=== PATIENT | male | born 1950 ===

== ENCOUNTER 2016-08-25 11:26 | Observation (INO) | payer SELFPAY ==
[2016-08-25 12:32] LABS: BASO % 0.6 % (0.0-2.0); EOS % 0.7 % (0.0-4.0); HEMATOCRIT 41.5 % (35.0-51.0); LYMPH # 1.2 K/uL (1.0-4.3); LYMPH % 21.5 % (20.0-40.0); MEAN CELL VOLUME 102.6 fL (80.0-94.0); MEAN CORPUSCULAR HEMOGLOBIN 34.4 pg (27.0-31.0); MEAN CORPUSCULAR HGB CONC 33.5 g/dL (33.0-37.0); MEAN PLATELET VOLUME 6.9 fL (7.2-11.7); MONO # 0.7 K/uL (0.0-0.8); MONO % 12.1 % (0.0-10.0); NRBC % 0.1 % (0.0-2.0); WHITE BLOOD COUNT 5.6 K/uL (4.8-10.8)
[2016-08-25 12:40] LABS: INR 1.2
[2016-08-25 12:44] LABS: CHLORIDE 102 mmol/L (98-107); POTASSIUM 4.3 mmol/L (3.6-5.2); SODIUM 137 mmol/L (132-148)
[2016-08-25 12:47] LABS: ALB/GLOB RATIO 0.6 (1.0-2.1); BILIRUBIN,TOTAL 1.5 mg/dL (0.2-1.3); BLOOD UREA NITROGEN 16 mg/dL (9-20); CARBON DIOXIDE 27 mmol/L (22-30); GFR AFRICAN-AMERICAN > 60; GLUCOSE,RANDOM 106 mg/dL (75-110); TOTAL PROTEIN 7.9 g/dL (6.3-8.3)
[2016-08-25 12:48] LABS: ALKALINE PHOSPHATASE 119 U/L (38-126); ALT/SGPT 66 U/L (21-72); AST/SGOT 79 U/L (17-59); CALCIUM 8.4 mg/dl (8.6-10.4)
--- NOTE | 2016-08-25 12:58 | RAD ---
PROCEDURE: CHEST RADIOGRAPH, 1 VIEW HISTORY: SOB COMPARISON: None available. FINDINGS: LUNGS: Examination limited due to low lung volumes. No pulmonary infiltrate. PLEURA: No pneumothorax or pleural fluid seen. CARDIOVASCULAR: Normal. OSSEOUS STRUCTURES: No significant abnormalities. VISUALIZED UPPER ABDOMEN: Normal. OTHER FINDINGS: None. IMPRESSION: No active disease.
--- NOTE | 2016-08-25 14:05 | C.PDOC ---
History Of Present Illness 65-year-old male, is sent to the emergency department from [facility], for evaluation of abdominal distention and shortness of breath. Patient has a Hx of liver cirrhosis, and states his ascites is painful. Patient denies fever, palpitations, chest pain, nausea/vomiting or diarrhea. No other complaints at this time. Time Seen by Provider: 08/25/16 11:58 Chief Complaint (Nursing): GI Problem History Per: Patient History/Exam Limitations: no limitations Onset/Duration Of Symptoms: Days Current Symptoms Are (Timing): Still Present Severity: Moderate Past Medical History Reviewed: Historical Data, Nursing Documentation, Vital Signs Vital Signs: Last Vital Signs Temp 98.4 F 08/25/16 15:48 Pulse 111 H 08/25/16 15:48 Resp 20 08/25/16 15:48 BP 126/91 H 08/25/16 15:48 Pulse Ox 92 L 08/25/16 16:06 - Medical History PMH: Denies: Chronic Kidney Disease - [facility] Procedures DRAINAGE OF PERITONEAL CAVITY, PERCUTANEOUS APPROACH (05/19/16) INSPECTION OF ABDOMINAL WALL, PERCUTANEOUS APPROACH (05/19/16) INTRODUCTION OF NUTRITIONAL INTO PERIPH VEIN, PERC APPROACH (05/19/16) Family History: States: No Known Family Hx - Social History Hx Alcohol Use: Yes Hx Substance Use: No - Immunization History Hx Tetanus Toxoid Vaccination: No Hx Influenza Vaccination: No Hx Pneumococcal Vaccination: No Review Of Systems Except As Marked, All Systems Reviewed And Found Negative. Constitutional: Negative for: Fever, Chills Cardiovascular: Negative for: Chest Pain, Palpitations Respiratory: Positive for: Shortness of Breath Gastrointestinal: Positive for: Abdominal Pain. Negative for: Nausea, Vomiting , Diarrhea Musculoskeletal: Negative for: Back Pain Physical Exam - Physical Exam Appears: Non-toxic, No Acute Distress, Chronically Ill Skin: Warm, Dry, No Rash Head: Atraumatic, Normacephalic Eye(s): bilateral: Normal Inspection Nose: Normal Neck: Normal ROM Cardiovascular: Rhythm Regular, No Murmur Respiratory: Normal Breath Sounds, No Accessory Muscle Use, No Rales, No Rhonchi Gastrointestinal/Abdominal: Tenderness (diffuse), Ascites Extremity: Normal ROM Neurological/Psych: Oriented x3, Normal Speech ED Course And Treatment - Laboratory Results Result Diagrams: 08/25/16 12:29 08/25/16 12:29 O2 Sat by Pulse Oximetry: 92 - Radiology CXR: Interpreted by Me, Viewed By Me CXR Interpretation: Yes: No Acute Disease Progress Note: Blood work and CXR ordered and reviewed. patient treated with IV Lasix. 2:00pm-Case discussed w/ Dr Taylor Ohara, agrees with admission under his service. Disposition - Disposition Disposition: HOSPITALIZED - Scribe Statement The provider has reviewed the documentation as recorded by the Scribe Tania Clarke All medical record entries made by the Scribe were at my direction and personally dictated by me. I have reviewed the chart and agree that the record accurately reflects my personal performance of the history, physical exam, medical decision making, and the department course for this patient. I have also personally directed, reviewed, and agree with the discharge instructions and disposition.
--- NOTE | 2016-08-25 16:34 | CP.PCM.HP ---
Past Patient History - Infectious Disease Hx of Infectious Diseases: None - Past Medical History & Family History Past Medical History?: Yes - Past Social History Smoking Status: Light Smoker < 10 Cigarettes Daily - CARDIAC Hx Cardiac Disorders: No - PULMONARY Hx Respiratory Disorders: No - NEUROLOGICAL Hx Neurological Disorder: No - HEENT Hx HEENT Problems: No - RENAL Hx Chronic Kidney Disease: No - ENDOCRINE/METABOLIC Hx Diabetes Mellitus Type 2: Yes - HEMATOLOGICAL/ONCOLOGICAL Hx Blood Disorders: Yes Hx Cirrhosis: Yes - INTEGUMENTARY Hx Dermatological Problems: No - MUSCULOSKELETAL/RHEUMATOLOGICAL Hx Falls: Yes - GASTROINTESTINAL Hx Gastrointestinal Disorders: Yes Hx Gastroesophageal Reflux: Yes Hx Liver Failure: Yes - GENITOURINARY/GYNECOLOGICAL Hx Genitourinary Disorders: No - PSYCHIATRIC Hx Substance Use: No - SURGICAL HISTORY Hx Surgeries: No - ANESTHESIA Hx Anesthesia: No Hx Anesthesia Reactions: No Meds Allergies/Adverse Reactions: Allergies Allergy/AdvReac Type Severity Reaction Status Date / Time No Known Allergies Allergy Verified 08/25/16 11:40 Physical Exam - Constitutional Appears: Well - Head Exam Head Exam: ATRAUMATIC, NORMAL INSPECTION, NORMOCEPHALIC - Eye Exam Eye Exam: EOMI, Normal appearance, PERRL Pupil Exam: NORMAL ACCOMODATION, PERRL - ENT Exam ENT Exam: Mucous Membranes Moist, Normal Exam - Neck Exam Neck exam: Positive for: Normal Inspection - Respiratory Exam Respiratory Exam: Decreased Breath Sounds - Cardiovascular Exam Cardiovascular Exam: REGULAR RHYTHM, +S1, +S2 - GI/Abdominal Exam GI & Abdominal Exam: Diminished Bowel Sounds, Soft - Rectal Exam Rectal Exam: Deferred Results - Vital Signs Recent Vital Signs: Last Vital Signs Temp 98.4 F 08/25/16 15:48 Pulse 111 H 08/25/16 15:48 Resp 20 08/25/16 15:48 BP 126/91 H 08/25/16 15:48 Pulse Ox 92 L 08/25/16 16:07 - Labs Result Diagrams: 08/25/16 12:29 08/25/16 12:29
--- NOTE | 2016-08-25 18:04 | US ---
HISTORY: ascites COMPARISON: None available. TECHNIQUE: Sonographic evaluation of the abdomen. FINDINGS: LIVER: Measures 16.2 cm in sagittal dimension. Nodular hepatic contour. Echogenic liver may be seen in setting of hepatic parenchymal disease or fatty infiltration. No focal hepatic mass identified. The main portal vein appears patent with normal directional flow. No intrahepatic bile duct dilatation. Partially imaged moderate ascites. GALLBLADDER: No gallstones. No gallbladder wall thickening. Negative sonographic Winters's sign as assessed by the commodity director. COMMON BILE DUCT: Measures 4 mm. PANCREAS: Not well visualized. RIGHT KIDNEY: Measures 13.2 x 4.5 x 4.9cm. No obstructing calculus or hydronephrosis identified. LEFT KIDNEY: Measures 10.7 x 6.5 x 5.0cm. Mild hydronephrosis. No obstructing calculus identified. SPLEEN: Measures approximately 10.7 cm. AORTA: Not well-visualized. IVC: Not well-visualized. OTHER FINDINGS: None. IMPRESSION: Echogenic liver may be seen in setting of hepatic parenchymal disease or fatty infiltration. Nodular hepatic contour may be seen in the setting of cirrhosis. Partially imaged moderate ascites. Gallbladder wall thickening. Mild left-sided hydronephrosis.
--- NOTE | 2016-08-25 18:09 | US ---
Pelvis ultrasound Indication: Ascites Comparison: None available. Findings: Limited submitted views of the pelvis demonstrates moderate ascites. Urinary bladder is decompressed and cannot be adequately assessed. Impression: Moderate ascites.
[2016-08-25] MEDS ORDERED: Albuterol-Ipratrop 3 mg / 0.5 (3 ml) UD IH PRN (21:00)
[2016-08-25] MEDS: (Novolin R) Insulin Human Regular 100 units/ml vial SC SCH (22:30)
[2016-08-25] MEDS: Bacitracin 500 Units/gm Oint Foilpak UD TOP SCH (23:04)
[2016-08-25] MEDS: Cefepime IV 1 gm in Dextrose 1 GM/50 ML BAG IVPB SCH (23:05)
[2016-08-26] MEDS: Bacitracin 500 Units/gm Oint Foilpak UD TOP SCH ×2 (05:00→13:48)
[2016-08-26] MEDS: (Novolin R) Insulin Human Regular 100 units/ml vial SC SCH ×3 (07:30→17:28)
--- NOTE | 2016-08-26 08:13 | CP.PCM.CON ---
<Jeremiah Leal - Last Filed: 08/26/16 09:18> History of Present Illness - History of Present Illness History of Present Illness: PGY4 GI Fellow Consult Note Patient is a 65yo male with PMHx significant for EtOH abuse, decompensated cirrhosis with ascites and diabetes who presented to the ED from [facility] for abdominal distention and SOB. The patient was last seen in our hospital in May/June 2016 for alcohol abuse, complications of cirrhosis with ascites and was discharged to rehab. He is a very poor historian. States that over the past month he has gradually developed worsening abdominal distention and SOB. In the past week, abdomen has become very tense, distended and diffusely painful. He has required paracentesis previously, does not have a history of SBP and was only on Lasix 40mg PO QD at [facility] per EMR. He is unsure if he has been eating a low salt diet. Separately, he admits to pruritus, intermittent melena. Having 4- 5 BM/day. Denies any nausea, vomiting, hematemesis, fever, chills. PMHx: See HPI PSHx: Denies FHx: Mother - CAD Social: Prior EtOH abuse, last drink in May 2016; denies tobacco or illicit drug use Endo: None per patient Review of Systems - Constitutional Constitutional: Weight Gain. absent: Anorexia, Chills, Fever - EENT Eyes: absent: Change in Vision Nose/Mouth/Throat: absent: Sore Throat - Cardiovascular Cardiovascular: Dyspnea. absent: Chest Pain, Edema - Respiratory Respiratory: Dyspnea, Dyspnea on Exertion. absent: Cough, Excessive Mucous Production - Gastrointestinal Gastrointestinal: Abdominal Pain, Bloating, Loose Stools, Melena. absent: Constipation, Diarrhea, Dyspepsia, Dysphagia, Heartburn, Hematemesis, Hematochezia, Nausea, Vomiting - Genitourinary Genitourinary: absent: Dysuria, Urinary Frequency, Urinary Urgency - Musculoskeletal Musculoskeletal: absent: Back Pain, Neck Pain - Integumentary Integumentary: Pruritus. absent: New Lesions, Rash - Neurological Neurological: absent: Dizziness, Numbness, Focal Weakness - Psychiatric Psychiatric: absent: Anxiety, Depression - Endocrine Endocrine: absent: Polydipsia, Polyphagia, Polyuria - Hematologic/Lymphatic Hematologic: absent: Easy Bleeding, Easy Bruising, Lymphadenopathy Past Patient History - Infectious Disease Hx of Infectious Diseases: None - Past Medical History & Family History Past Medical History?: Yes - Past Social History Smoking Status: Unknown If Ever Smoked - CARDIAC Hx Cardiac Disorders: No - PULMONARY Hx Respiratory Disorders: No - NEUROLOGICAL Hx Neurological Disorder: No - HEENT Hx HEENT Problems: No - RENAL Hx Chronic Kidney Disease: No - ENDOCRINE/METABOLIC Hx Diabetes Mellitus Type 2: Yes - HEMATOLOGICAL/ONCOLOGICAL Hx Blood Disorders: Yes Hx Cirrhosis: Yes - INTEGUMENTARY Hx Dermatological Problems: No - MUSCULOSKELETAL/RHEUMATOLOGICAL Hx Falls: Yes - GASTROINTESTINAL Hx Gastrointestinal Disorders: Yes Hx Gastroesophageal Reflux: Yes Hx Liver Failure: Yes - GENITOURINARY/GYNECOLOGICAL Hx Genitourinary Disorders: No - PSYCHIATRIC Hx Substance Use: No - SURGICAL HISTORY Hx Surgeries: No - ANESTHESIA Hx Anesthesia: No Hx Anesthesia Reactions: No Meds Allergies/Adverse Reactions: Allergies Allergy/AdvReac Type Severity Reaction Status Date / Time No Known Allergies Allergy Verified 08/25/16 11:40 - Medications Medications: Current Medications Albuterol/Ipratropium (Duoneb 3 Mg/0.5 Mg (3 Ml) Ud) 3 ml IH RQ6 PRN PRN Reason: Shortness of Breath Bacitracin (Bacitracin) 1 ea TOP Q8H [facility] Last Admin: 08/26/16 05:00 Dose: 1 ea Folic Acid (Folic Acid) 1 mg PO DAILY [facility] Furosemide (Lasix) 40 mg PO DAILY [facility] Cefepime HCl (Maxipime Iv 1 Gm Premix) 1 gm in 50 mls @ 100 mls/hr IVPB Q12H [facility] Last Admin: 08/25/16 23:05 Dose: 100 mls/hr Insulin Human Regular (Novolin R) 0 unit SC ACHS [facility] PRN Reason: Protocol Last Admin: 08/25/16 22:30 Dose: Not Given Lactulose (Enulose) 20 gm PO DAILY [facility] Levetiracetam (Keppra) 500 mg PO Q12H [facility] Last Admin: 08/25/16 23:04 Dose: 500 mg Mupirocin (Bactroban Ointment) 0 gm EXT BID [facility] Rifaximin (Xifaxan) 550 mg PO BID [facility] Last Admin: 08/25/16 23:05 Dose: 550 mg Saccharomyces Boulardii (Florastor) 250 mg PO BID [facility] Spironolactone (Aldactone) 100 mg PO DAILY [facility] Physical Exam - Constitutional Appears: Chronically Ill - Eye Exam Eye Exam: EOMI, PERRL - ENT Exam ENT Exam: Mucous Membranes Dry - Respiratory Exam Respiratory Exam: Decreased Breath Sounds, Rales. absent: Rhonchi, Wheezes - Cardiovascular Exam Cardiovascular Exam: RRR, +S1, +S2 - GI/Abdominal Exam GI & Abdominal Exam: Distended, Firm, Hernia (umbilical), Normal Bowel Sounds, Rigid, Tenderness. absent: Guarding, Organomegaly, Soft - Extremities Exam Extremities exam: Positive for: normal inspection. Negative for: pedal edema - Neurological Exam Neurological exam: Alert, Oriented x3 - Psychiatric Exam Psychiatric exam: Normal Affect, Normal Mood - Skin Skin Exam: Dry, Warm Results - Vital Signs Recent Vital Signs: Last Vital Signs Temp 98 F 08/25/16 23:58 Pulse 105 H 08/26/16 01:00 Resp 16 08/25/16 23:58 BP 122/70 08/25/16 23:58 Pulse Ox 98 08/25/16 23:58 - Labs Result Diagrams: 08/26/16 08:20 08/26/16 08:20 Labs: Laboratory Results - last 24 hr 08/25/16 08/26/16 21:12 06:49 POC Glucose (mg/dL) 151 H 96 Assessment & Plan - Assessment and Plan (Free Text) Assessment: Patient is a 65yo male with PMHx significant for EtOH abuse, decompensated cirrhosis with ascites and diabetes who presented to the ED from [facility] for abdominal distention and SOB. -Decompensated EtOH cirrhosis -Abdominal ascites -DM Plan: -Abdominal U/S reviewed, moderate ascites -Recommend paracentesis - please send ascitic fluid for cell count, C&S, albumin -Continue Lasix 40mg PO QD -Add Spironolactone 100mg PO QD -Continue lactulose as ordered; titrate to 2-3 BM/day -2g Na diet -D/C PPI/H2 arlette as this increases risk of SBP in patients with ascites -D/C any sedating agents; Benadryl discontinued -Hepatitis serologies negative in 04/2016 -Check autoimmune work up: NIK, AMA, SMA, LKM-Ab, IgG level -Patient needs variceal screening with EGD and screening colonoscopy -Patient would benefit from dedicated liver imaging -Patient will require close outpatient follow up -MELD-Na: 12 - Date & Time Date: 08/26/16 Time: 07:30 <Gamaliel Frankel Y - Last Filed: 08/26/16 09:50> Meds - Medications Medications: Current Medications Albuterol/Ipratropium (Duoneb 3 Mg/0.5 Mg (3 Ml) Ud) 3 ml IH RQ6 PRN PRN Reason: Shortness of Breath Bacitracin (Bacitracin) 1 ea TOP Q8H [facility] Last Admin: 08/26/16 05:00 Dose: 1 ea Folic Acid (Folic Acid) 1 mg PO DAILY [facility] Furosemide (Lasix) 40 mg PO DAILY [facility] Cefepime HCl (Maxipime Iv 1 Gm Premix) 1 gm in 50 mls @ 100 mls/hr IVPB Q12H [facility] Last Admin: 08/25/16 23:05 Dose: 100 mls/hr Insulin Human Regular (Novolin R) 0 unit SC ACHS [facility] PRN Reason: Protocol Last Admin: 08/26/16 07:30 Dose: Not Given Lactulose (Enulose) 20 gm PO DAILY [facility] Levetiracetam (Keppra) 500 mg PO Q12H [facility] Last Admin: 08/25/16 23:04 Dose: 500 mg Mupirocin (Bactroban Ointment) 0 gm EXT BID [facility] Rifaximin (Xifaxan) 550 mg PO BID [facility] Last Admin: 08/25/16 23:05 Dose: 550 mg Saccharomyces Boulardii (Florastor) 250 mg PO BID [facility] Spironolactone (Aldactone) 100 mg PO DAILY [facility] Results - Vital Signs Recent Vital Signs: Last Vital Signs Temp 97.4 F L 08/26/16 08:17 Pulse 98 H 08/26/16 08:17 Resp 20 08/26/16 08:17 BP 121/87 08/26/16 08:17 Pulse Ox 96 08/26/16 08:17 - Labs Result Diagrams: 08/26/16 08:20 08/26/16 08:20 Labs: Laboratory Results - last 24 hr 08/25/16 08/26/16 08/26/16 21:12 06:49 08:20 WBC 7.0 RBC 3.89 L Hgb 13.6 Hct 39.6 MCV 102.1 H MCH 35.0 H MCHC 34.3 RDW 16.0 H Plt Count 171 MPV 6.9 L Sodium Potassium Chloride Carbon Dioxide Anion Gap BUN Creatinine Est GFR ( Amer) Est GFR (Non-Af Amer) POC Glucose (mg/dL) 151 H 96 Random Glucose Calcium Total Bilirubin AST ALT Alkaline Phosphatase Ammonia Total Protein Albumin Globulin Albumin/Globulin Ratio 08/26/16 08/26/16 08:20 08:20 WBC RBC Hgb Hct MCV MCH MCHC RDW Plt Count MPV Sodium 136 Potassium 3.9 Chloride 100 Carbon Dioxide 27 Anion Gap 13 BUN 17 Creatinine 0.9 Est GFR ( Amer) > 60 Est GFR (Non-Af Amer) > 60 POC Glucose (mg/dL) Random Glucose 87 Calcium 8.4 L Total Bilirubin 1.4 H AST 66 H ALT 62 Alkaline Phosphatase 122 Ammonia 20 D Total Protein 7.7 Albumin 2.8 L Globulin 5.0 H Albumin/Globulin Ratio 0.6 L Attending/Attestation - Attestation I have personally seen and examined this patient.: Yes I have fully participated in the care of the patient.: Yes I have reviewed all pertinent clinical information: Yes Notes (Text): 08/26/16 09:43 I have seen and examined patient with GI fellow. Agree with above documentation with the following additions. In brief, this is a 65 year old male with history of decompensated ETOH cirrhosis, DM who presents to hospital with complaint of progressive dyspnea and abdominal distention. He claims that over the past one month his abdomen has become increasingly distended and painful, particularly on movement. This is accompanied with extreme dyspnea with even minimal exertion. He denies nausea, vomiting, fever/chills, weight loss, or rectal bleeding. He does endorse intermittent melena over the past few weeks, typically has up to 4 bowel movements daily. His last ETOH drink was in May 2016, no prior endoscopic evaluation. ETOH decompensated cirrhosis, admission MELD 12 DM Abdominal pain - US reviewed by me showing moderate ascites, no visible liver lesion - Suggest diagnostic and therapeutic paracentesis, patient will likely require subsequent albumin replacement therapy - Continue with diuretic regimen, monitor electrolytes - Low sodium diet as tolerated - Continue to monitor LFTs, awaiting autoimmune panel - Continue with lactulose and xifaxan regimen for prevention of HE - Patient will benefit from dedicated triple phase liver imaging after ensuring creatinine stable post paracentesis - Patient would also benefit from EGD for variceal screening and colonoscopy for colon cancer screening, timing to be determined following patient clinical course
[2016-08-26 08:26] LABS: HEMATOCRIT 39.6 % (35.0-51.0); MEAN CELL VOLUME 102.1 fL (80.0-94.0); MEAN CORPUSCULAR HGB CONC 34.3 g/dL (33.0-37.0); MEAN PLATELET VOLUME 6.9 fL (7.2-11.7)
[2016-08-26 09:10] LABS: CHLORIDE 100 mmol/L (98-107); SODIUM 136 mmol/L (132-148)
[2016-08-26 09:11] LABS: POTASSIUM 3.9 mmol/L (3.6-5.2)
[2016-08-26 09:13] LABS: ALB/GLOB RATIO 0.6 (1.0-2.1); ALKALINE PHOSPHATASE 122 U/L (38-126); ALT/SGPT 62 U/L (21-72); AST/SGOT 66 U/L (17-59); BILIRUBIN,TOTAL 1.4 mg/dL (0.2-1.3); BLOOD UREA NITROGEN 17 mg/dL (9-20); CALCIUM 8.4 mg/dl (8.6-10.4); CARBON DIOXIDE 27 mmol/L (22-30); GFR AFRICAN-AMERICAN > 60; GLUCOSE,RANDOM 87 mg/dL (75-110); TOTAL PROTEIN 7.7 g/dL (6.3-8.3)
[2016-08-26] MEDS ORDERED: Pantoprazole 40 mg EC Tab PO SCH (10:00)
[2016-08-26 10:11] LABS: BODY FLUID TYPE PERITONEAL/ASCITES
[2016-08-26] MEDS: Saccharomyces Boulardi 250 mg Cap PO SCH ×2 (10:33→17:15)
[2016-08-26] MEDS: Cefepime IV 1 gm in Dextrose 1 GM/50 ML BAG IVPB SCH (10:37)
[2016-08-26 11:14] LABS: BF GROSS APPEARANCE CLEAR (CLEAR)
[2016-08-26 11:16] LABS: BODY FLUID TOTAL COUNT 100 (0-0)
--- NOTE | 2016-08-26 13:46 | US ---
Date of Procedure: 08/26/2016 PROCEDURE: Ultrasound-guided paracentesis, CPT 28288 Medications: 8cc 1% Lidocaine HISTORY: Ascites, abdominal pain, cirrhosis TECHNIQUE: Following informed consent , the patient was placed supine on the stretcher and the site was marked. A limited abdominal ultrasound was performed that showed a large amount of intra-abdominal fluid. Procedural time out was called and the Pt's abdomen was marked and prepped and draped in the usual sterile fashion. Ultrasound-guided large volume paracentesis performed. A total of 10 liters of straw colored fluid was removed without complication. Fluid specimen was sent for culture, sensitivity, cytology and chemistries. IMPRESSION: Ultrasound-guided large volume paracentesis.
[2016-08-26] MEDS: Albumin Human 25% (12.5 gm/50 ml) IV SCH ×2 (15:16→17:15)
[2016-08-26 15:36] VITALS: O2SAT 97
--- NOTE | 2016-08-26 16:14 | CP.PCM.PN ---
Subjective - Date & Time of Evaluation Date of Evaluation: 08/26/16 Time of Evaluation: 10:20 - Subjective Subjective: clinically same Objective - Vital Signs/Intake and Output Vital Signs (last 24 hours): Temp Pulse Resp BP Pulse Ox 98.0 F 60 20 162/71 H 97 08/26/16 15:10 08/26/16 15:10 08/26/16 15:10 08/26/16 15:10 08/26/16 15:10 Intake and Output: 08/26/16 08/26/16 06:59 18:59 Intake Total 200 Balance 200 - Medications Medications: Current Medications Albumin Human (Albumin Human 25% (12.5 Gm/50 Ml)) 12.5 gm IV Q2H [facility] Stop: 08/26/16 22:31 Last Admin: 08/26/16 15:16 Dose: 12.5 gm Albuterol/Ipratropium (Duoneb 3 Mg/0.5 Mg (3 Ml) Ud) 3 ml IH RQ6 PRN PRN Reason: Shortness of Breath Bacitracin (Bacitracin) 1 ea TOP Q8H [facility] Last Admin: 08/26/16 13:48 Dose: 1 ea Folic Acid (Folic Acid) 1 mg PO DAILY [facility] Last Admin: 08/26/16 10:34 Dose: 1 mg Furosemide (Lasix) 40 mg PO DAILY [facility] Last Admin: 08/26/16 10:40 Dose: 40 mg Cefepime HCl (Maxipime Iv 1 Gm Premix) 1 gm in 50 mls @ 100 mls/hr IVPB Q12H [facility] Last Admin: 08/26/16 10:37 Dose: 100 mls/hr Insulin Human Regular (Novolin R) 0 unit SC ACHS [facility] PRN Reason: Protocol Last Admin: 08/26/16 11:24 Dose: Not Given Lactulose (Enulose) 20 gm PO DAILY [facility] Last Admin: 08/26/16 10:34 Dose: 20 gm Levetiracetam (Keppra) 500 mg PO Q12H [facility] Last Admin: 08/26/16 10:32 Dose: 500 mg Mupirocin (Bactroban Ointment) 0 gm EXT BID [facility] Last Admin: 08/26/16 10:33 Dose: 1 appl Rifaximin (Xifaxan) 550 mg PO BID [facility] Last Admin: 08/26/16 10:34 Dose: 550 mg Saccharomyces Boulardii (Florastor) 250 mg PO BID [facility] Last Admin: 08/26/16 10:33 Dose: 250 mg Spironolactone (Aldactone) 100 mg PO DAILY [facility] Last Admin: 08/26/16 10:33 Dose: 100 mg - Labs Labs: 08/26/16 08:20 08/26/16 08:20 PT 13.2 SECONDS (9.7-12.2) H 08/25/16 12:29 INR 1.2 08/25/16 12:29 APTT 38 SECONDS (21-34) H 08/25/16 12:29 - Constitutional Appears: Well - Head Exam Head Exam: ATRAUMATIC, NORMAL INSPECTION, NORMOCEPHALIC - Eye Exam Eye Exam: EOMI, Normal appearance, PERRL Pupil Exam: NORMAL ACCOMODATION, PERRL - ENT Exam ENT Exam: Mucous Membranes Moist, Normal Exam - Neck Exam Neck Exam: Full ROM, Normal Inspection. absent: Lymphadenopathy - Respiratory Exam Respiratory Exam: Decreased Breath Sounds - Cardiovascular Exam Cardiovascular Exam: REGULAR RHYTHM, +S1, +S2 - GI/Abdominal Exam GI & Abdominal Exam: Soft, Diminished Bowel Sounds - Rectal Exam Rectal Exam: Deferred
[2016-08-26 16:35] VITALS: BP 106/70; PULSE 95; RESP 18; TEMP 98.1
[2016-08-27 15:49] LABS: SMOOTH MUSCLE AB TITER 1:20 Titer (< 1:20)
[2016-08-28 23:18] LABS: LKM-1 Ab (IgG) <=20.0 U (<=20.0)
== END 2016-08-26 19:31 ==
LOC: C.ER 11:26 → INTOOBSV 13:25 → C.9E 13:25 → C.6T 13:54 → C.9E 14:06 → C.5T 14:14
PROVIDERS: ADMIT Internal Medicine Nephrology; ATTEND Internal Medicine Nephrology
DX: K70.31 Alcoholic cirrhosis of liver with ascites (principal); E11.9 Type 2 diabetes mellitus without complications; L29.9 Pruritus, unspecified; Z82.49 Family history of ischemic heart disease and other diseases of the circulatory system; Z79.4 Long term (current) use of insulin
CPT/HCPCS: 36415; 49083; 71010; 76700; 76856; 80053; 82042; 82140; 82550; 82553; 82784; 82948; 83880; 84484; 85025; 85027; 85610; 85730; 86038; 86255; 86376; 87070; 89051; 96374; 99285; G0378; J0692; J1940; P9047

== ENCOUNTER 2016-09-09 12:24 | Inpatient (IN) | payer MEDICARE, OTHER ==
[2016-09-09] MEDS ORDERED: Sodium Chloride 0.9% 1,000 ML ONE (13:45)
--- NOTE | 2016-09-09 13:58 | C.PDOC ---
History Of Present Illness 66 year old male presents to the ED with complaints of abdominal distention and fever. Patient notes a history of alcohol abuse, cirrhosis of the liver, diabetes and was brought from [facility]. He was admitted to Dr. Joe Ohara on August 25, 2016 with similar complaints and TAP performed by IR. Patient denies having a PMD, vomiting, or diarrhea. Time Seen by Provider: 09/09/16 13:06 Chief Complaint (Nursing): GI Problem History Per: Patient History/Exam Limitations: no limitations Onset/Duration Of Symptoms: Persistent Current Symptoms Are (Timing): Still Present Severity: Moderate Pain Scale Rating Of: 6 Location Of Pain/Discomfort: Diffuse Associated Symptoms: Fever. denies: Vomiting, Diarrhea Recent travel outside of the [place]: No Additional History Per: Assisted ([place] ) Past Medical History Reviewed: Historical Data, Nursing Documentation, Vital Signs Vital Signs: Last Vital Signs Temp 100.2 F H 09/09/16 15:06 Pulse 110 H 09/09/16 15:06 Resp 20 09/09/16 15:06 BP 123/81 09/09/16 15:06 Pulse Ox 91 L 09/09/16 15:23 - [facility] Procedures DRAINAGE OF PERITONEAL CAVITY, PERCUTANEOUS APPROACH (05/19/16) INSPECTION OF ABDOMINAL WALL, PERCUTANEOUS APPROACH (05/19/16) INTRODUCTION OF NUTRITIONAL INTO PERIPH VEIN, PERC APPROACH (05/19/16) Family History: States: Unknown Family Hx - Social History Hx Alcohol Use: Yes Hx Substance Use: No - Immunization History Hx Tetanus Toxoid Vaccination: No Hx Influenza Vaccination: No Hx Pneumococcal Vaccination: No Review Of Systems Constitutional: Positive for: Fever. Negative for: Chills, Sweats Cardiovascular: Negative for: Chest Pain, Palpitations Respiratory: Negative for: Cough, Shortness of Breath Gastrointestinal: Positive for: Abdominal Pain. Negative for: Nausea, Vomiting , Diarrhea Physical Exam - Physical Exam Appears: Chronically Ill Skin: Warm, Dry, No Pale, No Ecchymosis Head: Atraumatic Oral Mucosa: Dry Neck: No Midline Cervical Tenderness, No Paracervical Tenderness, Supple Chest: Symmetrical, No Deformity Cardiovascular: Rhythm Regular Respiratory: No Rales, No Rhonchi, No Stridor, No Wheezing, Other (bilateral crackles ) Gastrointestinal/Abdominal: Soft, Tenderness (diffuse tenderness), Distention ( very distended ), No Guarding, No Rebound Extremity: Normal ROM, No Tenderness, No Pedal Edema, No Swelling Neurological/Psych: Oriented x3 Additional Physical Exam Comments: Muscular: Muscle wasting ED Course And Treatment - Laboratory Results Result Diagrams: 09/09/16 14:06 09/09/16 14:06 ECG Rhythm: L BBB Interpretation Of EC bpm and left axis deviation O2 Sat by Pulse Oximetry: 91 (room air ) Disposition Discussed With : Zoë Ohara Counseled Patient/Family Regarding: Studies Performed, Diagnosis - Disposition Disposition: HOSPITALIZED Disposition Time: 14:18 Condition: CRITICAL - Clinical Impression Clinical Impression: Ascites, Sepsis - Scribe Statement The provider has reviewed the documentation as recorded by the Scribe Aylin Ledesma All medical record entries made by the Scribe were at my direction and personally dictated by me. I have reviewed the chart and agree that the record accurately reflects my personal performance of the history, physical exam, medical decision making, and the department course for this patient. I have also personally directed, reviewed, and agree with the discharge instructions and disposition. Decision To Admit - Pt Status Changed To: Hospital Disposition Of: Inpatient - Admit Certification Admit to Inpatient:: After my assessment, the patient will require hospitalization for at least two midnights. This is because of the severity of symptoms shown, intensity of services needed, and/or the medical risk in this patient being treated as an outpatient. - InPatient: Physician Admission Certification:: sepsis, unstable patient, complication with liver faillure - . Bed Request Type: Telemetry Patient Diagnosis: Ascites, Sepsis
[2016-09-09] MEDS ORDERED: Sodium Chloride 0.9% 1,000 ML IV ONE (14:06)
--- NOTE | 2016-09-09 14:08 | RAD ---
HISTORY: Sepsis Patient COMPARISON: 08/25/2016 FINDINGS: LUNGS: Elevated right hemidiaphragm. Mild venous congestion. PLEURA: No significant pleural effusion identified, no pneumothorax apparent. CARDIOVASCULAR: Cardiomegaly. OSSEOUS STRUCTURES: No significant abnormalities. VISUALIZED UPPER ABDOMEN: Normal. OTHER FINDINGS: None. IMPRESSION: Elevated right hemidiaphragm. Mild venous congestion. Cardiomegaly.
[2016-09-09 14:12] LABS: VENOUS BLOOD GAS BASE EXCESS 0.3 mmol/L (0.0-2.0); VENOUS BLOOD GAS PCO2 53 mmHg (40-60); VENOUS BLOOD PH 7.32 (7.32-7.43)
[2016-09-09 14:14] LABS: BASO # 0.1 K/uL (0.0-0.2); BASO % 0.8 % (0.0-2.0); HEMATOCRIT 42.6 % (35.0-51.0); LYMPH # 0.8 K/uL (1.0-4.3); LYMPH % 11.2 % (20.0-40.0); MEAN CORPUSCULAR HEMOGLOBIN 35.7 pg (27.0-31.0); MEAN CORPUSCULAR HGB CONC 34.1 g/dL (33.0-37.0); MEAN PLATELET VOLUME 6.9 fL (7.2-11.7); MONO # 0.7 K/uL (0.0-0.8); NRBC % 0.1 % (0.0-2.0); RED CELL DISTRIBUTION WIDTH 15.2 % (11.5-14.5); WHITE BLOOD COUNT 7.4 K/uL (4.8-10.8)
[2016-09-09 14:16] LABS: MEAN CELL VOLUME 104.7 fL (80.0-94.0)
[2016-09-09] MEDS ORDERED: Piperacillin/Tazobact 3.375 gm 100 ML IV STA (14:17)
[2016-09-09 14:21] LABS: CHLORIDE 98 mmol/L (98-107); POTASSIUM 4.5 mmol/L (3.6-5.2); SODIUM 131 mmol/L (132-148)
[2016-09-09 14:23] LABS: ALB/GLOB RATIO 0.6 (1.0-2.1); ALKALINE PHOSPHATASE 138 U/L (38-126); AST/SGOT 94 U/L (17-59); BILIRUBIN,TOTAL 1.6 mg/dL (0.2-1.3); CARBON DIOXIDE 24 mmol/L (22-30); GFR AFRICAN-AMERICAN > 60; TOTAL PROTEIN 7.7 g/dL (6.3-8.3)
[2016-09-09 14:24] LABS: ALT/SGPT 68 U/L (21-72); BLOOD UREA NITROGEN 17 mg/dL (9-20); CALCIUM 8.6 mg/dl (8.6-10.4); GLUCOSE,RANDOM 130 mg/dL (75-110); PHOSPHOROUS 5.1 mg/dL (2.5-4.5)
[2016-09-09] MEDS ORDERED: Piperacillin/Tazobact 3.375 gm 100 ML IVPB ONE (14:32)
[2016-09-09] MEDS ORDERED: Sodium Chloride 0.9% 500 ML IV ONE (14:38)
[2016-09-09 14:56] LABS: RBC URINE 29 /hpf (0-3); URINE BACTERIA MANY (<OCC); URINE BILIRUBIN NEGATIVE (NEGATIVE); URINE BLOOD 1+ (NEGATIVE); URINE GLUCOSE (UA) NORMAL (Normal); URINE KETONE NEGATIVE (NEGATIVE); URINE LEUKOCYTE ESTERASE 3+ Leu/uL (Negative); URINE PROTEIN 2+ mg/dL (NEGATIVE); WBC CLUMPS MANY /hpf; WBC URINE 2819 /hpf (0-5)
[2016-09-09] MEDS ORDERED: Vancomycin 1 GM 1 GM/250 ML BAG IVPB ONE (15:00)
[2016-09-09] MEDS ORDERED: Vancomycin 1 gm/NS 200 ml 1 GM/200 ML BAG IVPB ONE (15:00)
[2016-09-09 15:16] LABS: URINE COLOR YELLOW (YELLOW)
--- NOTE | 2016-09-09 16:28 | CP.PCM.HP ---
Past Patient History - Infectious Disease Hx of Infectious Diseases: None - Past Medical History & Family History Past Medical History?: Yes - Past Social History Smoking Status: Unknown If Ever Smoked - CARDIAC Hx Cardiac Disorders: No - PULMONARY Hx Respiratory Disorders: No - NEUROLOGICAL Hx Neurological Disorder: No - HEENT Hx HEENT Problems: No - RENAL Hx Chronic Kidney Disease: No - ENDOCRINE/METABOLIC Hx Diabetes Mellitus Type 2: Yes - HEMATOLOGICAL/ONCOLOGICAL Hx Blood Disorders: Yes Hx Cirrhosis: Yes - INTEGUMENTARY Hx Dermatological Problems: No - MUSCULOSKELETAL/RHEUMATOLOGICAL Hx Falls: Yes - GASTROINTESTINAL Hx Gastrointestinal Disorders: Yes Hx Gastroesophageal Reflux: Yes Hx Liver Failure: Yes - GENITOURINARY/GYNECOLOGICAL Hx Genitourinary Disorders: No - PSYCHIATRIC Hx Substance Use: No - SURGICAL HISTORY Hx Surgeries: No - ANESTHESIA Hx Anesthesia: No Hx Anesthesia Reactions: No Meds Allergies/Adverse Reactions: Allergies Allergy/AdvReac Type Severity Reaction Status Date / Time No Known Allergies Allergy Verified 09/09/16 12:58 Physical Exam - Constitutional Appears: Well - Head Exam Head Exam: ATRAUMATIC, NORMAL INSPECTION, NORMOCEPHALIC - Eye Exam Eye Exam: EOMI, Normal appearance, PERRL Pupil Exam: NORMAL ACCOMODATION, PERRL - ENT Exam ENT Exam: Mucous Membranes Moist, Normal Exam - Neck Exam Neck exam: Positive for: Normal Inspection - Respiratory Exam Respiratory Exam: Decreased Breath Sounds - Cardiovascular Exam Cardiovascular Exam: REGULAR RHYTHM, +S1, +S2 - GI/Abdominal Exam GI & Abdominal Exam: Diminished Bowel Sounds, Soft - Rectal Exam Rectal Exam: Deferred Results - Vital Signs Recent Vital Signs: Last Vital Signs Temp 101.7 F H 09/09/16 16:06 Pulse 120 H 09/09/16 15:49 Resp 20 09/09/16 15:49 BP 145/93 H 09/09/16 15:49 Pulse Ox 92 L 09/09/16 15:49 - Labs Result Diagrams: 09/09/16 14:06 09/09/16 14:06 Labs: Laboratory Results - last 24 hr 09/09/16 14:31 Urine Color Yellow Urine Clarity Turbid Urine pH 5.0 Ur Specific [place] 1.013 Urine Protein 2+ H Urine Glucose (UA) Normal Urine Ketones Negative Urine Blood 1+ H Urine Nitrate Negative Urine Bilirubin Negative Urine Urobilinogen 2.0 Ur Leukocyte Esterase 3+ H Urine WBC (Auto) 2819 H Urine RBC (Auto) 29 H Urine WBC Clumps (Auto) Many H Amorphous Sediment Occ H Urine Bacteria Many H
[2016-09-09 18:04] LABS: DRAW SITE VENOUS; VENOUS BLOOD GAS BASE EXCESS -3.1 mmol/L (0.0-2.0); VENOUS BLOOD GAS PCO2 50 mmHg (40-60); VENOUS BLOOD PH 7.29 (7.32-7.43)
[2016-09-09 18:22] LABS: VENOUS BLOOD GAS BASE EXCESS -3.4 mmol/L (0.0-2.0); VENOUS BLOOD GAS PCO2 49 mmHg (40-60); VENOUS BLOOD PH 7.29 (7.32-7.43)
[2016-09-09] MEDS ORDERED: Sodium Chloride 0.9% 1,000 ML IV SCH (21:00)
[2016-09-09] MEDS: (Novolog) Insulin Aspart, Recombinant 100 u/ml 10 ml vial SC SCH (22:26)
[2016-09-10] MEDS ORDERED: (Novolog) Insulin Aspart, Recombinant 100 u/ml 10 ml vial SC SCH
[2016-09-10] MEDS: Albuterol-Ipratrop 3 mg / 0.5 (3 ml) UD INH SCH ×4 (02:31→20:01)
[2016-09-10] MEDS: (Novolog) Insulin Aspart, Recombinant 100 u/ml 10 ml vial SC SCH ×4 (08:18→21:45)
--- NOTE | 2016-09-10 09:35 | CP.PCM.CON ---
<Jeremiah Leal - Last Filed: 09/10/16 12:49> History of Present Illness - History of Present Illness History of Present Illness: PGY4 GI Fellow Consult Note Patient is a 65yo male with PMHx significant for EtOH abuse, decompensated cirrhosis with ascites and diabetes who presented to the ED from [facility] for abdominal distention and SOB. Patient is a very poor historian and unable to provide a detailed HPI. He was recently admitted for identical complaints on August 26 and underwent paracentesis with 10L removed, no sign of SBP on cell count /culture. He returns with progressive distention of the abdomen over the span of a few weeks. He remains on low dose diuresis with Lasix 20mg PO QD and Spironolactone 25mg PO BID. Denies any nausea, vomiting, melena, hematochezia, hematemesis, fever, chills. PMHx: See HPI PSHx: Denies FHx: Mother - CAD Social: Prior EtOH abuse, last drink in May 2016; denies tobacco or illicit drug use Endo: None per patient Review of Systems - Constitutional Constitutional: absent: Anorexia, Chills, Fever - EENT Eyes: absent: Change in Vision Nose/Mouth/Throat: absent: Sore Throat - Cardiovascular Cardiovascular: Dyspnea. absent: Chest Pain, Edema - Respiratory Respiratory: Dyspnea. absent: Cough, Excessive Mucous Production - Gastrointestinal Gastrointestinal: Abdominal Pain, Bloating. absent: Cramping, Diarrhea, Dysphagia, Heartburn, Hematemesis, Hematochezia, Loose Stools, Melena, Nausea, Vomiting - Genitourinary Genitourinary: absent: Dysuria, Urinary Frequency, Urinary Urgency - Musculoskeletal Musculoskeletal: absent: Back Pain, Neck Pain - Integumentary Integumentary: absent: New Lesions, Rash - Neurological Neurological: absent: Dizziness, Numbness, Focal Weakness - Psychiatric Psychiatric: absent: Anxiety, Depression - Endocrine Endocrine: absent: Polydipsia, Polyphagia, Polyuria - Hematologic/Lymphatic Hematologic: absent: Easy Bleeding, Easy Bruising, Lymphadenopathy Past Patient History - Infectious Disease Hx of Infectious Diseases: None - Past Medical History & Family History Past Medical History?: Yes - Past Social History Smoking Status: Current Some Days Smoker - CARDIAC Hx Cardiac Disorders: No - PULMONARY Hx Respiratory Disorders: No - NEUROLOGICAL Hx Neurological Disorder: No - HEENT Hx HEENT Problems: No - RENAL Hx Chronic Kidney Disease: No - ENDOCRINE/METABOLIC Hx Diabetes Mellitus Type 2: Yes - HEMATOLOGICAL/ONCOLOGICAL Hx Blood Disorders: Yes Hx Cirrhosis: Yes - INTEGUMENTARY Hx Dermatological Problems: No - MUSCULOSKELETAL/RHEUMATOLOGICAL Hx Falls: Yes - GASTROINTESTINAL Hx Gastrointestinal Disorders: Yes Hx Gastroesophageal Reflux: Yes Hx Liver Failure: Yes - GENITOURINARY/GYNECOLOGICAL Hx Genitourinary Disorders: No - PSYCHIATRIC Hx Substance Use: No - SURGICAL HISTORY Hx Surgeries: No - ANESTHESIA Hx Anesthesia: No Hx Anesthesia Reactions: No Meds Allergies/Adverse Reactions: Allergies Allergy/AdvReac Type Severity Reaction Status Date / Time No Known Allergies Allergy Verified 09/09/16 12:58 - Medications Medications: Current Medications Acetaminophen (Tylenol 325mg Tab) 650 mg PO Q4 [facility] Last Admin: 09/10/16 04:36 Dose: Not Given Albuterol/Ipratropium (Duoneb 3 Mg/0.5 Mg (3 Ml) Ud) 3 ml INH RQ6 [facility] Last Admin: 09/10/16 07:34 Dose: 3 ml Sodium Chloride (Sodium Chloride 0.9%) 1,000 mls @ 75 mls/hr IV .[id number] [facility] Last Admin: 09/09/16 21:14 Dose: 75 mls/hr Insulin Aspart (Novolog) 0 unit SC ACHS [facility] PRN Reason: Protocol Last Admin: 09/10/16 08:18 Dose: Not Given Physical Exam - Constitutional Appears: No Acute Distress, Chronically Ill - Eye Exam Eye Exam: EOMI, PERRL - ENT Exam ENT Exam: Mucous Membranes Moist - Respiratory Exam Respiratory Exam: Decreased Breath Sounds. absent: Rales, Rhonchi, Wheezes - Cardiovascular Exam Cardiovascular Exam: RRR, +S1, +S2 - GI/Abdominal Exam GI & Abdominal Exam: Distended, Firm, Normal Bowel Sounds. absent: Guarding, Rigid, Soft, Tenderness - Extremities Exam Extremities exam: Negative for: pedal edema Additional comments: multiple ecchymoses notes on UE - Neurological Exam Neurological exam: Alert, Oriented x3 - Psychiatric Exam Psychiatric exam: Normal Affect, Normal Mood - Skin Skin Exam: Dry, Warm Additional comments: ecchymosis on upper extremities Results - Vital Signs Recent Vital Signs: Last Vital Signs Temp 97.4 F L 09/10/16 07:07 Pulse 89 09/10/16 07:34 Resp 18 09/10/16 07:07 BP 93/63 L 09/10/16 07:07 Pulse Ox 97 09/10/16 07:07 - Labs Result Diagrams: 09/09/16 14:06 09/09/16 14:06 Labs: Laboratory Results - last 24 hr 09/09/16 09/09/16 09/09/16 14:31 18:00 18:15 Puncture Site Venous pO2 25 L 26 L Ricky Test N/a VBG pH 7.29 L 7.29 L VBG pCO2 50 49 VBG HCO3 20.9 20.7 VBG Total CO2 25.1 VBG O2 Sat (Calc) 38.0 L 41.8 VBG Base Excess -3.1 L -3.4 L VBG Potassium 4.1 Sodium 134.0 Chloride 101.0 Glucose 98 Lactate 4.4 H* Crit Value Called To Dr carrera Crit Value Called By Tyree gamino label operator Crit Value Read Back Y Blood Gas Notified Time 1821 POC Glucose (mg/dL) Venous Blood Potassium 4.1 Urine Color Yellow Urine Clarity Turbid Urine pH 5.0 Ur Specific [place] 1.013 Urine Protein 2+ H Urine Glucose (UA) Normal Urine Ketones Negative Urine Blood 1+ H Urine Nitrate Negative Urine Bilirubin Negative Urine Urobilinogen 2.0 Ur Leukocyte Esterase 3+ H Urine WBC (Auto) 2819 H Urine RBC (Auto) 29 H Urine WBC Clumps (Auto) Many H Amorphous Sediment Occ H Urine Bacteria Many H 09/09/16 09/10/16 21:36 06:26 Puncture Site pO2 Ricky Test VBG pH VBG pCO2 VBG HCO3 VBG Total CO2 VBG O2 Sat (Calc) VBG Base Excess VBG Potassium Sodium Chloride Glucose Lactate Crit Value Called To Crit Value Called By Crit Value Read Back Blood Gas Notified Time POC Glucose (mg/dL) 140 H 109 Venous Blood Potassium Urine Color Urine Clarity Urine pH Ur Specific [place] Urine Protein Urine Glucose (UA) Urine Ketones Urine Blood Urine Nitrate Urine Bilirubin Urine Urobilinogen Ur Leukocyte Esterase Urine WBC (Auto) Urine RBC (Auto) Urine WBC Clumps (Auto) Amorphous Sediment Urine Bacteria Assessment & Plan - Assessment and Plan (Free Text) Assessment: Patient is a 65yo male with PMHx significant for EtOH abuse, decompensated cirrhosis with ascites and diabetes who presented to the ED from [facility] for abdominal distention and SOB. -Decompensated EtOH cirrhosis -Abdominal ascites -GNR UTI, bacteremia -DM Plan: -Recommend diagnostic/therapeutic paracentesis -Check cell count, culture, albumin from ascitic fluid if present -If more than 5L removed; replace albumin at 6-8g/L removed -Patient would benefit from increasing diuretic therapy to at least Lasix 40mg PO QD and Aldactone 100mg PO QD -He would benefit from dedicated Triple phase liver CT -Patient should get antibiotic therapy given UTI/bacteremia, start Ceftriaxone 1g IV QD -Lactulose 20g PO QD, titrate to 2-3 BM per day -2g Na diet -SMA+ and IgG level elevation noted previously; will need LFT monitoring periodically -Outpatient EGD/Colonoscopy *MELD-Na: Pending INR - will be higher than prior admission (12) - Date & Time Date: 09/10/16 Time: 07:20 <Sonu Ruelas - Last Filed: 09/10/16 14:54> Meds - Medications Medications: Current Medications Acetaminophen (Tylenol 325mg Tab) 650 mg PO Q4 [facility] Last Admin: 09/10/16 04:36 Dose: Not Given Albumin Human (Albumin Human 25% (12.5 Gm/50 Ml)) 12.5 gm IV Q6 [facility] Stop: 09/11/16 00:01 Albuterol/Ipratropium (Duoneb 3 Mg/0.5 Mg (3 Ml) Ud) 3 ml INH RQ6 [facility] Last Admin: 09/10/16 13:31 Dose: 3 ml Furosemide (Lasix) 40 mg PO DAILY [facility] Ceftriaxone Sodium (Rocephin Iv 1 Gm Duplex) 50 mls @ 100 mls/hr IVPB Q24H [facility] Insulin Aspart (Novolog) 0 unit SC ACHS [facility] PRN Reason: Protocol Last Admin: 09/10/16 08:18 Dose: Not Given Lactulose (Enulose) 20 gm PO DAILY [facility] Pneumococcal Polyvalent Vaccine (Pneumovax 23 Vaccine) 0.5 ml IM .ONCE ONE Stop: 09/12/16 12:01 Spironolactone (Aldactone) 100 mg PO DAILY [facility] Results - Vital Signs Recent Vital Signs: Last Vital Signs Temp 97.4 F L 09/10/16 07:07 Pulse 89 09/10/16 07:34 Resp 18 09/10/16 07:07 BP 93/63 L 09/10/16 07:07 Pulse Ox 97 09/10/16 07:07 - Labs Result Diagrams: 09/09/16 14:06 09/09/16 14:06 Labs: Laboratory Results - last 24 hr 09/09/16 09/09/16 09/09/16 14:31 18:00 18:15 Puncture Site Venous pO2 25 L 26 L Ricky Test N/a VBG pH 7.29 L 7.29 L VBG pCO2 50 49 VBG HCO3 20.9 20.7 VBG Total CO2 25.1 VBG O2 Sat (Calc) 38.0 L 41.8 VBG Base Excess -3.1 L -3.4 L VBG Potassium 4.1 Sodium 134.0 Chloride 101.0 Glucose 98 Lactate 4.4 H* Crit Value Called To Dr carrera Crit Value Called By Tyree gamino label operator Crit Value Read Back Y Blood Gas Notified Time 1821 POC Glucose (mg/dL) Venous Blood Potassium 4.1 Urine Color Yellow Urine Clarity Turbid Urine pH 5.0 Ur Specific [place] 1.013 Urine Protein 2+ H Urine Glucose (UA) Normal Urine Ketones Negative Urine Blood 1+ H Urine Nitrate Negative Urine Bilirubin Negative Urine Urobilinogen 2.0 Ur Leukocyte Esterase 3+ H Urine WBC (Auto) 2819 H Urine RBC (Auto) 29 H Urine WBC Clumps (Auto) Many H Amorphous Sediment Occ H Urine Bacteria Many H 09/09/16 09/10/16 09/10/16 21:36 06:26 11:33 Puncture Site pO2 Ricky Test VBG pH VBG pCO2 VBG HCO3 VBG Total CO2 VBG O2 Sat (Calc) VBG Base Excess VBG Potassium Sodium Chloride Glucose Lactate Crit Value Called To Crit Value Called By Crit Value Read Back Blood Gas Notified Time POC Glucose (mg/dL) 140 H 109 153 H Venous Blood Potassium Urine Color Urine Clarity Urine pH Ur Specific [place] Urine Protein Urine Glucose (UA) Urine Ketones Urine Blood Urine Nitrate Urine Bilirubin Urine Urobilinogen Ur Leukocyte Esterase Urine WBC (Auto) Urine RBC (Auto) Urine WBC Clumps (Auto) Amorphous Sediment Urine Bacteria Attending/Attestation - Attestation I have personally seen and examined this patient.: Yes I have fully participated in the care of the patient.: Yes I have reviewed all pertinent clinical information: Yes Notes (Text): 09/10/16 14:50 65 year old male with alcoholic cirrhosis c/b ascites, DM admitted with abdominal distention. 1. Alcoholic cirrhosis 2. Ascites 3. Gram negative bacteremia Plan: -now s/p US paracentesis, 9 liters removed -await fluid analysis, need to r/o sbp -recommend empiric therapy with ceftriaxone considering positive urine and blood cultures -albumin ordered 12.5 g/50 ml (25%) q6 x 3 doses considering amount of ascitic fluid removed -discontinue IV saline as this exacerbates ascites -diet as tolerated -increase diuretics to lasix 40 mg qd and aldactone 100 qd beginning tomorrow if no signs of renal insufficiency -sodium restricted diet -elective egd/colon recommended, but not acutely now -will follow
[2016-09-10] MEDS ORDERED: Pantoprazole 40 mg EC Tab PO SCH (10:00)
[2016-09-10] MEDS ORDERED: cefTRIAXone IV 1 gm in Dextros 50 ML IVPB SCH (13:00)
--- NOTE | 2016-09-10 13:51 | PCM.SURG1 ---
Surgeon's Initial Post Op Note - Surgeon's Notes Surgeon: Naman Oconnor MD Program Associate: None Type of Anesthesia: Local Pre-Operative Diagnosis: Ascites Operative Findings: US showed a large amount of ascites Post-Operative Diagnosis: Ascites Operation Performed: US guided paracentesis. Specimen/Specimens Removed: 9300 cc of straw colored fluid Estimated Blood Loss: EBL {In ML}: 0 Blood Products Given: N/A Drains Used: No Drains Post-Op Condition: Fair Date of Surgery/Procedure: 09/10/16 Time of Surgery/Procedure: 13:00
[2016-09-10] MEDS ORDERED: Albumin Human 25% (12.5 gm/50 ml) IV SCH (15:00)
--- NOTE | 2016-09-10 15:22 | CP.PCM.CON ---
History of Present Illness - History of Present Illness History of Present Illness: 65yo male with PMHx significant for EtOH abuse, decompensated cirrhosis with ascites and diabetes who presented to the ED from [facility] for abdominal distention and SOB. He c/o progressive distention of the abdomen over the span of a few weeks. He remains on low dose diuresis with Lasix 20mg PO QD and Spironolactone 25mg PO BID. Blood cultures + for gram neg rods ID requested for this PMHx: See HPI PSHx: Denies FHx: Mother - CAD Social: Prior EtOH abuse, last drink in May 2016; denies tobacco or illicit drug use Endo: None per patient Review of Systems - Review of Systems All systems: reviewed and no additional remarkable complaints except - Constitutional Constitutional: As Per HPI, Anorexia, Malaise, Weight Gain - EENT Eyes: absent: As Per HPI, Blind Spots, Blurred Vision, Change in Vision, Decreased Night Vision, Diplopia, Discharge, Dry Eye, Exophthalmos, Floaters, Irritation, Itchy Eyes, Loss of Peripheral Vision, Pain, Photophobia, Requires Corrective Lenses, Sees Flashes, Spots in Vision, Tunnel Vision, Other Visual Disturbances, Loss of Vision, Other Ears: absent: As Per HPI, Decreased Hearing, Ear Discharge, Ear Pain, Tinnitus, Abnormal Hearing, Disequilibrium, Dizziness, Other Nose/Mouth/Throat: absent: As Per HPI, Epistaxis, Nasal Congestion, Nasal Discharge, Nasal Obstruction, Nasal Trauma, Nose Pain, Post Nasal Drip, Sinus Pain, Sinus Pressure, Bleeding Gums, Change in Voice, Dental Pain, Dry Mouth, Dysphagia, Halitosis, Hoarsness, Lip Swelling, Mouth Lesions, Mouth Pain, Odynophagia, Sore Throat, Throat Swelling, Tongue Swelling, Facial Pain, Neck Pain, Neck Mass, Other - Cardiovascular Cardiovascular: absent: As Per HPI, Acrocyanosis, Chest Pain, Chest Pain at Rest , Chest Pain with Activity, Claudication, Diaphoresis, Dyspnea, Dyspnea on Exertion, Edema, Irregular Heart Rhythm, Pain Radiating to Arm/Neck/Jaw, Leg Edema, Leg Ulcers, Lightheadedness, Orthopnea, Palpitations, Paroxysmal Nocturnal Dyspnea, Pedal Edema, Radiating Pain, Rapid Heart Rate, Slow Heart Rate, Syncope, Other - Respiratory Respiratory: absent: As Per HPI, Cough, Dyspnea, Hemoptysis, Dyspnea on Exertion , Wheezing, Snoring, Stridor, Pain on Inspiration, Chest Congestion, Excessive Mucous Production, Change in Mucous Color, Pain with Coughing, Other - Gastrointestinal Gastrointestinal: As Per HPI - Genitourinary Genitourinary: absent: As Per HPI, Change in Urinary Stream, Difficulty Urinating, Dysuria, Flank Pain, Hematuria, Pyuria, Nocturia, Urinary Incontinence, Urinary Frequency, Urinary Hesitance, Urinary Urgency, Voiding Freq/Small Amts, Freq UTI, Hx Renal/Bladder Calculi, Hx /Renal Surgery, Bladder Distension, Other - Musculoskeletal Musculoskeletal: absent: As Per HPI, Abnormal Gait, Arthralgias, Atrophy, Back Pain, Deformity, Joint Swelling, Limited Range of Motion, Loss of Height, Muscle Cramps, Muscle Weakness, Myalgias, Neck Pain, Numbness, Radiating Pain into Limb, Stiffness, Tingling, Other - Integumentary Integumentary: absent: As Per HPI, Acne, Alopecia, Bleeding Lesions, Change in Hair, Change in Nails, Change in Pigmentation, Changing Lesions, Dry Skin, Erythema, Furuncle, Hirsutism, Lesions, New Lesions, Non-Healing Lesions, Photosensitivity, Pruritus, Rash, Skin Pain, Skin Ulcer, Sores, Striae, Swelling , Unusual Bruising, Wounds, Jaundice, Other - Neurological Neurological: absent: As Per HPI, Abnormal Gait, Abnormal Hearing, Abnormal Movements, Abnormal Speech, Behavioral Changes, Burning Sensations, Confusion, Convulsions, Disequilibrium, Dizziness, Numbness, Focal Weakness, Frequent Falls , Headaches, Lack of Coordination, Loss of Vision, Memory Loss, Paresthesias, Radicular Pain, Restless Legs, Sensory Deficit, Syncope, Tingling, Tremor, Vertigo, Weakness, Other Visual Disturbances, Other - Psychiatric Psychiatric: absent: As Per HPI, Abnormal Sleep Pattern, Anhedonia, Anxiety, Auditory Hallucinations, Behavioral Changes, Change in Appetite, Change in Libido, Confusion, Depression, Difficulty Concentrating, Hallucinations, Homicidal Ideation, Hopelessness, Irritability, Memory Loss, Mood Swings, Panic Attacks, Paranoia, Suicidal Ideation, Visual Hallucinations, Tactile Hallucinations, Other - Endocrine Endocrine: absent: As Per HPI, Change in Body Appearance, Change in Libido, Cold Intolorance, Deepening of Voice, Excessive Sweating, Fatigue, Flushing, Heat Intolorance, Increase in Ring/Shoe/Hat Size, Palpitations, Polydipsia, Polyphagia, Polyuria, Other - Hematologic/Lymphatic Hematologic: absent: As Per HPI, Easy Bleeding, Easy Bruising, Lymphadenopathy, Other Past Patient History - Infectious Disease Hx of Infectious Diseases: None - Past Medical History & Family History Past Medical History?: Yes - Past Social History Smoking Status: Current Some Days Smoker - CARDIAC Hx Cardiac Disorders: No - PULMONARY Hx Respiratory Disorders: No - NEUROLOGICAL Hx Neurological Disorder: No - HEENT Hx HEENT Problems: No - RENAL Hx Chronic Kidney Disease: No - ENDOCRINE/METABOLIC Hx Diabetes Mellitus Type 2: Yes - HEMATOLOGICAL/ONCOLOGICAL Hx Blood Disorders: Yes Hx Cirrhosis: Yes - INTEGUMENTARY Hx Dermatological Problems: No - MUSCULOSKELETAL/RHEUMATOLOGICAL Hx Falls: Yes - GASTROINTESTINAL Hx Gastrointestinal Disorders: Yes Hx Gastroesophageal Reflux: Yes Hx Liver Failure: Yes - GENITOURINARY/GYNECOLOGICAL Hx Genitourinary Disorders: No - PSYCHIATRIC Hx Substance Use: No - SURGICAL HISTORY Hx Surgeries: No - ANESTHESIA Hx Anesthesia: No Hx Anesthesia Reactions: No Meds Allergies/Adverse Reactions: Allergies Allergy/AdvReac Type Severity Reaction Status Date / Time No Known Allergies Allergy Verified 09/09/16 12:58 - Medications Medications: Current Medications Acetaminophen (Tylenol 325mg Tab) 650 mg PO Q4 [facility] Last Admin: 09/10/16 14:51 Dose: Not Given Albumin Human (Albumin Human 25% (12.5 Gm/50 Ml)) 12.5 gm IV Q6 [facility] Stop: 09/11/16 00:01 Albuterol/Ipratropium (Duoneb 3 Mg/0.5 Mg (3 Ml) Ud) 3 ml INH RQ6 [facility] Last Admin: 09/10/16 13:31 Dose: 3 ml Furosemide (Lasix) 40 mg PO DAILY [facility] Ceftriaxone Sodium (Rocephin Iv 1 Gm Duplex) 50 mls @ 100 mls/hr IVPB Q24H [facility] Last Admin: 09/10/16 14:50 Dose: 100 mls/hr Insulin Aspart (Novolog) 0 unit SC ACHS [facility] PRN Reason: Protocol Last Admin: 09/10/16 14:51 Dose: Not Given Lactulose (Enulose) 20 gm PO DAILY [facility] Pneumococcal Polyvalent Vaccine (Pneumovax 23 Vaccine) 0.5 ml IM .ONCE ONE Stop: 09/12/16 12:01 Spironolactone (Aldactone) 100 mg PO DAILY [facility] Physical Exam - Constitutional Appears: Non-toxic, Cachectic, Chronically Ill - Head Exam Head Exam: NORMOCEPHALIC - Eye Exam Eye Exam: PERRL. absent: Scleral icterus - ENT Exam ENT Exam: Mucous Membranes Dry, Normal External Ear Exam, Normal Oropharynx - Neck Exam Neck exam: Negative for: Lymphadenopathy - Respiratory Exam Respiratory Exam: Decreased Breath Sounds, Rhonchi - Cardiovascular Exam Cardiovascular Exam: REGULAR RHYTHM, +S1, +S2 - GI/Abdominal Exam GI & Abdominal Exam: Diminished Bowel Sounds, Distended, Guarding, Soft. absent : Pulsatile Mass, Rebound, Rigid, Tenderness - Rectal Exam Rectal Exam: Deferred - Exam Exam: NORMAL INSPECTION - Extremities Exam Extremities exam: Positive for: pedal pulses present. Negative for: calf tenderness, pedal edema, tenderness - Back Exam Back exam: absent: CVA tenderness (L), CVA tenderness (R), paraspinal tenderness - Neurological Exam Neurological exam: Alert, CN II-XII Intact, Oriented x3, Reflexes Normal - Psychiatric Exam Psychiatric exam: Normal Mood - Skin Skin Exam: Dry, Intact Results - Vital Signs Recent Vital Signs: Last Vital Signs Temp 97.4 F L 09/10/16 07:07 Pulse 89 09/10/16 07:34 Resp 18 09/10/16 07:07 BP 93/63 L 09/10/16 07:07 Pulse Ox 97 09/10/16 07:07 - Labs Result Diagrams: 09/09/16 14:06 09/09/16 14:06 Labs: Laboratory Results - last 24 hr 09/09/16 09/09/16 09/09/16 18:00 18:15 21:36 Puncture Site Venous pO2 25 L 26 L Ricky Test N/a VBG pH 7.29 L 7.29 L VBG pCO2 50 49 VBG HCO3 20.9 20.7 VBG Total CO2 25.1 VBG O2 Sat (Calc) 38.0 L 41.8 VBG Base Excess -3.1 L -3.4 L VBG Potassium 4.1 Sodium 134.0 Chloride 101.0 Glucose 98 Lactate 4.4 H* Crit Value Called To Dr carrera Crit Value Called By Tyree gamino technology education instructor Crit Value Read Back Y Blood Gas Notified Time 182 POC Glucose (mg/dL) 140 H Venous Blood Potassium 4.1 09/10/16 09/10/16 06:26 11:33 Puncture Site pO2 Ricky Test VBG pH VBG pCO2 VBG HCO3 VBG Total CO2 VBG O2 Sat (Calc) VBG Base Excess VBG Potassium Sodium Chloride Glucose Lactate Crit Value Called To Crit Value Called By Crit Value Read Back Blood Gas Notified Time POC Glucose (mg/dL) 109 153 H Venous Blood Potassium Assessment & Plan (1) Sepsis Status: Acute (2) Sepsis Status: Acute (3) Ascites Status: Chronic (4) Anemia Status: Acute (5) Ascites due to chronic alcoholic hepatitis Status: Acute (6) Dyspnea Status: Acute - Assessment and Plan (Free Text) Assessment: cont iv cefepime pending cultures for gram neg sepsis - likely GI source await c/s of blood / ascites
--- NOTE | 2016-09-10 15:57 | US ---
Date of Procedure: 09/10/2016 PROCEDURE: Ultrasound-guided paracentesis, CPT 28613 Medications: 8cc 1% Lidocaine HISTORY: Ascites, abdominal pain, cirrhosis TECHNIQUE: Following informed consent , the patient was placed supine on the stretcher and the site was marked. A limited abdominal ultrasound was performed that showed a large amount of intra-abdominal fluid. Procedural time out was called and the Pt's abdomen was marked and prepped and draped in the usual sterile fashion. Ultrasound-guided large volume paracentesis performed. A total of 9.3 liters of straw colored fluid was removed without complication. IMPRESSION: Ultrasound-guided large volume paracentesis.
[2016-09-10] MEDS: Cefepime IV 1 gm in Dextrose 1 GM/50 ML BAG IVPB SCH (17:56)
--- NOTE | 2016-09-10 18:27 | CP.PCM.PN ---
Subjective - Date & Time of Evaluation Date of Evaluation: 09/10/16 Time of Evaluation: 12:00 - Subjective Subjective: clinically same Objective - Vital Signs/Intake and Output Vital Signs (last 24 hours): Temp Pulse Resp BP Pulse Ox 97.5 F L 79 20 89/59 L 100 09/10/16 16:28 09/10/16 16:28 09/10/16 16:28 09/10/16 16:28 09/10/16 16:28 Intake and Output: 09/10/16 09/10/16 06:59 18:59 Intake Total 720 Output Total 50 Balance 670 - Medications Medications: Current Medications Acetaminophen (Tylenol 325mg Tab) 650 mg PO Q4 [facility] Last Admin: 09/10/16 14:51 Dose: Not Given Albuterol/Ipratropium (Duoneb 3 Mg/0.5 Mg (3 Ml) Ud) 3 ml INH RQ6 [facility] Last Admin: 09/10/16 13:31 Dose: 3 ml Furosemide (Lasix) 40 mg PO DAILY [facility] Cefepime HCl (Maxipime Iv 1 Gm Premix) 1 gm in 50 mls @ 100 mls/hr IVPB Q12H [facility] Last Admin: 09/10/16 17:56 Dose: 100 mls/hr Albumin Human (Albumin Human 25% (12.5 Gm/50 Ml)) 50 mls @ 50 mls/hr IV Q6H [facility] Stop: 09/11/16 05:29 Last Admin: 09/10/16 16:57 Dose: 50 mls/hr Insulin Aspart (Novolog) 0 unit SC ACHS [facility] PRN Reason: Protocol Last Admin: 09/10/16 14:51 Dose: Not Given Lactulose (Enulose) 20 gm PO DAILY [facility] Pneumococcal Polyvalent Vaccine (Pneumovax 23 Vaccine) 0.5 ml IM .ONCE ONE Stop: 09/12/16 12:01 Spironolactone (Aldactone) 100 mg PO DAILY [facility]
[2016-09-11] MEDS: Albuterol-Ipratrop 3 mg / 0.5 (3 ml) UD INH SCH ×4 (01:16→19:50)
[2016-09-11] MEDS: Cefepime IV 1 gm in Dextrose 1 GM/50 ML BAG IVPB SCH (04:36)
--- NOTE | 2016-09-11 08:54 | CP.PCM.PN ---
<NandiniwenjoséJeremiah - Last Filed: 09/11/16 08:51> Subjective - Date & Time of Evaluation Date of Evaluation: 09/11/16 Time of Evaluation: 07:10 - Subjective Subjective: PGY4 GI Fellow Progress Note Patient seen and examined bedside this morning. The patient denies any new complaints today. He admits to improvement in breathing and abdominal distention following large volume paracentesis. No events overnight. 12 system ROS performed and negative except where stated. Objective - Vital Signs/Intake and Output Vital Signs (last 24 hours): Temp Pulse Resp BP Pulse Ox 98.4 F 78 20 98/63 L 96 09/11/16 08:47 09/11/16 08:47 09/11/16 08:47 09/11/16 08:47 09/11/16 08:47 Intake and Output: 09/11/16 09/11/16 06:59 18:59 Intake Total 300 Output Total 350 Balance -50 - Medications Medications: Current Medications Acetaminophen (Tylenol 325mg Tab) 650 mg PO Q4 [facility] Last Admin: 09/11/16 07:44 Dose: Not Given Albuterol/Ipratropium (Duoneb 3 Mg/0.5 Mg (3 Ml) Ud) 3 ml INH RQ6 [facility] Last Admin: 09/11/16 07:23 Dose: 3 ml Furosemide (Lasix) 40 mg PO DAILY [facility] Cefepime HCl (Maxipime Iv 1 Gm Premix) 1 gm in 50 mls @ 100 mls/hr IVPB Q12H [facility] Last Admin: 09/11/16 04:36 Dose: 100 mls/hr Albumin Human (Albumin Human 25% (12.5 Gm/50 Ml)) 50 mls @ 50 mls/hr IV Q6H [facility] Stop: 09/11/16 17:29 Last Admin: 09/11/16 03:34 Dose: 50 mls/hr Insulin Aspart (Novolog) 0 unit SC ACHS [facility] PRN Reason: Protocol Last Admin: 09/10/16 21:45 Dose: Not Given Lactulose (Enulose) 20 gm PO DAILY [facility] Pneumococcal Polyvalent Vaccine (Pneumovax 23 Vaccine) 0.5 ml IM .ONCE ONE Stop: 09/12/16 12:01 Spironolactone (Aldactone) 100 mg PO DAILY [facility] - Constitutional Appears: No Acute Distress, Older Than Stated Age, Cachectic - Eye Exam Eye Exam: EOMI, PERRL - ENT Exam ENT Exam: Mucous Membranes Moist - Respiratory Exam Respiratory Exam: Clear to Ausculation Bilateral. absent: Rales, Rhonchi, Wheezes - Cardiovascular Exam Cardiovascular Exam: RRR, +S1, +S2 - GI/Abdominal Exam GI & Abdominal Exam: Distended, Firm, Hernia (umbilical), Normal Bowel Sounds. absent: Rigid, Soft, Tenderness, Organomegaly - Extremities Exam Extremities Exam: Normal Inspection. absent: Pedal Edema - Neurological Exam Neurological Exam: Alert, Awake, Oriented x3 - Psychiatric Exam Psychiatric exam: Normal Affect, Normal Mood - Skin Skin Exam: Dry, Warm - Additional Findings Additional findings: poor dentition Assessment and Plan - Assessment and Plan (Free Text) Assessment: Patient is a 65yo male with PMHx significant for EtOH abuse, decompensated cirrhosis with ascites and diabetes who presented to the ED from [facility] for abdominal distention and SOB. -Decompensated EtOH cirrhosis -Abdominal ascites s/p large volume paracentesis -GNR UTI, bacteremia -DM Plan: -S/P 9L paracentesis - fluid not sent ot lab for analysis despite orders; discussed with laboratory -Receiving albumin replacement therapy -To receive Lasix 40mg PO QD and Aldactone 100mg PO QD today; should be continued on this dose -Pt would benefit from Triple phase liver CT -ID following - on cefepime for GNR bacteremia/UTI -Lactulose 20g PO QD, titrate to 2-3 BM per day -2g Na diet, soft diet -SMA+ and IgG level elevation noted previously; will need LFT monitoring periodically -Outpatient EGD/Colonoscopy *MELD-Na: Pending AM labs which have not been obtained <Sonu Ruelas - Last Filed: 09/11/16 19:18> Objective - Vital Signs/Intake and Output Vital Signs (last 24 hours): Temp Pulse Resp BP Pulse Ox 98.1 F 93 H 20 103/67 100 09/11/16 15:45 09/11/16 15:45 09/11/16 15:45 09/11/16 15:45 09/11/16 15:45 - Medications Medications: Current Medications Acetaminophen (Tylenol 325mg Tab) 650 mg PO Q4 [facility] Last Admin: 09/11/16 17:00 Dose: Not Given Albuterol/Ipratropium (Duoneb 3 Mg/0.5 Mg (3 Ml) Ud) 3 ml INH RQ6 [facility] Last Admin: 09/11/16 14:01 Dose: 3 ml Furosemide (Lasix) 40 mg PO DAILY [facility] Last Admin: 09/11/16 10:36 Dose: 40 mg Meropenem 500 mg/ Sodium (Chloride) 100 mls @ 100 mls/hr IVPB Q6 [facility] Last Admin: 09/11/16 18:04 Dose: 100 mls/hr Insulin Aspart (Novolog) 0 unit SC ACHS [facility] PRN Reason: Protocol Last Admin: 09/11/16 17:00 Dose: Not Given Lactulose (Enulose) 20 gm PO DAILY [facility] Last Admin: 09/11/16 10:34 Dose: 20 gm Pneumococcal Polyvalent Vaccine (Pneumovax 23 Vaccine) 0.5 ml IM .ONCE ONE Stop: 09/12/16 12:01 Spironolactone (Aldactone) 100 mg PO DAILY [facility] Last Admin: 09/11/16 10:34 Dose: 100 mg - Labs Labs: 09/11/16 11:32 09/11/16 11:32 PT 14.5 SECONDS (9.7-12.2) H 09/11/16 11:32 INR 1.3 09/11/16 11:32 Attending/Attestation - Attestation I have personally seen and examined this patient.: Yes I have fully participated in the care of the patient.: Yes I have reviewed all pertinent clinical information, including history, physical exam and plan: Yes Notes (Text): 09/11/16 19:16 65 year old male with alcoholic cirrhosis c/b ascites, DM admitted with abdominal distention. 1. Alcoholic cirrhosis 2. Ascites 3. Gram negative bacteremia Plan: -now s/p US paracentesis, 9 liters removed -ascitic fluid does not appear to have been sent to the lab -recommend ID evaluation for recommendations on antibiotic therapy and duration for GNR bacteremia, possibly urinary source vs SBP -recommend empiric therapy with ceftriaxone considering positive urine and blood cultures -s/p albumin infusion -diet as tolerated - lasix 40 mg qd and aldactone 100 qd -sodium restricted diet -elective egd/colon recommended, but not acutely now -will follow
[2016-09-11 11:41] LABS: BASO % 0.2 % (0.0-2.0); EOS % 0.3 % (0.0-4.0); LYMPH # 0.6 K/uL (1.0-4.3); MONO # 0.6 K/uL (0.0-0.8); NRBC % 0.1 % (0.0-2.0); WHITE BLOOD COUNT 5.3 K/uL (4.8-10.8)
[2016-09-11 11:44] LABS: INR 1.3
[2016-09-11 11:48] LABS: LYMPH % 11.5 % (20.0-40.0); MEAN CELL VOLUME 103.3 fL (80.0-94.0); MEAN CORPUSCULAR HEMOGLOBIN 34.6 pg (27.0-31.0); MEAN CORPUSCULAR HGB CONC 33.5 g/dL (33.0-37.0); MEAN PLATELET VOLUME 7.7 fL (7.2-11.7); MONO % 11.3 % (0.0-10.0)
[2016-09-11 11:52] LABS: CHLORIDE 102 mmol/L (98-107)
[2016-09-11 11:53] LABS: POTASSIUM 3.7 mmol/L (3.6-5.2); SODIUM 133 mmol/L (132-148)
[2016-09-11 11:55] LABS: CARBON DIOXIDE 24 mmol/L (22-30); GFR AFRICAN-AMERICAN > 60
[2016-09-11 11:56] LABS: BLOOD UREA NITROGEN 20 mg/dL (9-20); CALCIUM 8.1 mg/dl (8.6-10.4); GLUCOSE,RANDOM 124 mg/dL (75-110)
[2016-09-11] MEDS: Meropenem 500 MG in Sodium Chloride 0.9% 100 ML IVPB SCH ×2 (13:19→18:04)
--- NOTE | 2016-09-11 16:15 | CP.PCM.PN ---
Subjective - Date & Time of Evaluation Date of Evaluation: 09/11/16 Time of Evaluation: 11:00 - Subjective Subjective: clinically same Objective - Vital Signs/Intake and Output Vital Signs (last 24 hours): Temp Pulse Resp BP Pulse Ox 98.1 F 93 H 20 103/67 100 09/11/16 15:45 09/11/16 15:45 09/11/16 15:45 09/11/16 15:45 09/11/16 15:45 Intake and Output: 09/11/16 09/11/16 06:59 18:59 Intake Total 300 Output Total 350 Balance -50 - Medications Medications: Current Medications Acetaminophen (Tylenol 325mg Tab) 650 mg PO Q4 [facility] Last Admin: 09/11/16 07:44 Dose: Not Given Albuterol/Ipratropium (Duoneb 3 Mg/0.5 Mg (3 Ml) Ud) 3 ml INH RQ6 [facility] Last Admin: 09/11/16 14:01 Dose: 3 ml Furosemide (Lasix) 40 mg PO DAILY [facility] Last Admin: 09/11/16 10:36 Dose: 40 mg Albumin Human (Albumin Human 25% (12.5 Gm/50 Ml)) 50 mls @ 50 mls/hr IV Q6H [facility] Stop: 09/11/16 17:29 Last Admin: 09/11/16 10:23 Dose: 50 mls/hr Meropenem 500 mg/ Sodium (Chloride) 100 mls @ 100 mls/hr IVPB Q6 [facility] Last Admin: 09/11/16 13:19 Dose: 100 mls/hr Insulin Aspart (Novolog) 0 unit SC ACHS [facility] PRN Reason: Protocol Last Admin: 09/10/16 21:45 Dose: Not Given Lactulose (Enulose) 20 gm PO DAILY [facility] Last Admin: 09/11/16 10:34 Dose: 20 gm Pneumococcal Polyvalent Vaccine (Pneumovax 23 Vaccine) 0.5 ml IM .ONCE ONE Stop: 09/12/16 12:01 Spironolactone (Aldactone) 100 mg PO DAILY [facility] Last Admin: 09/11/16 10:34 Dose: 100 mg - Labs Labs: 09/11/16 11:32 09/11/16 11:32 PT 14.5 SECONDS (9.7-12.2) H 09/11/16 11:32 INR 1.3 09/11/16 11:32 - Constitutional Appears: Well - Head Exam Head Exam: ATRAUMATIC, NORMAL INSPECTION, NORMOCEPHALIC - Eye Exam Eye Exam: EOMI, Normal appearance, PERRL Pupil Exam: NORMAL ACCOMODATION, PERRL - ENT Exam ENT Exam: Mucous Membranes Moist, Normal Exam - Neck Exam Neck Exam: Full ROM, Normal Inspection. absent: Lymphadenopathy - Respiratory Exam Respiratory Exam: Decreased Breath Sounds - Cardiovascular Exam Cardiovascular Exam: REGULAR RHYTHM, +S1, +S2 - GI/Abdominal Exam GI & Abdominal Exam: Soft, Diminished Bowel Sounds - Rectal Exam Rectal Exam: Deferred
--- NOTE | 2016-09-11 16:51 | CP.PCM.PN ---
Subjective - Date & Time of Evaluation Date of Evaluation: 09/11/16 Time of Evaluation: 09:00 - Subjective Subjective: discussed with Dr Taylor Ohara grew ESBL E Coli in the urine Blood c/s also positive ascitic fluid cultures pending started Merrem prognosis remains poor Objective - Vital Signs/Intake and Output Vital Signs (last 24 hours): Temp Pulse Resp BP Pulse Ox 98.1 F 93 H 20 103/67 100 09/11/16 15:45 09/11/16 15:45 09/11/16 15:45 09/11/16 15:45 09/11/16 15:45 Intake and Output: 09/11/16 09/11/16 06:59 18:59 Intake Total 300 Output Total 350 Balance -50 - Medications Medications: Current Medications Acetaminophen (Tylenol 325mg Tab) 650 mg PO Q4 [facility] Last Admin: 09/11/16 07:44 Dose: Not Given Albuterol/Ipratropium (Duoneb 3 Mg/0.5 Mg (3 Ml) Ud) 3 ml INH RQ6 [facility] Last Admin: 09/11/16 14:01 Dose: 3 ml Furosemide (Lasix) 40 mg PO DAILY [facility] Last Admin: 09/11/16 10:36 Dose: 40 mg Albumin Human (Albumin Human 25% (12.5 Gm/50 Ml)) 50 mls @ 50 mls/hr IV Q6H [facility] Stop: 09/11/16 17:29 Last Admin: 09/11/16 10:23 Dose: 50 mls/hr Meropenem 500 mg/ Sodium (Chloride) 100 mls @ 100 mls/hr IVPB Q6 [facility] Last Admin: 09/11/16 13:19 Dose: 100 mls/hr Insulin Aspart (Novolog) 0 unit SC ACHS [facility] PRN Reason: Protocol Last Admin: 09/10/16 21:45 Dose: Not Given Lactulose (Enulose) 20 gm PO DAILY [facility] Last Admin: 09/11/16 10:34 Dose: 20 gm Pneumococcal Polyvalent Vaccine (Pneumovax 23 Vaccine) 0.5 ml IM .ONCE ONE Stop: 09/12/16 12:01 Spironolactone (Aldactone) 100 mg PO DAILY [facility] Last Admin: 09/11/16 10:34 Dose: 100 mg - Labs Labs: 09/11/16 11:32 09/11/16 11:32 PT 14.5 SECONDS (9.7-12.2) H 09/11/16 11:32 INR 1.3 09/11/16 11:32 - Constitutional Appears: Non-toxic, Cachectic, Chronically Ill - Head Exam Head Exam: NORMOCEPHALIC - Eye Exam Eye Exam: PERRL. absent: Scleral icterus - ENT Exam ENT Exam: Mucous Membranes Dry - Neck Exam Neck Exam: absent: Lymphadenopathy - Respiratory Exam Respiratory Exam: Decreased Breath Sounds, Rhonchi - Cardiovascular Exam Cardiovascular Exam: REGULAR RHYTHM, +S1, +S2 - GI/Abdominal Exam GI & Abdominal Exam: Distended, Soft. absent: Tenderness - Rectal Exam Rectal Exam: Deferred - Exam Exam: NORMAL INSPECTION - Extremities Exam Extremities Exam: absent: Calf Tenderness, Pedal Edema - Back Exam Back Exam: absent: CVA tenderness (L), CVA tenderness (R) - Neurological Exam Neurological Exam: Alert, Awake, Oriented x3 - Psychiatric Exam Psychiatric exam: Depressed - Skin Skin Exam: Dry, Intact Assessment and Plan (1) Sepsis Status: Acute (2) Sepsis Status: Acute (3) Ascites Status: Chronic (4) Anemia Status: Acute (5) Ascites due to chronic alcoholic hepatitis Status: Acute (6) Dyspnea Status: Acute
[2016-09-11] MEDS: (Novolog) Insulin Aspart, Recombinant 100 u/ml 10 ml vial SC SCH ×2 (17:00→22:41)
[2016-09-11] MEDS ORDERED: Albuterol-Ipratrop 3 mg / 0.5 (3 ml) UD IH PRN ×2 (20:15→20:30)
[2016-09-12] MEDS: Meropenem 500 MG in Sodium Chloride 0.9% 100 ML IVPB SCH ×4 (00:20→17:40)
[2016-09-12] MEDS: Albuterol-Ipratrop 3 mg / 0.5 (3 ml) UD INH SCH ×4 (01:24→19:25)
[2016-09-12 07:33] LABS: BASO % 0.4 % (0.0-2.0); EOS % 0.3 % (0.0-4.0); HEMATOCRIT 38.5 % (35.0-51.0); LYMPH # 0.8 K/uL (1.0-4.3); LYMPH % 18.4 % (20.0-40.0); MEAN CELL VOLUME 103.2 fL (80.0-94.0); MEAN CORPUSCULAR HEMOGLOBIN 34.2 pg (27.0-31.0); MEAN CORPUSCULAR HGB CONC 33.1 g/dL (33.0-37.0); MEAN PLATELET VOLUME 7.6 fL (7.2-11.7); MONO # 0.5 K/uL (0.0-0.8); MONO % 11.3 % (0.0-10.0); NRBC % 0.3 % (0.0-2.0); RED CELL DISTRIBUTION WIDTH 14.9 % (11.5-14.5); WHITE BLOOD COUNT 4.5 K/uL (4.8-10.8)
[2016-09-12 07:55] LABS: CHLORIDE 102 mmol/L (98-107); POTASSIUM 3.6 mmol/L (3.6-5.2); SODIUM 135 mmol/L (132-148)
[2016-09-12 07:57] LABS: BILIRUBIN,TOTAL 0.8 mg/dL (0.2-1.3); CARBON DIOXIDE 25 mmol/L (22-30); GFR AFRICAN-AMERICAN > 60
[2016-09-12 07:58] LABS: ALB/GLOB RATIO 0.7 (1.0-2.1); ALKALINE PHOSPHATASE 85 U/L (38-126); ALT/SGPT 71 U/L (21-72); AST/SGOT 78 U/L (17-59); BLOOD UREA NITROGEN 18 mg/dL (9-20); CALCIUM 8.3 mg/dl (8.6-10.4); GLUCOSE,RANDOM 96 mg/dL (75-110); TOTAL PROTEIN 5.8 g/dL (6.3-8.3)
[2016-09-12] MEDS: (Novolog) Insulin Aspart, Recombinant 100 u/ml 10 ml vial SC SCH ×4 (08:24→22:55)
--- NOTE | 2016-09-12 09:03 | CP.PCM.PN ---
<Jeremiah Leal - Last Filed: 09/12/16 09:01> Subjective - Date & Time of Evaluation Date of Evaluation: 09/12/16 Time of Evaluation: 08:30 - Subjective Subjective: PGY4 GI Fellow Progress Note Patient seen and examined bedside this morning. He has no new complaints today. Does admit to constipation without BM for 2-3 days. Denies any abdominal pain, nausea, vomiting. Tolerating diet without issue. 12 system ROS performed and negative except where stated. Objective - Vital Signs/Intake and Output Vital Signs (last 24 hours): Temp Pulse Resp BP Pulse Ox 97.6 F 86 20 90/60 L 96 09/12/16 04:00 09/12/16 04:05 09/12/16 04:00 09/11/16 23:20 09/12/16 04:00 Intake and Output: 09/12/16 09/12/16 06:59 18:59 Intake Total 250 Output Total 600 Balance -350 - Medications Medications: Current Medications Acetaminophen (Tylenol 325mg Tab) 650 mg PO Q4 [facility] Last Admin: 09/12/16 08:28 Dose: Not Given Albuterol/Ipratropium (Duoneb 3 Mg/0.5 Mg (3 Ml) Ud) 3 ml INH RQ6 [facility] Last Admin: 09/12/16 07:49 Dose: 3 ml Albuterol/Ipratropium (Duoneb 3 Mg/0.5 Mg (3 Ml) Ud) 3 ml IH RQ6 PRN PRN Reason: Shortness of Breath Diphenhydramine HCl (Benadryl) 25 mg PO Q12H [facility] Last Admin: 09/12/16 08:40 Dose: 25 mg Folic Acid (Folic Acid) 1 mg PO DAILY [facility] Furosemide (Lasix) 40 mg PO DAILY [facility] Last Admin: 09/11/16 10:36 Dose: 40 mg Furosemide (Lasix) 20 mg PO DAILY [facility] Meropenem 500 mg/ Sodium (Chloride) 100 mls @ 100 mls/hr IVPB Q6 [facility] Last Admin: 09/12/16 05:22 Dose: 100 mls/hr Insulin Aspart (Novolog) 0 unit SC ACHS [facility] PRN Reason: Protocol Last Admin: 09/12/16 08:24 Dose: Not Given Lactulose (Enulose) 20 gm PO DAILY [facility] Last Admin: 09/11/16 10:34 Dose: 20 gm Lactulose (Enulose) 20 gm PO DAILY [facility] Levetiracetam (Keppra) 500 mg PO Q12H [facility] Last Admin: 09/12/16 08:40 Dose: 500 mg Pneumococcal Polyvalent Vaccine (Pneumovax 23 Vaccine) 0.5 ml IM .ONCE ONE Stop: 09/12/16 12:01 Rifaximin (Xifaxan) 550 mg PO BID [facility] Last Admin: 09/11/16 22:40 Dose: 550 mg Saccharomyces Boulardii (Florastor) 250 mg PO BID [facility] Spironolactone (Aldactone) 100 mg PO DAILY [facility] Last Admin: 09/11/16 10:34 Dose: 100 mg Spironolactone (Aldactone) 25 mg PO BID [facility] Thiamine HCl (Vitamin B1 Tab) 100 mg PO DAILY [facility] - Labs Labs: 09/12/16 07:07 09/12/16 07:07 PT 14.5 SECONDS (9.7-12.2) H 09/11/16 11:32 INR 1.3 09/11/16 11:32 - Constitutional Appears: No Acute Distress, Chronically Ill - Eye Exam Eye Exam: EOMI, PERRL - ENT Exam ENT Exam: Mucous Membranes Dry - Respiratory Exam Respiratory Exam: Clear to Ausculation Bilateral. absent: Rales, Rhonchi, Wheezes - Cardiovascular Exam Cardiovascular Exam: RRR, +S1, +S2 - GI/Abdominal Exam GI & Abdominal Exam: Soft, Hernia (umbilical, reducible), Normal Bowel Sounds. absent: Distended, Firm, Guarding, Rigid, Tenderness, Organomegaly - Extremities Exam Extremities Exam: Normal Inspection. absent: Pedal Edema - Neurological Exam Neurological Exam: Alert, Awake, Oriented x3 - Psychiatric Exam Psychiatric exam: Normal Affect, Normal Mood - Skin Skin Exam: Dry, Warm Additional comments: ecchymosis on B/L UE Assessment and Plan - Assessment and Plan (Free Text) Assessment: Patient is a 65yo male with PMHx significant for EtOH abuse, decompensated cirrhosis with ascites and diabetes who presented to the ED from [facility] for abdominal distention and SOB. -Decompensated EtOH cirrhosis -Abdominal ascites s/p large volume paracentesis -E coli ESBL UTI -GNR bacteremia -DM Plan: -As we have not obtained ascites fluid analysis, we cannot with certainty whether or not patient has SBP; he current therapy does provide coverage for this -Will give albumin at 1g/kg today for SBP protocol -Continue antibiotics as ordered per ID for ongoing E coli UTI and GNR bacteremia -Diet as tolerated; 2g Na -Lasix 40mg PO QD, Aldactone 100mg PO QD -Increase Lactulose to 30g PO BID, titrate to 2-3 BM per day -Pt would benefit from Triple phase liver CT -SMA+ and IgG level elevation noted previously; will need LFT monitoring periodically -Outpatient EGD/Colonoscopy *MELD-Na: 13 *Gulshan-Reagan: C <Sonu Ruelas - Last Filed: 09/12/16 12:44> Objective - Vital Signs/Intake and Output Vital Signs (last 24 hours): Temp Pulse Resp BP Pulse Ox 97.6 F 86 20 97/65 L 96 09/12/16 04:00 09/12/16 04:05 09/12/16 04:00 09/12/16 10:54 09/12/16 04:00 Intake and Output: 09/12/16 09/12/16 06:59 18:59 Intake Total 250 Output Total 600 Balance -350 - Medications Medications: Current Medications Acetaminophen (Tylenol 325mg Tab) 650 mg PO Q4 [facility] Last Admin: 09/12/16 12:14 Dose: Not Given Albumin Human (Albumin Human 25% (12.5 Gm/50 Ml)) 12.5 gm IV Q2 [facility] Stop: 09/12/16 22:01 Albuterol/Ipratropium (Duoneb 3 Mg/0.5 Mg (3 Ml) Ud) 3 ml INH RQ6 [facility] Last Admin: 09/12/16 07:49 Dose: 3 ml Albuterol/Ipratropium (Duoneb 3 Mg/0.5 Mg (3 Ml) Ud) 3 ml IH RQ6 PRN PRN Reason: Shortness of Breath Folic Acid (Folic Acid) 1 mg PO DAILY [facility] Last Admin: 09/12/16 10:14 Dose: 1 mg Furosemide (Lasix) 40 mg PO DAILY [facility] Last Admin: 09/12/16 10:54 Dose: Not Given Meropenem 500 mg/ Sodium (Chloride) 100 mls @ 100 mls/hr IVPB Q6 [facility] Last Admin: 09/12/16 11:18 Dose: 100 mls/hr Insulin Aspart (Novolog) 0 unit SC ACHS [facility] PRN Reason: Protocol Last Admin: 09/12/16 12:43 Dose: 1 unit Lactulose (Enulose) 30 gm PO BID [facility] Last Admin: 09/12/16 10:13 Dose: 30 gm Levetiracetam (Keppra) 500 mg PO Q12H [facility] Last Admin: 09/12/16 08:40 Dose: 500 mg Rifaximin (Xifaxan) 550 mg PO BID [facility] Last Admin: 09/12/16 10:14 Dose: 550 mg Saccharomyces Boulardii (Florastor) 250 mg PO BID [facility] Last Admin: 09/12/16 10:14 Dose: 250 mg Spironolactone (Aldactone) 100 mg PO DAILY [facility] Last Admin: 09/12/16 11:00 Dose: Not Given Thiamine HCl (Vitamin B1 Tab) 100 mg PO DAILY [facility] Last Admin: 09/12/16 10:14 Dose: 100 mg - Labs Labs: 09/12/16 07:07 09/12/16 07:07 PT 14.5 SECONDS (9.7-12.2) H 09/11/16 11:32 INR 1.3 09/11/16 11:32 Attending/Attestation - Attestation I have personally seen and examined this patient.: Yes I have fully participated in the care of the patient.: Yes I have reviewed all pertinent clinical information, including history, physical exam and plan: Yes Notes (Text): 09/12/16 12:43 65 year old male with alcoholic cirrhosis c/b ascites, DM admitted with abdominal distention. 1. Alcoholic cirrhosis 2. Ascites 3. Gram negative bacteremia Plan: -now s/p US paracentesis, 9 liters removed -ascitic fluid does not appear to have been sent to the lab -appreciate ID evaluation for recommendations on antibiotic therapy and duration for GNR bacteremia, possibly urinary source vs SBP -s/p albumin infusion, repeat dose 1 mg/kg today -diet as tolerated - lasix 40 mg qd and aldactone 100 qd -sodium restricted diet -elective egd/colon recommended, but not acutely now -will sign off at this time, please call with questions
[2016-09-12] MEDS: Saccharomyces Boulardi 250 mg Cap PO SCH ×2 (10:14→17:39)
[2016-09-12] MEDS ORDERED: Pneumococcal 23-Valent Vaccine IM ONE (12:00)
[2016-09-12] MEDS: Albumin Human 25% (12.5 gm/50 ml) IV SCH ×5 (13:29→23:30)
--- NOTE | 2016-09-12 14:50 | CP.PCM.PN ---
Subjective - Date & Time of Evaluation Date of Evaluation: 09/12/16 Time of Evaluation: 08:00 - Subjective Subjective: esbl urine and blood consider gu eval cont ivr rx Objective - Vital Signs/Intake and Output Vital Signs (last 24 hours): Temp Pulse Resp BP Pulse Ox 97.6 F 86 20 97/65 L 96 09/12/16 04:00 09/12/16 04:05 09/12/16 04:00 09/12/16 10:54 09/12/16 04:00 Intake and Output: 09/12/16 09/12/16 06:59 18:59 Intake Total 250 Output Total 600 Balance -350 - Medications Medications: Current Medications Acetaminophen (Tylenol 325mg Tab) 650 mg PO Q4 [facility] Last Admin: 09/12/16 12:14 Dose: Not Given Albumin Human (Albumin Human 25% (12.5 Gm/50 Ml)) 12.5 gm IV Q2 [facility] Stop: 09/12/16 22:01 Last Admin: 09/12/16 13:29 Dose: 12.5 gm Albuterol/Ipratropium (Duoneb 3 Mg/0.5 Mg (3 Ml) Ud) 3 ml INH RQ6 [facility] Last Admin: 09/12/16 13:18 Dose: 3 ml Albuterol/Ipratropium (Duoneb 3 Mg/0.5 Mg (3 Ml) Ud) 3 ml IH RQ6 PRN PRN Reason: Shortness of Breath Folic Acid (Folic Acid) 1 mg PO DAILY [facility] Last Admin: 09/12/16 10:14 Dose: 1 mg Furosemide (Lasix) 40 mg PO DAILY [facility] Last Admin: 09/12/16 10:54 Dose: Not Given Meropenem 500 mg/ Sodium (Chloride) 100 mls @ 100 mls/hr IVPB Q6 [facility] Last Admin: 09/12/16 11:18 Dose: 100 mls/hr Insulin Aspart (Novolog) 0 unit SC ACHS [facility] PRN Reason: Protocol Last Admin: 09/12/16 12:43 Dose: 1 unit Lactulose (Enulose) 30 gm PO BID [facility] Last Admin: 09/12/16 10:13 Dose: 30 gm Levetiracetam (Keppra) 500 mg PO Q12H [facility] Last Admin: 09/12/16 08:40 Dose: 500 mg Rifaximin (Xifaxan) 550 mg PO BID [facility] Last Admin: 09/12/16 10:14 Dose: 550 mg Saccharomyces Boulardii (Florastor) 250 mg PO BID [facility] Last Admin: 09/12/16 10:14 Dose: 250 mg Spironolactone (Aldactone) 100 mg PO DAILY [facility] Last Admin: 09/12/16 11:00 Dose: Not Given Thiamine HCl (Vitamin B1 Tab) 100 mg PO DAILY [facility] Last Admin: 09/12/16 10:14 Dose: 100 mg - Labs Labs: 09/12/16 07:07 09/12/16 07:07 PT 14.5 SECONDS (9.7-12.2) H 09/11/16 11:32 INR 1.3 09/11/16 11:32 Assessment and Plan (1) Sepsis Status: Acute (2) Sepsis Status: Acute (3) Ascites Status: Chronic (4) Anemia Status: Acute (5) Ascites due to chronic alcoholic hepatitis Status: Acute (6) Dyspnea Status: Acute
[2016-09-12] MEDS ORDERED: Lidocaine 2% Inj (20ml) ONE (15:48)
--- NOTE | 2016-09-12 16:14 | PCM.SURG1 ---
Surgeon's Initial Post Op Note - Surgeon's Notes Surgeon: Steve Support Services Tech: Jerad Type of Anesthesia: Local Pre-Operative Diagnosis: IV access Operative Findings: Patent right basilic vein Post-Operative Diagnosis: IV access Operation Performed: Right upper arm basilic vein 4F SL 29cm PICC with catheter tip in the RA/SVC junction. Specimen/Specimens Removed: None Estimated Blood Loss: EBL {In ML}: 1 Date of Surgery/Procedure: 09/12/16 Time of Surgery/Procedure: 16:00
--- NOTE | 2016-09-12 16:15 | CP.PCM.PN ---
Subjective - Date & Time of Evaluation Date of Evaluation: 09/12/16 Time of Evaluation: 09:20 - Subjective Subjective: PGY2 Medicine Note- Dr. Ohara's service Patient seen and examined. Patient states he feels the same and denies difficulty breathing. Patient with better appetite today compared to yesterday. Patient's BP low today, aldactone held. Objective - Vital Signs/Intake and Output Vital Signs (last 24 hours): Temp Pulse Resp BP Pulse Ox 97.6 F 86 20 97/65 L 96 09/12/16 04:00 09/12/16 04:05 09/12/16 04:00 09/12/16 10:54 09/12/16 04:00 Intake and Output: 09/12/16 09/12/16 06:59 18:59 Intake Total 250 Output Total 600 Balance -350 - Medications Medications: Current Medications Acetaminophen (Tylenol 325mg Tab) 650 mg PO Q4 [facility] Last Admin: 09/12/16 12:14 Dose: Not Given Albumin Human (Albumin Human 25% (12.5 Gm/50 Ml)) 12.5 gm IV Q2 [facility] Stop: 09/12/16 22:01 Last Admin: 09/12/16 13:29 Dose: 12.5 gm Albuterol/Ipratropium (Duoneb 3 Mg/0.5 Mg (3 Ml) Ud) 3 ml INH RQ6 [facility] Last Admin: 09/12/16 13:18 Dose: 3 ml Albuterol/Ipratropium (Duoneb 3 Mg/0.5 Mg (3 Ml) Ud) 3 ml IH RQ6 PRN PRN Reason: Shortness of Breath Folic Acid (Folic Acid) 1 mg PO DAILY [facility] Last Admin: 09/12/16 10:14 Dose: 1 mg Furosemide (Lasix) 40 mg PO DAILY [facility] Last Admin: 09/12/16 10:54 Dose: Not Given Meropenem 500 mg/ Sodium (Chloride) 100 mls @ 100 mls/hr IVPB Q6 [facility] Last Admin: 09/12/16 11:18 Dose: 100 mls/hr Insulin Aspart (Novolog) 0 unit SC ACHS [facility] PRN Reason: Protocol Last Admin: 09/12/16 12:43 Dose: 1 unit Lactulose (Enulose) 30 gm PO BID [facility] Last Admin: 09/12/16 10:13 Dose: 30 gm Levetiracetam (Keppra) 500 mg PO Q12H [facility] Last Admin: 09/12/16 08:40 Dose: 500 mg Rifaximin (Xifaxan) 550 mg PO BID [facility] Last Admin: 09/12/16 10:14 Dose: 550 mg Saccharomyces Boulardii (Florastor) 250 mg PO BID [facility] Last Admin: 09/12/16 10:14 Dose: 250 mg Spironolactone (Aldactone) 100 mg PO DAILY [facility] Last Admin: 09/12/16 11:00 Dose: Not Given Thiamine HCl (Vitamin B1 Tab) 100 mg PO DAILY [facility] Last Admin: 09/12/16 10:14 Dose: 100 mg - Labs Labs: 09/12/16 07:07 09/12/16 07:07 PT 14.5 SECONDS (9.7-12.2) H 09/11/16 11:32 INR 1.3 09/11/16 11:32 - Constitutional Appears: No Acute Distress, Chronically Ill - Head Exam Head Exam: ATRAUMATIC, NORMOCEPHALIC - Eye Exam Eye Exam: EOMI - ENT Exam ENT Exam: Mucous Membranes Moist - Respiratory Exam Respiratory Exam: Clear to Ausculation Bilateral, NORMAL BREATHING PATTERN - Cardiovascular Exam Cardiovascular Exam: +S1, +S2 - GI/Abdominal Exam GI & Abdominal Exam: Distended, Soft, Normal Bowel Sounds. absent: Firm, Guarding, Rigid Additional comments: reducible umbilical hernia - Extremities Exam Extremities Exam: absent: Pedal Edema Additional comments: small muscle mass right lower extremity as compared to left - Neurological Exam Neurological Exam: Alert, Awake - Psychiatric Exam Psychiatric exam: Normal Affect - Skin Skin Exam: Warm Assessment and Plan - Assessment and Plan (Free Text) Assessment: Alcoholic Cirrhosis continue lasix 40mg po daily, lactulose 30gm PO BID, xifaxan 550mg PO BID, aldactone 100mg PO daily, thaimine 100mg PO daily s/p paracentesis 9L removed, received albumin today pt will need elective EGD/ colonoscopy but not acutely appreciate GI input, Dr. Ruelas Hx Seizure continue keppra 500mg PO q12h UTI Urine culture positive for ESBL E. coli- on meropenem since 09/11 Dr. Herrera, ID, on the case- help appreciated Bacteremia will repeat blood culture GNR in one bottle Prophylactic measure pt will need PICC line All medical management as per Dr. Ohara
--- NOTE | 2016-09-12 17:37 | SPECPROC ---
Procedure: Ultrasound and fluoroscopically placed Right upper extremity PICC. Clinical indication: Long-term IV antibiotics. Technique: The relative risks and indications of the procedure were explained to the patient and written informed consent obtained. The patient was placed supine on the angiographic table and the right arm prepped and draped in the usual sterile fashion. A tourniquet was applied to the right axilla. 1% lidocaine was used to anesthetize the skin and soft tissues at the puncture site above the elbow. The right basilic vein was punctured under direct ultrasound guidance with a micropuncture set. A 0.018 guidewire was advanced centrally and used to measure the length to the SVC/RA junction. A 4 Sinhala single -lumen PICC size 29 cm long was advanced to the SVC/RA junction. The catheter was flushed and secured. The patient tolerated the procedure well. Impression: Ultrasound and fluoroscopically placed right upper extremity PICC. A 4 Sinhala single -lumen PICC line size 29 cm long was advanced to the SVC/RA junction
--- NOTE | 2016-09-12 17:54 | CP.PCM.PN ---
Subjective - Date & Time of Evaluation Date of Evaluation: 09/12/16 Time of Evaluation: 10:00 - Subjective Subjective: clinically same Objective - Vital Signs/Intake and Output Vital Signs (last 24 hours): Temp Pulse Resp BP Pulse Ox 98.3 F 102 H 20 100/67 100 09/12/16 17:05 09/12/16 17:05 09/12/16 17:05 09/12/16 17:05 09/12/16 17:05 Intake and Output: 09/12/16 09/12/16 06:59 18:59 Intake Total 250 300 Output Total 600 400 Balance -350 -100 - Medications Medications: Current Medications Acetaminophen (Tylenol 325mg Tab) 650 mg PO Q4 [facility] Last Admin: 09/12/16 17:19 Dose: Not Given Albumin Human (Albumin Human 25% (12.5 Gm/50 Ml)) 12.5 gm IV Q2 [facility] Stop: 09/12/16 22:01 Last Admin: 09/12/16 17:08 Dose: 12.5 gm Albuterol/Ipratropium (Duoneb 3 Mg/0.5 Mg (3 Ml) Ud) 3 ml INH RQ6 [facility] Last Admin: 09/12/16 13:18 Dose: 3 ml Albuterol/Ipratropium (Duoneb 3 Mg/0.5 Mg (3 Ml) Ud) 3 ml IH RQ6 PRN PRN Reason: Shortness of Breath Folic Acid (Folic Acid) 1 mg PO DAILY [facility] Last Admin: 09/12/16 10:14 Dose: 1 mg Furosemide (Lasix) 40 mg PO DAILY [facility] Last Admin: 09/12/16 10:54 Dose: Not Given Meropenem 500 mg/ Sodium (Chloride) 100 mls @ 100 mls/hr IVPB Q6 [facility] Last Admin: 09/12/16 17:40 Dose: 100 mls/hr Insulin Aspart (Novolog) 0 unit SC ACHS [facility] PRN Reason: Protocol Last Admin: 09/12/16 17:19 Dose: Not Given Lactulose (Enulose) 30 gm PO BID [facility] Last Admin: 09/12/16 17:40 Dose: 30 gm Levetiracetam (Keppra) 500 mg PO Q12H [facility] Last Admin: 09/12/16 08:40 Dose: 500 mg Rifaximin (Xifaxan) 550 mg PO BID [facility] Last Admin: 09/12/16 17:41 Dose: 550 mg Saccharomyces Boulardii (Florastor) 250 mg PO BID [facility] Last Admin: 09/12/16 17:39 Dose: 250 mg Spironolactone (Aldactone) 100 mg PO DAILY [facility] Last Admin: 09/12/16 11:00 Dose: Not Given Thiamine HCl (Vitamin B1 Tab) 100 mg PO DAILY [facility] Last Admin: 09/12/16 10:14 Dose: 100 mg - Labs Labs: 09/12/16 07:07 09/12/16 07:07 PT 14.5 SECONDS (9.7-12.2) H 09/11/16 11:32 INR 1.3 09/11/16 11:32 - Constitutional Appears: Well - Head Exam Head Exam: ATRAUMATIC, NORMAL INSPECTION, NORMOCEPHALIC - Eye Exam Eye Exam: EOMI, Normal appearance, PERRL Pupil Exam: NORMAL ACCOMODATION, PERRL - ENT Exam ENT Exam: Mucous Membranes Moist, Normal Exam - Neck Exam Neck Exam: Full ROM, Normal Inspection. absent: Lymphadenopathy - Respiratory Exam Respiratory Exam: Decreased Breath Sounds - Cardiovascular Exam Cardiovascular Exam: REGULAR RHYTHM, +S1, +S2 - GI/Abdominal Exam GI & Abdominal Exam: Soft, Diminished Bowel Sounds - Rectal Exam Rectal Exam: Deferred
[2016-09-13] MEDS: Meropenem 500 MG in Sodium Chloride 0.9% 100 ML IVPB SCH ×4 (00:55→18:12)
[2016-09-13] MEDS: Albuterol-Ipratrop 3 mg / 0.5 (3 ml) UD INH SCH ×4 (01:07→19:55)
[2016-09-13] MEDS: (Novolog) Insulin Aspart, Recombinant 100 u/ml 10 ml vial SC SCH ×4 (08:20→22:29)
--- NOTE | 2016-09-13 10:18 | CP.PCM.PN ---
Subjective - Date & Time of Evaluation Date of Evaluation: 09/13/16 Time of Evaluation: 10:00 - Subjective Subjective: clinically same Objective - Vital Signs/Intake and Output Vital Signs (last 24 hours): Temp Pulse Resp BP Pulse Ox 98.2 F 94 H 20 95/70 L 99 09/12/16 23:25 09/12/16 23:25 09/12/16 23:25 09/13/16 09:02 09/12/16 23:25 Intake and Output: 09/13/16 09/13/16 06:59 18:59 Output Total 650 Balance -650 - Medications Medications: Current Medications Acetaminophen (Tylenol 325mg Tab) 650 mg PO Q4 [facility] Last Admin: 09/13/16 08:20 Dose: Not Given Albuterol/Ipratropium (Duoneb 3 Mg/0.5 Mg (3 Ml) Ud) 3 ml INH RQ6 [facility] Last Admin: 09/13/16 07:11 Dose: 3 ml Albuterol/Ipratropium (Duoneb 3 Mg/0.5 Mg (3 Ml) Ud) 3 ml IH RQ6 PRN PRN Reason: Shortness of Breath Folic Acid (Folic Acid) 1 mg PO DAILY [facility] Last Admin: 09/12/16 10:14 Dose: 1 mg Furosemide (Lasix) 40 mg PO DAILY [facility] Last Admin: 09/13/16 09:02 Dose: Not Given Meropenem 500 mg/ Sodium (Chloride) 100 mls @ 100 mls/hr IVPB Q6 [facility] Last Admin: 09/13/16 06:20 Dose: 100 mls/hr Insulin Aspart (Novolog) 0 unit SC ACHS [facility] PRN Reason: Protocol Last Admin: 09/13/16 08:20 Dose: Not Given Lactulose (Enulose) 30 gm PO BID [facility] Last Admin: 09/12/16 17:40 Dose: 30 gm Levetiracetam (Keppra) 500 mg PO Q12H [facility] Last Admin: 09/13/16 08:22 Dose: 500 mg Rifaximin (Xifaxan) 550 mg PO BID [facility] Last Admin: 09/12/16 17:41 Dose: 550 mg Saccharomyces Boulardii (Florastor) 250 mg PO BID [facility] Last Admin: 09/12/16 17:39 Dose: 250 mg Spironolactone (Aldactone) 100 mg PO DAILY [facility] Last Admin: 09/13/16 09:02 Dose: Not Given Thiamine HCl (Vitamin B1 Tab) 100 mg PO DAILY [facility] Last Admin: 09/12/16 10:14 Dose: 100 mg - Labs Labs: 09/12/16 07:07 09/12/16 07:07 PT 14.5 SECONDS (9.7-12.2) H 09/11/16 11:32 INR 1.3 09/11/16 11:32 - Constitutional Appears: Well - Head Exam Head Exam: ATRAUMATIC, NORMAL INSPECTION, NORMOCEPHALIC - Eye Exam Eye Exam: EOMI, Normal appearance, PERRL Pupil Exam: NORMAL ACCOMODATION, PERRL - ENT Exam ENT Exam: Mucous Membranes Moist, Normal Exam - Neck Exam Neck Exam: Full ROM, Normal Inspection. absent: Lymphadenopathy - Respiratory Exam Respiratory Exam: Decreased Breath Sounds - Cardiovascular Exam Cardiovascular Exam: REGULAR RHYTHM, +S1, +S2 - GI/Abdominal Exam GI & Abdominal Exam: Soft, Diminished Bowel Sounds - Rectal Exam Rectal Exam: Deferred
[2016-09-13] MEDS: Saccharomyces Boulardi 250 mg Cap PO SCH ×2 (10:51→18:12)
--- NOTE | 2016-09-13 15:21 | CARD ---
APPROVED REPORT EKG Measurement Heart [id number] [place] [id number] <Conclusion> Sinus tachycardia Left axis deviation Left bundle branch block Abnormal ECG
[2016-09-14] MEDS: Meropenem 500 MG in Sodium Chloride 0.9% 100 ML IVPB SCH ×4 (00:25→18:14)
[2016-09-14] MEDS: Albuterol-Ipratrop 3 mg / 0.5 (3 ml) UD INH SCH ×4 (01:07→19:21)
[2016-09-14] MEDS: (Novolog) Insulin Aspart, Recombinant 100 u/ml 10 ml vial SC SCH ×4 (08:30→21:42)
[2016-09-14] MEDS: Saccharomyces Boulardi 250 mg Cap PO SCH ×2 (09:57→18:16)
--- NOTE | 2016-09-14 14:43 | CP.PCM.PN ---
Subjective - Date & Time of Evaluation Date of Evaluation: 09/14/16 Time of Evaluation: 08:00 - Subjective Subjective: GREW + COCCI 1/2 SETS MAY BE CONTAM CONT RX FOR ESB ECOLI BLOOD/ URINE ON ADMISSION Objective - Vital Signs/Intake and Output Vital Signs (last 24 hours): Temp Pulse Resp BP Pulse Ox 97.6 F 96 H 18 89/52 L 96 09/14/16 09:41 09/14/16 09:41 09/14/16 09:41 09/14/16 09:41 09/14/16 09:41 Intake and Output: 09/14/16 09/14/16 06:59 18:59 Intake Total 450 Output Total 600 Balance -150 - Medications Medications: Current Medications Albuterol/Ipratropium (Duoneb 3 Mg/0.5 Mg (3 Ml) Ud) 3 ml INH RQ6 [facility] Last Admin: 09/14/16 13:38 Dose: 3 ml Albuterol/Ipratropium (Duoneb 3 Mg/0.5 Mg (3 Ml) Ud) 3 ml IH RQ6 PRN PRN Reason: Shortness of Breath Folic Acid (Folic Acid) 1 mg PO DAILY [facility] Last Admin: 09/14/16 09:57 Dose: 1 mg Furosemide (Lasix) 40 mg PO DAILY [facility] Last Admin: 09/14/16 09:58 Dose: Not Given Meropenem 500 mg/ Sodium (Chloride) 100 mls @ 100 mls/hr IVPB Q6 [facility] Last Admin: 09/14/16 12:00 Dose: 100 mls/hr Insulin Aspart (Novolog) 0 unit SC ACHS [facility] PRN Reason: Protocol Last Admin: 09/14/16 12:30 Dose: Not Given Lactulose (Enulose) 30 gm PO BID [facility] Last Admin: 09/14/16 09:57 Dose: 30 gm Levetiracetam (Keppra) 500 mg PO Q12H [facility] Last Admin: 09/14/16 09:05 Dose: 500 mg Rifaximin (Xifaxan) 550 mg PO BID [facility] Last Admin: 09/14/16 09:57 Dose: 550 mg Saccharomyces Boulardii (Florastor) 250 mg PO BID [facility] Last Admin: 09/14/16 09:57 Dose: 250 mg Spironolactone (Aldactone) 100 mg PO DAILY [facility] Last Admin: 09/14/16 09:58 Dose: Not Given Thiamine HCl (Vitamin B1 Tab) 100 mg PO DAILY [facility] Last Admin: 09/14/16 09:56 Dose: 100 mg - Labs Labs: 09/12/16 07:07 09/12/16 07:07 PT 14.5 SECONDS (9.7-12.2) H 09/11/16 11:32 INR 1.3 09/11/16 11:32 - Constitutional Appears: Cachectic, Chronically Ill - Head Exam Head Exam: NORMOCEPHALIC - Eye Exam Eye Exam: PERRL. absent: Scleral icterus - ENT Exam ENT Exam: Mucous Membranes Dry, Normal External Ear Exam - Neck Exam Neck Exam: absent: Lymphadenopathy - Respiratory Exam Respiratory Exam: Decreased Breath Sounds, Rhonchi - Cardiovascular Exam Cardiovascular Exam: REGULAR RHYTHM, +S1, +S2 - GI/Abdominal Exam GI & Abdominal Exam: Distended, Soft Assessment and Plan (1) Sepsis Status: Acute (2) Sepsis Status: Acute (3) Ascites Status: Chronic (4) Anemia Status: Acute (5) Ascites due to chronic alcoholic hepatitis Status: Acute (6) Dyspnea Status: Acute
--- NOTE | 2016-09-14 15:32 | CP.PCM.PN ---
Subjective - Date & Time of Evaluation Date of Evaluation: 09/14/16 Objective - Vital Signs/Intake and Output Vital Signs (last 24 hours): Temp Pulse Resp BP Pulse Ox 97.6 F 98 H 18 89/52 L 96 09/14/16 09:41 09/14/16 12:31 09/14/16 09:41 09/14/16 09:41 09/14/16 09:41 Intake and Output: 09/14/16 09/14/16 06:59 18:59 Intake Total 450 500 Output Total 600 500 Balance -150 0 - Medications Medications: Current Medications Albuterol/Ipratropium (Duoneb 3 Mg/0.5 Mg (3 Ml) Ud) 3 ml INH RQ6 [facility] Last Admin: 09/14/16 13:38 Dose: 3 ml Albuterol/Ipratropium (Duoneb 3 Mg/0.5 Mg (3 Ml) Ud) 3 ml IH RQ6 PRN PRN Reason: Shortness of Breath Folic Acid (Folic Acid) 1 mg PO DAILY [facility] Last Admin: 09/14/16 09:57 Dose: 1 mg Furosemide (Lasix) 40 mg PO DAILY [facility] Last Admin: 09/14/16 09:58 Dose: Not Given Meropenem 500 mg/ Sodium (Chloride) 100 mls @ 100 mls/hr IVPB Q6 [facility] Last Admin: 09/14/16 12:00 Dose: 100 mls/hr Insulin Aspart (Novolog) 0 unit SC ACHS [facility] PRN Reason: Protocol Last Admin: 09/14/16 12:30 Dose: Not Given Lactulose (Enulose) 30 gm PO BID [facility] Last Admin: 09/14/16 09:57 Dose: 30 gm Levetiracetam (Keppra) 500 mg PO Q12H [facility] Last Admin: 09/14/16 09:05 Dose: 500 mg Rifaximin (Xifaxan) 550 mg PO BID [facility] Last Admin: 09/14/16 09:57 Dose: 550 mg Saccharomyces Boulardii (Florastor) 250 mg PO BID [facility] Last Admin: 09/14/16 09:57 Dose: 250 mg Spironolactone (Aldactone) 100 mg PO DAILY [facility] Last Admin: 09/14/16 09:58 Dose: Not Given Thiamine HCl (Vitamin B1 Tab) 100 mg PO DAILY [facility] Last Admin: 09/14/16 09:56 Dose: 100 mg - Labs Labs: 09/12/16 07:07 09/12/16 07:07 PT 14.5 SECONDS (9.7-12.2) H 09/11/16 11:32 INR 1.3 09/11/16 11:32
[2016-09-15] MEDS: Meropenem 500 MG in Sodium Chloride 0.9% 100 ML IVPB SCH ×5 (00:20→18:14)
[2016-09-15] MEDS: Albuterol-Ipratrop 3 mg / 0.5 (3 ml) UD INH SCH (01:34)
[2016-09-15 01:39] LABS: RBC URINE 11 /hpf (0-3); URINE BILIRUBIN NEGATIVE (NEGATIVE); URINE BLOOD NEGATIVE (NEGATIVE); URINE COLOR Yellow (YELLOW); URINE GLUCOSE (UA) NORMAL (Normal); URINE KETONE TRACE mg/dL (NEGATIVE); URINE LEUKOCYTE ESTERASE TRACE Leu/uL (Negative); URINE PROTEIN NEGATIVE (NEGATIVE); URINE UROBILINOGEN NORMAL mg/dL (0.2-1.0); WBC URINE 73 /hpf (0-5)
[2016-09-15] MEDS: (Novolog) Insulin Aspart, Recombinant 100 u/ml 10 ml vial SC SCH ×3 (07:53→17:06)
[2016-09-15 08:20] VITALS: TEMP 98
[2016-09-15] MEDS: Saccharomyces Boulardi 250 mg Cap PO SCH ×2 (09:38→18:11)
--- NOTE | 2016-09-15 09:47 | CP.PCM.PN ---
Subjective - Date & Time of Evaluation Date of Evaluation: 09/15/16 Time of Evaluation: 11:00 - Subjective Subjective: clinically same Objective - Vital Signs/Intake and Output Vital Signs (last 24 hours): Temp Pulse Resp BP Pulse Ox 98.0 F 92 H 18 100/70 100 09/15/16 07:50 09/15/16 07:50 09/15/16 07:50 09/15/16 09:38 09/15/16 07:50 Intake and Output: 09/15/16 09/15/16 06:59 18:59 Intake Total 420 Output Total 530 Balance -110 - Medications Medications: Current Medications Albuterol/Ipratropium (Duoneb 3 Mg/0.5 Mg (3 Ml) Ud) 3 ml IH RQ6 PRN PRN Reason: Shortness of Breath Folic Acid (Folic Acid) 1 mg PO DAILY [facility] Last Admin: 09/15/16 09:38 Dose: 1 mg Furosemide (Lasix) 40 mg PO DAILY [facility] Last Admin: 09/15/16 09:38 Dose: Not Given Meropenem 500 mg/ Sodium (Chloride) 100 mls @ 100 mls/hr IVPB Q6 [facility] Last Admin: 09/15/16 06:05 Dose: 100 mls/hr Insulin Aspart (Novolog) 0 unit SC ACHS [facility] PRN Reason: Protocol Last Admin: 09/15/16 07:53 Dose: Not Given Lactulose (Enulose) 30 gm PO BID [facility] Last Admin: 09/15/16 09:39 Dose: Not Given Levetiracetam (Keppra) 500 mg PO Q12H [facility] Last Admin: 09/15/16 08:11 Dose: 500 mg Rifaximin (Xifaxan) 550 mg PO BID [facility] Last Admin: 09/15/16 09:38 Dose: 550 mg Saccharomyces Boulardii (Florastor) 250 mg PO BID [facility] Last Admin: 09/15/16 09:38 Dose: 250 mg Spironolactone (Aldactone) 100 mg PO DAILY [facility] Last Admin: 09/15/16 09:39 Dose: Not Given Thiamine HCl (Vitamin B1 Tab) 100 mg PO DAILY [facility] Last Admin: 09/15/16 09:38 Dose: 100 mg - Labs Labs: 09/12/16 07:07 09/12/16 07:07 PT 14.5 SECONDS (9.7-12.2) H 09/11/16 11:32 INR 1.3 09/11/16 11:32 - Constitutional Appears: Well - Head Exam Head Exam: ATRAUMATIC, NORMAL INSPECTION, NORMOCEPHALIC - Eye Exam Eye Exam: EOMI, Normal appearance, PERRL Pupil Exam: NORMAL ACCOMODATION, PERRL - ENT Exam ENT Exam: Mucous Membranes Moist, Normal Exam - Neck Exam Neck Exam: Full ROM, Normal Inspection. absent: Lymphadenopathy - Respiratory Exam Respiratory Exam: Decreased Breath Sounds - Cardiovascular Exam Cardiovascular Exam: REGULAR RHYTHM, +S1, +S2 - GI/Abdominal Exam GI & Abdominal Exam: Soft, Diminished Bowel Sounds - Rectal Exam Rectal Exam: Deferred
--- NOTE | 2016-09-15 10:03 | CP.PCM.PN ---
Subjective - Date & Time of Evaluation Date of Evaluation: 09/15/16 Time of Evaluation: 07:35 - Subjective Subjective: PGY2 Medicine Note- Dr. Ohara's service Patient seen and examined. No overnight events per nursing. Patient reports feeling well and denies SOB. Patient is tolerating diet well and is pending placement to rehab. PICC line obtained. Patient is stable for discharge to rehab, per Dr. Taylor Ohara. Patient should resume all medications as outlined in this document. Patient should continue IV Abx for the next 12 days (Meropenem 500mg IVPB Q6H [facility]) due to positive cultures. Also, Please make an appointment and follow up with your Primary Doctor within one week of discharge. Patient will need elective EGD/ colonoscopy but not acutely (please establish care with a Gastroenterologsit). Patient should return to ED immediately if symptoms return or worsen. Instructions discussed with patient who understood and agreed. Objective - Vital Signs/Intake and Output Vital Signs (last 24 hours): Temp Pulse Resp BP Pulse Ox 98.0 F 92 H 18 100/70 100 09/15/16 07:50 09/15/16 07:50 09/15/16 07:50 09/15/16 09:38 09/15/16 07:50 Intake and Output: 09/15/16 09/15/16 06:59 18:59 Intake Total 420 Output Total 530 Balance -110 - Medications Medications: Current Medications Albuterol/Ipratropium (Duoneb 3 Mg/0.5 Mg (3 Ml) Ud) 3 ml IH RQ6 PRN PRN Reason: Shortness of Breath Folic Acid (Folic Acid) 1 mg PO DAILY [facility] Last Admin: 09/15/16 09:38 Dose: 1 mg Furosemide (Lasix) 40 mg PO DAILY [facility] Last Admin: 09/15/16 09:38 Dose: Not Given Meropenem 500 mg/ Sodium (Chloride) 100 mls @ 100 mls/hr IVPB Q6 [facility] Last Admin: 09/15/16 06:05 Dose: 100 mls/hr Insulin Aspart (Novolog) 0 unit SC ACHS [facility] PRN Reason: Protocol Last Admin: 09/15/16 07:53 Dose: Not Given Lactulose (Enulose) 30 gm PO BID [facility] Last Admin: 09/15/16 09:39 Dose: Not Given Levetiracetam (Keppra) 500 mg PO Q12H [facility] Last Admin: 09/15/16 08:11 Dose: 500 mg Rifaximin (Xifaxan) 550 mg PO BID [facility] Last Admin: 09/15/16 09:38 Dose: 550 mg Saccharomyces Boulardii (Florastor) 250 mg PO BID [facility] Last Admin: 09/15/16 09:38 Dose: 250 mg Spironolactone (Aldactone) 100 mg PO DAILY [facility] Last Admin: 09/15/16 09:39 Dose: Not Given Thiamine HCl (Vitamin B1 Tab) 100 mg PO DAILY [facility] Last Admin: 09/15/16 09:38 Dose: 100 mg - Labs Labs: 09/12/16 07:07 09/12/16 07:07 PT 14.5 SECONDS (9.7-12.2) H 09/11/16 11:32 INR 1.3 09/11/16 11:32 - Additional Findings Additional findings: - Constitutional Appears: No Acute Distress, Chronically Ill - Head Exam Head Exam: ATRAUMATIC, NORMOCEPHALIC - Eye Exam Eye Exam: EOMI - ENT Exam ENT Exam: Mucous Membranes Moist - Respiratory Exam Respiratory Exam: Clear to Ausculation Bilateral, NORMAL BREATHING PATTERN - Cardiovascular Exam Cardiovascular Exam: +S1, +S2 - GI/Abdominal Exam GI & Abdominal Exam: Distended, Soft, Normal Bowel Sounds. 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 pt will need elective EGD/ colonoscopy but not acutely appreciate GI input, Dr. Ruelas Hx Seizure continue keppra 500mg PO q12h UTI Urine culture positive for ESBL E. coli- on meropenem since 09/11 Dr. Herrera, ID, on the case- help appreciated Bacteremia Blood culture positive for ESBL E. coli- on meropenem since 09/11 will repeat blood culture GNR in one bottle Prophylactic measure PICC line obtained. All medical management as per Dr. Ohara Disposition: Patient stable for discharge to Rehab to continue Meropenem 500mg IVPB Q6H [facility] x 12 days.
[2016-09-15 11:49] LABS: BASO % 0.6 % (0.0-2.0); EOS # 0.1 K/uL (0.0-0.7); EOS % 1.2 % (0.0-4.0); HEMATOCRIT 36.5 % (35.0-51.0); LYMPH # 1.6 K/uL (1.0-4.3); LYMPH % 24.7 % (20.0-40.0); MEAN CELL VOLUME 103.3 fL (80.0-94.0); MEAN CORPUSCULAR HEMOGLOBIN 35.1 pg (27.0-31.0); MEAN PLATELET VOLUME 7.7 fL (7.2-11.7); MONO # 0.7 K/uL (0.0-0.8); MONO % 10.4 % (0.0-10.0); NRBC % 0.1 % (0.0-2.0); RED CELL DISTRIBUTION WIDTH 15.1 % (11.5-14.5); WHITE BLOOD COUNT 6.5 K/uL (4.8-10.8)
[2016-09-15 12:07] LABS: CHLORIDE 102 mmol/L (98-107); SODIUM 135 mmol/L (132-148)
[2016-09-15 12:08] LABS: POTASSIUM 4.1 mmol/L (3.6-5.2)
[2016-09-15 12:10] LABS: ALB/GLOB RATIO 0.7 (1.0-2.1); ALKALINE PHOSPHATASE 95 U/L (38-126); ALT/SGPT 73 U/L (21-72); AST/SGOT 81 U/L (17-59); BILIRUBIN,TOTAL 0.8 mg/dL (0.2-1.3); BLOOD UREA NITROGEN 15 mg/dL (9-20); CALCIUM 8.2 mg/dl (8.6-10.4); CARBON DIOXIDE 27 mmol/L (22-30); GFR AFRICAN-AMERICAN > 60; GLUCOSE,RANDOM 81 mg/dL (75-110)
[2016-09-15 18:57] VITALS: BP 106/57; PULSE 99; RESP 20; O2SAT 95
== END 2016-09-15 20:40 | DRG 871 ==
LOC: C.ER 12:24 → C.9E 14:20 → C.6T 18:46
PROVIDERS: ADMIT Internal Medicine Nephrology; ATTEND Internal Medicine Nephrology
PROC: 0W9G3ZZ Drainage of Peritoneal Cavity, Percutaneous Approach (ICD-10-PCS; principal; 2016-09-10)
PROC: BW40ZZZ Ultrasonography of Abdomen (ICD-10-PCS; 2016-09-10)
PROC: 02HV33Z Insertion of Infusion Device into Superior Vena Cava, Percutaneous Approach (ICD-10-PCS; 2016-09-12)
PROC: B548ZZA Ultrasonography of Superior Vena Cava, Guidance (ICD-10-PCS; 2016-09-12)
DX: A41.51 Sepsis due to Escherichia coli [E. coli] (principal); K70.31 Alcoholic cirrhosis of liver with ascites; E43 Unspecified severe protein-calorie malnutrition; K70.11 Alcoholic hepatitis with ascites; N39.0 Urinary tract infection, site not specified; Z16.12 Extended spectrum beta lactamase (ESBL) resistance; E11.9 Type 2 diabetes mellitus without complications; K21.9 Gastro-esophageal reflux disease without esophagitis; R06.00 Dyspnea, unspecified; D64.9 Anemia, unspecified; G40.909 Epilepsy, unspecified, not intractable, without status epilepticus; F10.21 Alcohol dependence, in remission; K59.00 Constipation, unspecified; Z72.0 Tobacco use; Z91.81 History of falling; Z79.4 Long term (current) use of insulin

== ENCOUNTER 2016-09-22 12:29 | Inpatient (IN) | payer MEDICAID, MEDICARE, OTHER ==
[2016-09-22 14:24] LABS: BASO # 0.1 K/uL (0.0-0.2); BASO % 0.9 % (0.0-2.0); EOS # 0.1 K/uL (0.0-0.7); HEMOGLOBIN 12.9 g/dL (12.0-18.0); LYMPH # 1.5 K/uL (1.0-4.3); LYMPH % 23.3 % (20.0-40.0); MEAN CELL VOLUME 103.5 fL (80.0-94.0); MEAN CORPUSCULAR HEMOGLOBIN 34.1 pg (27.0-31.0); MEAN CORPUSCULAR HGB CONC 32.9 g/dL (33.0-37.0); MEAN PLATELET VOLUME 6.8 fL (7.2-11.7); MONO # 0.8 K/uL (0.0-0.8); MONO % 12.2 % (0.0-10.0); NEUT # 4.1 K/uL (1.8-7.0); NEUT % 62.6 % (50.0-75.0); NRBC % 0.1 % (0.0-2.0); RBC 3.78 Mil/uL (4.40-5.90); RED CELL DISTRIBUTION WIDTH 15.2 % (11.5-14.5); WHITE BLOOD COUNT 6.6 K/uL (4.8-10.8)
[2016-09-22 14:31] LABS: INR 1.3; PROTHROMBIN TIME 14.1 SECONDS (9.7-12.2)
[2016-09-22 14:36] LABS: ALBUMIN 2.8 g/dL (3.5-5.0)
[2016-09-22 14:38] LABS: GFR AFRICAN-AMERICAN > 60; GFR NON-AFRICAN AMERICAN > 60
[2016-09-22 14:39] LABS: ALB/GLOB RATIO 0.6 (1.0-2.1); ALT/SGPT 79 U/L (21-72); AST/SGOT 81 U/L (17-59); BLOOD UREA NITROGEN 13 mg/dL (9-20)
[2016-09-22 14:40] LABS: CALCIUM 8.4 mg/dl (8.6-10.4)
--- NOTE | 2016-09-22 16:03 | C.PDOC ---
History Of Present Illness 66-year-old male presents to the emergency department from [facility] for evaluation of abdominal distention. Patient denies chest pain, SOB, nausea/ vomiting/diarrhea, dysuria/hematuria. Time Seen by Provider: 09/22/16 13:03 Chief Complaint (Nursing): GI Problem History Per: Patient History/Exam Limitations: no limitations Onset/Duration Of Symptoms: Days Current Symptoms Are (Timing): Still Present Severity: Moderate Past Medical History Reviewed: Historical Data, Nursing Documentation, Vital Signs Vital Signs: Last Vital Signs Temp 97.3 F L 09/26/16 15:00 Pulse 100 H 09/26/16 15:00 Resp 20 09/26/16 15:00 BP 104/73 09/26/16 15:00 Pulse Ox 95 09/26/16 15:00 - Medical History PMH: Seizures - [facility] Procedures DRAINAGE OF PERITONEAL CAVITY, PERCUTANEOUS APPROACH (09/09/16) INSERTION OF INFUSION DEV INTO SUP VENA CAVA, PERC APPROACH (09/09/16) INSPECTION OF ABDOMINAL WALL, PERCUTANEOUS APPROACH (05/19/16) INTRODUCTION OF NUTRITIONAL INTO PERIPH VEIN, PERC APPROACH (05/19/16) ULTRASONOGRAPHY OF ABDOMEN (09/09/16) ULTRASONOGRAPHY OF SUPERIOR VENA CAVA, GUIDANCE (09/09/16) Family History: States: No Known Family Hx - Social History Hx Alcohol Use: Yes Hx Substance Use: No - Immunization History Hx Tetanus Toxoid Vaccination: No Hx Influenza Vaccination: No Hx Pneumococcal Vaccination: No Review Of Systems Except As Marked, All Systems Reviewed And Found Negative. Constitutional: Negative for: Fever, Chills Cardiovascular: Negative for: Chest Pain, Palpitations Respiratory: Negative for: Cough, Shortness of Breath Gastrointestinal: Negative for: Nausea, Vomiting, Abdominal Pain, Diarrhea Genitourinary: Negative for: Dysuria, Hematuria Neurological: Negative for: Headache, Dizziness Physical Exam - Physical Exam Appears: Non-toxic, No Acute Distress, Chronically Ill Skin: Warm, Dry, No Rash, Jaundice Eye(s): bilateral: Normal Inspection, Scleral Icterus Oral Mucosa: Moist Neck: Normal Cardiovascular: Rhythm Regular Respiratory: Normal Breath Sounds, No Rales, No Rhonchi Gastrointestinal/Abdominal: Tenderness (diffuse mild TTP), Ascites (moderate) Extremity: Normal ROM Neurological/Psych: Oriented x3 ED Course And Treatment - Laboratory Results Result Diagrams: 09/26/16 06:49 09/26/16 06:49 ECG: Interpreted By Me, Viewed By Me (sinus tachycardia 101 bpm, left axis deviation, IV block (nonspecific), T wave inversions III, aVF, V4-V6) ECG Interpretation: Abnormal O2 Sat by Pulse Oximetry: 98 (RA) Pulse Ox Interpretation: Normal Progress Note: Blood work, EKG ordered and reviewed. - Physician Consult Information Physician Contacted: Zoë Ohara Outcome Of Conversation: Discussed patient with PMD, he agrees with admission for ascites, liver cirrhosis, need for paracentesis. IR consult entered. Disposition - Disposition Disposition: HOSPITALIZED Disposition Time: 14:46 Condition: STABLE - Clinical Impression Clinical Impression: Liver cirrhosis, Ascites - Scribe Statement The provider has reviewed the documentation as recorded by the Scribe (Tania Cevallos) All medical record entries made by the Scribe were at my direction and personally dictated by me. I have reviewed the chart and agree that the record accurately reflects my personal performance of the history, physical exam, medical decision making, and the department course for this patient. I have also personally directed, reviewed, and agree with the discharge instructions and disposition. Decision To Admit - Pt Status Changed To: Hospital Disposition Of: Observation - . Bed Request Type: Regular Admitting Physician: Zoë Ohara Patient Diagnosis: Ascites, Liver cirrhosis
[2016-09-22] MEDS ORDERED: Magnesium Hydroxide Susp 30 ml UD PO PRN (19:33)
[2016-09-22] MEDS ORDERED: Albuterol-Ipratrop 3 mg / 0.5 (3 ml) UD IH PRN (19:33)
[2016-09-22] MEDS ORDERED: Aluminum Hydroxide/Magnesium Hydroxide Susp (30 mL) PO PRN (19:33)
--- NOTE | 2016-09-22 20:07 | CP.PCM.HP ---
Past Patient History - Infectious Disease Hx of Infectious Diseases: None - Past Medical History & Family History Past Medical History?: Yes - Past Social History Smoking Status: Former Smoker - CARDIAC Hx Cardiac Disorders: No Other/Comment: Pulmonary Hypertension - PULMONARY Hx Respiratory Disorders: No - NEUROLOGICAL Hx Seizures: Yes - HEENT Hx HEENT Problems: No - RENAL Hx Chronic Kidney Disease: No - ENDOCRINE/METABOLIC Hx Diabetes Mellitus Type 2: Yes - HEMATOLOGICAL/ONCOLOGICAL Hx Blood Disorders: Yes Hx Cirrhosis: Yes - INTEGUMENTARY Hx Dermatological Problems: No - MUSCULOSKELETAL/RHEUMATOLOGICAL Hx Falls: Yes - GASTROINTESTINAL Hx Gastrointestinal Disorders: Yes Hx Gastroesophageal Reflux: Yes Hx Liver Failure: Yes - GENITOURINARY/GYNECOLOGICAL Hx Genitourinary Disorders: No - PSYCHIATRIC Hx Substance Use: No - SURGICAL HISTORY Hx Surgeries: No - ANESTHESIA Hx Anesthesia: No Hx Anesthesia Reactions: No Meds Allergies/Adverse Reactions: Allergies Allergy/AdvReac Type Severity Reaction Status Date / Time No Known Allergies Allergy Verified 09/22/16 12:55 Results - Vital Signs Recent Vital Signs: Last Vital Signs Temp 97.8 F 09/22/16 19:00 Pulse 99 H 09/22/16 19:00 Resp 20 09/22/16 19:00 BP 129/79 09/22/16 19:00 Pulse Ox 98 09/22/16 19:00 - Labs Result Diagrams: 09/22/16 14:14 09/22/16 14:14
[2016-09-22] MEDS: (Novolog) Insulin Aspart, Recombinant 100 u/ml 10 ml vial SC SCH (22:19)
[2016-09-22] MEDS: Zinc Oxide Topical 30 gm Tube TOP SCH (22:19)
[2016-09-23] MEDS: Meropenem 500 MG in Sodium Chloride 0.9% 100 ML IVPB SCH ×4 (00:05→17:45)
[2016-09-23] MEDS: Zinc Oxide Topical 30 gm Tube TOP SCH ×3 (05:00→22:15)
[2016-09-23] MEDS: (Novolog) Insulin Aspart, Recombinant 100 u/ml 10 ml vial SC SCH ×4 (07:47→22:15)
[2016-09-23] MEDS: Saccharomyces Boulardi 250 mg Cap PO SCH ×2 (09:55→17:45)
[2016-09-23] MEDS: Enoxaparin 40 mg Syringe SC SCH (09:56)
--- NOTE | 2016-09-23 13:21 | CP.PCM.PN ---
Subjective - Date & Time of Evaluation Date of Evaluation: 09/23/16 Time of Evaluation: 13:21 Objective - Vital Signs/Intake and Output Vital Signs (last 24 hours): Temp Pulse Resp BP Pulse Ox 98.2 F 91 H 20 146/84 98 09/23/16 07:58 09/23/16 12:52 09/23/16 07:58 09/23/16 09:55 09/23/16 07:58 Intake and Output: 09/23/16 09/23/16 06:59 18:59 Intake Total 610 Balance 610 - Medications Medications: Current Medications Acetaminophen (Tylenol 325mg Tab) 650 mg PO Q4 PRN PRN Reason: mild pain OR temp > 100.4 Al Hydrox/Mg Hydrox/Simethicone (Maalox 30 Ml) 30 ml PO Q4 PRN PRN Reason: heartburn and indigestion Albuterol/Ipratropium (Duoneb 3 Mg/0.5 Mg (3 Ml) Ud) 3 ml IH Q6H PRN PRN Reason: Shortness of Breath Last Admin: 09/23/16 12:49 Dose: 3 ml Diphenhydramine HCl (Benadryl) 25 mg PO Q12 [facility] Last Admin: 09/23/16 10:09 Dose: 25 mg Enoxaparin Sodium (Lovenox) 40 mg SC DAILY [facility] Last Admin: 09/23/16 09:56 Dose: 40 mg Famotidine (Pepcid) 20 mg PO HS [facility] Last Admin: 09/22/16 22:20 Dose: 20 mg Folic Acid (Folic Acid) 1 mg PO DAILY [facility] Last Admin: 09/23/16 09:56 Dose: 1 mg Furosemide (Lasix) 40 mg IVP Q12 [facility] Last Admin: 09/23/16 09:55 Dose: 40 mg Meropenem 500 mg/ Sodium (Chloride) 100 mls @ 100 mls/hr IVPB Q6 [facility] Last Admin: 09/23/16 11:19 Dose: 100 mls/hr Insulin Aspart (Novolog) 0 unit SC ACHS [facility] PRN Reason: Protocol Last Admin: 09/23/16 12:42 Dose: Not Given Lactulose (Enulose) 20 gm PO BID [facility] Last Admin: 09/23/16 09:55 Dose: 20 gm Levetiracetam (Keppra) 500 mg PO Q12 [facility] Last Admin: 09/23/16 09:55 Dose: 500 mg Magnesium Hydroxide (Milk Of Magnesia) 30 ml PO DAILY PRN PRN Reason: no BM after 3 days Petrolatum (Desitin Original) 1 gm TOP Q8 [facility] Last Admin: 09/23/16 05:00 Dose: 1 applic Rifaximin (Xifaxan) 550 mg PO BID [facility] Last Admin: 09/23/16 09:56 Dose: 550 mg Saccharomyces Boulardii (Florastor) 250 mg PO BID [facility] Last Admin: 09/23/16 09:55 Dose: 250 mg Spironolactone (Aldactone) 100 mg PO DAILY [facility] Last Admin: 09/23/16 09:57 Dose: 100 mg Thiamine HCl (Vitamin B1 Tab) 100 mg PO DAILY [facility] Last Admin: 09/23/16 09:55 Dose: 100 mg - Labs Labs: PT 14.1 SECONDS (9.7-12.2) H 09/22/16 14:14 INR 1.3 09/22/16 14:14 APTT 39 SECONDS (21-34) H 09/22/16 14:14
[2016-09-24] MEDS: Meropenem 500 MG in Sodium Chloride 0.9% 100 ML IVPB SCH ×5 (00:15→23:45)
[2016-09-24] MEDS: Zinc Oxide Topical 30 gm Tube TOP SCH ×3 (06:00→21:31)
[2016-09-24] MEDS: (Novolog) Insulin Aspart, Recombinant 100 u/ml 10 ml vial SC SCH ×4 (08:23→21:33)
--- NOTE | 2016-09-24 12:24 | US ---
Date of Procedure: 09/24/2016 PROCEDURE: Ultrasound-guided paracentesis, CPT 08219 Medications: 7cc 1% Lidocaine HISTORY: Ascites, abdominal pain, cirrhosis TECHNIQUE: Following informed consent , the patient was placed supine on the stretcher and the site was marked. A limited abdominal ultrasound was performed that showed a large amount of intra-abdominal fluid. Procedural time out was called and the Pt's abdomen was marked and prepped and draped in the usual sterile fashion. Ultrasound-guided large volume paracentesis performed. A total of 9.5 liters of straw colored fluid was removed without complication. IMPRESSION: Ultrasound-guided large volume paracentesis.
[2016-09-24] MEDS: Saccharomyces Boulardi 250 mg Cap PO SCH ×2 (12:49→17:49)
[2016-09-24] MEDS: Enoxaparin 40 mg Syringe SC SCH (12:54)
--- NOTE | 2016-09-24 16:32 | CP.PCM.CON ---
History of Present Illness - History of Present Illness History of Present Illness: 66-year-old male, presents to the emergency department from [facility], with complaints of abdominal distention. Patient denies any pain, shortness of breath , nausea/vomiting, chest pain, or any other associated symptoms. No other complaints at this time hx of cirrhosis/ esld with recurrent ascites recently treated for ESBL e Coli urosepsis . - Medical History PMH: Seizures Denies: Chronic Kidney Disease - [facility] Procedures DRAINAGE OF PERITONEAL CAVITY, PERCUTANEOUS APPROACH (09/09/16) INSERTION OF INFUSION DEV INTO SUP VENA CAVA, PERC APPROACH (09/09/16) INSPECTION OF ABDOMINAL WALL, PERCUTANEOUS APPROACH (05/19/16) INTRODUCTION OF NUTRITIONAL INTO PERIPH VEIN, PERC APPROACH (05/19/16) ULTRASONOGRAPHY OF ABDOMEN (09/09/16) ULTRASONOGRAPHY OF SUPERIOR VENA CAVA, GUIDANCE (09/09/16) Review of Systems - Constitutional Constitutional: As Per HPI, Fatigue, Fever - EENT Eyes: absent: As Per HPI, Blind Spots, Blurred Vision, Change in Vision, Decreased Night Vision, Diplopia, Discharge, Dry Eye, Exophthalmos, Floaters, Irritation, Itchy Eyes, Loss of Peripheral Vision, Pain, Photophobia, Requires Corrective Lenses, Sees Flashes, Spots in Vision, Tunnel Vision, Other Visual Disturbances, Loss of Vision, Other Ears: absent: As Per HPI, Decreased Hearing, Ear Discharge, Ear Pain, Tinnitus, Abnormal Hearing, Disequilibrium, Dizziness, Other Nose/Mouth/Throat: absent: As Per HPI, Epistaxis, Nasal Congestion, Nasal Discharge, Nasal Obstruction, Nasal Trauma, Nose Pain, Post Nasal Drip, Sinus Pain, Sinus Pressure, Bleeding Gums, Change in Voice, Dental Pain, Dry Mouth, Dysphagia, Halitosis, Hoarsness, Lip Swelling, Mouth Lesions, Mouth Pain, Odynophagia, Sore Throat, Throat Swelling, Tongue Swelling, Facial Pain, Neck Pain, Neck Mass, Other - Cardiovascular Cardiovascular: absent: As Per HPI, Acrocyanosis, Chest Pain, Chest Pain at Rest , Chest Pain with Activity, Claudication, Diaphoresis, Dyspnea, Dyspnea on Exertion, Edema, Irregular Heart Rhythm, Pain Radiating to Arm/Neck/Jaw, Leg Edema, Leg Ulcers, Lightheadedness, Orthopnea, Palpitations, Paroxysmal Nocturnal Dyspnea, Pedal Edema, Radiating Pain, Rapid Heart Rate, Slow Heart Rate, Syncope, Other - Respiratory Respiratory: absent: As Per HPI, Cough, Dyspnea, Hemoptysis, Dyspnea on Exertion , Wheezing, Snoring, Stridor, Pain on Inspiration, Chest Congestion, Excessive Mucous Production, Change in Mucous Color, Pain with Coughing, Other - Gastrointestinal Gastrointestinal: As Per HPI, Abdominal Pain, Change in Bowel Habits - Genitourinary Genitourinary: As Per HPI - Musculoskeletal Musculoskeletal: absent: As Per HPI, Abnormal Gait, Arthralgias, Atrophy, Back Pain, Deformity, Joint Swelling, Limited Range of Motion, Loss of Height, Muscle Cramps, Muscle Weakness, Myalgias, Neck Pain, Numbness, Radiating Pain into Limb, Stiffness, Tingling, Other - Integumentary Integumentary: absent: As Per HPI, Acne, Alopecia, Bleeding Lesions, Change in Hair, Change in Nails, Change in Pigmentation, Changing Lesions, Dry Skin, Erythema, Furuncle, Hirsutism, Lesions, New Lesions, Non-Healing Lesions, Photosensitivity, Pruritus, Rash, Skin Pain, Skin Ulcer, Sores, Striae, Swelling , Unusual Bruising, Wounds, Jaundice, Other - Neurological Neurological: absent: As Per HPI, Abnormal Gait, Abnormal Hearing, Abnormal Movements, Abnormal Speech, Behavioral Changes, Burning Sensations, Confusion, Convulsions, Disequilibrium, Dizziness, Numbness, Focal Weakness, Frequent Falls , Headaches, Lack of Coordination, Loss of Vision, Memory Loss, Paresthesias, Radicular Pain, Restless Legs, Sensory Deficit, Syncope, Tingling, Tremor, Vertigo, Weakness, Other Visual Disturbances, Other - Psychiatric Psychiatric: absent: As Per HPI, Abnormal Sleep Pattern, Anhedonia, Anxiety, Auditory Hallucinations, Behavioral Changes, Change in Appetite, Change in Libido, Confusion, Depression, Difficulty Concentrating, Hallucinations, Homicidal Ideation, Hopelessness, Irritability, Memory Loss, Mood Swings, Panic Attacks, Paranoia, Suicidal Ideation, Visual Hallucinations, Tactile Hallucinations, Other - Endocrine Endocrine: absent: As Per HPI, Change in Body Appearance, Change in Libido, Cold Intolorance, Deepening of Voice, Excessive Sweating, Fatigue, Flushing, Heat Intolorance, Increase in Ring/Shoe/Hat Size, Palpitations, Polydipsia, Polyphagia, Polyuria, Other - Hematologic/Lymphatic Hematologic: absent: As Per HPI, Easy Bleeding, Easy Bruising, Lymphadenopathy, Other Past Patient History - Infectious Disease Hx of Infectious Diseases: None - Past Medical History & Family History Past Medical History?: Yes - Past Social History Smoking Status: Former Smoker - CARDIAC Hx Cardiac Disorders: No Other/Comment: Pulmonary Hypertension - PULMONARY Hx Respiratory Disorders: No - NEUROLOGICAL Hx Seizures: Yes - HEENT Hx HEENT Problems: No - RENAL Hx Chronic Kidney Disease: No - ENDOCRINE/METABOLIC Hx Diabetes Mellitus Type 2: Yes - HEMATOLOGICAL/ONCOLOGICAL Hx Blood Disorders: Yes Hx Cirrhosis: Yes - INTEGUMENTARY Hx Dermatological Problems: No - MUSCULOSKELETAL/RHEUMATOLOGICAL Hx Falls: Yes - GASTROINTESTINAL Hx Gastrointestinal Disorders: Yes Hx Gastroesophageal Reflux: Yes Hx Liver Failure: Yes - GENITOURINARY/GYNECOLOGICAL Hx Genitourinary Disorders: No - PSYCHIATRIC Hx Substance Use: No - SURGICAL HISTORY Hx Surgeries: No - ANESTHESIA Hx Anesthesia: No Hx Anesthesia Reactions: No Meds Allergies/Adverse Reactions: Allergies Allergy/AdvReac Type Severity Reaction Status Date / Time No Known Allergies Allergy Verified 09/22/16 12:55 - Medications Medications: Current Medications Acetaminophen (Tylenol 325mg Tab) 650 mg PO Q4 PRN PRN Reason: mild pain OR temp > 100.4 Al Hydrox/Mg Hydrox/Simethicone (Maalox 30 Ml) 30 ml PO Q4 PRN PRN Reason: heartburn and indigestion Albuterol/Ipratropium (Duoneb 3 Mg/0.5 Mg (3 Ml) Ud) 3 ml IH Q6H PRN PRN Reason: Shortness of Breath Last Admin: 09/23/16 12:49 Dose: 3 ml Diphenhydramine HCl (Benadryl) 25 mg PO Q12 [facility] Last Admin: 09/24/16 12:55 Dose: 25 mg Enoxaparin Sodium (Lovenox) 40 mg SC DAILY [facility] Last Admin: 09/24/16 12:54 Dose: Not Given Famotidine (Pepcid) 20 mg PO HS [facility] Last Admin: 09/23/16 22:14 Dose: 20 mg Folic Acid (Folic Acid) 1 mg PO DAILY [facility] Last Admin: 09/24/16 12:50 Dose: 1 mg Furosemide (Lasix) 40 mg IVP Q12 [facility] Last Admin: 09/24/16 12:50 Dose: 40 mg Meropenem 500 mg/ Sodium (Chloride) 100 mls @ 100 mls/hr IVPB Q6 [facility] Last Admin: 09/24/16 12:48 Dose: 100 mls/hr Insulin Aspart (Novolog) 0 unit SC ACHS [facility] PRN Reason: Protocol Last Admin: 09/24/16 12:35 Dose: Not Given Lactulose (Enulose) 20 gm PO BID [facility] Last Admin: 09/24/16 12:50 Dose: 20 gm Levetiracetam (Keppra) 500 mg PO Q12 [facility] Last Admin: 09/24/16 12:49 Dose: 500 mg Magnesium Hydroxide (Milk Of Magnesia) 30 ml PO DAILY PRN PRN Reason: no BM after 3 days Petrolatum (Desitin Original) 1 gm TOP Q8 [facility] Last Admin: 09/24/16 13:03 Dose: 1 applic Rifaximin (Xifaxan) 550 mg PO BID [facility] Last Admin: 09/24/16 12:50 Dose: 550 mg Saccharomyces Boulardii (Florastor) 250 mg PO BID [facility] Last Admin: 09/24/16 12:49 Dose: 250 mg Spironolactone (Aldactone) 100 mg PO DAILY [facility] Last Admin: 09/24/16 12:50 Dose: 100 mg Thiamine HCl (Vitamin B1 Tab) 100 mg PO DAILY [facility] Last Admin: 09/24/16 12:50 Dose: 100 mg Physical Exam - Constitutional Appears: Non-toxic, Cachectic, Chronically Ill - Head Exam Head Exam: ATRAUMATIC, NORMAL INSPECTION, NORMOCEPHALIC - Eye Exam Eye Exam: PERRL. absent: Scleral icterus - ENT Exam ENT Exam: Mucous Membranes Dry, Normal External Ear Exam - Neck Exam Neck exam: Negative for: Lymphadenopathy, Thyromegaly - Respiratory Exam Respiratory Exam: Decreased Breath Sounds, Rhonchi - Cardiovascular Exam Cardiovascular Exam: REGULAR RHYTHM, +S1, +S2 - GI/Abdominal Exam GI & Abdominal Exam: Diminished Bowel Sounds, Distended, Firm, Soft, Tenderness. absent: Guarding, Rebound, Rigid Additional comments: + ascites - Rectal Exam Rectal Exam: Deferred - Exam Exam: NORMAL INSPECTION - Extremities Exam Extremities exam: Negative for: pedal edema - Back Exam Back exam: absent: CVA tenderness (L), CVA tenderness (R) - Neurological Exam Neurological exam: Alert, CN II-XII Intact, Oriented x3, Reflexes Normal - Psychiatric Exam Psychiatric exam: Normal Mood - Skin Skin Exam: Dry, Intact Results - Vital Signs Recent Vital Signs: Last Vital Signs Temp 97.5 F L 09/24/16 08:00 Pulse 95 H 09/24/16 08:00 Resp 20 09/24/16 08:00 BP 116/75 09/24/16 12:50 Pulse Ox 99 09/24/16 08:00 - Labs Result Diagrams: 09/22/16 14:14 09/22/16 14:14 Labs: Laboratory Results - last 24 hr 09/23/16 09/23/16 09/24/16 17:37 21:38 07:06 POC Glucose (mg/dL) 166 H 124 H 121 H 09/24/16 12:00 POC Glucose (mg/dL) 109 Assessment & Plan (1) Ascites due to chronic alcoholic hepatitis Status: Acute (2) Liver cirrhosis Status: Acute (3) Portal hypertension Status: Acute (4) Sepsis Status: Acute - Assessment and Plan (Free Text) Assessment: cont iv antibiotics await ciultures
--- NOTE | 2016-09-24 19:42 | CP.PCM.PN ---
Subjective - Date & Time of Evaluation Date of Evaluation: 09/24/16 Objective - Vital Signs/Intake and Output Vital Signs (last 24 hours): Temp Pulse Resp BP Pulse Ox 98.2 F 97 H 20 102/63 93 L 09/24/16 16:00 09/24/16 16:00 09/24/16 16:00 09/24/16 16:00 09/24/16 16:00 Intake and Output: 09/24/16 09/25/16 18:59 06:59 Intake Total 400 Balance 400 - Medications Medications: Current Medications Acetaminophen (Tylenol 325mg Tab) 650 mg PO Q4 PRN PRN Reason: mild pain OR temp > 100.4 Al Hydrox/Mg Hydrox/Simethicone (Maalox 30 Ml) 30 ml PO Q4 PRN PRN Reason: heartburn and indigestion Albuterol/Ipratropium (Duoneb 3 Mg/0.5 Mg (3 Ml) Ud) 3 ml IH Q6H PRN PRN Reason: Shortness of Breath Last Admin: 09/23/16 12:49 Dose: 3 ml Diphenhydramine HCl (Benadryl) 25 mg PO Q12 [facility] Last Admin: 09/24/16 12:55 Dose: 25 mg Enoxaparin Sodium (Lovenox) 40 mg SC DAILY [facility] Last Admin: 09/24/16 12:54 Dose: Not Given Famotidine (Pepcid) 20 mg PO HS [facility] Last Admin: 09/23/16 22:14 Dose: 20 mg Folic Acid (Folic Acid) 1 mg PO DAILY [facility] Last Admin: 09/24/16 12:50 Dose: 1 mg Furosemide (Lasix) 40 mg IVP Q12 [facility] Last Admin: 09/24/16 12:50 Dose: 40 mg Meropenem 500 mg/ Sodium (Chloride) 100 mls @ 100 mls/hr IVPB Q6 [facility] Last Admin: 09/24/16 17:50 Dose: 100 mls/hr Insulin Aspart (Novolog) 0 unit SC ACHS [facility] PRN Reason: Protocol Last Admin: 09/24/16 17:51 Dose: Not Given Lactulose (Enulose) 20 gm PO BID [facility] Last Admin: 09/24/16 17:56 Dose: 20 gm Levetiracetam (Keppra) 500 mg PO Q12 [facility] Last Admin: 09/24/16 12:49 Dose: 500 mg Magnesium Hydroxide (Milk Of Magnesia) 30 ml PO DAILY PRN PRN Reason: no BM after 3 days Petrolatum (Desitin Original) 1 gm TOP Q8 [facility] Last Admin: 09/24/16 13:03 Dose: 1 applic Rifaximin (Xifaxan) 550 mg PO BID [facility] Last Admin: 09/24/16 17:49 Dose: 550 mg Saccharomyces Boulardii (Florastor) 250 mg PO BID [facility] Last Admin: 09/24/16 17:49 Dose: 250 mg Spironolactone (Aldactone) 100 mg PO DAILY [facility] Last Admin: 09/24/16 12:50 Dose: 100 mg Thiamine HCl (Vitamin B1 Tab) 100 mg PO DAILY [facility] Last Admin: 09/24/16 12:50 Dose: 100 mg - Labs Labs: PT 14.1 SECONDS (9.7-12.2) H 09/22/16 14:14 INR 1.3 09/22/16 14:14 APTT 39 SECONDS (21-34) H 09/22/16 14:14
[2016-09-25] MEDS: Meropenem 500 MG in Sodium Chloride 0.9% 100 ML IVPB SCH ×3 (05:08→18:19)
[2016-09-25] MEDS: Zinc Oxide Topical 30 gm Tube TOP SCH ×3 (05:37→21:29)
[2016-09-25] MEDS: Saccharomyces Boulardi 250 mg Cap PO SCH ×2 (09:07→18:17)
[2016-09-25] MEDS: Enoxaparin 40 mg Syringe SC SCH (09:08)
[2016-09-25] MEDS: (Novolog) Insulin Aspart, Recombinant 100 u/ml 10 ml vial SC SCH ×4 (09:09→21:32)
--- NOTE | 2016-09-25 10:53 | CP.PCM.PN ---
Subjective - Date & Time of Evaluation Date of Evaluation: 09/25/16 Time of Evaluation: 08:55 - Subjective Subjective: PGY3 Medicine Note - Dr. Calderon Ohara's service: Patient seen and examined at bedside. Patient sleeping comfortably. Patient denies abdominal pain, nausea, vomiting, chest pain, SOB. Per nursing, abdomen was still distended s/p paracentesis yesterday. Patient says abdomen looks and feels better. Objective - Vital Signs/Intake and Output Vital Signs (last 24 hours): Temp Pulse Resp BP Pulse Ox 98.8 F 89 18 125/65 99 09/25/16 00:22 09/25/16 00:22 09/25/16 00:22 09/25/16 09:08 09/25/16 00:22 Intake and Output: 09/25/16 09/25/16 06:59 18:59 Intake Total 440 Output Total 400 Balance 40 - Medications Medications: Current Medications Acetaminophen (Tylenol 325mg Tab) 650 mg PO Q4 PRN PRN Reason: mild pain OR temp > 100.4 Al Hydrox/Mg Hydrox/Simethicone (Maalox 30 Ml) 30 ml PO Q4 PRN PRN Reason: heartburn and indigestion Albuterol/Ipratropium (Duoneb 3 Mg/0.5 Mg (3 Ml) Ud) 3 ml IH Q6H PRN PRN Reason: Shortness of Breath Last Admin: 09/23/16 12:49 Dose: 3 ml Diphenhydramine HCl (Benadryl) 25 mg PO Q12 [facility] Last Admin: 09/24/16 21:32 Dose: 25 mg Enoxaparin Sodium (Lovenox) 40 mg SC DAILY [facility] Last Admin: 09/25/16 09:08 Dose: 40 mg Famotidine (Pepcid) 20 mg PO HS [facility] Last Admin: 09/24/16 21:32 Dose: 20 mg Folic Acid (Folic Acid) 1 mg PO DAILY [facility] Last Admin: 09/25/16 09:07 Dose: 1 mg Furosemide (Lasix) 40 mg IVP Q12 [facility] Last Admin: 09/25/16 09:08 Dose: 40 mg Meropenem 500 mg/ Sodium (Chloride) 100 mls @ 100 mls/hr IVPB Q6 [facility] Last Admin: 09/25/16 05:08 Dose: 100 mls/hr Insulin Aspart (Novolog) 0 unit SC ACHS [facility] PRN Reason: Protocol Last Admin: 09/25/16 09:09 Dose: Not Given Lactulose (Enulose) 20 gm PO BID [facility] Last Admin: 09/25/16 09:07 Dose: 20 gm Levetiracetam (Keppra) 500 mg PO Q12 [facility] Last Admin: 09/25/16 09:07 Dose: 500 mg Magnesium Hydroxide (Milk Of Magnesia) 30 ml PO DAILY PRN PRN Reason: no BM after 3 days Petrolatum (Desitin Original) 1 gm TOP Q8 [facility] Last Admin: 09/25/16 05:37 Dose: 1 applic Rifaximin (Xifaxan) 550 mg PO BID [facility] Last Admin: 09/25/16 09:08 Dose: 550 mg Saccharomyces Boulardii (Florastor) 250 mg PO BID [facility] Last Admin: 09/25/16 09:07 Dose: 250 mg Spironolactone (Aldactone) 100 mg PO DAILY [facility] Last Admin: 09/25/16 09:07 Dose: 100 mg Thiamine HCl (Vitamin B1 Tab) 100 mg PO DAILY [facility] Last Admin: 09/25/16 09:07 Dose: 100 mg - Labs Labs: PT 14.1 SECONDS (9.7-12.2) H 09/22/16 14:14 INR 1.3 09/22/16 14:14 APTT 39 SECONDS (21-34) H 09/22/16 14:14 - Constitutional Appears: Non-toxic, No Acute Distress - Head Exam Head Exam: NORMAL INSPECTION - Eye Exam Eye Exam: EOMI - ENT Exam ENT Exam: Mucous Membranes Moist - Respiratory Exam Respiratory Exam: Clear to Ausculation Bilateral, NORMAL BREATHING PATTERN. absent: Rales, Rhonchi, Wheezes - Cardiovascular Exam Cardiovascular Exam: REGULAR RHYTHM, +S1, +S2. absent: Gallop, Rubs, Murmur - GI/Abdominal Exam GI & Abdominal Exam: Distended, Normal Bowel Sounds. absent: Firm, Guarding, Tenderness - Extremities Exam Extremities Exam: absent: Pedal Edema - Neurological Exam Neurological Exam: Alert, Awake - Psychiatric Exam Psychiatric exam: Normal Affect, Normal Mood - Skin Skin Exam: Normal Color, Warm Assessment and Plan - Assessment and Plan (Free Text) Assessment: Ascites Paracentsis 09/24/16 - 9.5L straw colored fluid Cirrhosis Spironolactone 100mg PO daily Lasix 40mg IVP Q12H Alcohol Abuse Thiamine 100mg PO daily History of ESBL urosepsis Afebrile, no leukocytosis Meropenem 500mg IVPB Q6 Riaximin 550mg PO BID Florastor 250mg PO BID Blood culture negative x 48 hours ID consult - Dr. Herrera - help appreciated COPD History of Seizures Keppra 500mg PO Q12 History of DM Novolog ISS Accuchecks Prophylaxis Pepcid 20mg PO HS Lovenox 40mg SC daily
[2016-09-25 11:03] LABS: BASO % 0.7 % (0.0-2.0); EOS # 0.1 K/uL (0.0-0.7); EOS % 1.4 % (0.0-4.0); HEMOGLOBIN 13.4 g/dL (12.0-18.0); LYMPH # 1.8 K/uL (1.0-4.3); LYMPH % 33.9 % (20.0-40.0); MEAN CELL VOLUME 102.9 fL (80.0-94.0); MEAN CORPUSCULAR HEMOGLOBIN 34.3 pg (27.0-31.0); MEAN CORPUSCULAR HGB CONC 33.4 g/dL (33.0-37.0); MEAN PLATELET VOLUME 6.8 fL (7.2-11.7); MONO # 0.4 K/uL (0.0-0.8); MONO % 7.1 % (0.0-10.0); NEUT % 56.9 % (50.0-75.0); NRBC % 0.1 % (0.0-2.0); RBC 3.89 Mil/uL (4.40-5.90); RED CELL DISTRIBUTION WIDTH 14.9 % (11.5-14.5); WHITE BLOOD COUNT 5.2 K/uL (4.8-10.8)
[2016-09-25 11:28] LABS: ALBUMIN 2.6 g/dL (3.5-5.0)
[2016-09-25 11:31] LABS: ALB/GLOB RATIO 0.6 (1.0-2.1); ALT/SGPT 50 U/L (21-72); AST/SGOT 60 U/L (17-59); BLOOD UREA NITROGEN 16 mg/dL (9-20); GFR AFRICAN-AMERICAN > 60; GFR NON-AFRICAN AMERICAN > 60
[2016-09-25 11:32] LABS: CALCIUM 8.1 mg/dl (8.6-10.4)
--- NOTE | 2016-09-25 15:33 | CP.PCM.PN ---
Subjective - Date & Time of Evaluation Date of Evaluation: 09/25/16 Time of Evaluation: 08:20 - Subjective Subjective: Clinically same Objective - Vital Signs/Intake and Output Vital Signs (last 24 hours): Temp Pulse Resp BP Pulse Ox 98.8 F 89 18 125/65 99 09/25/16 00:22 09/25/16 00:22 09/25/16 00:22 09/25/16 09:08 09/25/16 00:22 Intake and Output: 09/25/16 09/25/16 06:59 18:59 Intake Total 880 Output Total 750 Balance 130 - Medications Medications: Current Medications Acetaminophen (Tylenol 325mg Tab) 650 mg PO Q4 PRN PRN Reason: mild pain OR temp > 100.4 Al Hydrox/Mg Hydrox/Simethicone (Maalox 30 Ml) 30 ml PO Q4 PRN PRN Reason: heartburn and indigestion Albuterol/Ipratropium (Duoneb 3 Mg/0.5 Mg (3 Ml) Ud) 3 ml IH Q6H PRN PRN Reason: Shortness of Breath Last Admin: 09/23/16 12:49 Dose: 3 ml Diphenhydramine HCl (Benadryl) 25 mg PO Q12 [facility] Last Admin: 09/25/16 12:59 Dose: 25 mg Enoxaparin Sodium (Lovenox) 40 mg SC DAILY [facility] Last Admin: 09/25/16 09:08 Dose: 40 mg Famotidine (Pepcid) 20 mg PO HS [facility] Last Admin: 09/24/16 21:32 Dose: 20 mg Folic Acid (Folic Acid) 1 mg PO DAILY [facility] Last Admin: 09/25/16 09:07 Dose: 1 mg Furosemide (Lasix) 40 mg IVP Q12 [facility] Last Admin: 09/25/16 09:08 Dose: 40 mg Meropenem 500 mg/ Sodium (Chloride) 100 mls @ 100 mls/hr IVPB Q6 [facility] Last Admin: 09/25/16 12:59 Dose: 100 mls/hr Insulin Aspart (Novolog) 0 unit SC ACHS [facility] PRN Reason: Protocol Last Admin: 09/25/16 12:27 Dose: Not Given Lactulose (Enulose) 20 gm PO BID [facility] Last Admin: 09/25/16 09:07 Dose: 20 gm Levetiracetam (Keppra) 500 mg PO Q12 [facility] Last Admin: 09/25/16 09:07 Dose: 500 mg Magnesium Hydroxide (Milk Of Magnesia) 30 ml PO DAILY [facility] PRN Reason: no BM after 3 days Petrolatum (Desitin Original) 1 gm TOP Q8 [facility] Last Admin: 09/25/16 13:00 Dose: 1 applic Rifaximin (Xifaxan) 550 mg PO BID [facility] Last Admin: 09/25/16 09:08 Dose: 550 mg Saccharomyces Boulardii (Florastor) 250 mg PO BID [facility] Last Admin: 09/25/16 09:07 Dose: 250 mg Spironolactone (Aldactone) 100 mg PO DAILY [facility] Last Admin: 09/25/16 09:07 Dose: 100 mg Thiamine HCl (Vitamin B1 Tab) 100 mg PO DAILY [facility] Last Admin: 09/25/16 09:07 Dose: 100 mg - Labs Labs: 09/25/16 10:53 09/25/16 10:53 PT 14.1 SECONDS (9.7-12.2) H 09/22/16 14:14 INR 1.3 09/22/16 14:14 APTT 39 SECONDS (21-34) H 09/22/16 14:14 - Constitutional Appears: Well - Head Exam Head Exam: ATRAUMATIC, NORMAL INSPECTION, NORMOCEPHALIC - Eye Exam Eye Exam: EOMI, Normal appearance, PERRL Pupil Exam: NORMAL ACCOMODATION, PERRL - ENT Exam ENT Exam: Mucous Membranes Moist, Normal Exam - Neck Exam Neck Exam: Full ROM, Normal Inspection. absent: Lymphadenopathy - Respiratory Exam Respiratory Exam: Clear to Ausculation Bilateral - Cardiovascular Exam Cardiovascular Exam: REGULAR RHYTHM - GI/Abdominal Exam GI & Abdominal Exam: Distended, Soft, Diminished Bowel Sounds - Rectal Exam Rectal Exam: Deferred - Neurological Exam Neurological Exam: Oriented x3 Assessment and Plan (1) Anemia Status: Acute (2) Ascites due to chronic alcoholic hepatitis Status: Acute (3) Dehydration with hypernatremia Status: Acute (4) Dyspnea Status: Acute (5) Exophthalmos Status: Acute (6) Fluid overload Status: Acute (7) Hepatic encephalopathy Status: Acute (8) Left bundle branch block (LBBB) Status: Acute (9) Leg edema, left Status: Acute (10) Liver cirrhosis Status: Acute (11) Metabolic encephalopathy Status: Acute (12) Muscle atrophy Status: Acute (13) Portal hypertension Status: Acute (14) Prophylactic measure Status: Acute (15) Pulmonary artery hypertension Status: Acute (16) Sepsis Status: Acute (17) Sepsis Status: Acute (18) Thrombocytopenia Status: Acute (19) Alcohol abuse Status: Chronic (20) Ascites Status: Chronic (21) Decompensated hepatic cirrhosis Status: Chronic - Assessment and Plan (Free Text) Plan: Protonix Lovenox Status post paracentesis KCl supplementation Continue spironolactone I reapproximate continue same GI consultation
[2016-09-25 15:55] VITALS: RESP 20
--- NOTE | 2016-09-25 17:55 | CP.PCM.PN ---
Subjective - Date & Time of Evaluation Date of Evaluation: 09/25/16 Time of Evaluation: 09:00 - Subjective Subjective: cultures pending iv rx in progress Objective - Vital Signs/Intake and Output Vital Signs (last 24 hours): Temp Pulse Resp BP Pulse Ox 98.2 F 104 H 20 98/65 L 96 09/25/16 15:00 09/25/16 16:46 09/25/16 15:00 09/25/16 16:46 09/25/16 16:46 Intake and Output: 09/25/16 09/25/16 06:59 18:59 Intake Total 880 Output Total 750 Balance 130 - Medications Medications: Current Medications Acetaminophen (Tylenol 325mg Tab) 650 mg PO Q4 PRN PRN Reason: mild pain OR temp > 100.4 Al Hydrox/Mg Hydrox/Simethicone (Maalox 30 Ml) 30 ml PO Q4 PRN PRN Reason: heartburn and indigestion Albuterol/Ipratropium (Duoneb 3 Mg/0.5 Mg (3 Ml) Ud) 3 ml IH Q6H PRN PRN Reason: Shortness of Breath Last Admin: 09/23/16 12:49 Dose: 3 ml Diphenhydramine HCl (Benadryl) 25 mg PO Q12 [facility] Last Admin: 09/25/16 12:59 Dose: 25 mg Enoxaparin Sodium (Lovenox) 40 mg SC DAILY [facility] Last Admin: 09/25/16 09:08 Dose: 40 mg Famotidine (Pepcid) 20 mg PO HS [facility] Last Admin: 09/24/16 21:32 Dose: 20 mg Folic Acid (Folic Acid) 1 mg PO DAILY [facility] Last Admin: 09/25/16 09:07 Dose: 1 mg Furosemide (Lasix) 40 mg IVP Q12 [facility] Last Admin: 09/25/16 09:08 Dose: 40 mg Meropenem 500 mg/ Sodium (Chloride) 100 mls @ 100 mls/hr IVPB Q6 [facility] Last Admin: 09/25/16 12:59 Dose: 100 mls/hr Insulin Aspart (Novolog) 0 unit SC ACHS [facility] PRN Reason: Protocol Last Admin: 09/25/16 12:27 Dose: Not Given Lactulose (Enulose) 20 gm PO BID [facility] Last Admin: 09/25/16 09:07 Dose: 20 gm Levetiracetam (Keppra) 500 mg PO Q12 [facility] Last Admin: 09/25/16 09:07 Dose: 500 mg Magnesium Hydroxide (Milk Of Magnesia) 30 ml PO DAILY PRN PRN Reason: no BM after 3 days Petrolatum (Desitin Original) 1 gm TOP Q8 [facility] Last Admin: 09/25/16 13:00 Dose: 1 applic Rifaximin (Xifaxan) 550 mg PO BID [facility] Last Admin: 09/25/16 09:08 Dose: 550 mg Saccharomyces Boulardii (Florastor) 250 mg PO BID [facility] Last Admin: 09/25/16 09:07 Dose: 250 mg Spironolactone (Aldactone) 100 mg PO DAILY [facility] Last Admin: 09/25/16 09:07 Dose: 100 mg Thiamine HCl (Vitamin B1 Tab) 100 mg PO DAILY [facility] Last Admin: 09/25/16 09:07 Dose: 100 mg - Labs Labs: 09/25/16 10:53 09/25/16 10:53 PT 14.1 SECONDS (9.7-12.2) H 09/22/16 14:14 INR 1.3 09/22/16 14:14 APTT 39 SECONDS (21-34) H 09/22/16 14:14 - Constitutional Appears: Non-toxic, Cachectic, Chronically Ill - Head Exam Head Exam: NORMOCEPHALIC - Eye Exam Eye Exam: PERRL. absent: Scleral icterus - ENT Exam ENT Exam: Mucous Membranes Dry, Normal External Ear Exam - Neck Exam Neck Exam: absent: Lymphadenopathy - Respiratory Exam Respiratory Exam: Decreased Breath Sounds, Rhonchi - Cardiovascular Exam Cardiovascular Exam: REGULAR RHYTHM, +S1, +S2 - GI/Abdominal Exam GI & Abdominal Exam: Distended, Soft. absent: Tenderness - Rectal Exam Rectal Exam: Deferred - Exam Exam: NORMAL INSPECTION - Extremities Exam Extremities Exam: absent: Pedal Edema - Back Exam Back Exam: absent: CVA tenderness (L), CVA tenderness (R) - Neurological Exam Neurological Exam: Alert, Awake, Oriented x3 Assessment and Plan (1) Ascites due to chronic alcoholic hepatitis Status: Acute (2) Liver cirrhosis Status: Acute (3) Portal hypertension Status: Acute (4) Sepsis Status: Acute
[2016-09-26] MEDS: Meropenem 500 MG in Sodium Chloride 0.9% 100 ML IVPB SCH ×4 (00:01→18:10)
[2016-09-26] MEDS: Potassium Chloride 20 mEq ER Tab PO SCH ×2 (05:00)
[2016-09-26] MEDS: Zinc Oxide Topical 30 gm Tube TOP SCH ×2 (06:11→15:07)
[2016-09-26 07:09] LABS: BASO % 0.6 % (0.0-2.0); EOS # 0.1 K/uL (0.0-0.7); EOS % 1.3 % (0.0-4.0); LYMPH # 2.3 K/uL (1.0-4.3); MEAN CELL VOLUME 101.6 fL (80.0-94.0); MEAN CORPUSCULAR HEMOGLOBIN 34.1 pg (27.0-31.0); MEAN CORPUSCULAR HGB CONC 33.6 g/dL (33.0-37.0); MEAN PLATELET VOLUME 6.8 fL (7.2-11.7); MONO # 0.7 K/uL (0.0-0.8); NEUT # 3.4 K/uL (1.8-7.0); NEUT % 52.1 % (50.0-75.0); NRBC % 0.1 % (0.0-2.0); RBC 3.51 Mil/uL (4.40-5.90); RED CELL DISTRIBUTION WIDTH 14.3 % (11.5-14.5); WHITE BLOOD COUNT 6.6 K/uL (4.8-10.8)
[2016-09-26 07:38] LABS: ALBUMIN 2.3 g/dL (3.5-5.0)
[2016-09-26 07:41] LABS: ALB/GLOB RATIO 0.6 (1.0-2.1); ALT/SGPT 41 U/L (21-72); AST/SGOT 48 U/L (17-59); BLOOD UREA NITROGEN 19 mg/dL (9-20); GFR AFRICAN-AMERICAN > 60; GFR NON-AFRICAN AMERICAN > 60
[2016-09-26 07:42] LABS: CALCIUM 8.2 mg/dl (8.6-10.4)
[2016-09-26] MEDS: (Novolog) Insulin Aspart, Recombinant 100 u/ml 10 ml vial SC SCH ×3 (08:45→18:11)
--- NOTE | 2016-09-26 09:38 | CP.PCM.PN ---
Subjective - Date & Time of Evaluation Date of Evaluation: 09/26/16 Time of Evaluation: 09:36 - Subjective Subjective: PGY3 Medicine Note - Dr. Calderon Ohara's service: Patient seen and examined at bedside this AM. Patient is lying comfortably in bed. Patient reports he still feels distended despite paracentesis 2 days ago where they removed 9 L. Denies SOB, chest pain, fevers, chills. He has been tolerating his diet and has no other complaints. Discharge planning as per Dr. Ohara back to rehab. Objective - Vital Signs/Intake and Output Vital Signs (last 24 hours): Temp Pulse Resp BP Pulse Ox 98.3 F 96 H 20 108/72 97 09/26/16 09:09 09/26/16 09:09 09/26/16 09:09 09/26/16 09:09 09/26/16 09:09 Intake and Output: 09/26/16 09/26/16 06:59 18:59 Intake Total 900 Output Total 1250 Balance -350 - Medications Medications: Current Medications Acetaminophen (Tylenol 325mg Tab) 650 mg PO Q4 PRN PRN Reason: mild pain OR temp > 100.4 Al Hydrox/Mg Hydrox/Simethicone (Maalox 30 Ml) 30 ml PO Q4 PRN PRN Reason: heartburn and indigestion Albuterol/Ipratropium (Duoneb 3 Mg/0.5 Mg (3 Ml) Ud) 3 ml IH Q6H PRN PRN Reason: Shortness of Breath Last Admin: 09/23/16 12:49 Dose: 3 ml Diphenhydramine HCl (Benadryl) 25 mg PO Q12 [facility] Last Admin: 09/25/16 21:18 Dose: 25 mg Enoxaparin Sodium (Lovenox) 40 mg SC DAILY [facility] Last Admin: 09/25/16 09:08 Dose: 40 mg Famotidine (Pepcid) 20 mg PO HS [facility] Last Admin: 09/25/16 21:18 Dose: 20 mg Folic Acid (Folic Acid) 1 mg PO DAILY [facility] Last Admin: 09/25/16 09:07 Dose: 1 mg Furosemide (Lasix) 40 mg IVP Q12 [facility] Last Admin: 09/25/16 21:19 Dose: 40 mg Meropenem 500 mg/ Sodium (Chloride) 100 mls @ 100 mls/hr IVPB Q6 [facility] Last Admin: 09/26/16 06:00 Dose: 100 mls/hr Insulin Aspart (Novolog) 0 unit SC ACHS [facility] PRN Reason: Protocol Last Admin: 09/26/16 08:45 Dose: Not Given Lactulose (Enulose) 20 gm PO BID [facility] Last Admin: 09/25/16 18:16 Dose: 20 gm Levetiracetam (Keppra) 500 mg PO Q12 [facility] Last Admin: 09/25/16 21:19 Dose: 500 mg Magnesium Hydroxide (Milk Of Magnesia) 30 ml PO DAILY PRN PRN Reason: no BM after 3 days Petrolatum (Desitin Original) 1 gm TOP Q8 [facility] Last Admin: 09/26/16 06:11 Dose: 1 applic Rifaximin (Xifaxan) 550 mg PO BID [facility] Last Admin: 09/25/16 18:17 Dose: 550 mg Saccharomyces Boulardii (Florastor) 250 mg PO BID [facility] Last Admin: 09/25/16 18:17 Dose: 250 mg Spironolactone (Aldactone) 100 mg PO DAILY [facility] Last Admin: 09/25/16 09:07 Dose: 100 mg Thiamine HCl (Vitamin B1 Tab) 100 mg PO DAILY [facility] Last Admin: 09/25/16 09:07 Dose: 100 mg - Labs Labs: 09/26/16 06:49 09/26/16 06:49 PT 14.1 SECONDS (9.7-12.2) H 09/22/16 14:14 INR 1.3 09/22/16 14:14 APTT 39 SECONDS (21-34) H 09/22/16 14:14 - Constitutional Appears: No Acute Distress, Chronically Ill - Head Exam Head Exam: NORMAL INSPECTION, NORMOCEPHALIC - Eye Exam Eye Exam: EOMI, Normal appearance - ENT Exam ENT Exam: Mucous Membranes Dry - Respiratory Exam Respiratory Exam: Clear to Ausculation Bilateral, NORMAL BREATHING PATTERN - Cardiovascular Exam Cardiovascular Exam: REGULAR RHYTHM, +S1, +S2 - GI/Abdominal Exam GI & Abdominal Exam: Distended, Soft, Organomegaly. absent: Tenderness - Extremities Exam Extremities Exam: Normal Inspection. absent: Tenderness - Neurological Exam Neurological Exam: Alert, Awake, Oriented x3 - Psychiatric Exam Psychiatric exam: Normal Affect, Normal Mood - Skin Skin Exam: Normal Color Assessment and Plan - Assessment and Plan (Free Text) Assessment: Assessment and Plan (1) Ascites due to chronic alcoholic hepatitis Paracentsis 09/24/16 - 9.5L straw colored fluid f/u fluid studies Status: Acute (2) Liver cirrhosis Secondary to ETOH abuse Thiamine 100mg PO daily Folic Acid 1 gm PO daily Spironolactone 100mg PO daily Lasix 40mg IVP Q12H Status: Acute (3) Portal hypertension Spironolactone 100mg PO daily Lasix 40mg IVP Q12H Status: Acute (4) Sepsis History of ESBL urosepsis. Afebrile and WBC WNL. ID consult - Dr. Herrera - help appreciated D/C Meropenem 500mg IVPB Q6 as per Dr. Herrera Patient completed course of antibiotics for possitive cultures on past admissions Status: Acute (5)Hx of seizures Keppra 500mg PO Q12 seizure precautions Status: Chronic (6)Diabetes Novolog ISS Accuchecks Status: Chronic (7) COPD Duonebs Q6H PRN (8) Prophylactic Measure Pepcid 20mg PO HS Lovenox 40mg SC daily Discharge planning back to rehab. All management as per Dr. Taylor Ohara.
[2016-09-26] MEDS ORDERED: Multiple Vitamins Tab PO SCH (10:00)
[2016-09-26] MEDS ORDERED: Multiple Vitamins Tab PO ONE (10:00)
[2016-09-26] MEDS: Enoxaparin 40 mg Syringe SC SCH (10:39)
[2016-09-26] MEDS: Saccharomyces Boulardi 250 mg Cap PO SCH ×2 (10:41→18:10)
--- NOTE | 2016-09-26 12:57 | CP.PCM.PN ---
Subjective - Date & Time of Evaluation Date of Evaluation: 09/26/16 Time of Evaluation: 07:40 - Subjective Subjective: clinically same Objective - Vital Signs/Intake and Output Vital Signs (last 24 hours): Temp Pulse Resp BP Pulse Ox 98.3 F 96 H 20 108/72 97 09/26/16 09:09 09/26/16 09:09 09/26/16 09:09 09/26/16 10:41 09/26/16 09:09 Intake and Output: 09/26/16 09/26/16 06:59 18:59 Intake Total 900 Output Total 1250 Balance -350 - Medications Medications: Current Medications Acetaminophen (Tylenol 325mg Tab) 650 mg PO Q4 PRN PRN Reason: mild pain OR temp > 100.4 Al Hydrox/Mg Hydrox/Simethicone (Maalox 30 Ml) 30 ml PO Q4 PRN PRN Reason: heartburn and indigestion Albuterol/Ipratropium (Duoneb 3 Mg/0.5 Mg (3 Ml) Ud) 3 ml IH Q6H PRN PRN Reason: Shortness of Breath Last Admin: 09/23/16 12:49 Dose: 3 ml Diphenhydramine HCl (Benadryl) 25 mg PO Q12 [facility] Last Admin: 09/26/16 10:47 Dose: 25 mg Enoxaparin Sodium (Lovenox) 40 mg SC DAILY [facility] Last Admin: 09/26/16 10:39 Dose: 40 mg Famotidine (Pepcid) 20 mg PO HS [facility] Last Admin: 09/25/16 21:18 Dose: 20 mg Folic Acid (Folic Acid) 1 mg PO DAILY [facility] Last Admin: 09/26/16 10:41 Dose: 1 mg Furosemide (Lasix) 40 mg IVP Q12 [facility] Last Admin: 09/26/16 10:41 Dose: 40 mg Meropenem 500 mg/ Sodium (Chloride) 100 mls @ 100 mls/hr IVPB Q6 [facility] Last Admin: 09/26/16 11:07 Dose: 100 mls/hr Insulin Aspart (Novolog) 0 unit SC ACHS [facility] PRN Reason: Protocol Last Admin: 09/26/16 12:43 Dose: Not Given Lactulose (Enulose) 20 gm PO BID [facility] Last Admin: 09/26/16 10:47 Dose: 20 gm Levetiracetam (Keppra) 500 mg PO Q12 [facility] Last Admin: 09/26/16 10:41 Dose: 500 mg Magnesium Hydroxide (Milk Of Magnesia) 30 ml PO DAILY PRN PRN Reason: no BM after 3 days Multivitamins (Hexavitamin) 1 tab PO DAILY [facility] Last Admin: 09/26/16 10:40 Dose: 1 tab Petrolatum (Desitin Original) 1 gm TOP Q8 [facility] Last Admin: 09/26/16 06:11 Dose: 1 applic Rifaximin (Xifaxan) 550 mg PO BID [facility] Last Admin: 09/26/16 10:42 Dose: 550 mg Saccharomyces Boulardii (Florastor) 250 mg PO BID [facility] Last Admin: 09/26/16 10:41 Dose: 250 mg Spironolactone (Aldactone) 100 mg PO DAILY [facility] Last Admin: 09/26/16 10:43 Dose: 100 mg Thiamine HCl (Vitamin B1 Tab) 100 mg PO DAILY [facility] Last Admin: 09/26/16 10:41 Dose: 100 mg - Labs Labs: 09/26/16 06:49 09/26/16 06:49 PT 14.1 SECONDS (9.7-12.2) H 09/22/16 14:14 INR 1.3 09/22/16 14:14 APTT 39 SECONDS (21-34) H 09/22/16 14:14 - Constitutional Appears: Well - Head Exam Head Exam: ATRAUMATIC, NORMAL INSPECTION, NORMOCEPHALIC - Eye Exam Eye Exam: EOMI, Normal appearance, PERRL Pupil Exam: NORMAL ACCOMODATION, PERRL - ENT Exam ENT Exam: Mucous Membranes Moist, Normal Exam - Neck Exam Neck Exam: Full ROM, Normal Inspection. absent: Lymphadenopathy - Respiratory Exam Respiratory Exam: Decreased Breath Sounds - Cardiovascular Exam Cardiovascular Exam: REGULAR RHYTHM, +S1, +S2 - GI/Abdominal Exam GI & Abdominal Exam: Soft, Diminished Bowel Sounds - Rectal Exam Rectal Exam: Deferred Assessment and Plan (1) Anemia Status: Acute (2) Ascites due to chronic alcoholic hepatitis Status: Acute (3) Dehydration with hypernatremia Status: Acute (4) Dyspnea Status: Acute (5) Exophthalmos Status: Acute (6) Fluid overload Status: Acute (7) Hepatic encephalopathy Status: Acute (8) Left bundle branch block (LBBB) Status: Acute (9) Leg edema, left Status: Acute (10) Liver cirrhosis Status: Acute (11) Metabolic encephalopathy Status: Acute (12) Muscle atrophy Status: Acute (13) Portal hypertension Status: Acute (14) Prophylactic measure Status: Acute (15) Pulmonary artery hypertension Status: Acute (16) Sepsis Status: Acute (17) Sepsis Status: Acute (18) Thrombocytopenia Status: Acute (19) Alcohol abuse Status: Chronic (20) Ascites Status: Chronic (21) Decompensated hepatic cirrhosis Status: Chronic
--- NOTE | 2016-09-26 15:48 | CP.PCM.PN ---
Subjective - Date & Time of Evaluation Date of Evaluation: 09/26/16 Time of Evaluation: 08:00 - Subjective Subjective: EVENTS NOTED CULTURES NEG THUS FAR Objective - Vital Signs/Intake and Output Vital Signs (last 24 hours): Temp Pulse Resp BP Pulse Ox 98.3 F 96 H 20 108/72 97 09/26/16 09:09 09/26/16 09:09 09/26/16 09:09 09/26/16 10:41 09/26/16 09:09 Intake and Output: 09/26/16 09/26/16 06:59 18:59 Intake Total 900 Output Total 1250 Balance -350 - Medications Medications: Current Medications Acetaminophen (Tylenol 325mg Tab) 650 mg PO Q4 PRN PRN Reason: mild pain OR temp > 100.4 Al Hydrox/Mg Hydrox/Simethicone (Maalox 30 Ml) 30 ml PO Q4 PRN PRN Reason: heartburn and indigestion Albuterol/Ipratropium (Duoneb 3 Mg/0.5 Mg (3 Ml) Ud) 3 ml IH Q6H PRN PRN Reason: Shortness of Breath Last Admin: 09/23/16 12:49 Dose: 3 ml Diphenhydramine HCl (Benadryl) 25 mg PO Q12 [facility] Last Admin: 09/26/16 10:47 Dose: 25 mg Enoxaparin Sodium (Lovenox) 40 mg SC DAILY [facility] Last Admin: 09/26/16 10:39 Dose: 40 mg Famotidine (Pepcid) 20 mg PO HS [facility] Last Admin: 09/25/16 21:18 Dose: 20 mg Folic Acid (Folic Acid) 1 mg PO DAILY [facility] Last Admin: 09/26/16 10:41 Dose: 1 mg Furosemide (Lasix) 40 mg IVP Q12 [facility] Last Admin: 09/26/16 10:41 Dose: 40 mg Meropenem 500 mg/ Sodium (Chloride) 100 mls @ 100 mls/hr IVPB Q6 [facility] Last Admin: 09/26/16 11:07 Dose: 100 mls/hr Insulin Aspart (Novolog) 0 unit SC ACHS [facility] PRN Reason: Protocol Last Admin: 09/26/16 12:43 Dose: Not Given Lactulose (Enulose) 20 gm PO BID [facility] Last Admin: 09/26/16 10:47 Dose: 20 gm Levetiracetam (Keppra) 500 mg PO Q12 [facility] Last Admin: 09/26/16 10:41 Dose: 500 mg Magnesium Hydroxide (Milk Of Magnesia) 30 ml PO DAILY PRN PRN Reason: no BM after 3 days Multivitamins (Hexavitamin) 1 tab PO DAILY [facility] Last Admin: 09/26/16 10:40 Dose: 1 tab Petrolatum (Desitin Original) 1 gm TOP Q8 [facility] Last Admin: 09/26/16 15:07 Dose: 1 applic Rifaximin (Xifaxan) 550 mg PO BID [facility] Last Admin: 09/26/16 10:42 Dose: 550 mg Saccharomyces Boulardii (Florastor) 250 mg PO BID [facility] Last Admin: 09/26/16 10:41 Dose: 250 mg Spironolactone (Aldactone) 100 mg PO DAILY [facility] Last Admin: 09/26/16 10:43 Dose: 100 mg Thiamine HCl (Vitamin B1 Tab) 100 mg PO DAILY [facility] Last Admin: 09/26/16 10:41 Dose: 100 mg - Labs Labs: 09/26/16 06:49 09/26/16 06:49 PT 14.1 SECONDS (9.7-12.2) H 09/22/16 14:14 INR 1.3 09/22/16 14:14 APTT 39 SECONDS (21-34) H 09/22/16 14:14 - Constitutional Appears: Non-toxic, Chronically Ill - Head Exam Head Exam: NORMOCEPHALIC - Eye Exam Eye Exam: PERRL - ENT Exam ENT Exam: Mucous Membranes Dry, Normal External Ear Exam - Neck Exam Neck Exam: absent: Lymphadenopathy - Respiratory Exam Respiratory Exam: Decreased Breath Sounds, Clear to Ausculation Bilateral - Cardiovascular Exam Cardiovascular Exam: REGULAR RHYTHM, +S1, +S2 - GI/Abdominal Exam GI & Abdominal Exam: Distended, Soft - Rectal Exam Rectal Exam: Deferred - Exam Exam: NORMAL INSPECTION - Extremities Exam Extremities Exam: absent: Pedal Edema - Back Exam Back Exam: absent: CVA tenderness (L), CVA tenderness (R) - Neurological Exam Neurological Exam: Alert, Awake Assessment and Plan (1) Ascites due to chronic alcoholic hepatitis Status: Acute (2) Liver cirrhosis Status: Acute (3) Portal hypertension Status: Acute (4) Sepsis Status: Acute
[2016-09-26 19:02] VITALS: BP 104/73; PULSE 100; TEMP 97.3
--- NOTE | 2016-09-27 19:22 | CARD ---
APPROVED REPORT EKG Measurement Heart [id number] <Conclusion> Sinus tachycardia with occasional premature ventricular complexes Left axis deviation Nonspecific intraventricular block Lateral infarct, age undetermined Abnormal ECG
[2016-09-28 08:34] VITALS: O2SAT 98
== END 2016-09-26 19:10 | DRG 202 ==
LOC: C.ER 12:29 → C.9E 14:46 → C.3T 16:46
PROVIDERS: ADMIT Internal Medicine Nephrology; ATTEND Internal Medicine Nephrology
PROC: 0W9G3ZZ Drainage of Peritoneal Cavity, Percutaneous Approach (ICD-10-PCS; principal; 2016-09-24)
DX: K70.11 Alcoholic hepatitis with ascites (principal); G93.41 Metabolic encephalopathy; E87.0 Hyperosmolality and hypernatremia; K74.60 Unspecified cirrhosis of liver; D64.9 Anemia, unspecified; H05.20 Unspecified exophthalmos; E11.9 Type 2 diabetes mellitus without complications; E86.0 Dehydration; F10.10 Alcohol abuse, uncomplicated

== ENCOUNTER 2016-10-08 10:16 | Inpatient (IN) | payer MEDICARE, MEDICAID ==
--- NOTE | 2016-10-08 12:01 | C.PDOC ---
History Of Present Illness Patient is a 66 y/o male that is sent to the emergency department from [facility] for paracentesis. Patient has history of cirrhosis Otherwise, denies any n/v/d, urinary symptoms, fever, chills, or any other associated symptoms at this time. Time Seen by Provider: 10/08/16 10:37 Chief Complaint (Nursing): Abdominal Pain History Per: Patient History/Exam Limitations: no limitations Onset/Duration Of Symptoms: Days Current Symptoms Are (Timing): Still Present Severity: None Pain Scale Rating Of: 0 Radiation Of Pain To:: None Associated Symptoms: denies: Fever, Chills, Nausea, Vomiting, Diarrhea, Loss Of Appetite, Back Pain, Chest Pain, Constipation, Urinary Symptoms Exacerbating Factors: None Alleviating Factors: None Recent travel outside of the [place]: No Additional History Per: Patient Past Medical History Reviewed: Historical Data, Nursing Documentation, Vital Signs Vital Signs: Last Vital Signs Temp 97.4 F L 10/08/16 13:16 Pulse 109 H 10/08/16 13:16 Resp 19 10/08/16 13:16 BP 122/84 10/08/16 13:16 Pulse Ox 100 10/08/16 13:29 - Medical History PMH: HTN, Seizures Denies: Chronic Kidney Disease Other PMH: cirrhosis of liver, Ascites - [facility] Procedures DRAINAGE OF PERITONEAL CAVITY, PERCUTANEOUS APPROACH (09/22/16) INSERTION OF INFUSION DEV INTO SUP VENA CAVA, PERC APPROACH (09/09/16) INSPECTION OF ABDOMINAL WALL, PERCUTANEOUS APPROACH (05/19/16) INTRODUCTION OF NUTRITIONAL INTO PERIPH VEIN, PERC APPROACH (05/19/16) ULTRASONOGRAPHY OF ABDOMEN (09/09/16) ULTRASONOGRAPHY OF SUPERIOR VENA CAVA, GUIDANCE (09/09/16) Family History: States: Unknown Family Hx - Social History Hx Alcohol Use: Yes Hx Substance Use: No - Immunization History Hx Tetanus Toxoid Vaccination: No Hx Influenza Vaccination: No Hx Pneumococcal Vaccination: No Review Of Systems Except As Marked, All Systems Reviewed And Found Negative. Constitutional: Negative for: Fever, Chills Cardiovascular: Negative for: Chest Pain, Palpitations Respiratory: Negative for: Cough, Shortness of Breath Gastrointestinal: Negative for: Nausea, Vomiting, Abdominal Pain, Diarrhea, Constipation Genitourinary: Negative for: Dysuria, Frequency, Incontinence, Hematuria Musculoskeletal: Negative for: Back Pain Skin: Negative for: Rash Physical Exam - Physical Exam Appears: Non-toxic, No Acute Distress Skin: Normal Color, Warm, Dry Head: Atraumatic, Normacephalic Eye(s): bilateral: Normal Inspection Oral Mucosa: Moist Neck: Normal ROM, Supple Chest: Symmetrical Cardiovascular: Rhythm Regular, No Murmur Respiratory: Normal Breath Sounds, No Rales, No Rhonchi, No Wheezing Gastrointestinal/Abdominal: Soft, No Tenderness, Distention, No Guarding, No Rebound Extremity: Bilateral: Atraumatic, Normal ROM Neurological/Psych: Oriented x3, Normal Speech, Normal Cognition ED Course And Treatment - Laboratory Results Result Diagrams: 10/08/16 11:50 10/08/16 11:50 Lab Interpretation: No Acute Changes O2 Sat by Pulse Oximetry: 100 (on RA) Pulse Ox Interpretation: Normal Progress Note: Blood work, urinalysis, IR drain and paracentesis routine ordered. Case discussed with Dr. Taylor Ohara who accepts patient under his service. Reassessment Condition: Unchanged - Physician Consult Information Physician Contacted: Zoë Ohara Outcome Of Conversation: admit Medical Decision Making Medical Decision Making: Patient transferred from [facility] for ascites Disposition Discussed With Dr.: Zoë Ohara Doctor Will See Patient In The: Hospital - Disposition Disposition: HOSPITALIZED Disposition Time: 12:30 Condition: STABLE - POA Present On Arrival: None - Clinical Impression Clinical Impression: Abdominal pain, Ascites - PA / [employer] / Resident Statement MD/DO has reviewed & agrees with the documentation as recorded. - Scribe Statement The provider has reviewed the documentation as recorded by the Scribgladys Ohara All medical record entries made by the Scribgladys were at my direction and personally dictated by me. I have reviewed the chart and agree that the record accurately reflects my personal performance of the history, physical exam, medical decision making, and the department course for this patient. I have also personally directed, reviewed, and agree with the discharge instructions and disposition. Decision To Admit - Pt Status Changed To: Hospital Disposition Of: Inpatient - Admit Certification Admit to Inpatient:: After my assessment, the patient will require hospitalization for at least two midnights. This is because of the severity of symptoms shown, intensity of services needed, and/or the medical risk in this patient being treated as an outpatient. - InPatient: Physician Admission Certification:: Ascites - . Bed Request Type: Regular Admitting Physician: Zoë Ohara Patient Diagnosis: Abdominal pain, Ascites
[2016-10-08 12:02] LABS: BASO % 0.7 % (0.0-2.0); EOS # 0.2 K/uL (0.0-0.7); EOS % 2.7 % (0.0-4.0); LYMPH # 1.8 K/uL (1.0-4.3); LYMPH % 26.7 % (20.0-40.0); MEAN CELL VOLUME 101.7 fL (80.0-94.0); MEAN CORPUSCULAR HEMOGLOBIN 34.1 pg (27.0-31.0); MEAN CORPUSCULAR HGB CONC 33.5 g/dL (33.0-37.0); MEAN PLATELET VOLUME 6.7 fL (7.2-11.7); MONO # 0.9 K/uL (0.0-0.8); MONO % 13.3 % (0.0-10.0); NEUT # 3.8 K/uL (1.8-7.0); NEUT % 56.6 % (50.0-75.0); NRBC % 0.1 % (0.0-2.0); RBC 3.8 Mil/uL (4.40-5.90); RED CELL DISTRIBUTION WIDTH 14.6 % (11.5-14.5); WHITE BLOOD COUNT 6.7 K/uL (4.8-10.8)
[2016-10-08 12:08] LABS: ALBUMIN 2.8 g/dL (3.5-5.0)
[2016-10-08 12:11] LABS: ALB/GLOB RATIO 0.6 (1.0-2.1); AST/SGOT 62 U/L (17-59); GFR AFRICAN-AMERICAN > 60; GFR NON-AFRICAN AMERICAN > 60
[2016-10-08 12:12] LABS: ALT/SGPT 55 U/L (21-72); BLOOD UREA NITROGEN 15 mg/dL (9-20); CALCIUM 8.4 mg/dl (8.6-10.4)
[2016-10-08 12:20] LABS: INR 1.2; PROTHROMBIN TIME 13.5 SECONDS (9.7-12.2)
--- NOTE | 2016-10-08 14:42 | PCM.SURG1 ---
Surgeon's Initial Post Op Note - Surgeon's Notes Surgeon: Naman Oconnor MD Email Engineer: NONE Type of Anesthesia: Local Pre-Operative Diagnosis: Ascites, cirrhosis Operative Findings: US showed a large amount of ascites Post-Operative Diagnosis: Cirrhosis Operation Performed: US guided paracentesis. Specimen/Specimens Removed: 8900 cc of clear fluid Estimated Blood Loss: EBL {In ML}: 0 Blood Products Given: N/A Drains Used: No Drains Post-Op Condition: Fair Date of Surgery/Procedure: 10/08/16 Time of Surgery/Procedure: 14:30
[2016-10-08 15:05] VITALS: RESP 20
--- NOTE | 2016-10-08 15:06 | US ---
Date of Procedure: 10/08/2016 PROCEDURE: Ultrasound-guided paracentesis, CPT 31028 Medications: 7 cc 1% Lidocaine HISTORY: Ascites, abdominal pain, cirrhosis TECHNIQUE: Following informed consent , the patient was placed supine on the stretcher and the site was marked. A limited abdominal ultrasound was performed that showed a large amount of intra-abdominal fluid. Procedural time out was called and the Pt's abdomen was marked and prepped and draped in the usual sterile fashion. Ultrasound-guided large volume paracentesis performed. A total of 8.9 liters of straw colored fluid was removed without complication. IMPRESSION: Ultrasound-guided large volume paracentesis.
[2016-10-08] MEDS ORDERED: Aluminum Hydroxide/Magnesium Hydroxide Susp (30 mL) PO PRN (15:49)
[2016-10-08] MEDS ORDERED: Albuterol-Ipratrop 3 mg / 0.5 (3 ml) UD IH PRN (15:49)
[2016-10-08] MEDS: (Novolog) Insulin Aspart, Recombinant 100 u/ml 10 ml vial SC SCH ×2 (17:21→21:30)
[2016-10-08] MEDS: Saccharomyces Boulardi 250 mg Cap PO SCH (17:21)
--- NOTE | 2016-10-08 17:42 | CP.PCM.PN ---
Subjective - Date & Time of Evaluation Date of Evaluation: 10/08/16 Time of Evaluation: 11:20 - Subjective Subjective: clinically same Objective - Vital Signs/Intake and Output Vital Signs (last 24 hours): Temp Pulse Resp BP Pulse Ox 98.0 F 97 H 20 94/63 L 100 10/08/16 14:32 10/08/16 14:32 10/08/16 14:32 10/08/16 14:32 10/08/16 14:32 - Medications Medications: Current Medications Acetaminophen (Tylenol 325mg Tab) 650 mg PO Q4 PRN PRN Reason: mild pain / temp Al Hydrox/Mg Hydrox/Simethicone (Maalox 30 Ml) 30 ml PO Q4 PRN PRN Reason: heartburn and indigestion Albuterol/Ipratropium (Duoneb 3 Mg/0.5 Mg (3 Ml) Ud) 3 ml IH RQ6 PRN PRN Reason: Shortness of Breath Diphenhydramine HCl (Benadryl) 25 mg PO Q12H [facility] Famotidine (Pepcid) 20 mg PO HS [facility] Folic Acid (Folic Acid) 1 mg PO DAILY [facility] Furosemide (Lasix) 40 mg PO DAILY [facility] Heparin Sodium (Porcine) (Heparin) 5,000 units SC Q12 [facility] Insulin Aspart (Novolog) 0 unit SC ACHS [facility] PRN Reason: Protocol Last Admin: 10/08/16 17:21 Dose: Not Given Lactulose (Enulose) 20 gm PO BID [facility] Last Admin: 10/08/16 17:21 Dose: 20 gm Levetiracetam (Keppra) 500 mg PO Q12H [facility] Last Admin: 10/08/16 17:21 Dose: 500 mg Multivitamins (Hexavitamin) 1 tab PO DAILY [facility] Saccharomyces Boulardii (Florastor) 250 mg PO BID [facility] Last Admin: 10/08/16 17:21 Dose: 250 mg Spironolactone (Aldactone) 100 mg PO DAILY [facility] Thiamine HCl (Vitamin B1 Tab) 100 mg PO DAILY [facility] - Labs Labs: PT 13.5 SECONDS (9.7-12.2) H 10/08/16 11:50 INR 1.2 10/08/16 11:50 APTT 40 SECONDS (21-34) H 10/08/16 11:50 - Constitutional Appears: Well - Head Exam Head Exam: ATRAUMATIC, NORMAL INSPECTION, NORMOCEPHALIC - Eye Exam Eye Exam: EOMI, Normal appearance, PERRL Pupil Exam: NORMAL ACCOMODATION, PERRL - ENT Exam ENT Exam: Mucous Membranes Moist, Normal Exam - Neck Exam Neck Exam: Full ROM, Normal Inspection. absent: Lymphadenopathy - Respiratory Exam Respiratory Exam: Decreased Breath Sounds - Cardiovascular Exam Cardiovascular Exam: REGULAR RHYTHM, +S1, +S2 - GI/Abdominal Exam GI & Abdominal Exam: Soft, Diminished Bowel Sounds - Rectal Exam Rectal Exam: Deferred
--- NOTE | 2016-10-08 17:43 | CP.PCM.HP ---
Past Patient History - Infectious Disease Hx of Infectious Diseases: None - Past Medical History & Family History Past Medical History?: Yes - Past Social History Smoking Status: Former Smoker - CARDIAC Hx Hypertension: Yes - PULMONARY Hx Respiratory Disorders: No - NEUROLOGICAL Hx Seizures: Yes - HEENT Hx HEENT Problems: No - RENAL Hx Chronic Kidney Disease: No - ENDOCRINE/METABOLIC Hx Diabetes Mellitus Type 2: Yes - HEMATOLOGICAL/ONCOLOGICAL Hx Blood Disorders: Yes Hx Cirrhosis: Yes - INTEGUMENTARY Hx Dermatological Problems: No - MUSCULOSKELETAL/RHEUMATOLOGICAL Hx Falls: Yes - GASTROINTESTINAL Hx Gastrointestinal Disorders: Yes Hx Gastroesophageal Reflux: Yes Hx Liver Failure: Yes - GENITOURINARY/GYNECOLOGICAL Hx Genitourinary Disorders: No - PSYCHIATRIC Hx Substance Use: No - SURGICAL HISTORY Hx Surgeries: No - ANESTHESIA Hx Anesthesia: No Hx Anesthesia Reactions: No Meds Allergies/Adverse Reactions: Allergies Allergy/AdvReac Type Severity Reaction Status Date / Time No Known Allergies Allergy Verified 10/08/16 10:24 Physical Exam - Constitutional Appears: Well - Head Exam Head Exam: ATRAUMATIC, NORMAL INSPECTION, NORMOCEPHALIC - Eye Exam Eye Exam: EOMI, Normal appearance, PERRL Pupil Exam: NORMAL ACCOMODATION, PERRL - ENT Exam ENT Exam: Mucous Membranes Moist, Normal Exam - Neck Exam Neck exam: Positive for: Normal Inspection - Respiratory Exam Respiratory Exam: Decreased Breath Sounds - Cardiovascular Exam Cardiovascular Exam: REGULAR RHYTHM, +S1, +S2 - GI/Abdominal Exam GI & Abdominal Exam: Diminished Bowel Sounds, Soft - Rectal Exam Rectal Exam: Deferred Results - Vital Signs Recent Vital Signs: Last Vital Signs Temp 98.0 F 10/08/16 14:32 Pulse 97 H 10/08/16 14:32 Resp 20 10/08/16 14:32 BP 94/63 L 10/08/16 14:32 Pulse Ox 100 10/08/16 14:32 - Labs Result Diagrams: 10/08/16 11:50 10/08/16 11:50 Labs: Laboratory Results - last 24 hr 10/08/16 16:17 POC Glucose (mg/dL) 93
[2016-10-08 22:42] LABS: SQUAMOUS EPITHIAL < 1 /hpf (0-5); URINE BACTERIA RARE (<OCC); URINE BILIRUBIN NEGATIVE (NEGATIVE); URINE BLOOD NEGATIVE (NEGATIVE); URINE CLARITY Clear (Clear); URINE COLOR Yellow (YELLOW); URINE GLUCOSE (UA) NORMAL (Normal); URINE LEUKOCYTE ESTERASE NEG Leu/uL (Negative); URINE NITRATE NEGATIVE (NEGATIVE); URINE PROTEIN NEGATIVE (NEGATIVE); URINE UROBILINOGEN NORMAL mg/dL (0.2-1.0)
[2016-10-09 06:41] LABS: BASO % 0.4 % (0.0-2.0); EOS # 0.2 K/uL (0.0-0.7); HEMOGLOBIN 12.8 g/dL (12.0-18.0); LYMPH # 2.1 K/uL (1.0-4.3); LYMPH % 31.7 % (20.0-40.0); MEAN CORPUSCULAR HEMOGLOBIN 34.6 pg (27.0-31.0); MEAN CORPUSCULAR HGB CONC 34.2 g/dL (33.0-37.0); MEAN PLATELET VOLUME 6.8 fL (7.2-11.7); MONO # 0.9 K/uL (0.0-0.8); MONO % 13.6 % (0.0-10.0); NEUT # 3.4 K/uL (1.8-7.0); NEUT % 51.3 % (50.0-75.0); NRBC % 0.2 % (0.0-2.0); RBC 3.69 Mil/uL (4.40-5.90); RED CELL DISTRIBUTION WIDTH 14.2 % (11.5-14.5); WHITE BLOOD COUNT 6.7 K/uL (4.8-10.8)
[2016-10-09 07:27] LABS: ALBUMIN 2.4 g/dL (3.5-5.0)
[2016-10-09 07:30] LABS: ALB/GLOB RATIO 0.6 (1.0-2.1); ALT/SGPT 51 U/L (21-72); AST/SGOT 51 U/L (17-59); BLOOD UREA NITROGEN 16 mg/dL (9-20); GFR AFRICAN-AMERICAN > 60; GFR NON-AFRICAN AMERICAN > 60
[2016-10-09 07:31] LABS: CALCIUM 8.2 mg/dl (8.6-10.4)
[2016-10-09] MEDS: (Novolog) Insulin Aspart, Recombinant 100 u/ml 10 ml vial SC SCH ×3 (08:21→18:34)
[2016-10-09] MEDS ORDERED: Multiple Vitamins Tab PO SCH (10:00)
[2016-10-09] MEDS: Saccharomyces Boulardi 250 mg Cap PO SCH ×2 (10:00→18:22)
[2016-10-09 10:01] VITALS: BP 105/62
[2016-10-09] MEDS ORDERED: Potassium Chloride 20 mEq ER Tab PO ONE (12:00)
--- NOTE | 2016-10-09 15:31 | CP.PCM.PN ---
Subjective - Date & Time of Evaluation Date of Evaluation: 10/09/16 Time of Evaluation: 15:30 - Subjective Subjective: 66 Y/O MALE SEEN AND EXAMINED TODAY BY DR Calderon CARTER, DENIES ANY CP, SOB, RESP EASY AND UNLABROED, NAD Objective - Vital Signs/Intake and Output Vital Signs (last 24 hours): Temp Pulse Resp BP Pulse Ox 98.7 F 102 H 20 105/62 97 10/09/16 07:42 10/09/16 10:01 10/09/16 07:42 10/09/16 10:31 10/09/16 07:42 Intake and Output: 10/09/16 10/09/16 06:59 18:59 Intake Total 480 Output Total 352 Balance 128 - Medications Medications: Current Medications Acetaminophen (Tylenol 325mg Tab) 650 mg PO Q4 PRN PRN Reason: mild pain / temp Al Hydrox/Mg Hydrox/Simethicone (Maalox 30 Ml) 30 ml PO Q4 PRN PRN Reason: heartburn and indigestion Albuterol/Ipratropium (Duoneb 3 Mg/0.5 Mg (3 Ml) Ud) 3 ml IH RQ6 PRN PRN Reason: Shortness of Breath Diphenhydramine HCl (Benadryl) 25 mg PO Q12H [facility] Last Admin: 10/09/16 10:04 Dose: 25 mg Famotidine (Pepcid) 20 mg PO HS [facility] Last Admin: 10/08/16 21:30 Dose: 20 mg Folic Acid (Folic Acid) 1 mg PO DAILY [facility] Last Admin: 10/09/16 10:00 Dose: 1 mg Furosemide (Lasix) 40 mg PO DAILY [facility] Last Admin: 10/09/16 10:31 Dose: 40 mg Heparin Sodium (Porcine) (Heparin) 5,000 units SC Q12 [facility] Last Admin: 10/09/16 10:00 Dose: 5,000 units Insulin Aspart (Novolog) 0 unit SC ACHS JO[facility] PRN Reason: Protocol Last Admin: 10/09/16 11:50 Dose: Not Given Lactulose (Enulose) 20 gm PO BID [facility] Last Admin: 10/09/16 09:59 Dose: 20 gm Levetiracetam (Keppra) 500 mg PO Q12H [facility] Last Admin: 10/09/16 05:59 Dose: 500 mg Multivitamins (Hexavitamin) 1 tab PO DAILY [facility] Last Admin: 10/09/16 09:59 Dose: 1 tab Saccharomyces Boulardii (Florastor) 250 mg PO BID [facility] Last Admin: 10/09/16 10:00 Dose: 250 mg Spironolactone (Aldactone) 100 mg PO DAILY [facility] Last Admin: 10/09/16 10:29 Dose: 100 mg Thiamine HCl (Vitamin B1 Tab) 100 mg PO DAILY [facility] Last Admin: 10/09/16 09:59 Dose: 100 mg - Labs Labs: 10/09/16 06:25 10/09/16 06:25 PT 13.5 SECONDS (9.7-12.2) H 10/08/16 11:50 INR 1.2 10/08/16 11:50 APTT 40 SECONDS (21-34) H 10/08/16 11:50 Assessment and Plan - Assessment and Plan (Free Text) Plan: 66 y/o male with PMHX: Seizures, cirrhosis of liver, Ascites Paracentesis done by Dr Oconnor, 8900 cc removed, tolerated well Resp easy and unlabored. VSS cleared for discharge as per Dr. Calderon Carter
[2016-10-09 16:30] VITALS: PULSE 89; TEMP 97.2; O2SAT 96
[2016-10-10] MEDS ORDERED: Potassium Chloride 20 mEq ER Tab PO ONE (12:00)
== END 2016-10-09 19:40 | DRG 434 ==
LOC: C.ER 10:16 → C.9E 12:00 → C.3T 12:31
PROVIDERS: ADMIT Internal Medicine Nephrology; ATTEND Internal Medicine Nephrology
PROC: 0W9G3ZZ Drainage of Peritoneal Cavity, Percutaneous Approach (ICD-10-PCS; principal; 2016-10-08)
DX: K70.31 Alcoholic cirrhosis of liver with ascites (principal); R56.9 Unspecified convulsions; I10 Essential (primary) hypertension; E11.9 Type 2 diabetes mellitus without complications; Z79.4 Long term (current) use of insulin; K21.9 Gastro-esophageal reflux disease without esophagitis

== ENCOUNTER 2016-10-23 17:24 | Observation (INO) | payer MEDICARE, OTHER ==
--- NOTE | 2016-10-23 19:11 | C.PDOC ---
History Of Present Illness 66 y/o male with Hx of Cirrhosis presents to ED sent from intermediate for evaluation of distended abdomen. Patient states last episode of Paracentesis was September 22 and denies fever, chills, nausea, vomiting, diarrhea or any other complaints at this time. Time Seen by Provider: 10/23/16 19:11 Chief Complaint (Nursing): Abdominal Pain History Per: Patient History/Exam Limitations: no limitations Onset/Duration Of Symptoms: Days Current Symptoms Are (Timing): Still Present Location Of Pain/Discomfort: Diffuse Radiation Of Pain To:: None Quality Of Discomfort: Dull, Pressure Associated Symptoms: denies: Nausea, Vomiting, Diarrhea Exacerbating Factors: Movement Alleviating Factors: None Last Bowel Movement: Today Recent travel outside of the [place]: No Additional History Per: Patient Past Medical History Reviewed: Historical Data, Nursing Documentation, Vital Signs Vital Signs: Last Vital Signs Temp 98.1 F 10/23/16 19:58 Pulse 112 H 10/23/16 19:58 Resp 18 10/23/16 19:58 BP 100/70 10/23/16 19:58 Pulse Ox 98 10/23/16 19:58 - Medical History PMH: Arthritis (r sh; b/l knees), HTN, Seizures Denies: Chronic Kidney Disease - [facility] Procedures DRAINAGE OF PERITONEAL CAVITY, PERCUTANEOUS APPROACH (10/08/16) INSERTION OF INFUSION DEV INTO SUP VENA CAVA, PERC APPROACH (09/09/16) INSPECTION OF ABDOMINAL WALL, PERCUTANEOUS APPROACH (05/19/16) INTRODUCTION OF NUTRITIONAL INTO PERIPH VEIN, PERC APPROACH (05/19/16) ULTRASONOGRAPHY OF ABDOMEN (09/09/16) ULTRASONOGRAPHY OF SUPERIOR VENA CAVA, GUIDANCE (09/09/16) Family History: States: Unknown Family Hx - Social History Hx Alcohol Use: No (Sober 1 year) Hx Substance Use: No - Immunization History Hx Tetanus Toxoid Vaccination: No Hx Influenza Vaccination: No Hx Pneumococcal Vaccination: No Review Of Systems Constitutional: Negative for: Fever, Chills Eyes: Negative for: Redness ENT: Negative for: Throat Pain Cardiovascular: Negative for: Chest Pain Respiratory: Positive for: Shortness of Breath Gastrointestinal: Negative for: Nausea, Vomiting, Diarrhea Genitourinary: Negative for: Hematuria Musculoskeletal: Negative for: Back Pain Skin: Negative for: Rash, Lesions Neurological: Negative for: Weakness Psych: Negative for: Anxiety Physical Exam - Physical Exam Appears: Non-toxic, No Acute Distress Skin: Warm, Dry, No Rash Head: Normacephalic Eye(s): bilateral: Normal Inspection Oral Mucosa: Moist Neck: Supple Chest: Symmetrical Cardiovascular: Rhythm Regular Respiratory: Rales (few at bases), No Rhonchi, No Wheezing Gastrointestinal/Abdominal: Soft, Distention, No Guarding, No Rebound, Hernia ( Umbilical), Ascites Back: No CVA Tenderness Extremity: No Tenderness Extremity: Bilateral: Atraumatic Pulses: Left Dorsalis Pedis: Normal, Right Dorsalis Pedis: Normal Neurological/Psych: Oriented x3, Normal Speech, Normal Cognition Gait: Unable To Assess ED Course And Treatment - Laboratory Results Result Diagrams: 10/23/16 19:20 10/23/16 19:20 O2 Sat by Pulse Oximetry: 96 (RA) Pulse Ox Interpretation: Normal - Radiology CXR: Interpreted by Me, Viewed By Me CXR Interpretation: Yes: Cardiomegaly, Other (unchanged from 09/09/16). No: Infiltrates, Fracture Disposition Discussed With DrElida: Zoë Ohaar Comment: accepted the pt on his service and took over the care at 7:40PM Doctor Will See Patient In The: Hospital Counseled Patient/Family Regarding: Studies Performed, Diagnosis - Disposition Disposition: HOSPITALIZED Disposition Time: 19:11 Condition: FAIR - Clinical Impression Clinical Impression: Ascites due to chronic alcoholic hepatitis, Abdominal pain - Scribe Statement The provider has reviewed the documentation as recorded by the Lashell Plunkett All medical record entries made by the Shereeibgladys were at my direction and personally dictated by me. I have reviewed the chart and agree that the record accurately reflects my personal performance of the history, physical exam, medical decision making, and the department course for this patient. I have also personally directed, reviewed, and agree with the discharge instructions and disposition.
[2016-10-23 19:24] LABS: BASO % 0.7 % (0.0-2.0); EOS # 0.1 K/uL (0.0-0.7); EOS % 1.3 % (0.0-4.0); HEMOGLOBIN 14.1 g/dL (12.0-18.0); LYMPH # 1.7 K/uL (1.0-4.3); MEAN CELL VOLUME 100.7 fL (80.0-94.0); MEAN CORPUSCULAR HEMOGLOBIN 34.1 pg (27.0-31.0); MEAN CORPUSCULAR HGB CONC 33.9 g/dL (33.0-37.0); MEAN PLATELET VOLUME 6.8 fL (7.2-11.7); MONO # 0.6 K/uL (0.0-0.8); MONO % 10.2 % (0.0-10.0); NEUT # 3.2 K/uL (1.8-7.0); NEUT % 56.8 % (50.0-75.0); NRBC % 0.1 % (0.0-2.0); RBC 4.13 Mil/uL (4.40-5.90); RED CELL DISTRIBUTION WIDTH 14.5 % (11.5-14.5); WHITE BLOOD COUNT 5.6 K/uL (4.8-10.8)
[2016-10-23 19:32] LABS: INR 1.2; PROTHROMBIN TIME 13.3 SECONDS (9.7-12.2)
[2016-10-23 19:34] LABS: ALB/GLOB RATIO 0.7 (1.0-2.1); GFR AFRICAN-AMERICAN > 60; GFR NON-AFRICAN AMERICAN > 60
[2016-10-23 19:35] LABS: ALT/SGPT 42 U/L (21-72); AST/SGOT 42 U/L (17-59); BLOOD UREA NITROGEN 14 mg/dL (9-20); CALCIUM 8.6 mg/dl (8.6-10.4); LIPASE 45 U/L (23-300)
[2016-10-23 20:23] LABS: URINE BACTERIA RARE (<OCC); URINE BILIRUBIN NEGATIVE (NEGATIVE); URINE BLOOD NEGATIVE (NEGATIVE); URINE CLARITY Clear (Clear); URINE COLOR Yellow (YELLOW); URINE GLUCOSE (UA) NORMAL (Normal); URINE LEUKOCYTE ESTERASE NEG Leu/uL (Negative); URINE NITRATE NEGATIVE (NEGATIVE); URINE PROTEIN NEGATIVE (NEGATIVE); URINE UROBILINOGEN NORMAL mg/dL (0.2-1.0)
[2016-10-23] MEDS ORDERED: Aluminum Hydroxide/Magnesium Hydroxide Susp (30 mL) PO PRN (22:42)
[2016-10-23] MEDS ORDERED: Magnesium Hydroxide Susp 30 ml UD PO PRN (22:42)
[2016-10-23] MEDS ORDERED: Albuterol-Ipratrop 3 mg / 0.5 (3 ml) UD IH PRN (22:42)
--- NOTE | 2016-10-23 22:42 | CP.PCM.HP ---
Past Patient History - Infectious Disease Hx of Infectious Diseases: None - Past Medical History & Family History Past Medical History?: Yes - Past Social History Smoking Status: Former Smoker - CARDIAC Hx Hypertension: Yes - PULMONARY Hx Respiratory Disorders: No - NEUROLOGICAL Hx Seizures: Yes - HEENT Hx HEENT Problems: No - RENAL Hx Chronic Kidney Disease: No - ENDOCRINE/METABOLIC Hx Diabetes Mellitus Type 2: Yes - HEMATOLOGICAL/ONCOLOGICAL Hx Blood Disorders: Yes Hx Cirrhosis: Yes - INTEGUMENTARY Hx Dermatological Problems: No - MUSCULOSKELETAL/RHEUMATOLOGICAL Hx Arthritis: Yes (r sh; b/l knees) - GASTROINTESTINAL Hx Gastrointestinal Disorders: Yes Hx Gastroesophageal Reflux: Yes Hx Liver Failure: Yes - GENITOURINARY/GYNECOLOGICAL Hx Genitourinary Disorders: No - PSYCHIATRIC Hx Substance Use: No - SURGICAL HISTORY Hx Surgeries: No - ANESTHESIA Hx Anesthesia: No Hx Anesthesia Reactions: No Meds Allergies/Adverse Reactions: Allergies Allergy/AdvReac Type Severity Reaction Status Date / Time No Known Allergies Allergy Verified 10/23/16 17:32 Results - Vital Signs Recent Vital Signs: Last Vital Signs Temp 98.1 F 10/23/16 19:58 Pulse 112 H 10/23/16 19:58 Resp 18 10/23/16 19:58 BP 100/70 10/23/16 19:58 Pulse Ox 96 10/23/16 21:20 - Labs Result Diagrams: 10/23/16 19:20 10/23/16 19:20 Labs: Laboratory Results - last 24 hr 10/23/16 20:06 Urine Color Yellow Urine Clarity Clear Urine pH 6.0 Ur Specific [place] 1.012 Urine Protein Negative Urine Glucose (UA) Normal Urine Ketones Negative Urine Blood Negative Urine Nitrate Negative Urine Bilirubin Negative Urine Urobilinogen Normal Ur Leukocyte Esterase Neg Urine WBC (Auto) < 1 Urine Bacteria Rare
--- NOTE | 2016-10-24 08:19 | RAD ---
HISTORY: abd pain COMPARISON: Chest x-ray performed 09/09/16 TECHNIQUE: Chest, one view. FINDINGS: Examination limited by hypoinflation and patient obliquity. LUNGS: Linear atelectasis, left lung base. No focal consolidation. Please note that chest x-ray has limited sensitivity for the detection of pulmonary masses. PLEURA: No significant pleural effusion identified. No definite pneumothorax . CARDIOVASCULAR: Heart size appears within normal limits. Atherosclerotic calcification of the aortic knob. OSSEOUS STRUCTURES: Degenerative changes. VISUALIZED UPPER ABDOMEN: Elevation of the right hemidiaphragm. OTHER FINDINGS: None. IMPRESSION: Hypoinflation. Linear atelectasis, left lung base.
[2016-10-24] MEDS ORDERED: Pantoprazole 40 mg EC Tab PO SCH (10:00)
[2016-10-24] MEDS: Saccharomyces Boulardi 250 mg Cap PO SCH ×2 (10:43→17:20)
[2016-10-24 10:48] VITALS: RESP 20
[2016-10-24] MEDS: (Novolog) Insulin Aspart, Recombinant 100 u/ml 10 ml vial SC SCH ×2 (12:27→17:20)
--- NOTE | 2016-10-24 12:56 | CARD ---
APPROVED REPORT EKG Measurement Heart [id number] <Conclusion> Normal sinus rhythm Left axis deviation Left bundle branch block Abnormal ECG
[2016-10-24] MEDS ORDERED: Albumin Human 25% (12.5 gm/50 ml) IV ONE (14:37)
--- NOTE | 2016-10-24 14:39 | PCM.SURG1 ---
Surgeon's Initial Post Op Note - Surgeon's Notes Surgeon: Steve Powerhouse Electrician Apprentice: None Type of Anesthesia: Local Pre-Operative Diagnosis: Ascites. Operative Findings: Ascites. Post-Operative Diagnosis: Ascites. Operation Performed: Paracentesis Specimen/Specimens Removed: Approx 5000cc of clear pale yellow fluid aspirated. Estimated Blood Loss: EBL {In ML}: 1 Date of Surgery/Procedure: 10/24/16 Time of Surgery/Procedure: 14:30
--- NOTE | 2016-10-24 16:33 | CP.PCM.PN ---
Subjective - Date & Time of Evaluation Date of Evaluation: 10/24/16 Time of Evaluation: 10:00 - Subjective Subjective: Clinical same Objective - Vital Signs/Intake and Output Vital Signs (last 24 hours): Temp Pulse Resp BP Pulse Ox 97.7 F 99 H 20 96/68 L 94 L 10/24/16 00:00 10/24/16 00:00 10/24/16 10:47 10/24/16 10:47 10/24/16 00:00 Intake and Output: 10/24/16 10/24/16 06:59 18:59 Intake Total 360 Output Total 1 Balance 359 - Medications Medications: Current Medications Acetaminophen (Tylenol 325mg Tab) 650 mg PO Q4 PRN PRN Reason: mild pain / temp Al Hydrox/Mg Hydrox/Simethicone (Maalox 30 Ml) 30 ml PO Q4 PRN PRN Reason: heartburn and indigestion Albuterol/Ipratropium (Duoneb 3 Mg/0.5 Mg (3 Ml) Ud) 3 ml IH RQ6 PRN PRN Reason: Shortness of Breath Diphenhydramine HCl (Benadryl) 25 mg PO Q12H [facility] Last Admin: 10/24/16 10:59 Dose: 25 mg Famotidine (Pepcid) 20 mg PO [facility] Folic Acid (Folic Acid) 1 mg PO DAILY [facility] Last Admin: 10/24/16 10:48 Dose: 1 mg Furosemide (Lasix) 40 mg PO DAILY [facility] Last Admin: 10/24/16 10:46 Dose: Not Given Insulin Aspart (Novolog) 0 unit SC ACHS [facility] PRN Reason: Protocol Last Admin: 10/24/16 12:27 Dose: Not Given Lactulose (Enulose) 20 gm PO BID [facility] Last Admin: 10/24/16 10:48 Dose: 20 gm Levetiracetam (Keppra) 500 mg PO Q12H [facility] Last Admin: 10/24/16 11:00 Dose: 500 mg Magnesium Hydroxide (Milk Of Magnesia) 30 ml PO DAILY PRN PRN Reason: no BM after 3 days Pantoprazole Sodium (Protonix Ec Tab) 40 mg PO DAILY [facility] Last Admin: 10/24/16 10:48 Dose: 40 mg Pneumococcal Polyvalent Vaccine (Pneumovax 23 Vaccine) 0.5 ml IM .ONCE ONE Stop: 10/25/16 10:01 Saccharomyces Boulardii (Florastor) 250 mg PO BID [facility] Last Admin: 10/24/16 10:43 Dose: 250 mg Spironolactone (Aldactone) 100 mg PO DAILY [facility] Last Admin: 10/24/16 10:47 Dose: Not Given Thiamine HCl (Vitamin B1 Tab) 100 mg PO DAILY [facility] Last Admin: 10/24/16 10:43 Dose: 100 mg - Labs Labs: PT 13.3 SECONDS (9.7-12.2) H 10/23/16 19:20 INR 1.2 10/23/16 19:20 APTT 35 SECONDS (21-34) H 10/23/16 19:20 - Constitutional Appears: Well - Head Exam Head Exam: ATRAUMATIC, NORMAL INSPECTION, NORMOCEPHALIC - Eye Exam Eye Exam: EOMI, Normal appearance, PERRL Pupil Exam: NORMAL ACCOMODATION, PERRL - ENT Exam ENT Exam: Mucous Membranes Moist, Normal Exam - Neck Exam Neck Exam: Full ROM, Normal Inspection. absent: Lymphadenopathy - Respiratory Exam Respiratory Exam: Decreased Breath Sounds - Cardiovascular Exam Cardiovascular Exam: REGULAR RHYTHM, +S1, +S2 - GI/Abdominal Exam GI & Abdominal Exam: Soft, Diminished Bowel Sounds - Rectal Exam Rectal Exam: Deferred
--- NOTE | 2016-10-24 16:51 | CP.PCM.PN ---
Subjective - Date & Time of Evaluation Date of Evaluation: 10/24/16 Time of Evaluation: 16:35 - Subjective Subjective: PT SEEN TODAY BY DR. Taylor CARTER AND CLEARED FOR D/C BACK TO [facility] AFTER PARACENTESIS. PT SEEN AFTER PARCENTESIS AND TOLERATED IT. STABLE. NO ACUTE COMPLAINTS OR DISTRESS. OK TO D/C BACK TO FACILITY. SW TO ARRANGE TRANSPORTATION. NO FURTHER ORDERS. Objective - Vital Signs/Intake and Output Vital Signs (last 24 hours): Temp Pulse Resp BP Pulse Ox 97.7 F 99 H 20 96/68 L 94 L 10/24/16 00:00 10/24/16 00:00 10/24/16 10:47 10/24/16 10:47 10/24/16 00:00 Intake and Output: 10/24/16 10/24/16 06:59 18:59 Intake Total 360 Output Total 1 Balance 359 - Medications Medications: Current Medications Acetaminophen (Tylenol 325mg Tab) 650 mg PO Q4 PRN PRN Reason: mild pain / temp Al Hydrox/Mg Hydrox/Simethicone (Maalox 30 Ml) 30 ml PO Q4 PRN PRN Reason: heartburn and indigestion Albuterol/Ipratropium (Duoneb 3 Mg/0.5 Mg (3 Ml) Ud) 3 ml IH RQ6 PRN PRN Reason: Shortness of Breath Diphenhydramine HCl (Benadryl) 25 mg PO Q12H [facility] Last Admin: 10/24/16 10:59 Dose: 25 mg Famotidine (Pepcid) 20 mg PO HS [facility] Folic Acid (Folic Acid) 1 mg PO DAILY [facility] Last Admin: 10/24/16 10:48 Dose: 1 mg Furosemide (Lasix) 40 mg PO DAILY [facility] Last Admin: 10/24/16 10:46 Dose: Not Given Insulin Aspart (Novolog) 0 unit SC ACHS [facility] PRN Reason: Protocol Last Admin: 10/24/16 12:27 Dose: Not Given Lactulose (Enulose) 20 gm PO BID [facility] Last Admin: 10/24/16 10:48 Dose: 20 gm Levetiracetam (Keppra) 500 mg PO Q12H [facility] Last Admin: 10/24/16 11:00 Dose: 500 mg Magnesium Hydroxide (Milk Of Magnesia) 30 ml PO DAILY PRN PRN Reason: no BM after 3 days Pantoprazole Sodium (Protonix Ec Tab) 40 mg PO DAILY [facility] Last Admin: 10/24/16 10:48 Dose: 40 mg Pneumococcal Polyvalent Vaccine (Pneumovax 23 Vaccine) 0.5 ml IM .ONCE ONE Stop: 10/25/16 10:01 Saccharomyces Boulardii (Florastor) 250 mg PO BID [facility] Last Admin: 10/24/16 10:43 Dose: 250 mg Spironolactone (Aldactone) 100 mg PO DAILY [facility] Last Admin: 10/24/16 10:47 Dose: Not Given Thiamine HCl (Vitamin B1 Tab) 100 mg PO DAILY [facility] Last Admin: 10/24/16 10:43 Dose: 100 mg - Labs Labs: PT 13.3 SECONDS (9.7-12.2) H 10/23/16 19:20 INR 1.2 10/23/16 19:20 APTT 35 SECONDS (21-34) H 10/23/16 19:20
[2016-10-24 17:11] VITALS: BP 97/62; PULSE 95; TEMP 97.5; O2SAT 95
[2016-10-24] MEDS ORDERED: Pneumococcal 23-Valent Vaccine IM ONE (17:30)
== END 2016-10-24 21:20 ==
LOC: C.ER 17:24 → C.9E 19:38 → C.3T 21:07
PROVIDERS: ADMIT Internal Medicine Nephrology; ATTEND Internal Medicine Nephrology
DX: K74.60 Unspecified cirrhosis of liver (principal); Z87.891 Personal history of nicotine dependence; I10 Essential (primary) hypertension; K70.11 Alcoholic hepatitis with ascites; K21.9 Gastro-esophageal reflux disease without esophagitis; E11.9 Type 2 diabetes mellitus without complications
CPT/HCPCS: 49083; 71010; 80053; 81001; 82140; 82948; 83690; 85025; 85610; 85730; 93005; 99285; G0378; P9047

== ENCOUNTER 2016-11-10 12:17 | Inpatient (IN) | payer OTHER ==
--- NOTE | 2016-11-10 13:33 | C.PDOC ---
History Of Present Illness A 66 year old male c PMHx arthritis, HTN, and Seizures, sent from [facility] for evaluation of increased abdominal girth. Patient denies any current abdominal pain, vomiting, nausea, fever, shortness of breath, or any other complaints at this time. The patient admits to regularly getting his fluid drained roughly every 2-4 weeks, last drainage was on 09/26/16, and he denies any treatment this month. Time Seen by Provider: 11/10/16 13:09 Chief Complaint (Nursing): Abdominal Pain History Per: Patient History/Exam Limitations: language barrier Onset/Duration Of Symptoms: Days (x 30 days ) Current Symptoms Are (Timing): Better Severity: Mild Radiation Of Pain To:: None Quality Of Discomfort: Unable To Describe Associated Symptoms: denies: Nausea, Vomiting Past Medical History Vital Signs: Last Vital Signs Temp 97.7 F 11/10/16 14:51 Pulse 107 H 11/10/16 14:51 Resp 14 11/10/16 14:51 BP 102/71 11/10/16 14:51 Pulse Ox 96 11/10/16 14:51 - Medical History PMH: Arthritis (r sh; b/l knees), HTN, Seizures Denies: Chronic Kidney Disease - [facility] Procedures DRAINAGE OF PERITONEAL CAVITY, PERCUTANEOUS APPROACH (10/08/16) INSERTION OF INFUSION DEV INTO SUP VENA CAVA, PERC APPROACH (09/09/16) INSPECTION OF ABDOMINAL WALL, PERCUTANEOUS APPROACH (05/19/16) INTRODUCTION OF NUTRITIONAL INTO PERIPH VEIN, PERC APPROACH (05/19/16) ULTRASONOGRAPHY OF ABDOMEN (09/09/16) ULTRASONOGRAPHY OF SUPERIOR VENA CAVA, GUIDANCE (09/09/16) Family History: States: Unknown Family Hx - Social History Hx Alcohol Use: Yes Hx Substance Use: No - Immunization History Hx Tetanus Toxoid Vaccination: No Hx Influenza Vaccination: No Hx Pneumococcal Vaccination: No Review Of Systems Except As Marked, All Systems Reviewed And Found Negative. Constitutional: Negative for: Fever Gastrointestinal: Negative for: Nausea, Vomiting Physical Exam - Physical Exam Additional Physical Exam Comments: Constitutional: No acute distress. Head: Normocephalic. Atraumatic. Eyes: PERRL. EOMI. ENT: Moist mucous membranes. Neck: Supple. Cardiovascular: Regular rate. Radial pulses 2+ bilaterally. Chest: No tenderness. Respiratory: Clear to auscultation bilaterally. GI: Soft. Nontender. Distended. Back: No CVA tenderness. Musculoskeletal: No tenderness of extremities. Skin: No rash. Neurologic: Alert, no focal deficit. ED Course And Treatment - Laboratory Results Result Diagrams: 11/10/16 14:04 11/10/16 14:04 O2 Sat by Pulse Oximetry: 96 Medical Decision Making Medical Decision Making: Patient with significant abdominal ascites, not complaining of pain or fever but will require paracentesis. Dr. Forbes covering for Taylor Ohara accepts patient to his service on observation. Disposition Discussed With : Immanuel Forbes Doctor Will See Patient In The: Hospital - Disposition Disposition: HOSPITALIZED Disposition Time: 14:26 Condition: FAIR - Clinical Impression Clinical Impression: Ascites - Scribe Statement The provider has reviewed the documentation as recorded by the Scribe Kelly Mcnair All medical record entries made by the Shereeibgladys were at my direction and personally dictated by me. I have reviewed the chart and agree that the record accurately reflects my personal performance of the history, physical exam, medical decision making, and the department course for this patient. I have also personally directed, reviewed, and agree with the discharge instructions and disposition.
[2016-11-10 14:12] LABS: BASO % 0.6 % (0.0-2.0); EOS # 0.2 K/uL (0.0-0.7); EOS % 2.5 % (0.0-4.0); LYMPH # 1.5 K/uL (1.0-4.3); LYMPH % 24.4 % (20.0-40.0); MEAN CELL VOLUME 99.4 fL (80.0-94.0); MEAN CORPUSCULAR HEMOGLOBIN 33.2 pg (27.0-31.0); MEAN CORPUSCULAR HGB CONC 33.4 g/dL (33.0-37.0); MEAN PLATELET VOLUME 6.8 fL (7.2-11.7); MONO # 0.9 K/uL (0.0-0.8); MONO % 13.8 % (0.0-10.0); NRBC % 0.1 % (0.0-2.0); RED CELL DISTRIBUTION WIDTH 14.2 % (11.5-14.5); WHITE BLOOD COUNT 6.3 K/uL (4.8-10.8)
[2016-11-10 14:22] LABS: CHLORIDE 102 mmol/L (98-107); INR 1.2; POTASSIUM 3.8 mmol/L (3.6-5.2); SODIUM 139 mmol/L (132-148)
[2016-11-10 14:24] LABS: GFR AFRICAN-AMERICAN > 60
[2016-11-10 14:25] LABS: ALB/GLOB RATIO 0.6 (1.0-2.1); ALKALINE PHOSPHATASE 101 U/L (38-126); ALT/SGPT 33 U/L (21-72); AST/SGOT 38 U/L (17-59); BILIRUBIN,TOTAL 0.8 mg/dL (0.2-1.3); BLOOD UREA NITROGEN 12 mg/dL (9-20); CALCIUM 8.9 mg/dl (8.6-10.4); CARBON DIOXIDE 26 mmol/L (22-30); GLUCOSE,RANDOM 82 mg/dL (75-110)
[2016-11-10 16:59] VITALS: RESP 20
[2016-11-10] MEDS ORDERED: Magnesium Hydroxide Susp 30 ml UD PO PRN (17:00)
--- NOTE | 2016-11-10 17:54 | CP.PCM.HP ---
History of Present Illness - History of Present Illness History of Present Illness: A 66 year old male c PMHx arthritis, HTN, and Seizures, sent from [facility] for evaluation of increased abdominal girth. Patient denies any current abdominal pain, vomiting, nausea, fever, shortness of breath, or any other complaints at this time. The patient admits to regularly getting his fluid drained roughly every 2-4 weeks, last drainage was on 09/26/16, and he denies any treatment this month. Present on Admission - Present on Admission Any Indicators Present on Admission: No History of DVT/PE: No History of Uncontrolled Diabetes: No Urinary Catheter: No Decubitus Ulcer Present: No Review of Systems - Review of Systems All systems: reviewed and no additional remarkable complaints except (As mentioned in HPI) Past Patient History - Infectious Disease Hx of Infectious Diseases: None - Past Medical History & Family History Past Medical History?: Yes - Past Social History Smoking Status: Never Smoked - CARDIAC Hx Hypertension: Yes - PULMONARY Hx Respiratory Disorders: No - NEUROLOGICAL Hx Seizures: Yes - HEENT Hx HEENT Problems: No - RENAL Hx Chronic Kidney Disease: No - ENDOCRINE/METABOLIC Hx Diabetes Mellitus Type 2: Yes - HEMATOLOGICAL/ONCOLOGICAL Hx Blood Disorders: Yes Hx Cirrhosis: Yes - INTEGUMENTARY Hx Dermatological Problems: No - MUSCULOSKELETAL/RHEUMATOLOGICAL Hx Arthritis: Yes (r sh; b/l knees) - GASTROINTESTINAL Hx Gastrointestinal Disorders: Yes Hx Gastroesophageal Reflux: Yes Hx Liver Failure: Yes - GENITOURINARY/GYNECOLOGICAL Hx Genitourinary Disorders: No - PSYCHIATRIC Hx Substance Use: No - SURGICAL HISTORY Hx Surgeries: No - ANESTHESIA Hx Anesthesia: Yes Meds Allergies/Adverse Reactions: Allergies Allergy/AdvReac Type Severity Reaction Status Date / Time No Known Allergies Allergy Verified 11/10/16 12:29 Physical Exam - Constitutional Appears: Well, Non-toxic - Head Exam Head Exam: NORMAL INSPECTION - Eye Exam Eye Exam: Normal appearance - ENT Exam ENT Exam: Mucous Membranes Moist - Respiratory Exam Respiratory Exam: Clear to Auscultation Bilateral, NORMAL BREATHING PATTERN - Cardiovascular Exam Cardiovascular Exam: REGULAR RHYTHM, +S1, +S2 - GI/Abdominal Exam GI & Abdominal Exam: Distended, Firm - Extremities Exam Extremities exam: Positive for: normal inspection - Neurological Exam Neurological exam: Alert, Oriented x3 Results - Vital Signs Recent Vital Signs: Last Vital Signs Temp 97.9 F 11/10/16 16:40 Pulse 110 H 11/10/16 16:40 Resp 20 11/10/16 16:40 BP 100/66 11/10/16 16:40 Pulse Ox 95 11/10/16 16:40 - Labs Result Diagrams: 11/10/16 14:04 11/10/16 14:04 Labs: Laboratory Results - last 24 hr 11/10/16 17:09 POC Glucose (mg/dL) 99 Assessment & Plan (1) Abdominal pain Status: Acute (2) Anemia Status: Acute (3) Ascites due to chronic alcoholic hepatitis Status: Acute (4) Dyspnea Status: Acute (5) Liver cirrhosis Status: Acute - Assessment and Plan (Free Text) Plan: Patient will need paracentesis by IR Continue spironolactone Supportive care DVT/GI prophylaxis
[2016-11-10] MEDS ORDERED: Saccharomyces Boulardi 250 mg Cap PO SCH (18:00)
[2016-11-10] MEDS ORDERED: ZINC OXIDE TP SCH (22:00)
[2016-11-10] MEDS ORDERED: MENTHOL TP SCH (22:00)
[2016-11-11] MEDS: Multiple Vitamins Tab PO SCH (09:36)
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
--- NOTE | 2016-11-11 11:48 | CT ---
PROCEDURE: CT HEAD WITHOUT CONTRAST. HISTORY: code star COMPARISON: None available. TECHNIQUE: Axial computed tomography images were obtained through the head/brain without intravenous contrast. Radiation dose: Total exam DLP = 973.57 mGy-cm. This CT exam was performed using one or more of the following dose reduction techniques: Automated exposure control, adjustment of the mA and/or kV according to patient size, and/or use of iterative reconstruction technique. FINDINGS: HEMORRHAGE: No intracranial hemorrhage. BRAIN: Diffuse atrophy with prominence of the ventricles and sulci noted. No mass effect or edema. Dense intracranial calcifications. Calcification noted along the tentorium. Scattered white matter hypodensities, which are nonspecific, but often seen with chronic microvascular ischemic disease. Probable encephalomalacia within the lateral parietal temporal lobes however epidermoid lesion cannot be entirely excluded as vessels are noted traversing through the hypodense region. Please note that MRI with diffusion imaging is more sensitive in the detection of acute ischemic event. VENTRICLES: No hydrocephalus. CALVARIUM: Unremarkable. PARANASAL SINUSES: Mucosal polyp/retention cyst within the left maxillary sinus. Remainder the visualized paranasal sinuses appear clear. MASTOID AIR CELLS: Unremarkable as visualized. No inflammatory changes. OTHER FINDINGS: None. IMPRESSION: Probable encephalomalacia involving the lateral parietal temporal lobes, however epidermoid lesion cannot be entirely excluded. Recommend MRI without and with IV contrast for further evaluation if indicated. Additional scattered nonspecific white matter changes. Generalized atrophy.
--- NOTE | 2016-11-11 12:49 | RAD ---
HISTORY: code star COMPARISON: No prior. FINDINGS: BONES: Alignment maintained. No fracture. No suspicious focal lytic or blastic change. DISC SPACES: Advance multilevel thoracic spondylosis appreciated. No spondylolisthesis. SOFT TISSUES: Unremarkable appearing. OTHER FINDINGS: None. IMPRESSION: Advanced multilevel thoracic spondylosis identified without fracture or spondylolisthesis.
--- NOTE | 2016-11-11 16:22 | CP.PCM.PN ---
Subjective - Date & Time of Evaluation Date of Evaluation: 11/11/16 Time of Evaluation: 16:21 - Subjective Subjective: Patient seen and examined No events overnight Awaiting paracentesis Objective - Vital Signs/Intake and Output Vital Signs (last 24 hours): Temp Pulse Resp BP Pulse Ox 97.9 F 101 H 20 99/60 L 100 11/11/16 16:00 11/11/16 16:00 11/11/16 16:00 11/11/16 16:00 11/11/16 16:00 Intake and Output: 11/11/16 11/11/16 06:59 18:59 Intake Total 450 Output Total 50 Balance 400 - Medications Medications: Current Medications Albuterol/Ipratropium (Duoneb 3 Mg/0.5 Mg (3 Ml) Ud) 3 ml IH RQ6 PRN PRN Reason: Shortness of Breath Famotidine (Pepcid) 20 mg PO HS [facility] Last Admin: 11/10/16 22:07 Dose: 20 mg Folic Acid (Folic Acid) 1 mg PO DAILY [facility] Last Admin: 11/11/16 09:37 Dose: 1 mg Furosemide (Lasix) 40 mg PO DAILY [facility] Last Admin: 11/11/16 09:36 Dose: 40 mg Levetiracetam (Keppra) 500 mg PO Q12H [facility] Last Admin: 11/11/16 09:36 Dose: 500 mg Magnesium Hydroxide (Milk Of Magnesia) 30 ml PO DAILY PRN PRN Reason: no BM after 3 days Multivitamins (Hexavitamin) 1 tab PO DAILY [facility] Last Admin: 11/11/16 09:36 Dose: 1 tab Pneumococcal Polyvalent Vaccine (Pneumovax 23 Vaccine) 0.5 ml IM .ONCE ONE Stop: 11/12/16 10:01 Spironolactone (Aldactone) 100 mg PO DAILY [facility] Last Admin: 11/11/16 09:40 Dose: 100 mg Thiamine HCl (Vitamin B1 Tab) 100 mg PO DAILY [facility] Last Admin: 11/11/16 09:37 Dose: 100 mg - Labs Labs: PT 13.8 SECONDS (9.7-12.2) H 11/10/16 14:04 INR 1.2 11/10/16 14:04 APTT 35 SECONDS (21-34) H 11/10/16 14:04 - Head Exam Head Exam: NORMAL INSPECTION - Eye Exam Eye Exam: Normal appearance - ENT Exam ENT Exam: Mucous Membranes Moist - Respiratory Exam Respiratory Exam: Clear to Ausculation Bilateral, NORMAL BREATHING PATTERN - Cardiovascular Exam Cardiovascular Exam: REGULAR RHYTHM, +S1, +S2 - GI/Abdominal Exam GI & Abdominal Exam: Distended, Diminished Bowel Sounds - Extremities Exam Extremities Exam: Pedal Edema Assessment and Plan (1) Abdominal pain Status: Acute (2) Ascites due to chronic alcoholic hepatitis Status: Acute (3) Dyspnea Status: Acute (4) Liver cirrhosis Status: Acute (5) Portal hypertension Status: Acute - Assessment and Plan (Free Text) Plan: Patient to go for paracentesis tomorrow Continue spironolactone Bronchodilators Supportive care Very poor prognosis DVT GI prophylaxis
[2016-11-11] MEDS: Albuterol-Ipratrop 3 mg / 0.5 (3 ml) UD IH PRN (20:35)
--- NOTE | 2016-11-12 08:24 | PCM.SURG1 ---
Surgeon's Initial Post Op Note - Surgeon's Notes Surgeon: Steve Fish Drier: None Type of Anesthesia: Local Pre-Operative Diagnosis: Ascites Operative Findings: Ascites Post-Operative Diagnosis: Ascites Operation Performed: Paracentesis Specimen/Specimens Removed: Approx 4L of clear pale yellow fluid aspirated. Estimated Blood Loss: EBL {In ML}: 1 Date of Surgery/Procedure: 11/12/16 Time of Surgery/Procedure: 08:00
[2016-11-12] MEDS: Albuterol-Ipratrop 3 mg / 0.5 (3 ml) UD IH PRN ×2 (08:35→20:00)
[2016-11-12] MEDS ORDERED: Pneumococcal 23-Valent Vaccine IM ONE (10:00)
--- NOTE | 2016-11-12 10:37 | US ---
Ultrasound guided paracentesis. Clinical History: Ascites with abdominal pain and distension. Technique: The relative risks and indications for the procedure were explained to the patient and informed written consent obtained. Sonography of the abdomen was performed in a supine position. This revealed a moderate amount of non-loculated ascites, greatest in the right lower quadrant. A puncture site was selected and the area was prepped and draped in the usual sterile fashion. 1% lidocaine was used to anesthetize the skin and soft tissues. A 5 Moldovan paracentesis catheter was trocared into the right lower quadrant under real time ultrasound guidance. A permanent image was stored. Approximately 4000 cc of babs fluid aspirated. Impression: Ultrasound-guided paracentesis in the right lower quadrant. Approximately 4000 cc of babs colored fluid was aspirated.
[2016-11-12] MEDS: Multiple Vitamins Tab PO SCH (10:45)
--- NOTE | 2016-11-12 14:41 | CP.PCM.PN ---
Subjective - Date & Time of Evaluation Date of Evaluation: 11/12/16 Time of Evaluation: 14:40 - Subjective Subjective: Pt seen and examined S/P Paracentesis Objective - Vital Signs/Intake and Output Vital Signs (last 24 hours): Temp Pulse Resp BP Pulse Ox 98.5 F 80 20 104/70 96 11/12/16 08:23 11/12/16 08:23 11/12/16 08:23 11/12/16 10:44 11/12/16 08:23 Intake and Output: 11/12/16 11/12/16 06:59 18:59 Intake Total 50 Balance 50 - Medications Medications: Current Medications Albuterol/Ipratropium (Duoneb 3 Mg/0.5 Mg (3 Ml) Ud) 3 ml IH RQ6 PRN PRN Reason: Shortness of Breath Last Admin: 11/12/16 08:35 Dose: 3 ml Famotidine (Pepcid) 20 mg PO HS [facility] Last Admin: 11/11/16 21:31 Dose: 20 mg Folic Acid (Folic Acid) 1 mg PO DAILY [facility] Last Admin: 11/12/16 10:45 Dose: 1 mg Furosemide (Lasix) 40 mg PO DAILY [facility] Last Admin: 11/12/16 10:44 Dose: 40 mg Levetiracetam (Keppra) 500 mg PO Q12H [facility] Last Admin: 11/12/16 04:59 Dose: 500 mg Magnesium Hydroxide (Milk Of Magnesia) 30 ml PO DAILY PRN PRN Reason: no BM after 3 days Last Admin: 11/12/16 10:45 Dose: 30 ml Multivitamins (Hexavitamin) 1 tab PO DAILY [facility] Last Admin: 11/12/16 10:45 Dose: 1 tab Spironolactone (Aldactone) 100 mg PO DAILY [facility] Last Admin: 11/12/16 10:45 Dose: Not Given Thiamine HCl (Vitamin B1 Tab) 100 mg PO DAILY [facility] Last Admin: 11/12/16 10:44 Dose: 100 mg - Labs Labs: PT 13.8 SECONDS (9.7-12.2) H 11/10/16 14:04 INR 1.2 11/10/16 14:04 APTT 35 SECONDS (21-34) H 11/10/16 14:04 - Head Exam Head Exam: NORMAL INSPECTION - Eye Exam Eye Exam: Normal appearance - ENT Exam ENT Exam: Mucous Membranes Moist - Respiratory Exam Respiratory Exam: Decreased Breath Sounds, Clear to Ausculation Bilateral - Cardiovascular Exam Cardiovascular Exam: REGULAR RHYTHM, +S1, +S2 - GI/Abdominal Exam GI & Abdominal Exam: Soft, Normal Bowel Sounds - Extremities Exam Extremities Exam: Pedal Edema Assessment and Plan (1) Abdominal pain Status: Acute (2) Ascites due to chronic alcoholic hepatitis Status: Acute (3) Dyspnea Status: Acute (4) Liver cirrhosis Status: Acute (5) Portal hypertension Status: Acute - Assessment and Plan (Free Text) Plan: S/P Paracentesis Continue spironolactone Bronchodilators Supportive care Very poor prognosis Possible D/C home in [place] DVT GI prophylaxis
[2016-11-13 01:30] VITALS: O2SAT 97
[2016-11-13 08:57] VITALS: BP 105/68; PULSE 71; TEMP 97.7
[2016-11-13] MEDS: Multiple Vitamins Tab PO SCH (09:02)
--- NOTE | 2016-11-13 10:00 | CP.PCM.PN ---
Subjective - Date & Time of Evaluation Date of Evaluation: 11/13/16 Time of Evaluation: 10:00 - Subjective Subjective: awake, alert, no c/o pain, NAD. Objective - Vital Signs/Intake and Output Vital Signs (last 24 hours): Temp Pulse Resp BP Pulse Ox 97.7 F 71 20 105/68 97 11/13/16 08:56 11/13/16 08:56 11/13/16 08:56 11/13/16 09:02 11/13/16 08:56 Intake and Output: 11/13/16 11/13/16 06:59 18:59 Intake Total 350 Output Total 600 Balance -250 - Medications Medications: Current Medications Albuterol/Ipratropium (Duoneb 3 Mg/0.5 Mg (3 Ml) Ud) 3 ml IH RQ6 PRN PRN Reason: Shortness of Breath Last Admin: 11/12/16 20:00 Dose: 3 ml Famotidine (Pepcid) 20 mg PO HS [facility] Last Admin: 11/12/16 21:36 Dose: 20 mg Folic Acid (Folic Acid) 1 mg PO DAILY [facility] Last Admin: 11/13/16 09:02 Dose: 1 mg Furosemide (Lasix) 40 mg PO DAILY [facility] Last Admin: 11/13/16 09:02 Dose: 40 mg Levetiracetam (Keppra) 500 mg PO Q12H [facility] Last Admin: 11/13/16 05:41 Dose: 500 mg Magnesium Hydroxide (Milk Of Magnesia) 30 ml PO DAILY PRN PRN Reason: no BM after 3 days Last Admin: 11/12/16 10:45 Dose: 30 ml Multivitamins (Hexavitamin) 1 tab PO DAILY [facility] Last Admin: 11/13/16 09:02 Dose: 1 tab Spironolactone (Aldactone) 100 mg PO DAILY [facility] Last Admin: 11/13/16 09:02 Dose: 100 mg Thiamine HCl (Vitamin B1 Tab) 100 mg PO DAILY [facility] Last Admin: 11/13/16 09:02 Dose: 100 mg - Labs Labs: PT 13.8 SECONDS (9.7-12.2) H 11/10/16 14:04 INR 1.2 11/10/16 14:04 APTT 35 SECONDS (21-34) H 11/10/16 14:04 Assessment and Plan - Assessment and Plan (Free Text) Assessment: Patient is alert and orientedx3, NAD. Had abdominal paracentesis done yesterday , abdomen soft, non tender, no bleeding no distress. D/W DR Forbes, discharge plan back to [facility] today.
--- NOTE | 2016-11-13 19:29 | CP.PCM.PN ---
Subjective - Date & Time of Evaluation Date of Evaluation: 11/13/16 Time of Evaluation: 19:29 Objective - Vital Signs/Intake and Output Vital Signs (last 24 hours): Temp Pulse Resp BP Pulse Ox 97.7 F 71 20 105/68 97 11/13/16 08:56 11/13/16 08:56 11/13/16 08:56 11/13/16 09:02 11/13/16 08:56 Intake and Output: 11/13/16 11/14/16 18:59 06:59 Intake Total 250 Output Total 500 Balance -250 - Medications Medications: Current Medications Albuterol/Ipratropium (Duoneb 3 Mg/0.5 Mg (3 Ml) Ud) 3 ml IH RQ6 PRN PRN Reason: Shortness of Breath Last Admin: 11/12/16 20:00 Dose: 3 ml Famotidine (Pepcid) 20 mg PO HS [facility] Last Admin: 11/12/16 21:36 Dose: 20 mg Folic Acid (Folic Acid) 1 mg PO DAILY [facility] Last Admin: 11/13/16 09:02 Dose: 1 mg Furosemide (Lasix) 40 mg PO DAILY [facility] Last Admin: 11/13/16 09:02 Dose: 40 mg Levetiracetam (Keppra) 500 mg PO Q12H [facility] Last Admin: 11/13/16 17:38 Dose: 500 mg Magnesium Hydroxide (Milk Of Magnesia) 30 ml PO DAILY PRN PRN Reason: no BM after 3 days Last Admin: 11/12/16 10:45 Dose: 30 ml Multivitamins (Hexavitamin) 1 tab PO DAILY [facility] Last Admin: 11/13/16 09:02 Dose: 1 tab Spironolactone (Aldactone) 100 mg PO DAILY [facility] Last Admin: 11/13/16 09:02 Dose: 100 mg Thiamine HCl (Vitamin B1 Tab) 100 mg PO DAILY [facility] Last Admin: 11/13/16 09:02 Dose: 100 mg - Labs Labs: PT 13.8 SECONDS (9.7-12.2) H 11/10/16 14:04 INR 1.2 11/10/16 14:04 APTT 35 SECONDS (21-34) H 11/10/16 14:04 Assessment and Plan (1) Abdominal pain Status: Acute (2) Ascites due to chronic alcoholic hepatitis Status: Acute (3) Dyspnea Status: Acute (4) Liver cirrhosis Status: Acute (5) Portal hypertension Status: Acute
--- NOTE | 2016-11-18 02:39 | CP.PCM.DIS ---
Provider - Provider Date of Admission: 11/12/16 17:14 Attending physician: Immanuel Forbes MD Time Spent in preparation of Discharge (in minutes): 25 Diagnosis - Discharge Diagnosis (1) Abdominal pain Status: Acute (2) Ascites due to chronic alcoholic hepatitis Status: Acute (3) Dyspnea Status: Acute (4) Liver cirrhosis Status: Acute (5) Portal hypertension Status: Acute Hospital Course - Lab Results Lab Results: Most Recent Lab Values WBC 6.3 K/uL (4.8-10.8) 11/10/16 14:04 RBC 3.82 Mil/uL (4.40-5.90) L 11/10/16 14:04 Hgb 12.7 g/dL (12.0-18.0) 11/10/16 14:04 Hct 38.0 % (35.0-51.0) 11/10/16 14:04 MCV 99.4 fL (80.0-94.0) H 11/10/16 14:04 MCH 33.2 pg (27.0-31.0) H 11/10/16 14:04 MCHC 33.4 g/dL (33.0-37.0) 11/10/16 14:04 RDW 14.2 % (11.5-14.5) 11/10/16 14:04 Plt Count 197 K/uL (130-400) 11/10/16 14:04 MPV 6.8 fL (7.2-11.7) L 11/10/16 14:04 Neut % (Auto) 58.7 % (50.0-75.0) 11/10/16 14:04 Lymph % (Auto) 24.4 % (20.0-40.0) 11/10/16 14:04 Woodson % (Auto) 13.8 % (0.0-10.0) H 11/10/16 14:04 Eos % (Auto) 2.5 % (0.0-4.0) 11/10/16 14:04 Baso % (Auto) 0.6 % (0.0-2.0) 11/10/16 14:04 Neut # 3.7 K/uL (1.8-7.0) 11/10/16 14:04 Lymph # 1.5 K/uL (1.0-4.3) 11/10/16 14:04 Woodson # 0.9 K/uL (0.0-0.8) H 11/10/16 14:04 Eos # 0.2 K/uL (0.0-0.7) 11/10/16 14:04 Baso # 0.0 K/uL (0.0-0.2) 11/10/16 14:04 PT 13.8 SECONDS (9.7-12.2) H 11/10/16 14:04 INR 1.2 11/10/16 14:04 APTT 35 SECONDS (21-34) H 11/10/16 14:04 Sodium 139 mmol/L (132-148) 11/10/16 14:04 Potassium 3.8 mmol/L (3.6-5.2) 11/10/16 14:04 Chloride 102 mmol/L (98-107) 11/10/16 14:04 Carbon Dioxide 26 mmol/L (22-30) 11/10/16 14:04 Anion Gap 14 (10-20) 11/10/16 14:04 BUN 12 mg/dL (9-20) 11/10/16 14:04 Creatinine 0.9 MG/DL (0.8-1.5) 11/10/16 14:04 Est GFR ( Amer) > 60 11/10/16 14:04 Est GFR (Non-Af Amer) > 60 11/10/16 14:04 POC Glucose (mg/dL) 124 mg/dL (65-110) H 11/13/16 16:31 Random Glucose 82 mg/dL (75-110) 11/10/16 14:04 Calcium 8.9 mg/dl (8.6-10.4) 11/10/16 14:04 Total Bilirubin 0.8 mg/dL (0.2-1.3) 11/10/16 14:04 AST 38 U/L (17-59) 11/10/16 14:04 ALT 33 U/L (21-72) 11/10/16 14:04 Alkaline Phosphatase 101 U/L (38-126) 11/10/16 14:04 Total Protein 7.0 g/dL (6.3-8.3) 11/10/16 14:04 Albumin 2.7 g/dL (3.5-5.0) L 11/10/16 14:04 Globulin 4.3 gm/dL (2.2-3.9) H 11/10/16 14:04 Albumin/Globulin Ratio 0.6 (1.0-2.1) L 11/10/16 14:04 Blood Type A POSITIVE 11/10/16 14:04 Antibody Screen Negative 11/10/16 14:04 - Hospital Course Hospital Course: Patient presented with abnormal distention and large ascites. Patient was treated with diuretics and blood pressure medication and underwent paracentesis by IR. 4 L of clear fluid was removed and patient was able to tolerated paracentesis. Discharge Exam - Head Exam Head Exam: NORMAL INSPECTION - Eye Exam Eye Exam: Normal appearance - ENT Exam ENT Exam: Mucous Membranes Moist - Respiratory Exam Respiratory Exam: Clear to PA & Lateral, NORMAL BREATHING PATTERN - Cardiovascular Exam Cardiovascular Exam: REGULAR RHYTHM, +S1, +S2 - GI/Abdominal Exam GI & Abdominal Exam: Hypoactive Bowel Sounds - Extremities Exam Extremities exam: pedal edema Discharge Plan - Follow Up Plan Condition: FAIR Disposition: TRANSF TO SNF Instructions: Cirrhosis (DC), Abdominal Paracentesis (DC), Ascites (DC), Portal Hypertension (DC)
== END 2016-11-13 20:00 | DRG 202 ==
LOC: C.ER 12:17 → C.9E 14:26 → C.3T 15:23 → OBSVTOIN 11-12 17:14
PROVIDERS: ADMIT Internal Medicine Critical Care Medicine; ATTEND Internal Medicine Critical Care Medicine
PROC: 0W9G3ZZ Drainage of Peritoneal Cavity, Percutaneous Approach (ICD-10-PCS; principal; 2016-11-12)
PROC: BW40ZZZ Ultrasonography of Abdomen (ICD-10-PCS; 2016-11-12)
DX: K70.11 Alcoholic hepatitis with ascites (principal); K70.31 Alcoholic cirrhosis of liver with ascites; K76.6 Portal hypertension; D64.9 Anemia, unspecified; F10.20 Alcohol dependence, uncomplicated; K21.9 Gastro-esophageal reflux disease without esophagitis; I10 Essential (primary) hypertension; E11.9 Type 2 diabetes mellitus without complications; W18.30XA Fall on same level, unspecified, initial encounter; R06.00 Dyspnea, unspecified; R26.9 Unspecified abnormalities of gait and mobility

== ENCOUNTER 2016-11-23 13:43 | Inpatient (IN) | payer MEDICARE, OTHER ==
--- NOTE | 2016-11-23 14:12 | C.PDOC ---
History Of Present Illness 66 year old male presents to the ED with complaints of recurrent abdominal distension for three days with associated pain. Patient is status post peritoneal tap x2 in October 2016. He denies fever, nausea, vomiting, or associated symptoms. CO RECUR ABD DISTENTION X 3 DAYS. GEN PAIN FROM DISTENTION. NO FEVER NV. S/P PERITONEAL TAP X 2 IN 10/2016. DENIES OTHER ASSOC SX EXAM NAD NONTOXIC ANICTERIC ABD +TENSE ASCITES NO FOCAL TEND. SOFT NO EDEMA Chief Complaint (Nursing): Abdominal Pain History Per: Patient History/Exam Limitations: no limitations Onset/Duration Of Symptoms: Days (3 days ) Current Symptoms Are (Timing): Still Present Recent travel outside of the [place]: No Past Medical History Reviewed: Historical Data, Nursing Documentation, Vital Signs Vital Signs: Last Vital Signs Temp 99 F 11/23/16 15:19 Pulse 110 H 11/23/16 15:19 Resp 20 11/23/16 15:19 BP 102/71 11/23/16 15:19 Pulse Ox 95 11/23/16 15:19 - Medical History PMH: Arthritis (r sh; b/l knees), HTN, Seizures - [facility] Procedures DRAINAGE OF PERITONEAL CAVITY, PERCUTANEOUS APPROACH (11/12/16) INSERTION OF INFUSION DEV INTO SUP VENA CAVA, PERC APPROACH (09/09/16) INSPECTION OF ABDOMINAL WALL, PERCUTANEOUS APPROACH (05/19/16) INTRODUCTION OF NUTRITIONAL INTO PERIPH VEIN, PERC APPROACH (05/19/16) ULTRASONOGRAPHY OF ABDOMEN (11/12/16) ULTRASONOGRAPHY OF SUPERIOR VENA CAVA, GUIDANCE (09/09/16) Family History: States: Unknown Family Hx - Social History Hx Alcohol Use: Yes (1 year ago previous to being in intermediate patient report drinking a 12) Hx Substance Use: No - Immunization History Hx Tetanus Toxoid Vaccination: No Hx Influenza Vaccination: No Hx Pneumococcal Vaccination: No Review Of Systems Constitutional: Negative for: Fever, Chills Cardiovascular: Negative for: Chest Pain, Palpitations Gastrointestinal: Positive for: Abdominal Pain. Negative for: Nausea, Vomiting , Diarrhea Genitourinary: Negative for: Dysuria Physical Exam - Physical Exam Appears: Non-toxic, No Acute Distress Skin: Warm, Dry, Other (Anicteric ) Head: Atraumatic Eye(s): bilateral: Normal Inspection, PERRL, EOMI Oral Mucosa: Moist Neck: Supple Chest: Symmetrical, No Deformity Cardiovascular: Other (Patient is tachycardic ) Respiratory: No Rales, No Rhonchi, No Wheezing Gastrointestinal/Abdominal: Soft, Distention (+tense ascites. ), Other (No focal tenderness ) Extremity: Normal ROM, No Tenderness, No Pedal Edema, No Swelling Neurological/Psych: Oriented x3, Normal Speech, Normal Cognition, Normal Motor, Normal Sensation ED Course And Treatment - Laboratory Results Result Diagrams: 11/23/16 14:22 11/23/16 14:22 ECG: Interpreted By Me, Viewed By Me ECG Rhythm: Sinus Tachycardia Rate From EC O2 Sat by Pulse Oximetry: 95 (room air ) - Physician Consult Information Time Consulting Physician Contacted: 14:00 Physician Contacted: Zoë Carter Outcome Of Conversation: Case discussed with Dr. Carter and agrees to admit patient to his services. Progress - Re-Evaluation Re-evaluation Note: 11/23/16 14:12 D/W DR Taylor CARTER WILL ADMIT - Data Reviewed Data Reviewed: Lab, Diagnostic imaging, EKG, Old records Disposition Counseled Patient/Family Regarding: Studies Performed, Diagnosis - Disposition Disposition: HOSPITALIZED Disposition Time: 14:12 Condition: STABLE - Clinical Impression Clinical Impression: Abdominal discomfort, Abdominal distension, Ascites - Scribe Statement The provider has reviewed the documentation as recorded by the Scribe Aylin Ledesma All medical record entries made by the Scribe were at my direction and personally dictated by me. I have reviewed the chart and agree that the record accurately reflects my personal performance of the history, physical exam, medical decision making, and the department course for this patient. I have also personally directed, reviewed, and agree with the discharge instructions and disposition. Decision To Admit - Pt Status Changed To: Hospital Disposition Of: Observation - . Bed Request Type: Regular Admitting Physician: Zoë Carter Patient Diagnosis: Abdominal discomfort, Abdominal distension, Ascites
[2016-11-23 14:26] LABS: BASO % 0.6 % (0.0-2.0); EOS # 0.2 K/uL (0.0-0.7); EOS % 2.8 % (0.0-4.0); HEMATOCRIT 34.2 % (35.0-51.0); LYMPH # 1.5 K/uL (1.0-4.3); LYMPH % 23.2 % (20.0-40.0); MEAN CELL VOLUME 98.6 fL (80.0-94.0); MEAN CORPUSCULAR HEMOGLOBIN 33.7 pg (27.0-31.0); MEAN CORPUSCULAR HGB CONC 34.2 g/dL (33.0-37.0); MEAN PLATELET VOLUME 6.4 fL (7.2-11.7); MONO # 1.1 K/uL (0.0-0.8); MONO % 16.2 % (0.0-10.0); NRBC % 0.1 % (0.0-2.0); RED CELL DISTRIBUTION WIDTH 14.7 % (11.5-14.5); WHITE BLOOD COUNT 6.5 K/uL (4.8-10.8)
[2016-11-23 14:37] LABS: ALB/GLOB RATIO 0.7 (1.0-2.1); ALKALINE PHOSPHATASE 86 U/L (38-126); ALT/SGPT 33 U/L (21-72); AST/SGOT 33 U/L (17-59); BILIRUBIN,TOTAL 0.7 mg/dL (0.2-1.3); BLOOD UREA NITROGEN 8 mg/dL (9-20); CALCIUM 8.2 mg/dl (8.6-10.4); CARBON DIOXIDE 23 mmol/L (22-30); CHLORIDE 102 mmol/L (98-107); GFR AFRICAN-AMERICAN > 60; GLUCOSE,RANDOM 83 mg/dL (75-110); POTASSIUM 3.6 mmol/L (3.6-5.2); SODIUM 136 mmol/L (132-148); TOTAL PROTEIN 6.6 g/dL (6.3-8.3)
[2016-11-23 15:08] LABS: INR 1.3
[2016-11-23] MEDS ORDERED: Magnesium Hydroxide Susp 30 ml UD PO PRN (15:13)
[2016-11-23] MEDS ORDERED: Aluminum Hydroxide/Magnesium Hydroxide Susp (30 mL) PO PRN (15:13)
--- NOTE | 2016-11-23 15:16 | CP.PCM.HP ---
Past Patient History - Infectious Disease Hx of Infectious Diseases: None - Past Medical History & Family History Past Medical History?: Yes - Past Social History Smoking Status: Never Smoked - CARDIAC Hx Hypertension: Yes - PULMONARY Hx Respiratory Disorders: No - NEUROLOGICAL Hx Seizures: Yes - HEENT Hx HEENT Problems: No - RENAL Hx Chronic Kidney Disease: No - ENDOCRINE/METABOLIC Hx Diabetes Mellitus Type 2: Yes - HEMATOLOGICAL/ONCOLOGICAL Hx Blood Disorders: Yes Hx Cirrhosis: Yes - INTEGUMENTARY Hx Dermatological Problems: No - MUSCULOSKELETAL/RHEUMATOLOGICAL Hx Arthritis: Yes (r sh; b/l knees) - GASTROINTESTINAL Hx Gastrointestinal Disorders: Yes Hx Gastroesophageal Reflux: Yes Hx Liver Failure: Yes - GENITOURINARY/GYNECOLOGICAL Hx Genitourinary Disorders: No - PSYCHIATRIC Hx Substance Use: No - SURGICAL HISTORY Hx Surgeries: No - ANESTHESIA Hx Anesthesia: Yes Meds Allergies/Adverse Reactions: Allergies Allergy/AdvReac Type Severity Reaction Status Date / Time No Known Allergies Allergy Verified 11/23/16 13:52 Results - Vital Signs Recent Vital Signs: Last Vital Signs Temp 97.8 F 11/23/16 13:59 Pulse 111 H 11/23/16 13:59 Resp 28 H 11/23/16 13:59 BP 113/74 11/23/16 13:59 Pulse Ox 95 11/23/16 14:40 - Labs Result Diagrams: 11/23/16 14:22 11/23/16 14:22 Labs: Laboratory Results - last 24 hr 11/23/16 11/23/16 11/23/16 14:22 14:22 14:22 WBC 6.5 RBC 3.47 L Hgb 11.7 L Hct 34.2 L MCV 98.6 H MCH 33.7 H MCHC 34.2 RDW 14.7 H Plt Count 205 MPV 6.4 L Neut % (Auto) 57.2 Lymph % (Auto) 23.2 [place] % (Auto) 16.2 H Eos % (Auto) 2.8 Baso % (Auto) 0.6 Neut # 3.7 Lymph # 1.5 [place] # 1.1 H Eos # 0.2 Baso # 0.0 PT 14.5 H INR 1.3 APTT 35 H Sodium 136 Potassium 3.6 Chloride 102 Carbon Dioxide 23 Anion Gap 15 BUN 8 L Creatinine 0.7 L Est GFR ( Amer) > 60 Est GFR (Non-Af Amer) > 60 Random Glucose 83 Calcium 8.2 L Total Bilirubin 0.7 AST 33 ALT 33 Alkaline Phosphatase 86 Total Protein 6.6 Albumin 2.6 L Globulin 4.0 H Albumin/Globulin Ratio 0.7 L
[2016-11-23] MEDS: (Novolog) Insulin Aspart, Recombinant 100 u/ml 10 ml vial SC SCH ×2 (17:46→21:16)
[2016-11-23] MEDS: Saccharomyces Boulardi 250 mg Cap PO SCH (17:46)
--- NOTE | 2016-11-23 17:48 | RAD ---
PROCEDURE: CHEST RADIOGRAPH, 1 VIEW HISTORY: MED CLEAR COMPARISON: Portable chest 10/23/2016. FINDINGS: LUNGS: Small density is seen at the right retrocardiac region potentially reflecting early infiltrate or atelectasis. No left-sided infiltrate. . PLEURA: No pneumothorax or pleural fluid seen. CARDIOVASCULAR: Normal. OSSEOUS STRUCTURES: No significant abnormalities. VISUALIZED UPPER ABDOMEN: Normal. OTHER FINDINGS: None. IMPRESSION: Proximal medial right basilar infiltrate posterior to the right heart. Clinical follow-up is advised.
[2016-11-23] MEDS: Zinc Oxide Topical 30 gm Tube TOP SCH (21:09)
[2016-11-24] MEDS: Albuterol-Ipratrop 3 mg / 0.5 (3 ml) UD IH PRN ×2 (07:36→13:03)
[2016-11-24] MEDS: (Novolog) Insulin Aspart, Recombinant 100 u/ml 10 ml vial SC SCH ×4 (08:18→21:16)
[2016-11-24] MEDS: Saccharomyces Boulardi 250 mg Cap PO SCH ×2 (09:58→17:23)
[2016-11-24] MEDS: Multiple Vitamins Tab PO SCH (09:58)
[2016-11-24] MEDS: Zinc Oxide Topical 30 gm Tube TOP SCH ×2 (14:17→22:02)
--- NOTE | 2016-11-24 15:47 | CP.PCM.CON ---
<Dalia Finney - Last Filed: 11/24/16 15:51> History of Present Illness - History of Present Illness History of Present Illness: GI Fellow PGY4 Consult Note This is a 66yM with a PMHx significant for EtOH abuse, decompensated cirrhosis with ascites and diabetes who presented to the ED from [facility] for abdominal distention and SOB. Patient is a poor historian and unable to provide a detailed HPI. He was admitted in August for this and underwent paracentesis with 8.9L removed, no sign of SBP on cell count/culture. He returns with progressive distention of the abdomen over the span of a few weeks. He remains on diuretics furosemide and spironolactone. Denies any nausea, vomiting, melena , hematochezia, hematemesis, fever, chills. ROS: A 12pt ROS was obtained and was negative except as above PMHx: See HPI PSHx: Denies FHx: Mother - CAD SHx: Prior EtOH abuse, last drink in May 2016; denies tobacco or illicit drug use Past Patient History - Infectious Disease Hx of Infectious Diseases: None - Past Medical History & Family History Past Medical History?: Yes - Past Social History Smoking Status: Never Smoked - CARDIAC Hx Hypertension: Yes - PULMONARY Hx Respiratory Disorders: No - NEUROLOGICAL Hx Seizures: Yes - HEENT Hx HEENT Problems: No - RENAL Hx Chronic Kidney Disease: No - ENDOCRINE/METABOLIC Hx Diabetes Mellitus Type 2: Yes - HEMATOLOGICAL/ONCOLOGICAL Hx Blood Disorders: Yes Hx Cirrhosis: Yes - INTEGUMENTARY Hx Dermatological Problems: No - MUSCULOSKELETAL/RHEUMATOLOGICAL Hx Arthritis: Yes (r sh; b/l knees) - GASTROINTESTINAL Hx Gastrointestinal Disorders: Yes Hx Gastroesophageal Reflux: Yes Hx Liver Failure: Yes - GENITOURINARY/GYNECOLOGICAL Hx Genitourinary Disorders: No - PSYCHIATRIC Hx Substance Use: No - SURGICAL HISTORY Hx Surgeries: No - ANESTHESIA Hx Anesthesia: Yes Meds Allergies/Adverse Reactions: Allergies Allergy/AdvReac Type Severity Reaction Status Date / Time No Known Allergies Allergy Verified 11/23/16 13:52 - Medications Medications: Current Medications Al Hydrox/Mg Hydrox/Simethicone (Maalox 30 Ml) 30 ml PO Q4 PRN PRN Reason: heartburn and indigestion Albuterol/Ipratropium (Duoneb 3 Mg/0.5 Mg (3 Ml) Ud) 3 ml IH Q6H PRN PRN Reason: Shortness of Breath Last Admin: 11/24/16 13:03 Dose: 3 ml Diphenhydramine HCl (Benadryl) 25 mg PO Q12 [facility] Last Admin: 11/24/16 09:58 Dose: 25 mg Famotidine (Pepcid) 20 mg PO HS [facility] Last Admin: 11/23/16 21:09 Dose: 20 mg Folic Acid (Folic Acid) 1 mg PO DAILY [facility] Last Admin: 11/24/16 10:00 Dose: 1 mg Furosemide (Lasix) 40 mg PO DAILY [facility] Last Admin: 11/24/16 09:58 Dose: 40 mg Insulin Aspart (Novolog) 0 unit SC ACHS [facility] PRN Reason: Protocol Last Admin: 11/24/16 11:37 Dose: Not Given Lactulose (Enulose) 20 gm PO BID [facility] Last Admin: 11/24/16 10:00 Dose: 20 gm Levetiracetam (Keppra) 500 mg PO Q12 [facility] Last Admin: 11/24/16 09:58 Dose: 500 mg Magnesium Hydroxide (Milk Of Magnesia) 30 ml PO DAILY PRN PRN Reason: no BM after 3 days Multivitamins (Hexavitamin) 1 tab PO DAILY [facility] Last Admin: 11/24/16 09:58 Dose: 1 tab Petrolatum (Desitin Original) 1 gm TOP Q8 [facility] Last Admin: 11/24/16 14:17 Dose: 1 appl Saccharomyces Boulardii (Florastor) 250 mg PO BID [facility] Last Admin: 11/24/16 09:58 Dose: 250 mg Spironolactone (Aldactone) 100 mg PO DAILY [facility] Last Admin: 11/24/16 09:58 Dose: 100 mg Thiamine HCl (Vitamin B1 Tab) 100 mg PO DAILY [facility] Last Admin: 11/24/16 09:58 Dose: 100 mg Physical Exam - Constitutional Appears: Non-toxic, No Acute Distress, Cachectic, Chronically Ill - Head Exam Head Exam: ATRAUMATIC, NORMAL INSPECTION, NORMOCEPHALIC - Eye Exam Eye Exam: EOMI, Normal appearance - ENT Exam ENT Exam: Mucous Membranes Moist - Neck Exam Neck exam: Positive for: Normal Inspection - Respiratory Exam Respiratory Exam: Decreased Breath Sounds - Cardiovascular Exam Cardiovascular Exam: RRR, +S1, +S2 - GI/Abdominal Exam GI & Abdominal Exam: Distended, Firm, Normal Bowel Sounds. absent: Tenderness Additional comments: Ascites - Extremities Exam Extremities exam: Positive for: normal inspection. Negative for: pedal edema - Back Exam Back exam: NORMAL INSPECTION - Neurological Exam Neurological exam: Alert, Oriented x3 - Psychiatric Exam Psychiatric exam: Normal Affect, Normal Mood - Skin Skin Exam: Dry, Intact, Normal Color, Warm Results - Vital Signs Recent Vital Signs: Last Vital Signs Temp 98.6 F 11/24/16 07:53 Pulse 101 H 11/24/16 07:53 Resp 20 11/24/16 07:53 BP 108/73 11/24/16 09:58 Pulse Ox 97 11/24/16 07:53 - Labs Result Diagrams: 11/23/16 14:22 11/23/16 14:22 Labs: Laboratory Results - last 24 hr 11/23/16 11/23/16 11/24/16 16:52 21:11 08:11 POC Glucose (mg/dL) 107 156 H 137 H 11/24/16 11:29 POC Glucose (mg/dL) 97 Assessment & Plan - Assessment and Plan (Free Text) Assessment: This is a 66yo male with PMHx significant for EtOH abuse, decompensated cirrhosis with ascites and diabetes who presented to the ED from [facility] for abdominal distention. 1. Decompensated Alcolholic cirrhosis 2. Abdominal ascites Plan: -Recommend paracentesis, c/s to IR placed for procedure tomorrow -Check cell count, culture, albumin, total protein from ascitic fluid -If more than 5L removed; replace albumin at 6-8g/L removed -Continue Lasix 40mg PO QD and Aldactone 100mg PO QD and monitor renal function and electrolytes -Lactulose 20g PO QD, titrate to 2-3 BM per day -2g Na diet -Recommend outpatient EGD/Colonoscopy -MELD 9 on admission -Will follow pt closely <Amaya Estrada MD - Last Filed: 11/24/16 20:43> Meds - Medications Medications: Current Medications Al Hydrox/Mg Hydrox/Simethicone (Maalox 30 Ml) 30 ml PO Q4 PRN PRN Reason: heartburn and indigestion Albuterol/Ipratropium (Duoneb 3 Mg/0.5 Mg (3 Ml) Ud) 3 ml IH Q6H PRN PRN Reason: Shortness of Breath Last Admin: 11/24/16 13:03 Dose: 3 ml Diphenhydramine HCl (Benadryl) 25 mg PO Q12 [facility] Last Admin: 11/24/16 09:58 Dose: 25 mg Famotidine (Pepcid) 20 mg PO HS [facility] Last Admin: 11/23/16 21:09 Dose: 20 mg Folic Acid (Folic Acid) 1 mg PO DAILY [facility] Last Admin: 11/24/16 10:00 Dose: 1 mg Furosemide (Lasix) 40 mg PO DAILY [facility] Last Admin: 11/24/16 09:58 Dose: 40 mg Insulin Aspart (Novolog) 0 unit SC ACHS [facility] PRN Reason: Protocol Last Admin: 11/24/16 17:23 Dose: 1 unit Lactulose (Enulose) 20 gm PO BID [facility] Last Admin: 11/24/16 17:23 Dose: 20 gm Levetiracetam (Keppra) 500 mg PO Q12 [facility] Last Admin: 11/24/16 09:58 Dose: 500 mg Magnesium Hydroxide (Milk Of Magnesia) 30 ml PO DAILY PRN PRN Reason: no BM after 3 days Multivitamins (Hexavitamin) 1 tab PO DAILY [facility] Last Admin: 11/24/16 09:58 Dose: 1 tab Petrolatum (Desitin Original) 1 gm TOP Q8 [facility] Last Admin: 11/24/16 14:17 Dose: 1 appl Saccharomyces Boulardii (Florastor) 250 mg PO BID [facility] Last Admin: 11/24/16 17:23 Dose: 250 mg Spironolactone (Aldactone) 100 mg PO DAILY [facility] Last Admin: 11/24/16 09:58 Dose: 100 mg Thiamine HCl (Vitamin B1 Tab) 100 mg PO DAILY [facility] Last Admin: 11/24/16 09:58 Dose: 100 mg Results - Vital Signs Recent Vital Signs: Last Vital Signs Temp 98.1 F 11/24/16 15:00 Pulse 99 H 11/24/16 15:00 Resp 20 11/24/16 15:00 BP 105/72 11/24/16 15:00 Pulse Ox 96 11/24/16 15:00 - Labs Result Diagrams: 11/23/16 14:22 11/23/16 14:22 Labs: Laboratory Results - last 24 hr 11/23/16 11/24/16 11/24/16 21:11 08:11 11:29 POC Glucose (mg/dL) 156 H 137 H 97 11/24/16 16:34 POC Glucose (mg/dL) 159 H Attending/Attestation - Attestation I have personally seen and examined this patient.: Yes I have fully participated in the care of the patient.: Yes I have reviewed all pertinent clinical information: Yes Notes (Text): 11/24/16 20:28 This is a 65 year old male with DM and alcoholic cirrhosis complicated by ascites, admitted with abdominal distension and worsening ascites. MELD 9. Needs diagnostic and therapeutic paracentesis. Needs cytology and cultures of ascitic fluid. Discontinue IV saline as this exacerbates ascites. Low salt diet as tolerated. Lasix 40 mg qd and aldactone 100 qd Elective egd/colon will be benficial. Can be done as outpatient.
--- NOTE | 2016-11-24 18:23 | CP.PCM.PN ---
Subjective - Date & Time of Evaluation Date of Evaluation: 11/24/16 Time of Evaluation: 09:00 - Subjective Subjective: clinically same Objective - Vital Signs/Intake and Output Vital Signs (last 24 hours): Temp Pulse Resp BP Pulse Ox 98.1 F 99 H 20 105/72 96 11/24/16 15:00 11/24/16 15:00 11/24/16 15:00 11/24/16 15:00 11/24/16 15:00 Intake and Output: 11/24/16 11/24/16 06:59 18:59 Intake Total 360 Output Total 0 Balance 360 - Medications Medications: Current Medications Al Hydrox/Mg Hydrox/Simethicone (Maalox 30 Ml) 30 ml PO Q4 PRN PRN Reason: heartburn and indigestion Albuterol/Ipratropium (Duoneb 3 Mg/0.5 Mg (3 Ml) Ud) 3 ml IH Q6H PRN PRN Reason: Shortness of Breath Last Admin: 11/24/16 13:03 Dose: 3 ml Diphenhydramine HCl (Benadryl) 25 mg PO Q12 [facility] Last Admin: 11/24/16 09:58 Dose: 25 mg Famotidine (Pepcid) 20 mg PO HS [facility] Last Admin: 11/23/16 21:09 Dose: 20 mg Folic Acid (Folic Acid) 1 mg PO DAILY [facility] Last Admin: 11/24/16 10:00 Dose: 1 mg Furosemide (Lasix) 40 mg PO DAILY [facility] Last Admin: 11/24/16 09:58 Dose: 40 mg Insulin Aspart (Novolog) 0 unit SC ACHS [facility] PRN Reason: Protocol Last Admin: 11/24/16 17:23 Dose: 1 unit Lactulose (Enulose) 20 gm PO BID [facility] Last Admin: 11/24/16 17:23 Dose: 20 gm Levetiracetam (Keppra) 500 mg PO Q12 [facility] Last Admin: 11/24/16 09:58 Dose: 500 mg Magnesium Hydroxide (Milk Of Magnesia) 30 ml PO DAILY PRN PRN Reason: no BM after 3 days Multivitamins (Hexavitamin) 1 tab PO DAILY [facility] Last Admin: 11/24/16 09:58 Dose: 1 tab Petrolatum (Desitin Original) 1 gm TOP Q8 [facility] Last Admin: 11/24/16 14:17 Dose: 1 appl Saccharomyces Boulardii (Florastor) 250 mg PO BID [facility] Last Admin: 11/24/16 17:23 Dose: 250 mg Spironolactone (Aldactone) 100 mg PO DAILY [facility] Last Admin: 11/24/16 09:58 Dose: 100 mg Thiamine HCl (Vitamin B1 Tab) 100 mg PO DAILY [facility] Last Admin: 11/24/16 09:58 Dose: 100 mg - Labs Labs: 11/23/16 14:22 11/23/16 14:22 PT 14.5 SECONDS (9.7-12.2) H 11/23/16 14:22 INR 1.3 11/23/16 14:22 APTT 35 SECONDS (21-34) H 11/23/16 14:22 - Constitutional Appears: Well - Head Exam Head Exam: ATRAUMATIC, NORMAL INSPECTION, NORMOCEPHALIC - Eye Exam Eye Exam: EOMI, Normal appearance, PERRL Pupil Exam: NORMAL ACCOMODATION, PERRL - ENT Exam ENT Exam: Mucous Membranes Moist, Normal Exam - Neck Exam Neck Exam: Full ROM, Normal Inspection. absent: Lymphadenopathy - Respiratory Exam Respiratory Exam: Decreased Breath Sounds - Cardiovascular Exam Cardiovascular Exam: REGULAR RHYTHM, +S1, +S2 - GI/Abdominal Exam GI & Abdominal Exam: Soft, Diminished Bowel Sounds - Rectal Exam Rectal Exam: Deferred
[2016-11-25] MEDS: Zinc Oxide Topical 30 gm Tube TOP SCH ×3 (06:22→21:09)
[2016-11-25 06:48] LABS: HEMATOCRIT 34.7 % (35.0-51.0); MEAN CORPUSCULAR HEMOGLOBIN 33.2 pg (27.0-31.0); MEAN CORPUSCULAR HGB CONC 33.8 g/dL (33.0-37.0); MEAN PLATELET VOLUME 6.4 fL (7.2-11.7); RED CELL DISTRIBUTION WIDTH 14.6 % (11.5-14.5); WHITE BLOOD COUNT 6.6 K/uL (4.8-10.8)
[2016-11-25 06:55] LABS: INR 1.3
--- NOTE | 2016-11-25 07:41 | CP.PCM.PN ---
<Dalia Finney - Last Filed: 11/25/16 09:08> Subjective - Date & Time of Evaluation Date of Evaluation: 11/25/16 Time of Evaluation: 07:00 - Subjective Subjective: GI Fellow PGY4 Progress Note Pt seen and evaluated at bedside, pt says having abdominal discomfort with abdominal distended. Pt tolerating diet last night with no issues of nausea or vomiting. Pt denies any fevers or chills. Pt reports 4 bowel movements yesterday. ROS: A 12pt ROS was obtained and was negative except as above. Objective - Vital Signs/Intake and Output Vital Signs (last 24 hours): Temp Pulse Resp BP Pulse Ox 98 F 105 H 20 100/65 94 L 11/24/16 23:51 11/24/16 23:51 11/24/16 23:51 11/24/16 23:51 11/24/16 23:51 Intake and Output: 11/25/16 11/25/16 06:59 18:59 Intake Total 120 Balance 120 - Medications Medications: Current Medications Al Hydrox/Mg Hydrox/Simethicone (Maalox 30 Ml) 30 ml PO Q4 PRN PRN Reason: heartburn and indigestion Albuterol/Ipratropium (Duoneb 3 Mg/0.5 Mg (3 Ml) Ud) 3 ml IH Q6H PRN PRN Reason: Shortness of Breath Last Admin: 11/24/16 13:03 Dose: 3 ml Diphenhydramine HCl (Benadryl) 25 mg PO Q12 [facility] Last Admin: 11/24/16 21:15 Dose: 25 mg Famotidine (Pepcid) 20 mg PO HS [facility] Last Admin: 11/24/16 21:15 Dose: 20 mg Folic Acid (Folic Acid) 1 mg PO DAILY [facility] Last Admin: 11/24/16 10:00 Dose: 1 mg Furosemide (Lasix) 40 mg PO DAILY [facility] Last Admin: 11/24/16 09:58 Dose: 40 mg Insulin Aspart (Novolog) 0 unit SC ACHS [facility] PRN Reason: Protocol Last Admin: 11/24/16 21:16 Dose: Not Given Lactulose (Enulose) 20 gm PO BID [facility] Last Admin: 11/24/16 17:23 Dose: 20 gm Levetiracetam (Keppra) 500 mg PO Q12 [facility] Last Admin: 11/24/16 21:15 Dose: 500 mg Magnesium Hydroxide (Milk Of Magnesia) 30 ml PO DAILY PRN PRN Reason: no BM after 3 days Multivitamins (Hexavitamin) 1 tab PO DAILY [facility] Last Admin: 11/24/16 09:58 Dose: 1 tab Petrolatum (Desitin Original) 1 gm TOP Q8 [facility] Last Admin: 11/25/16 06:22 Dose: 1 appl Saccharomyces Boulardii (Florastor) 250 mg PO BID [facility] Last Admin: 11/24/16 17:23 Dose: 250 mg Spironolactone (Aldactone) 100 mg PO DAILY [facility] Last Admin: 11/24/16 09:58 Dose: 100 mg Thiamine HCl (Vitamin B1 Tab) 100 mg PO DAILY [facility] Last Admin: 11/24/16 09:58 Dose: 100 mg - Labs Labs: 11/25/16 06:37 11/23/16 14:22 PT 14.9 SECONDS (9.7-12.2) H 11/25/16 06:37 INR 1.3 11/25/16 06:37 APTT 35 SECONDS (21-34) H 11/23/16 14:22 - Constitutional Appears: No Acute Distress, Cachectic - Head Exam Head Exam: ATRAUMATIC, NORMAL INSPECTION, NORMOCEPHALIC - Eye Exam Eye Exam: EOMI, Normal appearance, PERRL Pupil Exam: PERRL - ENT Exam ENT Exam: Mucous Membranes Moist - Neck Exam Neck Exam: Full ROM - Respiratory Exam Respiratory Exam: Decreased Breath Sounds - Cardiovascular Exam Cardiovascular Exam: REGULAR RHYTHM - GI/Abdominal Exam GI & Abdominal Exam: Distended, Firm, Tenderness, Normal Bowel Sounds - Rectal Exam Rectal Exam: Deferred - Neurological Exam Neurological Exam: Alert, Awake, Oriented x3 - Psychiatric Exam Psychiatric exam: Normal Affect, Normal Mood - Skin Skin Exam: Dry, Intact, Normal Color, Warm Assessment and Plan - Assessment and Plan (Free Text) Assessment: This is a 66yo male with PMHx significant for EtOH abuse, decompensated cirrhosis with ascites and diabetes who presented to the ED from [facility] for abdominal distention. 1. Decompensated Alcoholic cirrhosis 2. Abdominal ascites Plan: -Plan for paracentesis today, c/s to IR placed for procedure -Check cell count, culture, albumin, total protein from ascitic fluid -If more than 5L removed; will replace with albumin at 6-8g/L removed -Continue Lasix 40mg PO daily and Aldactone 100mg PO daily and monitor renal function and electrolytes -Lactulose 20g PO QD, titrate to 2-3 BM per day -Currently NPO for procedure but can continue 2g Na diet -Possible EGD/Colonoscopy tomorrow if no SBP -MELD 9 on admission -Will follow pt closely <Gamaliel Frankel - Last Filed: 11/25/16 09:19> Objective - Vital Signs/Intake and Output Vital Signs (last 24 hours): Temp Pulse Resp BP Pulse Ox 98.5 F 101 H 20 110/75 97 11/25/16 08:00 11/25/16 08:00 11/25/16 08:00 11/25/16 08:00 11/25/16 08:00 Intake and Output: 11/25/16 11/25/16 06:59 18:59 Intake Total 120 Balance 120 - Medications Medications: Current Medications Al Hydrox/Mg Hydrox/Simethicone (Maalox 30 Ml) 30 ml PO Q4 PRN PRN Reason: heartburn and indigestion Albuterol/Ipratropium (Duoneb 3 Mg/0.5 Mg (3 Ml) Ud) 3 ml IH Q6H PRN PRN Reason: Shortness of Breath Last Admin: 11/24/16 13:03 Dose: 3 ml Diphenhydramine HCl (Benadryl) 25 mg PO Q12 [facility] Last Admin: 11/24/16 21:15 Dose: 25 mg Famotidine (Pepcid) 20 mg PO HS [facility] Last Admin: 11/24/16 21:15 Dose: 20 mg Folic Acid (Folic Acid) 1 mg PO DAILY [facility] Last Admin: 11/24/16 10:00 Dose: 1 mg Furosemide (Lasix) 40 mg PO DAILY [facility] Last Admin: 11/24/16 09:58 Dose: 40 mg Insulin Aspart (Novolog) 0 unit SC ACHS [facility] PRN Reason: Protocol Last Admin: 11/25/16 07:54 Dose: Not Given Lactulose (Enulose) 20 gm PO BID [facility] Last Admin: 11/24/16 17:23 Dose: 20 gm Levetiracetam (Keppra) 500 mg PO Q12 [facility] Last Admin: 11/24/16 21:15 Dose: 500 mg Magnesium Hydroxide (Milk Of Magnesia) 30 ml PO DAILY PRN PRN Reason: no BM after 3 days Multivitamins (Hexavitamin) 1 tab PO DAILY [facility] Last Admin: 11/24/16 09:58 Dose: 1 tab Petrolatum (Desitin Original) 1 gm TOP Q8 [facility] Last Admin: 11/25/16 06:22 Dose: 1 appl Saccharomyces Boulardii (Florastor) 250 mg PO BID [facility] Last Admin: 11/24/16 17:23 Dose: 250 mg Spironolactone (Aldactone) 100 mg PO DAILY [facility] Last Admin: 11/24/16 09:58 Dose: 100 mg Thiamine HCl (Vitamin B1 Tab) 100 mg PO DAILY [facility] Last Admin: 11/24/16 09:58 Dose: 100 mg - Labs Labs: 11/25/16 06:37 11/25/16 06:37 PT 14.9 SECONDS (9.7-12.2) H 11/25/16 06:37 INR 1.3 11/25/16 06:37 APTT 35 SECONDS (21-34) H 11/23/16 14:22 Attending/Attestation - Attestation I have personally seen and examined this patient.: Yes I have fully participated in the care of the patient.: Yes I have reviewed all pertinent clinical information, including history, physical exam and plan: Yes Notes (Text): 11/25/16 09:14 I have seen and examined patient with GI fellow. No acute events overnight. He continues to endorse mild abdominal pain, worse in RLQ. He denies nausea, vomiting, fever/chills. He had 4 bowel movements yesterday. ETOH decompensated cirrhosis, though patient with IgG elevation and ASMA + Abdominal pain, ascites - Patient scheduled for diagnostic and therapeutic paracentesis today, follow up cell count - Patient will likely require albumin replacement therapy - Continue with diuretic regimen, monitor electrolytes - Continue with lactulose for HE prevention - Will tentatively plan for endoscopic evaluation tomorrow (EGD/colonoscopy) following paracentesis for variceal and colorectal cancer screening purposes. Patient with known outpatient non-compliance.
[2016-11-25 07:48] LABS: CHLORIDE 106 mmol/L (98-107); POTASSIUM 4.2 mmol/L (3.6-5.2); SODIUM 139 mmol/L (132-148)
[2016-11-25 07:50] LABS: BILIRUBIN,TOTAL 0.8 mg/dL (0.2-1.3); GFR AFRICAN-AMERICAN > 60
[2016-11-25 07:51] LABS: ALB/GLOB RATIO 0.7 (1.0-2.1); ALKALINE PHOSPHATASE 85 U/L (38-126); ALT/SGPT 34 U/L (21-72); AST/SGOT 39 U/L (17-59); BLOOD UREA NITROGEN 14 mg/dL (9-20); CARBON DIOXIDE 21 mmol/L (22-30); GLUCOSE,RANDOM 86 mg/dL (75-110); TOTAL PROTEIN 6.8 g/dL (6.3-8.3)
[2016-11-25 07:52] LABS: CALCIUM 8.5 mg/dl (8.6-10.4)
[2016-11-25] MEDS: (Novolog) Insulin Aspart, Recombinant 100 u/ml 10 ml vial SC SCH ×4 (07:54→21:06)
[2016-11-25] MEDS: Multiple Vitamins Tab PO SCH (10:19)
[2016-11-25] MEDS: Saccharomyces Boulardi 250 mg Cap PO SCH ×2 (10:19→17:19)
[2016-11-25] MEDS ORDERED: Albumin Human 25% (12.5 gm/50 ml) IV ONE (11:28)
[2016-11-25 11:55] LABS: BODY FLUID TYPE PERITONEAL/ASCITES
[2016-11-25 12:33] LABS: BF GROSS APPEARANCE SL CLOUDY (CLEAR)
[2016-11-25] MEDS ORDERED: Peg-Electrolyte Oral Soln 4L (Golytely) PO ONE (13:00)
--- NOTE | 2016-11-25 13:37 | US ---
Date of Procedure: 11/25/2016 PROCEDURE: Ultrasound-guided paracentesis, CPT 29887 Medications: 7 cc 1% Lidocaine HISTORY: Ascites, abdominal pain, cirrhosis TECHNIQUE: Following informed consent , the patient was placed supine on the stretcher and the site was marked. A limited abdominal ultrasound was performed that showed a large amount of intra-abdominal fluid. Procedural time out was called and the Pt's abdomen was marked and prepped and draped in the usual sterile fashion. Ultrasound-guided large volume paracentesis performed. A total of 8 liters of straw colored fluid was removed without complication. Fluid specimen was sent for culture, sensitivity, cytology and chemistries. IMPRESSION: Ultrasound-guided large volume paracentesis.
--- NOTE | 2016-11-25 14:26 | CP.PCM.PN ---
Subjective - Date & Time of Evaluation Date of Evaluation: 11/25/16 Time of Evaluation: 08:40 - Subjective Subjective: clinically same Objective - Vital Signs/Intake and Output Vital Signs (last 24 hours): Temp Pulse Resp BP Pulse Ox 98.5 F 101 H 20 110/75 97 11/25/16 08:00 11/25/16 08:00 11/25/16 08:00 11/25/16 10:20 11/25/16 08:00 Intake and Output: 11/25/16 11/25/16 06:59 18:59 Intake Total 120 Balance 120 - Medications Medications: Current Medications Al Hydrox/Mg Hydrox/Simethicone (Maalox 30 Ml) 30 ml PO Q4 PRN PRN Reason: heartburn and indigestion Albuterol/Ipratropium (Duoneb 3 Mg/0.5 Mg (3 Ml) Ud) 3 ml IH Q6H PRN PRN Reason: Shortness of Breath Last Admin: 11/24/16 13:03 Dose: 3 ml Bisacodyl (Dulcolax) 5 mg PO ONCE ONE Stop: 11/25/16 18:01 Diphenhydramine HCl (Benadryl) 25 mg PO Q12 [facility] Last Admin: 11/25/16 10:20 Dose: 25 mg Famotidine (Pepcid) 20 mg PO HS [facility] Last Admin: 11/24/16 21:15 Dose: 20 mg Folic Acid (Folic Acid) 1 mg PO DAILY [facility] Last Admin: 11/25/16 10:20 Dose: 1 mg Furosemide (Lasix) 40 mg PO DAILY [facility] Last Admin: 11/25/16 10:20 Dose: 40 mg Albumin Human (Albumin Human 25% (12.5 Gm/50 Ml)) 250 mls @ 60 mls/hr IV ONCE ONE Stop: 11/25/16 16:39 Last Admin: 11/25/16 13:22 Dose: 60 mls/hr Insulin Aspart (Novolog) 0 unit SC ACHS [facility] PRN Reason: Protocol Last Admin: 11/25/16 11:52 Dose: Not Given Lactulose (Enulose) 20 gm PO BID [facility] Last Admin: 11/25/16 10:20 Dose: 20 gm Levetiracetam (Keppra) 500 mg PO Q12 [facility] Last Admin: 09/05/17 10:19 Dose: 500 mg Magnesium Hydroxide (Milk Of Magnesia) 30 ml PO DAILY PRN PRN Reason: no BM after 3 days Multivitamins (Hexavitamin) 1 tab PO DAILY [facility] Last Admin: 11/25/16 10:19 Dose: 1 tab Petrolatum (Desitin Original) 1 gm TOP Q8 [facility] Last Admin: 11/25/16 13:48 Dose: 1 appl Saccharomyces Boulardii (Florastor) 250 mg PO BID [facility] Last Admin: 11/25/16 10:19 Dose: 250 mg Spironolactone (Aldactone) 100 mg PO DAILY [facility] Last Admin: 11/25/16 10:42 Dose: Not Given Thiamine HCl (Vitamin B1 Tab) 100 mg PO DAILY [facility] Last Admin: 11/25/16 10:19 Dose: 100 mg - Labs Labs: 11/25/16 06:37 11/25/16 06:37 PT 14.9 SECONDS (9.7-12.2) H 11/25/16 06:37 INR 1.3 11/25/16 06:37 APTT 35 SECONDS (21-34) H 11/23/16 14:22 - Constitutional Appears: Well - Head Exam Head Exam: ATRAUMATIC, NORMAL INSPECTION, NORMOCEPHALIC - Eye Exam Eye Exam: EOMI, Normal appearance, PERRL Pupil Exam: NORMAL ACCOMODATION, PERRL - ENT Exam ENT Exam: Mucous Membranes Moist, Normal Exam - Neck Exam Neck Exam: Full ROM, Normal Inspection. absent: Lymphadenopathy - Respiratory Exam Respiratory Exam: Decreased Breath Sounds - Cardiovascular Exam Cardiovascular Exam: REGULAR RHYTHM, +S1, +S2 - GI/Abdominal Exam GI & Abdominal Exam: Soft, Diminished Bowel Sounds - Rectal Exam Rectal Exam: Deferred
[2016-11-25] MEDS ORDERED: Bisacodyl 5mg EC Tab PO ONE (18:00)
[2016-11-26] MEDS: Zinc Oxide Topical 30 gm Tube TOP SCH ×2 (05:19→13:44)
[2016-11-26] MEDS: Albuterol-Ipratrop 3 mg / 0.5 (3 ml) UD IH PRN ×2 (07:22→13:36)
[2016-11-26] MEDS: (Novolog) Insulin Aspart, Recombinant 100 u/ml 10 ml vial SC SCH ×3 (07:28→16:54)
[2016-11-26 08:36] LABS: CHLORIDE 105 mmol/L (98-107); POTASSIUM 4.2 mmol/L (3.6-5.2); SODIUM 138 mmol/L (132-148)
[2016-11-26 08:39] LABS: BLOOD UREA NITROGEN 9 mg/dL (9-20); CARBON DIOXIDE 24 mmol/L (22-30); GFR AFRICAN-AMERICAN > 60; GLUCOSE,RANDOM 88 mg/dL (75-110)
[2016-11-26 08:40] LABS: CALCIUM 8.7 mg/dl (8.6-10.4)
[2016-11-26] MEDS: Saccharomyces Boulardi 250 mg Cap PO SCH ×2 (09:13→17:11)
[2016-11-26] MEDS: Multiple Vitamins Tab PO SCH (09:13)
[2016-11-26] MEDS ORDERED: Propofol 10 mg/ml Inj (20 ML) ONE (10:05)
[2016-11-26] MEDS ORDERED: Midazolam 2 MG/2 ML VIAL ONE (10:05)
[2016-11-26] MEDS ORDERED: Etomidate 20 mg/10ml Inj IV ONE (10:08)
--- NOTE | 2016-11-26 11:21 | CP.PCM.PN ---
Subjective - Date & Time of Evaluation Date of Evaluation: 11/26/16 Time of Evaluation: 11:17 - Subjective Subjective: Patient seen and examined, no acute events overnight. He had 8 liters of fluid removed during paracentesis yesterday without presence of SBP on ascitic fluid analysis. s/p EGD and colonoscopy today showing portal hypertensive gastropathy , gastritis, multiple colon polyps, cecal ulceration. Objective - Vital Signs/Intake and Output Vital Signs (last 24 hours): Temp Pulse Resp BP Pulse Ox 97.3 F L 96 H 20 103/66 95 11/26/16 10:07 11/26/16 10:07 11/26/16 10:07 11/26/16 10:07 11/26/16 10:07 Intake and Output: 11/26/16 11/26/16 06:59 18:59 Intake Total 0 900 Balance 0 900 - Medications Medications: Current Medications Al Hydrox/Mg Hydrox/Simethicone (Maalox 30 Ml) 30 ml PO Q4 PRN PRN Reason: heartburn and indigestion Albuterol/Ipratropium (Duoneb 3 Mg/0.5 Mg (3 Ml) Ud) 3 ml IH Q6H PRN PRN Reason: Shortness of Breath Last Admin: 11/26/16 07:22 Dose: 3 ml Diphenhydramine HCl (Benadryl) 25 mg PO Q12 [facility] Last Admin: 11/26/16 09:13 Dose: 25 mg Famotidine (Pepcid) 20 mg PO HS [facility] Last Admin: 11/25/16 21:05 Dose: 20 mg Folic Acid (Folic Acid) 1 mg PO DAILY [facility] Last Admin: 11/26/16 09:13 Dose: 1 mg Furosemide (Lasix) 80 mg PO DAILY [facility] Insulin Aspart (Novolog) 0 unit SC ACHS [facility] PRN Reason: Protocol Last Admin: 11/26/16 07:28 Dose: Not Given Lactulose (Enulose) 20 gm PO BID [facility] Last Admin: 11/25/16 10:20 Dose: 20 gm Levetiracetam (Keppra) 500 mg PO Q12 [facility] Last Admin: 11/26/16 09:13 Dose: 500 mg Magnesium Hydroxide (Milk Of Magnesia) 30 ml PO DAILY PRN PRN Reason: no BM after 3 days Multivitamins (Hexavitamin) 1 tab PO DAILY [facility] Last Admin: 11/26/16 09:13 Dose: 1 tab Petrolatum (Desitin Original) 1 gm TOP Q8 [facility] Last Admin: 11/26/16 05:19 Dose: 1 appl Saccharomyces Boulardii (Florastor) 250 mg PO BID [facility] Last Admin: 11/26/16 09:13 Dose: 250 mg Spironolactone (Aldactone) 200 mg PO DAILY [facility] Thiamine HCl (Vitamin B1 Tab) 100 mg PO DAILY [facility] Last Admin: 11/26/16 09:13 Dose: 100 mg - Labs Labs: 11/26/16 08:04 PT 14.9 SECONDS (9.7-12.2) H 11/25/16 06:37 INR 1.3 11/25/16 06:37 APTT 35 SECONDS (21-34) H 11/23/16 14:22 Assessment and Plan - Assessment and Plan (Free Text) Assessment: Decompensated ETOH cirrhosis Ascites Anemia s/p EGD and colonoscopy today showing portal hypertensive gastropathy, gastritis , multiple colon polyps, cecal ulceration. No presence of esophageal or gastric varices. Plan: - Advance diet to low sodium as tolerated - Await biopsy results from EGD/colonoscopy - Will increase diuretic regimen to 80 lasix, 200 aldactone and continue to monitor electrolytes - Continue with lactulose for HE prevention - LFTs stable, continue to monitor. Patient with +ASMA in past, suggest further outpatient evaluation. - From GI perspective ok to discharge patient home with subsequent outpatient follow up. Will sign off case, please reconsult as necessary, thank you.
--- NOTE | 2016-11-26 16:09 | CP.PCM.PN ---
Subjective - Date & Time of Evaluation Date of Evaluation: 11/26/16 Time of Evaluation: 16:00 - Subjective Subjective: PROGRESS NOTE. Service for Dr. Calderon Ohara Pt seen and examined at bedside. No acute distress. No events overnight. s/p EGD and colonoscopy today showing portal hypertensive gastropathy, gastritis, multiple colon polyps, cecal ulceration. GI following. No fevers, chills, vomiting, diarrhea. Objective - Vital Signs/Intake and Output Vital Signs (last 24 hours): Temp Pulse Resp BP Pulse Ox 98.6 F 82 15 104/65 95 11/26/16 11:10 11/26/16 12:10 11/26/16 11:40 11/26/16 12:10 11/26/16 12:10 Intake and Output: 11/26/16 11/26/16 06:59 18:59 Intake Total 0 1360 Balance 0 1360 - Medications Medications: Current Medications Al Hydrox/Mg Hydrox/Simethicone (Maalox 30 Ml) 30 ml PO Q4 PRN PRN Reason: heartburn and indigestion Albuterol/Ipratropium (Duoneb 3 Mg/0.5 Mg (3 Ml) Ud) 3 ml IH Q6H PRN PRN Reason: Shortness of Breath Last Admin: 11/26/16 13:36 Dose: 3 ml Diphenhydramine HCl (Benadryl) 25 mg PO Q12 [facility] Last Admin: 11/26/16 09:13 Dose: 25 mg Famotidine (Pepcid) 20 mg PO HS [facility] Last Admin: 11/25/16 21:05 Dose: 20 mg Folic Acid (Folic Acid) 1 mg PO DAILY [facility] Last Admin: 11/26/16 09:13 Dose: 1 mg Furosemide (Lasix) 80 mg PO DAILY [facility] Last Admin: 11/26/16 12:10 Dose: 80 mg Insulin Aspart (Novolog) 0 unit SC ACHS [facility] PRN Reason: Protocol Last Admin: 11/26/16 11:32 Dose: Not Given Lactulose (Enulose) 20 gm PO BID [facility] Last Admin: 11/25/16 10:20 Dose: 20 gm Levetiracetam (Keppra) 500 mg PO Q12 [facility] Last Admin: 11/26/16 09:13 Dose: 500 mg Magnesium Hydroxide (Milk Of Magnesia) 30 ml PO DAILY PRN PRN Reason: no BM after 3 days Multivitamins (Hexavitamin) 1 tab PO DAILY [facility] Last Admin: 11/26/16 09:13 Dose: 1 tab Petrolatum (Desitin Original) 1 gm TOP Q8 [facility] Last Admin: 11/26/16 13:44 Dose: 1 appl Saccharomyces Boulardii (Florastor) 250 mg PO BID [facility] Last Admin: 11/26/16 09:13 Dose: 250 mg Spironolactone (Aldactone) 200 mg PO DAILY [facility] Thiamine HCl (Vitamin B1 Tab) 100 mg PO DAILY [facility] Last Admin: 11/26/16 09:13 Dose: 100 mg - Labs Labs: 11/26/16 08:04 PT 14.9 SECONDS (9.7-12.2) H 11/25/16 06:37 INR 1.3 11/25/16 06:37 APTT 35 SECONDS (21-34) H 11/23/16 14:22 - Constitutional Appears: Non-toxic, No Acute Distress - Eye Exam Eye Exam: EOMI - ENT Exam ENT Exam: Mucous Membranes Moist - Neck Exam Neck Exam: Full ROM - Respiratory Exam Respiratory Exam: NORMAL BREATHING PATTERN - Cardiovascular Exam Cardiovascular Exam: +S1, +S2 - GI/Abdominal Exam GI & Abdominal Exam: absent: Tenderness - Extremities Exam Extremities Exam: Full ROM, Normal Inspection - Neurological Exam Neurological Exam: Alert, Awake - Psychiatric Exam Psychiatric exam: Normal Affect, Normal Mood - Skin Skin Exam: Dry, Intact, Normal Color, Warm Assessment and Plan - Assessment and Plan (Free Text) Assessment: This is a 66 yo male with past medical hx of alcoholism, cirrhosis, ascites, DM presenting with 1. Decompensated cirrhosis - Advance diet to low sodium as tolerated - biopsy results pending from EGD/colonoscopy -GI has signed off. -Will increase diuretic regimen to 80 lasix, 200 spironolactone and continue to monitor electrolytes -Continue with lactulose for hepatic enceph. ppx - LFTs stable, continue to monitor. Patient with +ASMA in past, suggest further outpatient evaluation. -s/p paracentesis 8 L removed -ascitic fluid culture negative x 24 hours 2. hx of alcoholism -continue folic acid -continue folic acid -continue thiamine 3. hx of DM -ISS -accuchecks 4. GI/DVT ppx -continue pepcid 20 PO HS -SCDs discussed with Dr. Ohara
[2016-11-26 16:46] VITALS: BP 108/71; PULSE 91; RESP 20; TEMP 97.7; O2SAT 97
--- NOTE | 2016-11-26 16:54 | CP.PCM.PN ---
Subjective - Date & Time of Evaluation Date of Evaluation: 11/26/16 Time of Evaluation: 16:54 - Subjective Subjective: Awake alert, no abdominal , no acute distress. Objective - Vital Signs/Intake and Output Vital Signs (last 24 hours): Temp Pulse Resp BP Pulse Ox 97.7 F 91 H 20 108/71 97 11/26/16 15:00 11/26/16 15:00 11/26/16 15:00 11/26/16 15:00 11/26/16 15:00 Intake and Output: 11/26/16 11/26/16 06:59 18:59 Intake Total 0 1360 Balance 0 1360 - Medications Medications: Current Medications Al Hydrox/Mg Hydrox/Simethicone (Maalox 30 Ml) 30 ml PO Q4 PRN PRN Reason: heartburn and indigestion Albuterol/Ipratropium (Duoneb 3 Mg/0.5 Mg (3 Ml) Ud) 3 ml IH Q6H PRN PRN Reason: Shortness of Breath Last Admin: 11/26/16 13:36 Dose: 3 ml Diphenhydramine HCl (Benadryl) 25 mg PO Q12 [facility] Last Admin: 11/26/16 09:13 Dose: 25 mg Famotidine (Pepcid) 20 mg PO HS [facility] Last Admin: 11/25/16 21:05 Dose: 20 mg Folic Acid (Folic Acid) 1 mg PO DAILY [facility] Last Admin: 11/26/16 09:13 Dose: 1 mg Furosemide (Lasix) 80 mg PO DAILY [facility] Last Admin: 11/26/16 12:10 Dose: 80 mg Insulin Aspart (Novolog) 0 unit SC ACHS [facility] PRN Reason: Protocol Last Admin: 11/26/16 11:32 Dose: Not Given Lactulose (Enulose) 20 gm PO BID [facility] Last Admin: 11/25/16 10:20 Dose: 20 gm Levetiracetam (Keppra) 500 mg PO Q12 [facility] Last Admin: 11/26/16 09:13 Dose: 500 mg Magnesium Hydroxide (Milk Of Magnesia) 30 ml PO DAILY [facility] PRN Reason: no BM after 3 days Multivitamins (Hexavitamin) 1 tab PO DAILY [facility] Last Admin: 11/26/16 09:13 Dose: 1 tab Petrolatum (Desitin Original) 1 gm TOP Q8 [facility] Last Admin: 11/26/16 13:44 Dose: 1 appl Saccharomyces Boulardii (Florastor) 250 mg PO BID [facility] Last Admin: 11/26/16 09:13 Dose: 250 mg Spironolactone (Aldactone) 200 mg PO DAILY [facility] Thiamine HCl (Vitamin B1 Tab) 100 mg PO DAILY [facility] Last Admin: 11/26/16 09:13 Dose: 100 mg - Labs Labs: 11/26/16 08:04 PT 14.9 SECONDS (9.7-12.2) H 11/25/16 06:37 INR 1.3 11/25/16 06:37 APTT 35 SECONDS (21-34) H 11/23/16 14:22 Assessment and Plan - Assessment and Plan (Free Text) Assessment: Patient is seen and examined. S/P paracentesis, s/p EGD, tolerated, no active bleeding or distress. Alert, awake, denies abdominal pain, NAD. d/w DR Taylor Ohara, plan to discharge back to [facility] today. To continue with previous medications.
--- NOTE | 2016-11-27 00:37 | CARD ---
APPROVED REPORT EKG Measurement Heart [id number] <Conclusion> Sinus tachycardia Left axis deviation Left bundle branch block Abnormal ECG
== END 2016-11-26 20:47 | DRG 434 ==
LOC: C.ER 13:43 → C.9E 14:13 → UNDOADMOB 14:13 → C.3T 14:35 → C.9E 14:35 → OBSVTOIN 14:45 → INTOOBSV 14:45 → C.3T 16:01 → OBSVTOIN 11-25 14:45 → C.3T 11-25 14:45
PROVIDERS: ADMIT Internal Medicine Nephrology; ATTEND Internal Medicine Nephrology
PROC: 0W9G3ZZ Drainage of Peritoneal Cavity, Percutaneous Approach (ICD-10-PCS; principal; 2016-11-25)
DX: K70.31 Alcoholic cirrhosis of liver with ascites (principal); E11.9 Type 2 diabetes mellitus without complications; R14.0 Abdominal distension (gaseous); F10.20 Alcohol dependence, uncomplicated

== ENCOUNTER 2016-12-08 16:01 | Emergency (ER) | payer MEDICARE, OTHER ==
[2016-12-08 16:26] VITALS: TEMP 98
--- NOTE | 2016-12-08 17:21 | C.PDOC ---
History Of Present Illness 66 y/o male presents to ED with complaints of distended abdomen for 2 weeks and pain to RLQ. Patient also reports x1 episode of diarrhea yesterday and denies fever, chills, nausea, vomiting, sob or any other complaints at this time. Patient is a poor historian. Time Seen by Provider: 12/08/16 16:18 Chief Complaint (Nursing): Abdominal Pain History Per: Patient History/Exam Limitations: no limitations Onset/Duration Of Symptoms: Days Current Symptoms Are (Timing): Still Present Location Of Pain/Discomfort: RLQ Quality Of Discomfort: "Pain" Past Medical History Reviewed: Historical Data, Nursing Documentation, Vital Signs Vital Signs: Last Vital Signs Temp 98.0 F 12/08/16 16:23 Pulse 102 H 12/08/16 20:09 Resp 17 12/08/16 20:09 BP 100/63 12/08/16 20:09 Pulse Ox 99 12/08/16 20:09 - Medical History PMH: Arthritis (r sh; b/l knees), HTN, Seizures Surgical History: No Surg Hx - [facility] Procedures DRAINAGE OF PERITONEAL CAVITY, PERCUTANEOUS APPROACH (11/25/16) INSERTION OF INFUSION DEV INTO SUP VENA CAVA, PERC APPROACH (09/09/16) INSPECTION OF ABDOMINAL WALL, PERCUTANEOUS APPROACH (05/19/16) INTRODUCTION OF NUTRITIONAL INTO PERIPH VEIN, PERC APPROACH (05/19/16) ULTRASONOGRAPHY OF ABDOMEN (11/12/16) ULTRASONOGRAPHY OF SUPERIOR VENA CAVA, GUIDANCE (09/09/16) Family History: States: No Known Family Hx - Social History Hx Alcohol Use: Yes (1 year ago previous to being in [facility] patient report drinking a 12) Hx Substance Use: No - Immunization History Hx Tetanus Toxoid Vaccination: No Hx Influenza Vaccination: No Hx Pneumococcal Vaccination: No Review Of Systems Except As Marked, All Systems Reviewed And Found Negative. Constitutional: Negative for: Fever, Chills Cardiovascular: Negative for: Chest Pain Respiratory: Negative for: Shortness of Breath Gastrointestinal: Positive for: Diarrhea. Negative for: Nausea, Vomiting Skin: Negative for: Rash Physical Exam - Physical Exam Appears: Non-toxic, Chronically Ill, Other (Cachetic) Skin: Warm, Dry, No Rash Head: Atraumatic, Normacephalic Eye(s): bilateral: Normal Inspection Oral Mucosa: Moist Neck: Normal ROM, Supple Chest: Symmetrical Cardiovascular: Rhythm Regular, No Murmur Respiratory: Normal Breath Sounds, No Rales, No Rhonchi, No Wheezing Gastrointestinal/Abdominal: Bowel Sounds (Active), Tenderness (to palpation of RLQ), Distention, No Guarding, No Rebound, Ascites (Bilateral) Extremity: Normal ROM, Capillary Refill (<2 seconds) Neurological/Psych: Oriented x3 ED Course And Treatment - Laboratory Results Result Diagrams: 12/08/16 17:31 12/08/16 17:31 Lab Interpretation: Normal (albumin just low of norm, INR wnl) O2 Sat by Pulse Oximetry: 97 (RA) Pulse Ox Interpretation: Normal Medical Decision Making Medical Decision Making: theraputic and NOT diagnostic abd paracentesis for comfort x 5 liters, no complications. h/o hepatic cirrhosis, living @ NH usually tapped Q2 weeks. Discussed with Dr. Joe Ohara at 4:30pm Disposition Doctor Will See Patient In The: Office Counseled Patient/Family Regarding: Studies Performed, Diagnosis - Disposition Referrals: Zoë Ohara MD [Staff Provider] - Disposition: HOME/ ROUTINE Disposition Time: 20:04 Condition: GOOD Additional Instructions: Hoy hemos sacado 5 litros de fluido del abdomen. Sigue con Dr Ohara en mil[place] 2 semanas para sacar el liquido otra vez Instructions: Abdominal Paracentesis (DC), Ascites (ED) Forms: [facility] (Portuguese) Print Language: MALAY - Clinical Impression Clinical Impression: Ascites due to chronic alcoholic hepatitis - Scribe Statement The provider has reviewed the documentation as recorded by the Scribgladys Plunkett All medical record entries made by the Scribgladys were at my direction and personally dictated by me. I have reviewed the chart and agree that the record accurately reflects my personal performance of the history, physical exam, medical decision making, and the department course for this patient. I have also personally directed, reviewed, and agree with the discharge instructions and disposition.
[2016-12-08 17:35] LABS: EOS # 0.3 K/uL (0.0-0.7); LYMPH # 1.7 K/uL (1.0-4.3)
[2016-12-08 17:43] LABS: INR 1.2
[2016-12-08 17:46] LABS: CHLORIDE 104 mmol/L (98-107); POTASSIUM 4.9 mmol/L (3.6-5.2); SODIUM 134 mmol/L (132-148)
[2016-12-08 17:48] LABS: GFR AFRICAN-AMERICAN > 60
[2016-12-08 17:49] LABS: ALB/GLOB RATIO 0.8 (1.0-2.1); ALKALINE PHOSPHATASE 80 U/L (38-126); ALT/SGPT 18 U/L (21-72); AST/SGOT 51 U/L (17-59); BLOOD UREA NITROGEN 12 mg/dL (9-20); CARBON DIOXIDE 20 mmol/L (22-30); GLUCOSE,RANDOM 104 mg/dL (75-110); TOTAL PROTEIN 7.3 g/dL (6.3-8.3)
[2016-12-08 17:50] LABS: CALCIUM 8.5 mg/dl (8.6-10.4)
[2016-12-08 17:51] LABS: BASO % 0.6 % (0.0-2.0); EOS % 3.9 % (0.0-4.0); HEMATOCRIT 35.4 % (35.0-51.0); LYMPH % 24.5 % (20.0-40.0); MEAN CELL VOLUME 100.1 fL (80.0-94.0); MEAN PLATELET VOLUME 6.7 fL (7.2-11.7); MONO # 0.9 K/uL (0.0-0.8); MONO % 13.3 % (0.0-10.0); NRBC % 0.1 % (0.0-2.0); RED CELL DISTRIBUTION WIDTH 15.3 % (11.5-14.5)
[2016-12-08 20:10] VITALS: BP 100/63; PULSE 102; RESP 17
[2016-12-08 20:44] VITALS: O2SAT 97
--- NOTE | 2016-12-09 14:56 | CARD ---
APPROVED REPORT EKG Measurement Heart [id number] <Conclusion> Sinus tachycardia with occasional premature ventricular complexes Left bundle branch block Abnormal ECG
== END 2016-12-08 21:42 | disposition home or self-care (01) ==
LOC: C.ER 16:01
DX: K70.11 Alcoholic hepatitis with ascites (principal); I10 Essential (primary) hypertension

== ENCOUNTER 2016-12-22 15:47 | Observation (INO) | payer MEDICARE, OTHER ==
[2016-12-22 16:01] VITALS: BMI 25.5
[2016-12-22 16:43] LABS: BASO % 0.7 % (0.0-2.0); EOS # 0.2 K/uL (0.0-0.7); EOS % 3.1 % (0.0-4.0); LYMPH # 1.8 K/uL (1.0-4.3); LYMPH % 30.1 % (20.0-40.0); MEAN CELL VOLUME 99.2 fL (80.0-94.0); MEAN CORPUSCULAR HEMOGLOBIN 33.6 pg (27.0-31.0); MEAN CORPUSCULAR HGB CONC 33.8 g/dL (33.0-37.0); MEAN PLATELET VOLUME 6.7 fL (7.2-11.7); MONO # 0.8 K/uL (0.0-0.8); MONO % 13.5 % (0.0-10.0); NRBC % 0.1 % (0.0-2.0); WHITE BLOOD COUNT 5.9 K/uL (4.8-10.8)
[2016-12-22 16:50] LABS: CHLORIDE 100 mmol/L (98-107); POTASSIUM 3.9 mmol/L (3.6-5.2); SODIUM 137 mmol/L (132-148)
[2016-12-22 16:50] LABS: INR 1.2
[2016-12-22 16:52] LABS: BILIRUBIN,TOTAL 0.7 mg/dL (0.2-1.3); CARBON DIOXIDE 23 mmol/L (22-30); GFR AFRICAN-AMERICAN > 60
[2016-12-22 16:53] LABS: ALB/GLOB RATIO 0.8 (1.0-2.1); ALKALINE PHOSPHATASE 78 U/L (38-126); ALT/SGPT 27 U/L (21-72); AST/SGOT 30 U/L (17-59); BLOOD UREA NITROGEN 11 mg/dL (9-20); CALCIUM 8.7 mg/dl (8.6-10.4); GLUCOSE,RANDOM 96 mg/dL (75-110); TOTAL PROTEIN 7.1 g/dL (6.3-8.3)
--- NOTE | 2016-12-22 18:13 | C.PDOC ---
History Of Present Illness 66 year old male with PMHX of liver cirrhosis, ascites presents to the ED with complaints of abdominal pain and distension. Patient has been getting paracenteses every two weeks. He denies fever, CP, SOB, vomiting, diarrhea. Time Seen by Provider: 12/22/16 16:15 Chief Complaint (Nursing): Abdominal Pain History Per: Patient History/Exam Limitations: no limitations Onset/Duration Of Symptoms: Persistent Current Symptoms Are (Timing): Still Present Severity: Moderate Location Of Pain/Discomfort: Diffuse Radiation Of Pain To:: None Quality Of Discomfort: "Pain" Associated Symptoms: denies: Fever, Chills, Nausea, Vomiting Exacerbating Factors: None Alleviating Factors: None Additional History Per: Prior Records Past Medical History Reviewed: Historical Data, Nursing Documentation, Vital Signs Vital Signs: Last Vital Signs Temp 97.9 F 12/23/16 15:10 Pulse 96 H 12/23/16 15:10 Resp 20 12/23/16 15:10 BP 101/69 12/23/16 15:10 Pulse Ox 95 12/23/16 15:10 - Medical History PMH: Arthritis (r sh; b/l knees), HTN, Seizures - [facility] Procedures DRAINAGE OF PERITONEAL CAVITY, PERCUTANEOUS APPROACH (11/25/16) INSERTION OF INFUSION DEV INTO SUP VENA CAVA, PERC APPROACH (09/09/16) INSPECTION OF ABDOMINAL WALL, PERCUTANEOUS APPROACH (05/19/16) INTRODUCTION OF NUTRITIONAL INTO PERIPH VEIN, PERC APPROACH (05/19/16) ULTRASONOGRAPHY OF ABDOMEN (11/12/16) ULTRASONOGRAPHY OF SUPERIOR VENA CAVA, GUIDANCE (09/09/16) Family History: States: No Known Family Hx - Social History Hx Alcohol Use: Yes (1 year ago previous to being in halfway patient report drinking a 12) Hx Substance Use: No - Immunization History Hx Tetanus Toxoid Vaccination: No Hx Influenza Vaccination: No Hx Pneumococcal Vaccination: No Review Of Systems Except As Marked, All Systems Reviewed And Found Negative. Constitutional: Negative for: Fever, Chills Cardiovascular: Negative for: Chest Pain, Palpitations Respiratory: Negative for: Cough, Shortness of Breath Gastrointestinal: Positive for: Abdominal Pain. Negative for: Nausea, Vomiting , Diarrhea Skin: Negative for: Rash Physical Exam - Physical Exam Appears: Non-toxic, Chronically Ill, Other (cachectic) Skin: Normal Color, Warm, Dry, No Rash, Ecchymosis (scattered ecchymoses to extremities ) Head: Normacephalic Eye(s): bilateral: PERRL, EOMI, Scleral Icterus Oral Mucosa: Moist Neck: Supple, Other ((+) JVD) Chest: Symmetrical, No Deformity Cardiovascular: Rhythm Regular Respiratory: Normal Breath Sounds, No Rales, No Rhonchi, No Wheezing Gastrointestinal/Abdominal: Soft, No Tenderness, Distention, No Guarding, No Rebound, Hernia (umbilical hernia, reducible ), Other (moderate ascites, not tense) Extremity: Normal ROM, No Tenderness, No Pedal Edema, No Calf Tenderness, Capillary Refill (< 2 sec all digits), No Deformity, No Swelling Neurological/Psych: Oriented x3 ED Course And Treatment - Laboratory Results Result Diagrams: 12/23/16 06:14 12/23/16 06:14 O2 Sat by Pulse Oximetry: 98 (RA) Pulse Ox Interpretation: Normal - Radiology CXR: Interpreted by Me, Viewed By Me ((+) pulm vascular congestion, no infiltrates, small left sided effusion) Progress Note: Blood work, CXR, UA, ordered and reviewed. - Physician Consult Information Physician Contacted: Zoë Ohara Outcome Of Conversation: Discussed patient with Dr. Taylor Ohara, agrees with obs for ascites, needing paracentesis. Disposition - Disposition Disposition: HOSPITALIZED Disposition Time: 17:49 Condition: STABLE - Clinical Impression Clinical Impression: Ascites, Liver cirrhosis - Scribe Statement The provider has reviewed the documentation as recorded by the Scribe Aylin Ledesma All medical record entries made by the Scribe were at my direction and personally dictated by me. I have reviewed the chart and agree that the record accurately reflects my personal performance of the history, physical exam, medical decision making, and the department course for this patient. I have also personally directed, reviewed, and agree with the discharge instructions and disposition. Decision To Admit - Pt Status Changed To: Hospital Disposition Of: Observation - . Bed Request Type: Regular Admitting Physician: Zoë Ohara Patient Diagnosis: Ascites, Liver cirrhosis
[2016-12-22 18:30] LABS: URINE BACTERIA RARE (<OCC); URINE BILIRUBIN NEGATIVE (NEGATIVE); URINE BLOOD NEGATIVE (NEGATIVE); URINE COLOR Yellow (YELLOW); URINE GLUCOSE (UA) NORMAL (Normal); URINE KETONE NEGATIVE (NEGATIVE); URINE LEUKOCYTE ESTERASE NEG Leu/uL (Negative); URINE PROTEIN NEGATIVE (NEGATIVE); URINE UROBILINOGEN NORMAL mg/dL (0.2-1.0); WBC URINE < 1 /hpf (0-5)
[2016-12-22 23:57] VITALS: RESP 20
[2016-12-23] MEDS ORDERED: Albuterol-Ipratrop 3 mg / 0.5 (3 ml) UD INH SCH (02:00)
[2016-12-23] MEDS: Albuterol-Ipratrop 3 mg / 0.5 (3 ml) UD INH SCH ×4 (02:13→19:12)
[2016-12-23 06:30] LABS: BASO % 0.7 % (0.0-2.0); EOS # 0.2 K/uL (0.0-0.7); EOS % 4.1 % (0.0-4.0); HEMATOCRIT 33.7 % (35.0-51.0); LYMPH # 1.8 K/uL (1.0-4.3); LYMPH % 30.3 % (20.0-40.0); MEAN CORPUSCULAR HEMOGLOBIN 34.1 pg (27.0-31.0); MEAN CORPUSCULAR HGB CONC 35.2 g/dL (33.0-37.0); MEAN PLATELET VOLUME 6.4 fL (7.2-11.7); MONO # 0.8 K/uL (0.0-0.8); RED CELL DISTRIBUTION WIDTH 14.8 % (11.5-14.5); WHITE BLOOD COUNT 5.8 K/uL (4.8-10.8)
[2016-12-23 06:34] LABS: CHLORIDE 103 mmol/L (98-107); POTASSIUM 3.8 mmol/L (3.6-5.2); SODIUM 138 mmol/L (132-148)
[2016-12-23 06:36] LABS: ALB/GLOB RATIO 0.6 (1.0-2.1); ALKALINE PHOSPHATASE 78 U/L (38-126); AST/SGOT 27 U/L (17-59); BILIRUBIN,TOTAL 0.6 mg/dL (0.2-1.3); CARBON DIOXIDE 23 mmol/L (22-30); GFR AFRICAN-AMERICAN > 60; TOTAL PROTEIN 7.4 g/dL (6.3-8.3)
[2016-12-23 06:37] LABS: ALT/SGPT 32 U/L (21-72); BLOOD UREA NITROGEN 14 mg/dL (9-20); CALCIUM 8.8 mg/dl (8.6-10.4); GLUCOSE,RANDOM 97 mg/dL (75-110)
--- NOTE | 2016-12-23 09:24 | RAD ---
PROCEDURE: CHEST RADIOGRAPH, 1 VIEW HISTORY: ASCITES COMPARISON: 11/23/2016 FINDINGS: LUNGS: Moderate venous congestion. Patchy rounded opacity at the medial right upper lung zone. Additional confluent consolidative changes at the medial left lung base. Trace left pleural effusion. PLEURA: As above. CARDIOVASCULAR: Cardiomegaly. OSSEOUS STRUCTURES: Degenerative changes in the spine and shoulders. VISUALIZED UPPER ABDOMEN: Normal. OTHER FINDINGS: None. IMPRESSION: Moderate venous congestion. Patchy rounded opacity at the medial right upper lung zone. Additional confluent consolidative changes at the medial left lung base. Trace left pleural effusion.
--- NOTE | 2016-12-23 12:48 | PCM.SURG1 ---
Surgeon's Initial Post Op Note - Surgeon's Notes Surgeon: Naman Oconnor MD Mail Weigher: NONE Type of Anesthesia: Local Pre-Operative Diagnosis: Ascites Operative Findings: US showed a large amount of ascites Post-Operative Diagnosis: Ascites Operation Performed: US guided paracentesis. Specimen/Specimens Removed: 6.7 liters of straw colored fluid Estimated Blood Loss: EBL {In ML}: 0 Blood Products Given: N/A Drains Used: No Drains Post-Op Condition: Fair Date of Surgery/Procedure: 12/23/16 Time of Surgery/Procedure: 12:00
[2016-12-23 16:12] VITALS: BP 101/69; PULSE 96; TEMP 97.9
--- NOTE | 2016-12-23 17:40 | CP.PCM.HP ---
History of Present Illness - History of Present Illness History of Present Illness: A 66 y/o M with P/M/Hcirrhosis of liver with recurrent decompensation presents to the ER with C/Oabdominal pain and abdominal distention. Patient is getting paracentesis done every 2 weeks. No C/Ofever, SOB, vomiting, agnes, hematemesis or bleeding per rectum. Ultrasound-guided paracentesis was done, after which the patient is symptomatically better. Past Patient History - Infectious Disease Hx of Infectious Diseases: None - Past Medical History & Family History Past Medical History?: Yes - Past Social History Smoking Status: Never Smoked - CARDIAC Hx Cardiac Disorders: Yes Hx Hypertension: Yes - PULMONARY Hx Respiratory Disorders: Yes Other/Comment: as per [facility] pulmonary hypertension - NEUROLOGICAL Hx Neurological Disorder: Yes Hx Seizures: Yes - HEENT Hx HEENT Problems: No - RENAL Hx Chronic Kidney Disease: No - ENDOCRINE/METABOLIC Hx Endocrine Disorders: No - HEMATOLOGICAL/ONCOLOGICAL Hx Blood Disorders: Yes Hx Cirrhosis: Yes - INTEGUMENTARY Hx Dermatological Problems: No - MUSCULOSKELETAL/RHEUMATOLOGICAL Hx Musculoskeletal Disorders: Yes Hx Arthritis: Yes (r sh; b/l knees) Hx Falls: No - GASTROINTESTINAL Hx Gastrointestinal Disorders: Yes Hx Gastroesophageal Reflux: Yes Hx Liver Failure: Yes - GENITOURINARY/GYNECOLOGICAL Hx Genitourinary Disorders: No - PSYCHIATRIC Hx Psychophysiologic Disorder: No Hx Substance Use: No - SURGICAL HISTORY Hx Surgeries: No - ANESTHESIA Hx Anesthesia: Yes Hx Anesthesia Reactions: No Hx Malignant Hyperthermia: No Has any member of the family had a problem w/ anesthesia?: No Meds Allergies/Adverse Reactions: Allergies Allergy/AdvReac Type Severity Reaction Status Date / Time No Known Allergies Allergy Verified 01/19/17 13:13 Physical Exam - Constitutional Appears: Well - Head Exam Head Exam: ATRAUMATIC, NORMAL INSPECTION, NORMOCEPHALIC - Eye Exam Eye Exam: EOMI, Normal appearance, PERRL Pupil Exam: NORMAL ACCOMODATION, PERRL - ENT Exam ENT Exam: Mucous Membranes Moist, Normal Exam - Neck Exam Neck exam: Positive for: Normal Inspection - Respiratory Exam Respiratory Exam: Decreased Breath Sounds - Cardiovascular Exam Cardiovascular Exam: REGULAR RHYTHM, +S1, +S2 - GI/Abdominal Exam GI & Abdominal Exam: Diminished Bowel Sounds, Soft - Rectal Exam Rectal Exam: Deferred Results - Vital Signs Recent Vital Signs: Last Vital Signs Temp 97.9 F 12/23/16 15:10 Pulse 96 H 12/23/16 15:10 Resp 20 12/23/16 15:10 BP 101/69 12/23/16 15:10 Pulse Ox 95 12/23/16 15:10 - Labs Result Diagrams: 12/23/16 06:14 12/23/16 06:14 Labs: Laboratory Results - last 24 hr 12/22/16 12/22/16 12/23/16 16:38 18:15 06:14 WBC 5.8 RBC 3.48 L Hgb 11.9 L Hct 33.7 L MCV 97.0 H D MCH 34.1 H MCHC 35.2 RDW 14.8 H Plt Count 195 MPV 6.4 L Neut % (Auto) 50.9 Lymph % (Auto) 30.3 Martin % (Auto) 14.0 H Eos % (Auto) 4.1 H Baso % (Auto) 0.7 Neut # 3.0 Lymph # 1.8 Martin # 0.8 Eos # 0.2 Baso # 0.0 PT 13.5 H INR 1.2 APTT 36 H Sodium Potassium Chloride Carbon Dioxide Anion Gap BUN Creatinine Est GFR ( Amer) Est GFR (Non-Af Amer) Random Glucose Calcium Total Bilirubin AST ALT Alkaline Phosphatase Total Protein Albumin Globulin Albumin/Globulin Ratio Urine Color Yellow Urine Clarity Clear Urine pH 5.0 Ur Specific [place] 1.009 Urine Protein Negative Urine Glucose (UA) Normal Urine Ketones Negative Urine Blood Negative Urine Nitrate Negative Urine Bilirubin Negative Urine Urobilinogen Normal Ur Leukocyte Esterase Neg Urine WBC (Auto) < 1 Urine Bacteria Rare 12/23/16 06:14 WBC RBC Hgb Hct MCV MCH MCHC RDW Plt Count MPV Neut % (Auto) Lymph % (Auto) Martin % (Auto) Eos % (Auto) Baso % (Auto) Neut # Lymph # Martin # Eos # Baso # PT INR APTT Sodium 138 Potassium 3.8 Chloride 103 Carbon Dioxide 23 Anion Gap 15 BUN 14 Creatinine 0.9 Est GFR ( Amer) > 60 Est GFR (Non-Af Amer) > 60 Random Glucose 97 Calcium 8.8 Total Bilirubin 0.6 AST 27 ALT 32 Alkaline Phosphatase 78 Total Protein 7.4 Albumin 2.7 L Globulin 4.7 H Albumin/Globulin Ratio 0.6 L Urine Color Urine Clarity Urine pH Ur Specific [place] Urine Protein Urine Glucose (UA) Urine Ketones Urine Blood Urine Nitrate Urine Bilirubin Urine Urobilinogen Ur Leukocyte Esterase Urine WBC (Auto) Urine Bacteria
--- NOTE | 2016-12-23 17:52 | CP.PCM.PN ---
Subjective - Date & Time of Evaluation Date of Evaluation: 12/23/16 Time of Evaluation: 17:51 - Subjective Subjective: Alert, oriented, denies pain or distress. Objective - Vital Signs/Intake and Output Vital Signs (last 24 hours): Temp Pulse Resp BP Pulse Ox 97.9 F 96 H 20 101/69 95 12/23/16 15:10 12/23/16 15:10 12/23/16 15:10 12/23/16 15:10 12/23/16 15:10 Intake and Output: 12/23/16 12/23/16 06:59 18:59 Intake Total 300 200 Output Total 200 Balance 100 200 - Medications Medications: Current Medications Albuterol/Ipratropium (Duoneb 3 Mg/0.5 Mg (3 Ml) Ud) 3 ml INH RQ6 JOSE Last Admin: 12/23/16 13:33 Dose: 3 ml Diphenhydramine HCl (Benadryl) 25 mg PO Q8 JOSE Last Admin: 12/23/16 13:49 Dose: Not Given Famotidine (Pepcid) 20 mg PO HS JOSE Levetiracetam (Keppra) 500 mg PO Q12H JOSE Last Admin: 12/23/16 09:49 Dose: 500 mg - Labs Labs: 12/23/16 06:14 12/23/16 06:14 PT 13.5 SECONDS (9.7-12.2) H 12/22/16 16:38 INR 1.2 12/22/16 16:38 APTT 36 SECONDS (21-34) H 12/22/16 16:38 Assessment and Plan - Assessment and Plan (Free Text) Assessment: [facility], seen and examined after the procedure. Alert and orientedx3, no dizziness or abdominal pain. D/W DR Taylor Ohara, plan to discharge back to [facility] today.
[2016-12-24] MEDS ORDERED: Influenza Vaccine 60 mcg/0.5 mL SYR (4YR UP) IM ONE (10:00)
--- NOTE | 2016-12-24 15:04 | US ---
Date of Procedure: 12/23/2016 PROCEDURE: Ultrasound-guided paracentesis, CPT 12029 Medications: 7 cc 1% Lidocaine HISTORY: Ascites, abdominal pain, cirrhosis TECHNIQUE: Following informed consent , the patient was placed supine on the stretcher and the site was marked. A limited abdominal ultrasound was performed that showed a large amount of intra-abdominal fluid. Procedural time out was called and the Pt's abdomen was marked and prepped and draped in the usual sterile fashion. Ultrasound-guided large volume paracentesis performed. A total of 6.7 liters of babs colored fluid was removed without complication. IMPRESSION: Ultrasound-guided large volume paracentesis.
[2016-12-30 18:56] VITALS: O2SAT 98
== END 2016-12-23 19:23 ==
LOC: C.ER 15:47 → C.9E 17:49 → C.3T 19:13
PROVIDERS: ADMIT Internal Medicine Nephrology; ATTEND Internal Medicine Nephrology
DX: R18.8 Other ascites (principal); K74.60 Unspecified cirrhosis of liver; I10 Essential (primary) hypertension; M17.9 Osteoarthritis of knee, unspecified; K21.9 Gastro-esophageal reflux disease without esophagitis
CPT/HCPCS: 36415; 49083; 71010; 80053; 81001; 83690; 85025; 85610; 85730; 94640; 99285; G0378

== ENCOUNTER 2017-01-06 12:14 | Inpatient (IN) | payer MEDICARE, OTHER ==
[2017-01-06 12:17] VITALS: BMI 24.3
[2017-01-06 13:14] LABS: BASO % 0.4 % (0.0-2.0); EOS % 0.8 % (0.0-4.0); HEMATOCRIT 38.9 % (35.0-51.0); LYMPH # 0.9 K/uL (1.0-4.3); LYMPH % 16.3 % (20.0-40.0); MEAN CELL VOLUME 98.9 fL (80.0-94.0); MEAN CORPUSCULAR HEMOGLOBIN 33.6 pg (27.0-31.0); MEAN CORPUSCULAR HGB CONC 33.9 g/dL (33.0-37.0); MEAN PLATELET VOLUME 6.8 fL (7.2-11.7); MONO # 0.4 K/uL (0.0-0.8); MONO % 7.6 % (0.0-10.0); NRBC % 0.1 % (0.0-2.0); RED CELL DISTRIBUTION WIDTH 14.6 % (11.5-14.5); WHITE BLOOD COUNT 5.8 K/uL (4.8-10.8)
[2017-01-06 13:41] LABS: CHLORIDE 102 mmol/L (98-107)
--- NOTE | 2017-01-06 13:41 | RAD ---
PROCEDURE: CHEST RADIOGRAPH, 1 VIEW. Technique: Single view portable semi erect @ 13:00. HISTORY: Abdominal pain. COMPARISON: 12/22/2016 FINDINGS: LUNGS: Clear. PLEURA: No pneumothorax or pleural fluid seen. CARDIOVASCULAR: No radiographic findings to suggest acute or significant cardiovascular disease. OSSEOUS STRUCTURES: No significant abnormalities. VISUALIZED UPPER ABDOMEN: Normal. OTHER FINDINGS: None. IMPRESSION: No active disease. No acute/significant interval changes. Please note: No preliminary report/ innterpretation of this examination provided by emergency department personnel.
[2017-01-06 13:42] LABS: POTASSIUM 3.9 mmol/L (3.6-5.2); SODIUM 135 mmol/L (132-148)
[2017-01-06 13:44] LABS: RBC URINE < 1 /hpf (0-3); URINE BILIRUBIN NEGATIVE (NEGATIVE); URINE BLOOD NEGATIVE (NEGATIVE); URINE COLOR Yellow (YELLOW); URINE GLUCOSE (UA) NORMAL (Normal); URINE KETONE NEGATIVE (NEGATIVE); URINE LEUKOCYTE ESTERASE NEG Leu/uL (Negative); URINE PROTEIN NEGATIVE (NEGATIVE); URINE UROBILINOGEN NORMAL mg/dL (0.2-1.0); WBC URINE < 1 /hpf (0-5)
[2017-01-06 13:44] LABS: ALB/GLOB RATIO 0.6 (1.0-2.1); ALKALINE PHOSPHATASE 90 U/L (38-126); ALT/SGPT 32 U/L (21-72); AST/SGOT 42 U/L (17-59); BILIRUBIN,TOTAL 0.9 mg/dL (0.2-1.3); BLOOD UREA NITROGEN 13 mg/dL (9-20); CARBON DIOXIDE 24 mmol/L (22-30); GFR AFRICAN-AMERICAN > 60; GLUCOSE,RANDOM 128 mg/dL (75-110); TOTAL PROTEIN 8.9 g/dL (6.3-8.3)
[2017-01-06 13:45] LABS: CALCIUM 9.4 mg/dl (8.6-10.4)
--- NOTE | 2017-01-06 13:49 | C.PDOC ---
History Of Present Illness 66 year old male, with a history of ascites related abdominal pain and swelling , presents to the ED from [facility] with complaints of right sided abdominal pain since yesterday. He denies fever, chills, nausea, vomiting, chest pain, or shortness of breath. Time Seen by Provider: 01/06/17 12:34 Chief Complaint (Nursing): Abdominal Pain History Per: Patient History/Exam Limitations: no limitations Onset/Duration Of Symptoms: Persistent (history of abdominal pain and swelling related to ascites ), Worse Since (yesterday) Current Symptoms Are (Timing): Still Present Location Of Pain/Discomfort: RUQ, RLQ Radiation Of Pain To:: None Quality Of Discomfort: "Pain" Associated Symptoms: denies: Fever, Chills, Nausea, Vomiting, Diarrhea Exacerbating Factors: None Alleviating Factors: None Recent travel outside of the [place]: No Additional History Per: [facility], Prior Records Past Medical History Reviewed: Historical Data, Nursing Documentation, Vital Signs Vital Signs: Last Vital Signs Temp 97.8 F 01/06/17 16:00 Pulse 92 H 01/06/17 16:00 Resp 20 01/06/17 16:00 BP 106/65 01/06/17 16:00 Pulse Ox 97 01/06/17 16:00 - Medical History PMH: Arthritis (r sh; b/l knees), HTN, Seizures - [facility] Procedures DRAINAGE OF PERITONEAL CAVITY, PERCUTANEOUS APPROACH (11/25/16) INSERTION OF INFUSION DEV INTO SUP VENA CAVA, PERC APPROACH (09/09/16) INSPECTION OF ABDOMINAL WALL, PERCUTANEOUS APPROACH (05/19/16) INTRODUCTION OF NUTRITIONAL INTO PERIPH VEIN, PERC APPROACH (05/19/16) ULTRASONOGRAPHY OF ABDOMEN (11/12/16) ULTRASONOGRAPHY OF SUPERIOR VENA CAVA, GUIDANCE (09/09/16) Family History: States: Unknown Family Hx - Social History Hx Alcohol Use: Yes (1 year ago previous to being in alf patient report drinking a 12) Hx Substance Use: No - Immunization History Hx Tetanus Toxoid Vaccination: No Hx Influenza Vaccination: Yes (12/26/2016) Hx Pneumococcal Vaccination: No Review Of Systems Constitutional: Negative for: Fever, Chills Cardiovascular: Negative for: Chest Pain, Palpitations Respiratory: Negative for: Cough, Shortness of Breath Gastrointestinal: Positive for: Abdominal Pain. Negative for: Nausea, Vomiting , Diarrhea Genitourinary: Negative for: Dysuria Physical Exam - Physical Exam Appears: Non-toxic, Chronically Ill Skin: Warm, Dry, No Rash Head: Atraumatic, Normacephalic Eye(s): bilateral: Normal Inspection, PERRL, EOMI Oral Mucosa: Moist Neck: Normal ROM, Supple Chest: Symmetrical, No Deformity Cardiovascular: Rhythm Regular, No Friction Rub, No Murmur Respiratory: Normal Breath Sounds, No Wheezing Gastrointestinal/Abdominal: Bowel Sounds (active), Soft, No Tenderness, Distention, No Guarding, No Rebound, Hernia (positive reducible umbilical hernia ), Ascites Back: Normal Inspection, No CVA Tenderness Extremity: Normal ROM, No Tenderness, No Swelling Neurological/Psych: Oriented x3, Normal Motor, Normal Sensation ED Course And Treatment - Laboratory Results Result Diagrams: 01/06/17 13:09 01/06/17 13:09 O2 Sat by Pulse Oximetry: 98 (RA) Pulse Ox Interpretation: Normal Progress Note: CXR and labs were ordered. - Physician Consult Information Time Consulting Physician Contacted: 13:00 Physician Contacted: Lashon Boswell Outcome Of Conversation: Case discussed with Dr. Boswell, medicine acquisition consultant who is covering for Dr. Joe Ohara. Agrees to admit patient for paracentesis. Medical Decision Making Medical Decision Making: Consult placed for IR and paracentesis. 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 - Scribe Statement The provider has reviewed the documentation as recorded by the Scribgladys Ledesma All medical record entries made by the Lashell were at my direction and personally dictated by me. I have reviewed the chart and agree that the record accurately reflects my personal performance of the history, physical exam, medical decision making, and the department course for this patient. I have also personally directed, reviewed, and agree with the discharge instructions and disposition.
--- NOTE | 2017-01-06 14:43 | CP.PCM.HP ---
History of Present Illness - History of Present Illness History of Present Illness: PRESENTED TO ER FROM [facility] WITH ABDOMINAL PAIN AND ON EVALUATION PT HAD LARGE ASCITES PT HAS RECURRENT ACSITES SEC TO CIRROHSIS OF LIVER PT RECENTLY HAS ADBDOMINAL TAP Present on Admission - Present on Admission Any Indicators Present on Admission: No Review of Systems - Review of Systems All systems: reviewed and no additional remarkable complaints except Past Patient History - Infectious Disease Hx of Infectious Diseases: None - Past Medical History & Family History Past Medical History?: Yes - Past Social History Smoking Status: Never Smoked - CARDIAC Hx Hypertension: Yes - PULMONARY Hx Respiratory Disorders: Yes Other/Comment: as per [facility] pulmonary hypertension - NEUROLOGICAL Hx Seizures: Yes - HEENT Hx HEENT Problems: No - RENAL Hx Chronic Kidney Disease: No - ENDOCRINE/METABOLIC Hx Endocrine Disorders: No Hx Diabetes Mellitus Type 2: Yes - HEMATOLOGICAL/ONCOLOGICAL Hx Blood Disorders: Yes Hx Cirrhosis: Yes - INTEGUMENTARY Hx Dermatological Problems: No - MUSCULOSKELETAL/RHEUMATOLOGICAL Hx Arthritis: Yes (r sh; b/l knees) - GASTROINTESTINAL Hx Gastrointestinal Disorders: Yes Hx Gastroesophageal Reflux: Yes Hx Liver Failure: Yes - GENITOURINARY/GYNECOLOGICAL Hx Genitourinary Disorders: No - PSYCHIATRIC Hx Substance Use: No - SURGICAL HISTORY Hx Surgeries: No - ANESTHESIA Hx Anesthesia: Yes Hx Anesthesia Reactions: No Hx Malignant Hyperthermia: No Meds Allergies/Adverse Reactions: Allergies Allergy/AdvReac Type Severity Reaction Status Date / Time No Known Allergies Allergy Verified 01/06/17 12:20 Physical Exam - Head Exam Head Exam: ATRAUMATIC - Eye Exam Eye Exam: EOMI - ENT Exam ENT Exam: Mucous Membranes Dry - Respiratory Exam Respiratory Exam: NORMAL BREATHING PATTERN - Cardiovascular Exam Cardiovascular Exam: +S1, +S2 - GI/Abdominal Exam GI & Abdominal Exam: Distended, Firm, Normal Bowel Sounds, Tenderness. absent: Guarding - Extremities Exam Extremities exam: Positive for: full ROM. Negative for: calf tenderness - Back Exam Back exam: absent: CVA tenderness (L), CVA tenderness (R) - Neurological Exam Neurological exam: CN II-XII Intact, Oriented x3, Reflexes Normal Results - Vital Signs Recent Vital Signs: Last Vital Signs Temp 97.6 F 01/06/17 12:20 Pulse 88 01/06/17 12:20 Resp 18 01/06/17 12:20 BP 124/76 01/06/17 12:20 Pulse Ox 98 01/06/17 14:19 - Labs Result Diagrams: 01/06/17 13:09 01/06/17 13:09 Labs: Laboratory Results - last 24 hr 01/06/17 01/06/17 01/06/17 13:09 13:09 13:23 WBC 5.8 RBC 3.94 L Hgb 13.2 Hct 38.9 MCV 98.9 H MCH 33.6 H MCHC 33.9 RDW 14.6 H Plt Count 206 MPV 6.8 L Neut % (Auto) 74.9 Lymph % (Auto) 16.3 L Dundy % (Auto) 7.6 Eos % (Auto) 0.8 Baso % (Auto) 0.4 Neut # 4.4 Lymph # 0.9 L Dundy # 0.4 Eos # 0.0 Baso # 0.0 Sodium 135 Potassium 3.9 Chloride 102 Carbon Dioxide 24 Anion Gap 13 BUN 13 Creatinine 0.8 Est GFR ( Amer) > 60 Est GFR (Non-Af Amer) > 60 Random Glucose 128 H Calcium 9.4 Total Bilirubin 0.9 AST 42 ALT 32 Alkaline Phosphatase 90 Total Protein 8.9 H Albumin 3.4 L D Globulin 5.5 H Albumin/Globulin Ratio 0.6 L Lipase 83 Urine Color Yellow Urine Clarity Clear Urine pH 5.0 Ur Specific [place] 1.014 Urine Protein Negative Urine Glucose (UA) Normal Urine Ketones Negative Urine Blood Negative Urine Nitrate Negative Urine Bilirubin Negative Urine Urobilinogen Normal Ur Leukocyte Esterase Neg Urine WBC (Auto) < 1 Urine RBC (Auto) < 1 Hyaline Casts 11-20 H Assessment & Plan (1) Ascites Status: Chronic Comment: IR FOR TAP (2) Ascites due to chronic alcoholic hepatitis Status: Chronic (3) Liver cirrhosis Status: Chronic (4) Pulmonary artery hypertension Status: Chronic (5) Alcohol abuse Status: Chronic
[2017-01-06] MEDS ORDERED: Magnesium Hydroxide Susp 30 ml UD PO PRN (14:46)
[2017-01-06] MEDS ORDERED: Albuterol-Ipratrop 3 mg / 0.5 (3 ml) UD IH PRN (14:46)
[2017-01-06] MEDS ORDERED: Aluminum Hydroxide/Magnesium Hydroxide Susp (30 mL) PO PRN (14:46)
--- NOTE | 2017-01-06 15:57 | PCM.SURG1 ---
Surgeon's Initial Post Op Note - Surgeon's Notes Surgeon: Naman Oocnnor MD Hand Twister: NONE Type of Anesthesia: Local Pre-Operative Diagnosis: Ascites Operative Findings: US showed a large amount of ascites Post-Operative Diagnosis: Ascites Operation Performed: US guided paracentesis. Specimen/Specimens Removed: 5 liters of straw colored fluid Estimated Blood Loss: EBL {In ML}: 0 Blood Products Given: N/A Drains Used: No Drains Post-Op Condition: Fair Date of Surgery/Procedure: 01/06/17 Time of Surgery/Procedure: 15:40
--- NOTE | 2017-01-06 16:01 | US ---
Date of Procedure: 01/06/2017 PROCEDURE: Ultrasound-guided paracentesis, CPT 20102 Medications: 7 cc 1% Lidocaine HISTORY: Ascites, abdominal pain, cirrhosis TECHNIQUE: Following informed consent , the patient was placed supine on the stretcher and the site was marked. A limited abdominal ultrasound was performed that showed a large amount of intra-abdominal fluid. Procedural time out was called and the Pt's abdomen was marked and prepped and draped in the usual sterile fashion. Ultrasound-guided large volume paracentesis performed. A total of 5 liters of straw colored fluid was removed without complication. IMPRESSION: Ultrasound-guided large volume paracentesis.
[2017-01-06] MEDS: (Novolog) Insulin Aspart, Recombinant 100 u/ml 10 ml vial SC SCH ×2 (16:30→21:48)
[2017-01-06 16:36] VITALS: RESP 20
[2017-01-06] MEDS: Saccharomyces Boulardi 250 mg Cap PO SCH (18:00)
[2017-01-06] MEDS ORDERED: ZINC OXIDE TP SCH (22:00)
[2017-01-06] MEDS ORDERED: MENTHOL TP SCH (22:00)
[2017-01-07] MEDS: (Novolog) Insulin Aspart, Recombinant 100 u/ml 10 ml vial SC SCH ×4 (07:45→22:18)
[2017-01-07] MEDS: Saccharomyces Boulardi 250 mg Cap PO SCH ×2 (09:44→18:35)
[2017-01-07] MEDS: Multiple Vitamins Tab PO SCH (09:46)
--- NOTE | 2017-01-07 13:22 | CP.PCM.PN ---
Subjective - Date & Time of Evaluation Date of Evaluation: 01/07/17 Time of Evaluation: 13:19 - Subjective Subjective: S/P REMOVALE OF 5 LIT OF STRAW COLORED FLUID PT FEELING BETTER OBSERVE Objective - Vital Signs/Intake and Output Vital Signs (last 24 hours): Temp Pulse Resp BP Pulse Ox 97.4 F L 89 20 100/60 96 01/07/17 08:00 01/07/17 11:15 01/07/17 08:00 01/07/17 09:47 01/07/17 11:15 Intake and Output: 01/07/17 01/07/17 11:59 23:59 Intake Total 240 Balance 240 - Medications Medications: Current Medications Al Hydrox/Mg Hydrox/Simethicone (Maalox 30 Ml) 30 ml PO Q4 PRN PRN Reason: heartburn and indigestion Albuterol/Ipratropium (Duoneb 3 Mg/0.5 Mg (3 Ml) Ud) 3 ml IH RQ6 PRN PRN Reason: Shortness of Breath Famotidine (Pepcid) 20 mg PO HS [facility] Last Admin: 01/06/17 21:47 Dose: 20 mg Folic Acid (Folic Acid) 1 mg PO DAILY [facility] Last Admin: 01/07/17 09:45 Dose: 1 mg Furosemide (Lasix) 40 mg PO DAILY [facility] Last Admin: 01/07/17 09:47 Dose: 40 mg Home Med (Menthol/Zinc Oxide [Calmoseptine Ointment]) 1 oin TP Q8 [facility] Insulin Aspart (Novolog) 2 unit SC ACHS [facility] PRN Reason: Protocol Last Admin: 01/07/17 11:42 Dose: Not Given Levetiracetam (Keppra) 500 mg PO Q12H [facility] Last Admin: 01/07/17 03:30 Dose: 500 mg Magnesium Hydroxide (Milk Of Magnesia) 30 ml PO DAILY PRN PRN Reason: IF NO BM after 3 days Multivitamins (Hexavitamin) 1 tab PO DAILY [facility] Last Admin: 01/07/17 09:46 Dose: 1 tab Pneumococcal Polyvalent Vaccine (Pneumovax 23 Vaccine) 0.5 ml IM .ONCE ONE Stop: 01/08/17 10:01 Saccharomyces Boulardii (Florastor) 250 mg PO BID [facility] Last Admin: 01/07/17 09:44 Dose: 250 mg Spironolactone (Aldactone) 100 mg PO DAILY [facility] Last Admin: 01/07/17 09:45 Dose: 100 mg Thiamine HCl (Vitamin B1 Tab) 100 mg PO DAILY [facility] Last Admin: 01/07/17 09:48 Dose: 100 mg - Labs Labs: 01/06/17 13:09 01/06/17 13:09 Assessment and Plan (1) Ascites Status: Chronic (2) Ascites due to chronic alcoholic hepatitis Status: Chronic (3) Liver cirrhosis Status: Chronic (4) Pulmonary artery hypertension Status: Chronic (5) Alcohol abuse Status: Chronic
--- NOTE | 2017-01-07 16:47 | CP.PCM.PN ---
Subjective - Date & Time of Evaluation Date of Evaluation: 01/07/17 Time of Evaluation: 11:00 - Subjective Subjective: Alert, awake, no distress, s/p abdominal paracentesis. Objective - Vital Signs/Intake and Output Vital Signs (last 24 hours): Temp Pulse Resp BP Pulse Ox 97.4 F L 89 20 100/60 96 01/07/17 08:00 01/07/17 11:15 01/07/17 08:00 01/07/17 09:47 01/07/17 11:15 Intake and Output: 01/07/17 01/07/17 06:59 18:59 Intake Total 240 700 Balance 240 700 - Medications Medications: Current Medications Al Hydrox/Mg Hydrox/Simethicone (Maalox 30 Ml) 30 ml PO Q4 PRN PRN Reason: heartburn and indigestion Albuterol/Ipratropium (Duoneb 3 Mg/0.5 Mg (3 Ml) Ud) 3 ml IH RQ6 PRN PRN Reason: Shortness of Breath Famotidine (Pepcid) 20 mg PO HS [facility] Last Admin: 01/06/17 21:47 Dose: 20 mg Folic Acid (Folic Acid) 1 mg PO DAILY [facility] Last Admin: 01/07/17 09:45 Dose: 1 mg Furosemide (Lasix) 40 mg PO DAILY [facility] Last Admin: 01/07/17 09:47 Dose: 40 mg Home Med (Menthol/Zinc Oxide [Calmoseptine Ointment]) 1 oin TP Q8 [facility] Insulin Aspart (Novolog) 2 unit SC ACHS [facility] PRN Reason: Protocol Last Admin: 01/07/17 11:42 Dose: Not Given Levetiracetam (Keppra) 500 mg PO Q12H [facility] Last Admin: 01/07/17 14:39 Dose: 500 mg Magnesium Hydroxide (Milk Of Magnesia) 30 ml PO DAILY PRN PRN Reason: IF NO BM after 3 days Multivitamins (Hexavitamin) 1 tab PO DAILY [facility] Last Admin: 01/07/17 09:46 Dose: 1 tab Pneumococcal Polyvalent Vaccine (Pneumovax 23 Vaccine) 0.5 ml IM .ONCE ONE Stop: 01/08/17 10:01 Saccharomyces Boulardii (Florastor) 250 mg PO BID [facility] Last Admin: 01/07/17 09:44 Dose: 250 mg Spironolactone (Aldactone) 100 mg PO DAILY [facility] Last Admin: 01/07/17 09:45 Dose: 100 mg Thiamine HCl (Vitamin B1 Tab) 100 mg PO DAILY [facility] Last Admin: 01/07/17 09:48 Dose: 100 mg - Labs Labs: 01/06/17 13:09 01/06/17 13:09 Assessment and Plan - Assessment and Plan (Free Text) Assessment: Patient is seen and examined. S/P paracentesis yesterday, looks comfortable. Denies pain or sob. [facility] discussed with DR Boswell , plan to discharge back to the rehab today. Patient in agreement with the plan.
[2017-01-08] MEDS: (Novolog) Insulin Aspart, Recombinant 100 u/ml 10 ml vial SC SCH ×2 (08:11→12:30)
[2017-01-08 09:15] VITALS: BP 104/69; PULSE 89; TEMP 98.1; O2SAT 96
[2017-01-08] MEDS: Saccharomyces Boulardi 250 mg Cap PO SCH (09:45)
[2017-01-08] MEDS: Multiple Vitamins Tab PO SCH (09:45)
[2017-01-08] MEDS ORDERED: Pneumococcal 23-Valent Vaccine IM ONE (10:00)
--- NOTE | 2017-01-08 13:19 | CP.PCM.DIS ---
Provider - Provider Date of Admission: 01/06/17 14:05 Attending physician: Lashon Boswell MD Time Spent in preparation of Discharge (in minutes): 20 Diagnosis - Discharge Diagnosis (1) Ascites Status: Chronic (2) Ascites due to chronic alcoholic hepatitis Status: Chronic (3) Liver cirrhosis Status: Chronic (4) Pulmonary artery hypertension Status: Chronic (5) Alcohol abuse Status: Chronic Hospital Course - Lab Results Lab Results: Most Recent Lab Values WBC 5.8 K/uL (4.8-10.8) 01/06/17 13:09 RBC 3.94 Mil/uL (4.40-5.90) L 01/06/17 13:09 Hgb 13.2 g/dL (12.0-18.0) 01/06/17 13:09 Hct 38.9 % (35.0-51.0) 01/06/17 13:09 MCV 98.9 fL (80.0-94.0) H 01/06/17 13:09 MCH 33.6 pg (27.0-31.0) H 01/06/17 13:09 MCHC 33.9 g/dL (33.0-37.0) 01/06/17 13:09 RDW 14.6 % (11.5-14.5) H 01/06/17 13:09 Plt Count 206 K/uL (130-400) 01/06/17 13:09 MPV 6.8 fL (7.2-11.7) L 01/06/17 13:09 Neut % (Auto) 74.9 % (50.0-75.0) 01/06/17 13:09 Lymph % (Auto) 16.3 % (20.0-40.0) L 01/06/17 13:09 Mellette % (Auto) 7.6 % (0.0-10.0) 01/06/17 13:09 Eos % (Auto) 0.8 % (0.0-4.0) 01/06/17 13:09 Baso % (Auto) 0.4 % (0.0-2.0) 01/06/17 13:09 Neut # 4.4 K/uL (1.8-7.0) 01/06/17 13:09 Lymph # 0.9 K/uL (1.0-4.3) L 01/06/17 13:09 Mellette # 0.4 K/uL (0.0-0.8) 01/06/17 13:09 Eos # 0.0 K/uL (0.0-0.7) 01/06/17 13:09 Baso # 0.0 K/uL (0.0-0.2) 01/06/17 13:09 Sodium 135 mmol/L (132-148) 01/06/17 13:09 Potassium 3.9 mmol/L (3.6-5.2) 01/06/17 13:09 Chloride 102 mmol/L (98-107) 01/06/17 13:09 Carbon Dioxide 24 mmol/L (22-30) 01/06/17 13:09 Anion Gap 13 (10-20) 01/06/17 13:09 BUN 13 mg/dL (9-20) 01/06/17 13:09 Creatinine 0.8 mg/dL (0.8-1.5) 01/06/17 13:09 Est GFR ( Amer) > 60 01/06/17 13:09 Est GFR (Non-Af Amer) > 60 01/06/17 13:09 POC Glucose (mg/dL) 173 mg/dL (65-110) H 01/08/17 11:13 Random Glucose 128 mg/dL (75-110) H 01/06/17 13:09 Calcium 9.4 mg/dl (8.6-10.4) 01/06/17 13:09 Total Bilirubin 0.9 mg/dL (0.2-1.3) 01/06/17 13:09 AST 42 U/L (17-59) 01/06/17 13:09 ALT 32 U/L (21-72) 01/06/17 13:09 Alkaline Phosphatase 90 U/L (38-126) 01/06/17 13:09 Total Protein 8.9 g/dL (6.3-8.3) H 01/06/17 13:09 Albumin 3.4 g/dL (3.5-5.0) L D 01/06/17 13:09 Globulin 5.5 gm/dL (2.2-3.9) H 01/06/17 13:09 Albumin/Globulin Ratio 0.6 (1.0-2.1) L 01/06/17 13:09 Lipase 83 U/L (23-300) 01/06/17 13:09 Urine Color Yellow (YELLOW) 01/06/17 13:23 Urine Clarity Clear (Clear) 01/06/17 13:23 Urine pH 5.0 (5.0-8.0) 01/06/17 13:23 Ur Specific [place] 1.014 (1.003-1.030) 01/06/17 13:23 Urine Protein Negative mg/dL (NEGATIVE) 01/06/17 13:23 Urine Glucose (UA) Normal mg/dL (Normal) 01/06/17 13:23 Urine Ketones Negative mg/dL (NEGATIVE) 01/06/17 13:23 Urine Blood Negative (NEGATIVE) 01/06/17 13:23 Urine Nitrate Negative (NEGATIVE) 01/06/17 13:23 Urine Bilirubin Negative (NEGATIVE) 01/06/17 13:23 Urine Urobilinogen Normal mg/dL (0.2-1.0) 01/06/17 13:23 Ur Leukocyte Esterase Neg Mariah/uL (Negative) 01/06/17 13:23 Urine WBC (Auto) < 1 /hpf (0-5) 01/06/17 13:23 Urine RBC (Auto) < 1 /hpf (0-3) 01/06/17 13:23 Hyaline Casts 11-20 /lpf (0-2) H 01/06/17 13:23 - Hospital Course Hospital Course: PRESENTED TO ER FROM [facility] WITH ABDOMINAL PAIN AND ON EVALUATION PT HAD LARGE ASCITES PT HAS RECURRENT ACSITES SEC TO CIRROHSIS OF LIVER PT RECENTLY HAS ADBDOMINAL TAP IR TAPPED 5 LIT. OF STRAW COLORED FLUID PT STABLE REFER BACK TO REHAB Discharge Exam - Head Exam Head Exam: ATRAUMATIC Discharge Plan - Follow Up Plan Condition: FAIR Disposition: HOME/ ROUTINE Instructions: Ascites (DC), Abdominal Pain (ED) Referrals: Lashon Boswell MD [Staff Provider] -
== END 2017-01-08 13:50 | disposition home or self-care (01) | DRG 202 ==
LOC: C.ER 12:14 → C.9E 14:05 → C.3T 15:35
PROVIDERS: ADMIT Internal Medicine Cardiovascular Disease; ATTEND Internal Medicine Cardiovascular Disease
PROC: 0W9G3ZZ Drainage of Peritoneal Cavity, Percutaneous Approach (ICD-10-PCS; principal; 2017-01-06)
DX: K70.11 Alcoholic hepatitis with ascites (principal); K70.31 Alcoholic cirrhosis of liver with ascites; I27.21 Secondary pulmonary arterial hypertension; I10 Essential (primary) hypertension; E11.9 Type 2 diabetes mellitus without complications; Z79.4 Long term (current) use of insulin

== ENCOUNTER 2017-02-16 14:01 | Observation (INO) | payer MEDICARE, OTHER ==
[2017-02-16 15:05] VITALS: BMI 21.7
[2017-02-16 15:26] LABS: BASO % 0.6 % (0.0-2.0); EOS # 0.3 K/uL (0.0-0.7); HEMATOCRIT 38.3 % (35.0-51.0); LYMPH # 1.7 K/uL (1.0-4.3); LYMPH % 29.8 % (20.0-40.0); MEAN CELL VOLUME 97.1 fL (80.0-94.0); MEAN CORPUSCULAR HEMOGLOBIN 32.9 pg (27.0-31.0); MEAN CORPUSCULAR HGB CONC 33.9 g/dL (33.0-37.0); MEAN PLATELET VOLUME 6.6 fL (7.2-11.7); MONO # 0.8 K/uL (0.0-0.8); MONO % 14.6 % (0.0-10.0); NRBC % 0.1 % (0.0-2.0); RED CELL DISTRIBUTION WIDTH 14.8 % (11.5-14.5); WHITE BLOOD COUNT 5.7 K/uL (4.8-10.8)
[2017-02-16 15:33] LABS: INR 1.2
[2017-02-16 15:43] LABS: ALB/GLOB RATIO 0.8 (1.0-2.1); ALKALINE PHOSPHATASE 94 U/L (38-126); ALT/SGPT 34 U/L (21-72); AST/SGOT 39 U/L (17-59); BLOOD UREA NITROGEN 14 mg/dL (9-20); CALCIUM 8.2 mg/dl (8.6-10.4); CARBON DIOXIDE 21 mmol/L (22-30); CHLORIDE 101 mmol/L (98-107); GFR AFRICAN-AMERICAN > 60; GLUCOSE,RANDOM 82 mg/dL (75-110); POTASSIUM 4.1 mmol/L (3.6-5.2); SODIUM 133 mmol/L (132-148); TOTAL PROTEIN 7.5 g/dL (6.3-8.3)
--- NOTE | 2017-02-16 16:10 | C.PDOC ---
History Of Present Illness 66 yr old male [facility], presents to the ER with complaints of worsening abdominal distention and mild abdominal pain. Patient has history of liver psoriasis and ascites. Patient denies fever, chest pain, SOB, nausea, vomiting, diarrhea or dysuria. Time Seen by Provider: 02/16/17 14:23 Chief Complaint (Nursing): Abdominal Pain History Per: Patient History/Exam Limitations: no limitations Onset/Duration Of Symptoms: Days Past Medical History Reviewed: Historical Data, Nursing Documentation, Vital Signs - Medical History PMH: Arthritis (r sh; b/l knees), HTN, Seizures - [facility] Procedures DRAINAGE OF PERITONEAL CAVITY, PERCUTANEOUS APPROACH (01/19/17) INSERTION OF INFUSION DEV INTO SUP VENA CAVA, PERC APPROACH (09/09/16) INSPECTION OF ABDOMINAL WALL, PERCUTANEOUS APPROACH (05/19/16) INTRODUCE LOCAL ANESTH IN PERIPH NRV, PLEXI, PERC (01/19/17) INTRODUCTION OF NUTRITIONAL INTO PERIPH VEIN, PERC APPROACH (05/19/16) SUPPLEMENT ABDOMINAL WALL WITH SYNTH SUB, PERC ENDO APPROACH (01/19/17) ULTRASONOGRAPHY OF ABDOMEN (11/12/16) ULTRASONOGRAPHY OF SUPERIOR VENA CAVA, GUIDANCE (09/09/16) Family History: States: No Known Family Hx - Social History Hx Alcohol Use: Yes Hx Substance Use: No - Immunization History Hx Tetanus Toxoid Vaccination: No Hx Influenza Vaccination: Yes (12/26/2016) Hx Pneumococcal Vaccination: No Review Of Systems Except As Marked, All Systems Reviewed And Found Negative. Constitutional: Negative for: Fever Cardiovascular: Negative for: Chest Pain Respiratory: Negative for: Shortness of Breath Gastrointestinal: Positive for: Abdominal Pain (Mild pain and distention). Negative for: Nausea, Vomiting, Diarrhea Genitourinary: Negative for: Dysuria Physical Exam - Physical Exam Appears: Non-toxic, No Acute Distress Skin: Warm, Dry, No Rash Head: Atraumatic, Normacephalic Oral Mucosa: Moist Cardiovascular: Rhythm Regular, No Murmur Respiratory: Rales (Faint rales at the bases), No Stridor Gastrointestinal/Abdominal: No Soft, Tenderness (Mild diffuse tenderness), No Guarding, No Rebound, Ascites Extremity: Normal ROM, No Swelling Neurological/Psych: Oriented x3, Normal Speech, Normal Motor, Normal Sensation ED Course And Treatment - Laboratory Results Result Diagrams: 02/16/17 15:15 02/16/17 15:15 Progress Note: PLAN: CXR & Labs. Pateint will be admited to DR. Calderon Ohara. Disposition - Disposition - Scribe Statement The provider has reviewed the documentation as recorded by the Scribe Radha Lyn Provider Attestation: All medical record entries made by the Scribe were at my direction and personally dictated by me. I have reviewed the chart and agree that the record accurately reflects my personal performance of the history, physical exam, medical decision making, and the department course for this patient. I have also personally directed, reviewed, and agree with the discharge instructions and disposition.
--- NOTE | 2017-02-16 17:18 | RAD ---
PROCEDURE: CHEST RADIOGRAPH, 1 VIEW HISTORY: admission, fluid overload COMPARISON: Comparison chest dated 01/20/2017. FINDINGS: LUNGS: Poor inspiration with low lung volumes, crowded bronchovascular markings and mild bibasilar atelectasis. PLEURA: No pneumothorax or pleural fluid seen. CARDIOVASCULAR: Cardiomegaly. . OSSEOUS STRUCTURES: No significant abnormalities. VISUALIZED UPPER ABDOMEN: Normal. OTHER FINDINGS: None. IMPRESSION: Poor inspiration with low lung volumes, crowded bronchovascular markings and mild bibasilar atelectasis.. Cardiomegaly.
[2017-02-16] MEDS ORDERED: Promethazine DM 12.5 mg-30 mg/10 ml Syrup PO PRN (18:48)
[2017-02-16] MEDS ORDERED: Aluminum Hydroxide/Magnesium Hydroxide Susp (30 mL) PO PRN (18:48)
[2017-02-16] MEDS ORDERED: Albuterol-Ipratrop 3 mg / 0.5 (3 ml) UD IH PRN (18:48)
[2017-02-16] MEDS ORDERED: Magnesium Hydroxide Susp 30 ml UD PO PRN (18:48)
--- NOTE | 2017-02-16 20:06 | CP.PCM.HP ---
Past Patient History - Infectious Disease Hx of Infectious Diseases: None - Past Medical History & Family History Past Medical History?: Yes - Past Social History Smoking Status: Never Smoked - CARDIAC Hx Hypertension: Yes - PULMONARY Hx Respiratory Disorders: Yes - NEUROLOGICAL Hx Seizures: Yes - HEENT Hx HEENT Problems: No - RENAL Hx Chronic Kidney Disease: No - ENDOCRINE/METABOLIC Hx Diabetes Mellitus Type 2: Yes - HEMATOLOGICAL/ONCOLOGICAL Hx Blood Disorders: Yes Hx Cirrhosis: Yes - INTEGUMENTARY Hx Dermatological Problems: No - MUSCULOSKELETAL/RHEUMATOLOGICAL Hx Falls: No - GASTROINTESTINAL Hx Gastrointestinal Disorders: Yes Hx Gastroesophageal Reflux: Yes Hx Liver Failure: Yes - GENITOURINARY/GYNECOLOGICAL Hx Genitourinary Disorders: No - PSYCHIATRIC Hx Substance Use: No - SURGICAL HISTORY Hx Surgeries: No - ANESTHESIA Hx Anesthesia: Yes Hx Anesthesia Reactions: No Meds Allergies/Adverse Reactions: Allergies Allergy/AdvReac Type Severity Reaction Status Date / Time No Known Allergies Allergy Verified 02/16/17 15:05 Physical Exam - Constitutional Appears: Well - Head Exam Head Exam: ATRAUMATIC, NORMAL INSPECTION, NORMOCEPHALIC - Eye Exam Eye Exam: EOMI, Normal appearance, PERRL Pupil Exam: NORMAL ACCOMODATION, PERRL - ENT Exam ENT Exam: Mucous Membranes Moist, Normal Exam - Neck Exam Neck exam: Positive for: Normal Inspection - Respiratory Exam Respiratory Exam: Decreased Breath Sounds - Cardiovascular Exam Cardiovascular Exam: REGULAR RHYTHM, +S1, +S2 - GI/Abdominal Exam GI & Abdominal Exam: Diminished Bowel Sounds, Soft - Rectal Exam Rectal Exam: Deferred Results - Vital Signs Recent Vital Signs: Last Vital Signs Temp 98.3 F 02/16/17 19:01 Pulse 80 02/16/17 19:01 Resp 16 02/16/17 19:01 BP 99/68 L 02/16/17 19:01 Pulse Ox 98 02/16/17 19:01 - Labs Result Diagrams: 02/16/17 15:15 02/16/17 15:15 Labs: Laboratory Results - last 24 hr 02/16/17 02/16/17 02/16/17 15:15 15:15 15:15 WBC 5.7 RBC 3.95 L Hgb 13.0 Hct 38.3 MCV 97.1 H MCH 32.9 H MCHC 33.9 RDW 14.8 H Plt Count 283 MPV 6.6 L Neut % (Auto) 50.0 Lymph % (Auto) 29.8 [place] % (Auto) 14.6 H Eos % (Auto) 5.0 H Baso % (Auto) 0.6 Neut # 2.9 Lymph # 1.7 Reeves # 0.8 Eos # 0.3 Baso # 0.0 PT 13.0 H INR 1.2 APTT 39 H Sodium 133 Potassium 4.1 Chloride 101 Carbon Dioxide 21 L Anion Gap 15 BUN 14 Creatinine 1.0 Est GFR ( Amer) > 60 Est GFR (Non-Af Amer) > 60 POC Glucose (mg/dL) Random Glucose 82 Calcium 8.2 L Total Bilirubin 1.0 AST 39 ALT 34 Alkaline Phosphatase 94 Total Protein 7.5 Albumin 3.3 L Globulin 4.1 H Albumin/Globulin Ratio 0.8 L 02/16/17 15:31 WBC RBC Hgb Hct MCV MCH MCHC RDW Plt Count MPV Neut % (Auto) Lymph % (Auto) Reeves % (Auto) Eos % (Auto) Baso % (Auto) Neut # Lymph # Reeves # Eos # Baso # PT INR APTT Sodium Potassium Chloride Carbon Dioxide Anion Gap BUN Creatinine Est GFR ( Amer) Est GFR (Non-Af Amer) POC Glucose (mg/dL) 114 H Random Glucose Calcium Total Bilirubin AST ALT Alkaline Phosphatase Total Protein Albumin Globulin Albumin/Globulin Ratio
[2017-02-16] MEDS: (Novolog) Insulin Aspart, Recombinant 100 u/ml 10 ml vial SC SCH (21:32)
[2017-02-16] MEDS ORDERED: Zinc Oxide Topical 30 gm Tube TOP SCH (22:00)
[2017-02-17 03:15] VITALS: RESP 20; TEMP 98.1
[2017-02-17] MEDS: (Novolog) Insulin Aspart, Recombinant 100 u/ml 10 ml vial SC SCH ×2 (07:52→12:31)
[2017-02-17 08:23] VITALS: PULSE 96; O2SAT 95
--- NOTE | 2017-02-17 09:49 | PCM.SURG1 ---
Surgeon's Initial Post Op Note - Surgeon's Notes Surgeon: Naman Oconnor MD Supervisor Whipped Topping: NONE Pre-Operative Diagnosis: Ascites Operative Findings: Large amount of ascites Post-Operative Diagnosis: Ascites Operation Performed: US guided paracentesis Specimen/Specimens Removed: 7.5 liters Estimated Blood Loss: EBL {In ML}: 0 Blood Products Given: N/A Drains Used: No Drains Post-Op Condition: Fair Date of Surgery/Procedure: 02/17/17 Time of Surgery/Procedure: 09:30
[2017-02-17] MEDS ORDERED: Multiple Vitamins Tab PO SCH (10:00)
[2017-02-17] MEDS ORDERED: Saccharomyces Boulardi 250 mg Cap PO SCH (10:00)
[2017-02-17 10:39] VITALS: BP 107/65
--- NOTE | 2017-02-17 12:23 | CP.PCM.PN ---
Subjective - Date & Time of Evaluation Date of Evaluation: 02/17/17 Time of Evaluation: 12:23 - Subjective Subjective: Alert, awake, no sob or distress, NAD. Objective - Vital Signs/Intake and Output Vital Signs (last 24 hours): Temp Pulse Resp BP Pulse Ox 98.1 F 96 H 20 107/65 95 02/17/17 08:22 02/17/17 08:22 02/17/17 08:22 02/17/17 10:35 02/17/17 08:22 Intake and Output: 02/17/17 02/17/17 06:59 18:59 Intake Total 390 Output Total 750 Balance -360 - Medications Medications: Current Medications Acetaminophen (Tylenol 325mg Tab) 650 mg PO Q4 PRN PRN Reason: mild pain / temp Al Hydrox/Mg Hydrox/Simethicone (Maalox 30 Ml) 30 ml PO Q4 PRN PRN Reason: heartburn and indigestion Albuterol/Ipratropium (Duoneb 3 Mg/0.5 Mg (3 Ml) Ud) 3 ml IH Q6H PRN PRN Reason: Shortness of Breath Diphenhydramine HCl (Benadryl) 25 mg PO Q12H [facility] Last Admin: 02/17/17 06:02 Dose: 25 mg Docusate Sodium (Colace) 100 mg PO BID [facility] Last Admin: 02/17/17 10:34 Dose: 100 mg Famotidine (Pepcid) 20 mg PO HS [facility] Last Admin: 02/16/17 21:30 Dose: 20 mg Folic Acid (Folic Acid) 1 mg PO DAILY [facility] Last Admin: 02/17/17 10:35 Dose: 1 mg Furosemide (Lasix) 40 mg PO DAILY [facility] Last Admin: 02/17/17 10:35 Dose: 40 mg Home Med (Menthol/Zinc Oxide [Calmoseptine Ointment]) 1 oin TP Q8 [facility] Insulin Aspart (Novolog) 0 unit SC ACHS [facility] PRN Reason: Protocol Last Admin: 02/17/17 07:52 Dose: Not Given Levetiracetam (Keppra) 500 mg PO Q12H [facility] Last Admin: 02/17/17 06:02 Dose: 500 mg Magnesium Hydroxide (Milk Of Magnesia) 30 ml PO DAILY PRN PRN Reason: no BM after 3 days Last Admin: 02/17/17 10:36 Dose: 30 ml Multivitamins (Hexavitamin) 1 tab PO DAILY [facility] Last Admin: 02/17/17 10:35 Dose: 1 tab Promethazine HCl/Dextromethorphan (Phenergan Dm Syrup) 10 ml PO BID PRN PRN Reason: Cough Saccharomyces Boulardii (Florastor) 250 mg PO BID [facility] Last Admin: 02/17/17 10:34 Dose: 250 mg Spironolactone (Aldactone) 100 mg PO DAILY [facility] Last Admin: 02/17/17 10:34 Dose: 100 mg Thiamine HCl (Vitamin B1 Tab) 100 mg PO DAILY [facility] Last Admin: 02/17/17 10:36 Dose: 100 mg - Labs Labs: 02/16/17 15:15 02/16/17 15:15 PT 13.0 SECONDS (9.7-12.2) H 02/16/17 15:15 INR 1.2 02/16/17 15:15 APTT 39 SECONDS (21-34) H 02/16/17 15:15 Assessment and Plan - Assessment and Plan (Free Text) Assessment: Patient is seen and examined after abdominal paracentesis. Alert, awake, no sob , bleeding or distress. D/W DR Taylor Ohara, plan to send back to [facility] today. Will continue with present meds.
--- NOTE | 2017-02-17 13:17 | US ---
Date of Procedure: 02/17/2017 PROCEDURE: Ultrasound-guided paracentesis, CPT 29660 Medications: 7 cc 1% Lidocaine HISTORY: Ascites, abdominal pain, cirrhosis TECHNIQUE: Following informed consent , the patient was placed supine on the stretcher and the site was marked. A limited abdominal ultrasound was performed that showed a large amount of intra-abdominal fluid. Procedural time out was called and the Pt's abdomen was marked and prepped and draped in the usual sterile fashion. Ultrasound-guided large volume paracentesis performed. A total of 7.5 liters of straw colored fluid was removed without complication. IMPRESSION: Ultrasound-guided large volume paracentesis.
--- NOTE | 2017-02-17 16:03 | CP.PCM.PN ---
Subjective - Date & Time of Evaluation Date of Evaluation: 02/17/17 Time of Evaluation: 08:40 - Subjective Subjective: clinically same Objective - Vital Signs/Intake and Output Vital Signs (last 24 hours): Temp Pulse Resp BP Pulse Ox 98.1 F 96 H 20 107/65 95 02/17/17 08:22 02/17/17 08:22 02/17/17 08:22 02/17/17 10:35 02/17/17 08:22 Intake and Output: 02/17/17 02/17/17 06:59 18:59 Intake Total 390 350 Output Total 750 Balance -360 350 - Medications Medications: Current Medications Acetaminophen (Tylenol 325mg Tab) 650 mg PO Q4 PRN PRN Reason: mild pain / temp Al Hydrox/Mg Hydrox/Simethicone (Maalox 30 Ml) 30 ml PO Q4 PRN PRN Reason: heartburn and indigestion Albuterol/Ipratropium (Duoneb 3 Mg/0.5 Mg (3 Ml) Ud) 3 ml IH Q6H PRN PRN Reason: Shortness of Breath Diphenhydramine HCl (Benadryl) 25 mg PO Q12H [facility] Last Admin: 02/17/17 06:02 Dose: 25 mg Docusate Sodium (Colace) 100 mg PO BID [facility] Last Admin: 02/17/17 10:34 Dose: 100 mg Famotidine (Pepcid) 20 mg PO HS [facility] Last Admin: 02/16/17 21:30 Dose: 20 mg Folic Acid (Folic Acid) 1 mg PO DAILY [facility] Last Admin: 02/17/17 10:35 Dose: 1 mg Furosemide (Lasix) 40 mg PO DAILY [facility] Last Admin: 02/17/17 10:35 Dose: 40 mg Insulin Aspart (Novolog) 0 unit SC ACHS [facility] PRN Reason: Protocol Last Admin: 02/17/17 12:31 Dose: Not Given Levetiracetam (Keppra) 500 mg PO Q12H [facility] Last Admin: 02/17/17 06:02 Dose: 500 mg Magnesium Hydroxide (Milk Of Magnesia) 30 ml PO DAILY PRN PRN Reason: no BM after 3 days Last Admin: 02/17/17 10:36 Dose: 30 ml Multivitamins (Hexavitamin) 1 tab PO DAILY [facility] Last Admin: 02/17/17 10:35 Dose: 1 tab Petrolatum (Desitin Original) 0 gm TOP Q8 [facility] Promethazine HCl/Dextromethorphan (Phenergan Dm Syrup) 10 ml PO BID PRN PRN Reason: Cough Saccharomyces Boulardii (Florastor) 250 mg PO BID [facility] Last Admin: 02/17/17 10:34 Dose: 250 mg Spironolactone (Aldactone) 100 mg PO DAILY [facility] Last Admin: 02/17/17 10:34 Dose: 100 mg Thiamine HCl (Vitamin B1 Tab) 100 mg PO DAILY [facility] Last Admin: 02/17/17 10:36 Dose: 100 mg - Labs Labs: 02/16/17 15:15 02/16/17 15:15 PT 13.0 SECONDS (9.7-12.2) H 02/16/17 15:15 INR 1.2 02/16/17 15:15 APTT 39 SECONDS (21-34) H 02/16/17 15:15
== END 2017-02-17 16:45 ==
LOC: C.ER 14:01 → C.9E 16:13 → C.3T 17:35
PROVIDERS: ADMIT Internal Medicine Nephrology; ATTEND Internal Medicine Nephrology
DX: R18.8 Other ascites (principal); I10 Essential (primary) hypertension
CPT/HCPCS: 49082; 49083; 71010; 80053; 82948; 85025; 85610; 85730; 97116; 97162; 99285; G0378; G8978; G8979

== ENCOUNTER 2017-03-19 10:36 | Observation (INO) | payer OTHER ==
[2017-03-19 10:37] VITALS: BMI 21.7
[2017-03-19 11:59] LABS: BASO % 0.6 % (0.0-2.0); EOS # 0.2 K/uL (0.0-0.7); EOS % 3.6 % (0.0-4.0); HEMATOCRIT 37.5 % (35.0-51.0); LYMPH # 1.6 K/uL (1.0-4.3); LYMPH % 24.3 % (20.0-40.0); MEAN CELL VOLUME 95.7 fL (80.0-94.0); MEAN CORPUSCULAR HEMOGLOBIN 33.8 pg (27.0-31.0); MEAN CORPUSCULAR HGB CONC 35.4 g/dL (33.0-37.0); MEAN PLATELET VOLUME 6.9 fL (7.2-11.7); MONO # 0.7 K/uL (0.0-0.8); MONO % 11.1 % (0.0-10.0); RED CELL DISTRIBUTION WIDTH 14.5 % (11.5-14.5); WHITE BLOOD COUNT 6.6 K/uL (4.8-10.8)
[2017-03-19 12:07] LABS: INR 1.3
[2017-03-19 12:17] LABS: ALKALINE PHOSPHATASE 100 U/L (38-126); ALT/SGPT 32 U/L (21-72); AST/SGOT 42 U/L (17-59); BLOOD UREA NITROGEN 17 mg/dL (9-20); CALCIUM 8.9 mg/dl (8.6-10.4); CARBON DIOXIDE 24 mmol/L (22-30); CHLORIDE 98 mmol/L (98-107); GFR AFRICAN-AMERICAN > 60; GLUCOSE,RANDOM 106 mg/dL (75-110); POTASSIUM 3.9 mmol/L (3.6-5.2); SODIUM 131 mmol/L (132-148); TOTAL PROTEIN 8.3 g/dL (6.3-8.3)
--- NOTE | 2017-03-19 12:19 | RAD ---
HISTORY: abd pain, ascitis COMPARISON: 01/22/2017 FINDINGS: BOWEL: Interval decrease small-bowel distention consistent with a resolving prior small-bowel obstruction Left colonic stool retention noted BONES: Lumbar spondylosis OTHER FINDINGS: Right hemipelvic phleboliths IMPRESSION: Interval decreased small bowel distention consistent with resolving prior small-bowel obstruction Colonic -moderate stool retention
[2017-03-19 12:21] LABS: ALB/GLOB RATIO 0.7 (1.0-2.1)
--- NOTE | 2017-03-19 12:21 | RAD ---
HISTORY: ascitis COMPARISON: 02/16/2017 TECHNIQUE: Chest PA and lateral FINDINGS: LUNGS: Shallow lung volumes as before -history of ascites. No interval consolidation PLEURA: No significant pleural effusion identified. No pneumothorax apparent. CARDIOVASCULAR: Mild cardiomegaly -similar OSSEOUS STRUCTURES: Thoracic marginal spondylosis-similar VISUALIZED UPPER ABDOMEN: Normal. OTHER FINDINGS: None. IMPRESSION: No interval pathology. Similar shallow lung volumes. Cardiomegaly as before
[2017-03-19 12:29] LABS: RBC URINE < 1 /hpf (0-3); URINE BILIRUBIN NEGATIVE (NEGATIVE); URINE BLOOD NEGATIVE (NEGATIVE); URINE COLOR Yellow (YELLOW); URINE GLUCOSE (UA) NORMAL (Normal); URINE KETONE NEGATIVE (NEGATIVE); URINE LEUKOCYTE ESTERASE NEG Leu/uL (Negative); URINE PROTEIN NEGATIVE (NEGATIVE); WBC URINE < 1 /hpf (0-5)
--- NOTE | 2017-03-19 12:34 | C.PDOC ---
History Of Present Illness 66 y/o male hx of Cirrhosis and Ascitis presents to the ED c/o abdominal pressure. The patient was admitted in [facility] one month ago. The patient states that for the past several days he is feeling worse. The patient notes he had seen his doctor and was told to go to the emergency department for further evaluation. The patient denies dizziness, vomiting, fever, SOB, constipation, and diarrhea. Chief Complaint (Nursing): Abdominal Pain History Per: Patient Onset/Duration Of Symptoms: Days Current Symptoms Are (Timing): Still Present Associated Symptoms: denies: Fever, Chills, Nausea, Vomiting, Diarrhea Additional History Per: Patient Past Medical History Reviewed: Historical Data, Nursing Documentation, Vital Signs Vital Signs: Last Vital Signs Temp 98.3 F 03/19/17 15:15 Pulse 96 H 03/19/17 15:15 Resp 19 03/19/17 15:15 BP 111/73 03/19/17 15:15 Pulse Ox 96 03/19/17 15:15 - Medical History PMH: Arthritis (r sh; b/l knees), HTN, Seizures Denies: Chronic Kidney Disease Surgical History: No Surg Hx - [facility] Procedures DRAINAGE OF PERITONEAL CAVITY, PERCUTANEOUS APPROACH (01/19/17) INSERTION OF INFUSION DEV INTO SUP VENA CAVA, PERC APPROACH (09/09/16) INSPECTION OF ABDOMINAL WALL, PERCUTANEOUS APPROACH (05/19/16) INTRODUCE LOCAL ANESTH IN PERIPH NRV, PLEXI, PERC (01/19/17) INTRODUCTION OF NUTRITIONAL INTO PERIPH VEIN, PERC APPROACH (05/19/16) SUPPLEMENT ABDOMINAL WALL WITH SYNTH SUB, PERC ENDO APPROACH (01/19/17) ULTRASONOGRAPHY OF ABDOMEN (11/12/16) ULTRASONOGRAPHY OF SUPERIOR VENA CAVA, GUIDANCE (09/09/16) Family History: States: No Known Family Hx - Social History Hx Alcohol Use: Yes Hx Substance Use: No - Immunization History Hx Tetanus Toxoid Vaccination: No Hx Influenza Vaccination: Yes (12/26/2016) Hx Pneumococcal Vaccination: No Review Of Systems Except As Marked, All Systems Reviewed And Found Negative. Constitutional: Negative for: Fever, Chills Respiratory: Negative for: Shortness of Breath Gastrointestinal: Positive for: Abdominal Pain (pressure ). Negative for: Nausea, Vomiting, Diarrhea, Constipation Physical Exam - Physical Exam Appears: Non-toxic, No Acute Distress, Chronically Ill Skin: Warm, No Diaphoretic, Jaundice (slightly ) Head: Atraumatic, Normacephalic Eye(s): bilateral: Normal Inspection, Scleral Icterus Oral Mucosa: Moist Neck: Normal ROM, Supple Chest: Symmetrical Cardiovascular: Rhythm Regular Respiratory: Normal Breath Sounds, No Rales, No Rhonchi Gastrointestinal/Abdominal: Tenderness (mildly diffused), Distention, No Guarding, No Rebound, Ascites Back: Normal Inspection, No Vertebral Tenderness Extremity: Normal ROM, Capillary Refill (2<sec. ) Neurological/Psych: Oriented x3, Normal Speech, Normal Cognition Gait: Steady ED Course And Treatment - Laboratory Results Result Diagrams: 03/19/17 11:51 03/19/17 11:51 O2 Sat by Pulse Oximetry: 95 (RA) Progress Note: Plan- Labs and admission. Case was d/w who accepted patient to his service for observation. Medical Decision Making Medical Decision Making: HISTORY: ascitis COMPARISON: 02/16/2017 TECHNIQUE: Chest PA and lateral FINDINGS: LUNGS: Shallow lung volumes as before -history of ascites. No interval consolidation PLEURA: No significant pleural effusion identified. No pneumothorax apparent. CARDIOVASCULAR: Mild cardiomegaly -similar OSSEOUS STRUCTURES: Thoracic marginal spondylosis-similar VISUALIZED UPPER ABDOMEN: Normal. OTHER FINDINGS: None. IMPRESSION: No interval pathology. Similar shallow lung volumes. Cardiomegaly as before HISTORY: abd pain, ascitis COMPARISON: 01/22/2017 FINDINGS: BOWEL: Interval decrease small-bowel distention consistent with a resolving prior small -bowel obstruction Left colonic stool retention noted BONES: Lumbar spondylosis OTHER FINDINGS: Right hemipelvic phleboliths IMPRESSION: Interval decreased small bowel distention consistent with resolving prior small- bowel obstruction Colonic -moderate stool retention Disposition - Disposition Disposition: HOSPITALIZED Disposition Time: 13:46 Condition: FAIR - Clinical Impression Clinical Impression: Liver cirrhosis, Abdominal distension, Ascites, Abdominal discomfort - PA / SOLUTION ADVISOR / Resident Statement MD/DO has examined the patient and agrees with the treatment plan. - Scribe Statement The provider has reviewed the documentation as recorded by the Lashell Oreilly Decision To Admit - Pt Status Changed To: Hospital Disposition Of: Observation - . Bed Request Type: Regular Patient Diagnosis: Liver cirrhosis, Abdominal distension, Ascites, Abdominal discomfort
[2017-03-19 15:59] VITALS: RESP 20
[2017-03-19] MEDS ORDERED: Magnesium Hydroxide Susp 30 ml UD PO PRN (16:02)
[2017-03-19] MEDS ORDERED: Promethazine DM 12.5 mg-30 mg/10 ml Syrup PO PRN ×2 (16:02→16:30)
[2017-03-19] MEDS: (Novolog) Insulin Aspart, Recombinant 100 u/ml 10 ml vial SC SCH ×2 (16:32→21:16)
--- NOTE | 2017-03-19 17:32 | CP.PCM.HP ---
Past Patient History - Infectious Disease Hx of Infectious Diseases: None - Past Medical History & Family History Past Medical History?: Yes - Past Social History Smoking Status: Former Smoker - CARDIAC Hx Hypertension: Yes - PULMONARY Hx Respiratory Disorders: Yes - NEUROLOGICAL Hx Seizures: Yes - HEENT Hx HEENT Problems: No - RENAL Hx Chronic Kidney Disease: No - ENDOCRINE/METABOLIC Hx Endocrine Disorders: Yes Hx Diabetes Mellitus Type 2: Yes - HEMATOLOGICAL/ONCOLOGICAL Hx Blood Disorders: Yes Hx Cirrhosis: Yes - INTEGUMENTARY Hx Dermatological Problems: No - MUSCULOSKELETAL/RHEUMATOLOGICAL Hx Arthritis: Yes (r sh; b/l knees) Hx Falls: No - GASTROINTESTINAL Hx Gastrointestinal Disorders: Yes Hx Constipation: Yes Hx Gastroesophageal Reflux: Yes Hx Liver Failure: Yes Other/Comment: ESOPHAGITIS - GENITOURINARY/GYNECOLOGICAL Hx Genitourinary Disorders: No - PSYCHIATRIC Hx Substance Use: No - SURGICAL HISTORY Hx Surgeries: No - ANESTHESIA Hx Anesthesia: Yes Hx Anesthesia Reactions: No Meds Allergies/Adverse Reactions: Allergies Allergy/AdvReac Type Severity Reaction Status Date / Time No Known Allergies Allergy Verified 03/19/17 10:40 Physical Exam - Constitutional Appears: Well - Head Exam Head Exam: ATRAUMATIC, NORMAL INSPECTION, NORMOCEPHALIC - Eye Exam Eye Exam: EOMI, Normal appearance, PERRL Pupil Exam: NORMAL ACCOMODATION, PERRL - ENT Exam ENT Exam: Mucous Membranes Moist, Normal Exam - Neck Exam Neck exam: Positive for: Normal Inspection - Respiratory Exam Respiratory Exam: Decreased Breath Sounds - Cardiovascular Exam Cardiovascular Exam: REGULAR RHYTHM, +S1, +S2 - GI/Abdominal Exam GI & Abdominal Exam: Diminished Bowel Sounds, Soft - Rectal Exam Rectal Exam: Deferred Results - Vital Signs Recent Vital Signs: Last Vital Signs Temp 97.4 F L 03/19/17 15:57 Pulse 96 H 03/19/17 15:57 Resp 20 03/19/17 15:57 BP 119/76 03/19/17 15:57 Pulse Ox 96 03/19/17 15:57 - Labs Result Diagrams: 03/19/17 11:51 03/19/17 11:51 Labs: Laboratory Results - last 24 hr 03/19/17 03/19/17 03/19/17 11:07 11:51 11:51 WBC 6.6 RBC 3.93 L Hgb 13.3 Hct 37.5 MCV 95.7 H MCH 33.8 H MCHC 35.4 RDW 14.5 Plt Count 224 MPV 6.9 L Neut % (Auto) 60.4 Lymph % (Auto) 24.3 Chambers % (Auto) 11.1 H Eos % (Auto) 3.6 Baso % (Auto) 0.6 Neut # 4.0 Lymph # 1.6 Chambers # 0.7 Eos # 0.2 Baso # 0.0 PT INR APTT Sodium 131 L Potassium 3.9 Chloride 98 Carbon Dioxide 24 Anion Gap 13 BUN 17 Creatinine 0.9 Est GFR ( Amer) > 60 Est GFR (Non-Af Amer) > 60 POC Glucose (mg/dL) 94 Random Glucose 106 Calcium 8.9 Total Bilirubin 1.0 AST 42 ALT 32 Alkaline Phosphatase 100 Ammonia Total Protein 8.3 Albumin 3.4 L Globulin 4.8 H Albumin/Globulin Ratio 0.7 L Lipase 126 Urine Color Urine Clarity Urine pH Ur Specific [place] Urine Protein Urine Glucose (UA) Urine Ketones Urine Blood Urine Nitrate Urine Bilirubin Urine Urobilinogen Ur Leukocyte Esterase Urine WBC (Auto) Urine RBC (Auto) Ur Squamous Epith Cells 03/19/17 03/19/17 03/19/17 11:51 11:51 12:21 WBC RBC Hgb Hct MCV MCH MCHC RDW Plt Count MPV Neut % (Auto) Lymph % (Auto) Chambers % (Auto) Eos % (Auto) Baso % (Auto) Neut # Lymph # Chambers # Eos # Baso # PT 14.4 H INR 1.3 APTT 37 H Sodium Potassium Chloride Carbon Dioxide Anion Gap BUN Creatinine Est GFR ( Amer) Est GFR (Non-Af Amer) POC Glucose (mg/dL) Random Glucose Calcium Total Bilirubin AST ALT Alkaline Phosphatase Ammonia 47 H Total Protein Albumin Globulin Albumin/Globulin Ratio Lipase Urine Color Yellow Urine Clarity Clear Urine pH 5.0 Ur Specific [place] 1.017 Urine Protein Negative Urine Glucose (UA) Normal Urine Ketones Negative Urine Blood Negative Urine Nitrate Negative Urine Bilirubin Negative Urine Urobilinogen 2.0 Ur Leukocyte Esterase Neg Urine WBC (Auto) < 1 Urine RBC (Auto) < 1 Ur Squamous Epith Cells < 1 03/19/17 16:19 WBC RBC Hgb Hct MCV MCH MCHC RDW Plt Count MPV Neut % (Auto) Lymph % (Auto) Chambers % (Auto) Eos % (Auto) Baso % (Auto) Neut # Lymph # Chambers # Eos # Baso # PT INR APTT Sodium Potassium Chloride Carbon Dioxide Anion Gap BUN Creatinine Est GFR ( Amer) Est GFR (Non-Af Amer) POC Glucose (mg/dL) 143 H Random Glucose Calcium Total Bilirubin AST ALT Alkaline Phosphatase Ammonia Total Protein Albumin Globulin Albumin/Globulin Ratio Lipase Urine Color Urine Clarity Urine pH Ur Specific [place] Urine Protein Urine Glucose (UA) Urine Ketones Urine Blood Urine Nitrate Urine Bilirubin Urine Urobilinogen Ur Leukocyte Esterase Urine WBC (Auto) Urine RBC (Auto) Ur Squamous Epith Cells
[2017-03-19] MEDS: Saccharomyces Boulardi 250 mg Cap PO SCH (17:33)
[2017-03-19 23:52] VITALS: PULSE 90
[2017-03-20 08:38] LABS: BASO % 0.5 % (0.0-2.0); EOS # 0.2 K/uL (0.0-0.7); EOS % 5.1 % (0.0-4.0); HEMATOCRIT 35.8 % (35.0-51.0); LYMPH # 1.3 K/uL (1.0-4.3); LYMPH % 28.9 % (20.0-40.0); MEAN CORPUSCULAR HEMOGLOBIN 33.9 pg (27.0-31.0); MEAN CORPUSCULAR HGB CONC 35.3 g/dL (33.0-37.0); MEAN PLATELET VOLUME 6.7 fL (7.2-11.7); MONO # 0.6 K/uL (0.0-0.8); NRBC % 0.1 % (0.0-2.0); WHITE BLOOD COUNT 4.6 K/uL (4.8-10.8)
[2017-03-20 08:46] LABS: ALKALINE PHOSPHATASE 98 U/L (38-126); ALT/SGPT 29 U/L (21-72); AST/SGOT 39 U/L (17-59); BLOOD UREA NITROGEN 15 mg/dL (9-20); CALCIUM 8.6 mg/dl (8.6-10.4); CARBON DIOXIDE 26 mmol/L (22-30); CHLORIDE 102 mmol/L (98-107); GFR AFRICAN-AMERICAN > 60; GLUCOSE,RANDOM 93 mg/dL (75-110); POTASSIUM 4.1 mmol/L (3.6-5.2); SODIUM 133 mmol/L (132-148); TOTAL PROTEIN 7.5 g/dL (6.3-8.3)
[2017-03-20 08:54] LABS: ALB/GLOB RATIO 0.7 (1.0-2.1)
[2017-03-20] MEDS ORDERED: Multiple Vitamins Tab PO SCH (10:00)
[2017-03-20] MEDS: (Novolog) Insulin Aspart, Recombinant 100 u/ml 10 ml vial SC SCH ×3 (10:05→16:53)
[2017-03-20] MEDS: Enoxaparin 40 mg Syringe SC SCH ×2 (10:13→10:38)
[2017-03-20] MEDS: Saccharomyces Boulardi 250 mg Cap PO SCH ×2 (10:15→17:44)
--- NOTE | 2017-03-20 12:05 | PCM.SURG1 ---
Surgeon's Initial Post Op Note - Surgeon's Notes Surgeon: Naman Oconnor MD [employer]: NONE Pre-Operative Diagnosis: Ascites Operative Findings: US showed a large amount of ascites Post-Operative Diagnosis: Ascites Operation Performed: US guided paracentesis Specimen/Specimens Removed: 6000 cc Estimated Blood Loss: EBL {In ML}: 0 Blood Products Given: N/A Drains Used: No Drains Post-Op Condition: Fair Date of Surgery/Procedure: 03/20/17 Time of Surgery/Procedure: 12:25
--- NOTE | 2017-03-20 12:33 | US ---
Date of Procedure: 03/20/2017 PROCEDURE: Ultrasound-guided paracentesis, CPT 46976 Medications: 8 cc 1% Lidocaine HISTORY: Ascites, abdominal pain, cirrhosis TECHNIQUE: Following informed consent , the patient was placed supine on the stretcher and the site was marked. A limited abdominal ultrasound was performed that showed a large amount of intra-abdominal fluid. Procedural time out was called and the Pt's abdomen was marked and prepped and draped in the usual sterile fashion. Ultrasound-guided large volume paracentesis performed. A total of 6 Liters of straw colored fluid was removed without complication. IMPRESSION: Ultrasound-guided large volume paracentesis.
--- NOTE | 2017-03-20 15:03 | CP.PCM.PN ---
Subjective - Date & Time of Evaluation Date of Evaluation: 03/20/17 Time of Evaluation: 15:02 - Subjective Subjective: PAIN WAS ADMITTED ABDOMINAL DISCOMFORT AND DISTENTION; PATIENT DENIES CHEST PAIN , SOB, NAUSEA, OR VOMITING Objective - Vital Signs/Intake and Output Vital Signs (last 24 hours): Temp Pulse Resp BP Pulse Ox 97.6 F 90 20 108/75 95 03/20/17 08:13 03/20/17 08:13 03/20/17 08:13 03/20/17 10:36 03/20/17 08:13 Intake and Output: 03/20/17 03/20/17 06:59 18:59 Intake Total 600 Output Total 600 Balance 0 - Medications Medications: Current Medications Acetaminophen (Tylenol 325mg Tab) 650 mg PO Q4 PRN PRN Reason: mild pain / temp Diphenhydramine HCl (Benadryl) 25 mg PO Q12 PRN PRN Reason: Itching / Pruritus Enoxaparin Sodium (Lovenox) 40 mg SC DAILY [facility] Last Admin: 03/20/17 10:38 Dose: Not Given Famotidine (Pepcid) 20 mg PO HS [facility] Last Admin: 03/19/17 21:31 Dose: 20 mg Folic Acid (Folic Acid) 1 mg PO DAILY [facility] Last Admin: 03/20/17 10:14 Dose: 1 mg Furosemide (Lasix) 40 mg PO DAILY [facility] Last Admin: 03/20/17 10:36 Dose: 40 mg Insulin Aspart (Novolog) 0 unit SC ACHS [facility] PRN Reason: Protocol Last Admin: 03/20/17 11:38 Dose: Not Given Lactulose (Enulose) 30 gm PO DAILY [facility] Last Admin: 03/20/17 10:24 Dose: 30 gm Levetiracetam (Keppra) 500 mg PO Q12H [facility] Last Admin: 03/20/17 06:02 Dose: 500 mg Magnesium Hydroxide (Milk Of Magnesia) 30 ml PO DAILY PRN PRN Reason: no BM after 3 days Multivitamins (Hexavitamin) 1 tab PO DAILY [facility] Last Admin: 03/20/17 10:17 Dose: 1 tab Promethazine HCl/Dextromethorphan (Phenergan Dm Syrup) 10 ml PO Q12 PRN PRN Reason: Cough Saccharomyces Boulardii (Florastor) 250 mg PO BID [facility] Last Admin: 03/20/17 10:15 Dose: 250 mg Spironolactone (Aldactone) 100 mg PO DAILY [facility] Last Admin: 03/20/17 11:06 Dose: Not Given Thiamine HCl (Vitamin B1 Tab) 100 mg PO DAILY [facility] Last Admin: 03/20/17 10:16 Dose: 100 mg - Labs Labs: 03/20/17 08:27 03/20/17 08:27 PT 14.4 SECONDS (9.7-12.2) H 03/19/17 11:51 INR 1.3 03/19/17 11:51 APTT 37 SECONDS (21-34) H 03/19/17 11:51 Assessment and Plan - Assessment and Plan (Free Text) Assessment: A/P PATIENT IS SEEN AND EXAMINED AT THE BEDSIDE; ABDOMINAL SOFT, NON DISTENDED; DRESSING DRY AND INTACT AT THE SITE NO SIGN OF DISTRESS NOTED DISCUSS WITH DR CARTER WHO CLEAR THE PATIENT FOR DC POST PARACENTESIS PLACE UNDER THE SERVICE OF DR Taylor CARTER WHILE IN THE DETENTION ---CALL DR Taylor CARTER FOR ADMITTING ORDER UPON ARRIVAL AND BED ASSIGNMENT CONTINUE ALL OUR HOME MEDICATION PER MED REC PHYSICAL THERAPY TOLERATED YOU MAY REMOVE THE ADHESIVE BANDAGE FROM YOUR STOMACH AFTER 24 HOURS FOR THE NEXT 3 DAYS WATCH FOR SIGN OF INFECTION SUCH FEVER, ABDOMINAL PAIN, DRAINAGE, PUS OR REDNESS AT THE SITE DO NOT SHOWER FOR THE NEXT 48 HOURS JUST TOILET LIGHT ACTIVITY TOLERATED AND DO NOT LIFT ANYTHING GREATER THAN 10 LBS CONTINUE YOUR DIET USUAL FOR FURTHER ORDERS OR CONCERNS CONTACT DR Taylor CARTER DISCUSS WITH PATIENT WHO AGREE AND VERBALIZED UNDERSTANDING
[2017-03-20 16:10] VITALS: BP 108/69; TEMP 97.3; O2SAT 96
--- NOTE | 2017-03-20 19:37 | CP.PCM.PN ---
Subjective - Date & Time of Evaluation Date of Evaluation: 03/20/17 Time of Evaluation: 10:20 - Subjective Subjective: clinically same Objective - Vital Signs/Intake and Output Vital Signs (last 24 hours): Temp Pulse Resp BP Pulse Ox 97.3 F L 90 20 108/69 96 03/20/17 16:09 03/20/17 16:09 03/20/17 16:09 03/20/17 16:09 03/20/17 16:09 Intake and Output: 03/20/17 03/21/17 18:59 06:59 Intake Total 900 Output Total 700 Balance 200 - Labs Labs: 03/20/17 08:27 03/20/17 08:27 PT 14.4 SECONDS (9.7-12.2) H 03/19/17 11:51 INR 1.3 03/19/17 11:51 APTT 37 SECONDS (21-34) H 03/19/17 11:51
== END 2017-03-20 19:15 | disposition home or self-care (01) ==
LOC: C.ER 10:36 → C.9E 13:47 → C.5S 14:47
PROVIDERS: ADMIT Internal Medicine Nephrology; ATTEND Internal Medicine Nephrology
DX: K74.60 Unspecified cirrhosis of liver (principal); R18.8 Other ascites; Z87.891 Personal history of nicotine dependence; K21.0 Gastro-esophageal reflux disease with esophagitis; I10 Essential (primary) hypertension; E11.9 Type 2 diabetes mellitus without complications
CPT/HCPCS: 36415; 49083; 71020; 74000; 80053; 81001; 82140; 82948; 83690; 85025; 85610; 85730; 97116; 97162; 99285; G0378; G8978; G8979

== ENCOUNTER 2017-04-13 12:51 | Emergency (ER) | payer OTHER ==
[2017-04-13 12:51] VITALS: BMI 21.7
--- NOTE | 2017-04-13 13:32 | C.PDOC ---
History Of Present Illness 66 y/o male, referred by [facility], presents to the ER for a therapeutic tap. Patient states that he has abdominal ascites.Patient denies having fever, pain, and other complaints. Of note, patient states that he has multiple taps, usually about twice a month. Time Seen by Provider: 04/13/17 13:23 Chief Complaint (Nursing): Abdominal Pain History Per: Patient History/Exam Limitations: no limitations Onset/Duration Of Symptoms: Days Current Symptoms Are (Timing): Still Present Past Medical History Reviewed: Historical Data, Nursing Documentation, Vital Signs Vital Signs: Last Vital Signs Temp 98 F 04/13/17 16:30 Pulse 96 H 04/13/17 16:30 Resp 18 04/13/17 16:30 BP 107/68 04/13/17 16:30 Pulse Ox 99 04/13/17 16:39 - Medical History PMH: Arthritis (r sh; b/l knees), HTN, Seizures Denies: Chronic Kidney Disease Surgical History: No Surg Hx - [facility] Procedures DRAINAGE OF PERITONEAL CAVITY, PERCUTANEOUS APPROACH (01/19/17) INSERTION OF INFUSION DEV INTO SUP VENA CAVA, PERC APPROACH (09/09/16) INSPECTION OF ABDOMINAL WALL, PERCUTANEOUS APPROACH (05/19/16) INTRODUCE LOCAL ANESTH IN PERIPH NRV, PLEXI, PERC (01/19/17) INTRODUCTION OF NUTRITIONAL INTO PERIPH VEIN, PERC APPROACH (05/19/16) SUPPLEMENT ABDOMINAL WALL WITH SYNTH SUB, PERC ENDO APPROACH (01/19/17) ULTRASONOGRAPHY OF ABDOMEN (11/12/16) ULTRASONOGRAPHY OF SUPERIOR VENA CAVA, GUIDANCE (09/09/16) Family History: States: No Known Family Hx - Social History Hx Alcohol Use: Yes Hx Substance Use: No - Immunization History Hx Tetanus Toxoid Vaccination: No Hx Influenza Vaccination: Yes (12/26/2016) Hx Pneumococcal Vaccination: No Review Of Systems Except As Marked, All Systems Reviewed And Found Negative. Constitutional: Negative for: Fever, Chills Gastrointestinal: Positive for: Other (abdominal ascites) Neurological: Negative for: Weakness, Numbness Physical Exam - Physical Exam Appears: Non-toxic, No Acute Distress, Other (thin, emaciated sw[place]ish male) Skin: Normal Color, Warm Head: Atraumatic, Normacephalic Eye(s): bilateral: Normal Inspection, PERRL Nose: Normal Oral Mucosa: Moist Neck: Supple Chest: Symmetrical Cardiovascular: Rhythm Regular Respiratory: Normal Breath Sounds, No Accessory Muscle Use, No Rales, No Rhonchi , No Wheezing Gastrointestinal/Abdominal: Normal Exam, Soft, No Tenderness, Ascites Extremity: Normal ROM Neurological/Psych: Oriented x3, Normal Speech, Normal Cognition, Normal Motor, Normal Sensation ED Course And Treatment - Laboratory Results Result Diagrams: 04/13/17 13:42 04/13/17 13:42 Lab Interpretation: Normal (INR 1.3 wnl, plts wnl) O2 Sat by Pulse Oximetry: 99 (RA) Pulse Ox Interpretation: Normal - Radiology CXR: Interpreted by Md CXR Interpretation: Yes: No Acute Disease Progress Note: abd paracentesis procedure: R abd US for adequate space for paracentesis. R abd prepped and draped in sterile fashion, and feeler needle for skin anasthesia and clear straw colored fluid accessed, 14 ga paracentesis needle with sheath introduced and 4.8L clear straw colored fluid easily withdrawn. multiple bp checks throughout procedure remained wnl. catheter removed, large adhesive banadage placed, pt tolerated the procedure well, no complications. As this was a THERAPUTIC tap, no diagnostic exams sent. Reevaluation Time: 16:37 Reassessment Condition: Improved - Physician Consult Information Outcome Of Conversation: 1330: d/w Dr. Calderon Ohara- edmund to tap if able. 1400: d/w Dr. Oconnor- YESY, unable to tap (unless emergent) until AM Medical Decision Making Medical Decision Making: recurrent abd ascites (usually approx 2x/month) due to alcoholic cirrhosis. Disposition Doctor Will See Patient In The: Office Counseled Patient/Family Regarding: Studies Performed, Diagnosis - Disposition Referrals: [facility] [Outside] [facility] [Outside] Disposition: HOME/ ROUTINE Disposition Time: 16:38 Condition: GOOD Additional Instructions: Hoy sacamos 4.8 L de liquido del abdomen. Sigue con Dr. Caldreon Ohara miladys necessario. Instructions: Abdominal Paracentesis (DC), Ascites (ED) Forms: [facility] (Maltese) Print Language: TELUGU - Clinical Impression Clinical Impression: Ascites due to alcoholic cirrhosis - Scribe Statement The provider has reviewed the documentation as recorded by the Lashell Peña Provider Attestation: All medical record entries made by the Scribe were at my direction and personally dictated by me. I have reviewed the chart and agree that the record accurately reflects my personal performance of the history, physical exam, medical decision making, and the department course for this patient. I have also personally directed, reviewed, and agree with the discharge instructions and disposition.
[2017-04-13 13:56] LABS: BASO % 0.7 % (0.0-2.0); EOS # 0.2 K/uL (0.0-0.7); EOS % 5.1 % (0.0-4.0); HEMOGLOBIN 12.7 g/dL (12.0-18.0); LYMPH # 1.3 K/uL (1.0-4.3); LYMPH % 29.8 % (20.0-40.0); MEAN CELL VOLUME 95.8 fL (80.0-94.0); MEAN CORPUSCULAR HEMOGLOBIN 33.1 pg (27.0-31.0); MEAN CORPUSCULAR HGB CONC 34.5 g/dL (33.0-37.0); MEAN PLATELET VOLUME 6.7 fL (7.2-11.7); MONO # 0.6 K/uL (0.0-0.8); MONO % 13.7 % (0.0-10.0); NEUT # 2.2 K/uL (1.8-7.0); NEUT % 50.7 % (50.0-75.0); RBC 3.85 Mil/uL (4.40-5.90); RED CELL DISTRIBUTION WIDTH 14.4 % (11.5-14.5); WHITE BLOOD COUNT 4.4 K/uL (4.8-10.8)
[2017-04-13 14:07] LABS: INR 1.3; PROTHROMBIN TIME 14.4 SECONDS (9.7-12.2)
[2017-04-13 14:15] LABS: ALB/GLOB RATIO 0.7 (1.0-2.1); ALBUMIN 3.5 g/dL (3.5-5.0); ALT/SGPT 23 U/L (21-72); AST/SGOT 38 U/L (17-59); BLOOD UREA NITROGEN 14 mg/dL (9-20); GFR AFRICAN-AMERICAN > 60; GFR NON-AFRICAN AMERICAN > 60; LIPASE 146 U/L (23-300)
--- NOTE | 2017-04-13 14:36 | RAD ---
Chest x-ray single frontal view History: Abdominal pain. Comparison: 03/19/2017 Findings: Mild venous congestion. Mild cardiomegaly. Degenerative changes in the spine and shoulders. Impression: Mild venous congestion.
[2017-04-13 15:23] VITALS: RESP 18
[2017-04-13 19:49] VITALS: BP 112/70; PULSE 93; TEMP 97.5; O2SAT 99
--- NOTE | 2017-05-08 23:26 | CARD ---
APPROVED REPORT EKG Measurement Heart [id number] <Conclusion> Sinus rhythm with premature atrial complexes Left bundle branch block Abnormal ECG
== END 2017-04-13 19:49 | disposition home or self-care (01) ==
LOC: C.ER 12:51
DX: K70.31 Alcoholic cirrhosis of liver with ascites (principal); I10 Essential (primary) hypertension; Z87.891 Personal history of nicotine dependence

== ENCOUNTER 2017-05-18 10:06 | Observation (INO) | payer OTHER ==
[2017-05-18 10:08] VITALS: BMI 21.7
--- NOTE | 2017-05-18 10:23 | C.PDOC ---
History Of Present Illness RECUR ABD DISTENTION X 2 WEEKS. +DISCOMFORT. NO FEVER, NV. PREV ADMISSION FOR PERITONEAL TAP FOR ASCITES, LAST TAP 04/13 EXAM NAD NONTOXIC HEENT ANICTERIC ABD +DISTENTION W TENSE ASCITES NO FOCAL TEND SKIN NO JAUNDICE REMAINDER NEG Time Seen by Provider: 05/18/17 10:16 History Per: Patient History/Exam Limitations: no limitations Onset/Duration Of Symptoms: Days Current Symptoms Are (Timing): Still Present Severity: Moderate Associated Symptoms: denies: Fever, Nausea, Vomiting Past Medical History Reviewed: Historical Data, Nursing Documentation, Vital Signs Vital Signs: Last Vital Signs Temp 98.2 F 05/18/17 18:23 Pulse 90 05/18/17 18:23 Resp 18 05/18/17 18:23 BP 114/78 05/18/17 18:23 Pulse Ox 96 05/18/17 18:23 - Medical History PMH: Arthritis (r sh; b/l knees), HTN, Seizures Denies: Chronic Kidney Disease Surgical History: No Surg Hx - [facility] Procedures DRAINAGE OF PERITONEAL CAVITY, PERCUTANEOUS APPROACH (01/19/17) INSERTION OF INFUSION DEV INTO SUP VENA CAVA, PERC APPROACH (09/09/16) INSPECTION OF ABDOMINAL WALL, PERCUTANEOUS APPROACH (05/19/16) INTRODUCE LOCAL ANESTH IN PERIPH NRV, PLEXI, PERC (01/19/17) INTRODUCTION OF NUTRITIONAL INTO PERIPH VEIN, PERC APPROACH (05/19/16) SUPPLEMENT ABDOMINAL WALL WITH SYNTH SUB, PERC ENDO APPROACH (01/19/17) ULTRASONOGRAPHY OF ABDOMEN (11/12/16) ULTRASONOGRAPHY OF SUPERIOR VENA CAVA, GUIDANCE (09/09/16) Family History: States: No Known Family Hx - Social History Hx Alcohol Use: Yes Hx Substance Use: No - Immunization History Hx Tetanus Toxoid Vaccination: No Hx Influenza Vaccination: Yes (12/26/2016) Hx Pneumococcal Vaccination: No Review Of Systems Except As Marked, All Systems Reviewed And Found Negative. Constitutional: Negative for: Fever, Chills Gastrointestinal: Positive for: Other (abdominal distension). Negative for: Nausea, Vomiting Physical Exam - Physical Exam Appears: Non-toxic, No Acute Distress Skin: Normal Color, Warm, No Jaundice Head: Atraumatic, Normacephalic Eye(s): bilateral: Scleral Icterus Gastrointestinal/Abdominal: Tenderness (no focal tenderness), Distention ( distention), Ascites (tense ascites) Neurological/Psych: Oriented x3, Normal Speech, Normal Motor, Normal Sensation ED Course And Treatment - Laboratory Results Result Diagrams: 05/18/17 10:55 05/18/17 10:55 ECG: Interpreted By Me, Viewed By Me ECG Rhythm: Sinus Rhythm Interpretation Of ECG: NSR with left bundle branch block Rate From EC - Other Rad CXR X-Ray: Viewed By Me, Read By Radiologist Interpretation: HISTORY: Pre Op. COMPARISON: Chest x-ray performed 04/13/17. TECHNIQUE: Chest, one view. FINDINGS: LUNGS: Bilateral hilar prominence. No focal consolidation. Please note that chest x-ray has limited sensitivity for the detection of pulmonary masses. PLEURA: No significant pleural effusion identified. No definite pneumothorax . CARDIOVASCULAR: Heart size appears within normal limits. OSSEOUS STRUCTURES: Degenerative changes. VISUALIZED UPPER ABDOMEN: Unremarkable. OTHER FINDINGS: None. IMPRESSION: Bilateral hilar prominence. Progress - Re-Evaluation Re-evaluation Note: 05/18/17 10:22 D/W DR Taylor CARTER, WILL ADMIT - Data Reviewed Data Reviewed: Lab, Diagnostic imaging, EKG, Old records Medical Decision Making Medical Decision Making: Plan: --Labs --UA --CXR Disposition Counseled Patient/Family Regarding: Studies Performed, Diagnosis - Disposition Disposition: HOSPITALIZED Disposition Time: 10:22 Condition: STABLE - POA Present On Arrival: None - Clinical Impression Clinical Impression: Abdominal discomfort, Ascites, Abdominal distension - Scribe Statement The provider has reviewed the documentation as recorded by the Lashell Peña Provider Attestation: All medical record entries made by the Scribe were at my direction and personally dictated by me. I have reviewed the chart and agree that the record accurately reflects my personal performance of the history, physical exam, medical decision making, and the department course for this patient. I have also personally directed, reviewed, and agree with the discharge instructions and disposition. Decision To Admit - Pt Status Changed To: Hospital Disposition Of: Observation - . Bed Request Type: Regular Admitting Physician: Zoë Carter Patient Diagnosis: Abdominal discomfort, Ascites, Abdominal distension
[2017-05-18 11:06] LABS: BASO % 0.9 % (0.0-2.0); EOS # 0.2 K/uL (0.0-0.7); EOS % 3.6 % (0.0-4.0); HEMOGLOBIN 13.6 g/dL (12.0-18.0); LYMPH # 1.4 K/uL (1.0-4.3); MEAN CELL VOLUME 96.2 fL (80.0-94.0); MEAN CORPUSCULAR HEMOGLOBIN 33.7 pg (27.0-31.0); MEAN PLATELET VOLUME 6.8 fL (7.2-11.7); MONO # 0.6 K/uL (0.0-0.8); MONO % 12.2 % (0.0-10.0); NEUT # 2.5 K/uL (1.8-7.0); NEUT % 53.3 % (50.0-75.0); NRBC % 0.1 % (0.0-2.0); RBC 4.03 Mil/uL (4.40-5.90); RED CELL DISTRIBUTION WIDTH 15.2 % (11.5-14.5); SQUAMOUS EPITHIAL < 1 /hpf (0-5); URINE BILIRUBIN NEGATIVE (NEGATIVE); URINE BLOOD NEGATIVE (NEGATIVE); URINE CLARITY Clear (Clear); URINE COLOR Yellow (YELLOW); URINE GLUCOSE (UA) NORMAL (Normal); URINE LEUKOCYTE ESTERASE NEG Leu/uL (Negative); URINE NITRATE NEGATIVE (NEGATIVE); URINE PROTEIN NEGATIVE (NEGATIVE); URINE UROBILINOGEN NORMAL mg/dL (0.2-1.0); WHITE BLOOD COUNT 4.6 K/uL (4.8-10.8)
--- NOTE | 2017-05-18 11:07 | RAD ---
HISTORY: Pre Op COMPARISON: Chest x-ray performed 04/13/17 TECHNIQUE: Chest, one view. FINDINGS: LUNGS: Bilateral hilar prominence. No focal consolidation. Please note that chest x-ray has limited sensitivity for the detection of pulmonary masses. PLEURA: No significant pleural effusion identified. No definite pneumothorax . CARDIOVASCULAR: Heart size appears within normal limits. OSSEOUS STRUCTURES: Degenerative changes. VISUALIZED UPPER ABDOMEN: Unremarkable. OTHER FINDINGS: None. IMPRESSION: Bilateral hilar prominence.
[2017-05-18 11:14] LABS: INR 1.2; PROTHROMBIN TIME 13.8 SECONDS (9.7-12.2)
[2017-05-18 11:16] LABS: ALB/GLOB RATIO 0.7 (1.0-2.1); ALBUMIN 3.9 g/dL (3.5-5.0); ALT/SGPT 30 U/L (21-72); AST/SGOT 36 U/L (17-59); BLOOD UREA NITROGEN 19 mg/dL (9-20); CALCIUM 9.9 mg/dl (8.6-10.4); GFR AFRICAN-AMERICAN > 60; GFR NON-AFRICAN AMERICAN > 60
--- NOTE | 2017-05-18 16:25 | CP.PCM.HP ---
History of Present Illness - History of Present Illness History of Present Illness: 66 yo M with PMH of HTN, Seizures, liver cirrhosis and recurrent ascites requiring frequent admissions for paracentesis presents to ED with c/o abdominal distention and generalized abdominal discomfort ongoing since few days. Pt admitted for abdominal paracentesis. Last tap was 04/13/17. Denies fever , chills, chest pain, dyspnea, n/v/d. Present on Admission - Present on Admission Any Indicators Present on Admission: No Review of Systems - Gastrointestinal Gastrointestinal: Abdominal Pain Past Patient History - Infectious Disease Hx of Infectious Diseases: None - Past Medical History & Family History Past Medical History?: Yes - Past Social History Smoking Status: Former Smoker - CARDIAC Hx Hypertension: Yes - PULMONARY Hx Respiratory Disorders: Yes - NEUROLOGICAL Hx Seizures: Yes - HEENT Hx HEENT Problems: No - RENAL Hx Chronic Kidney Disease: No - ENDOCRINE/METABOLIC Hx Diabetes Mellitus Type 2: Yes - HEMATOLOGICAL/ONCOLOGICAL Hx Blood Disorders: Yes Hx Cirrhosis: Yes - INTEGUMENTARY Hx Dermatological Problems: No - MUSCULOSKELETAL/RHEUMATOLOGICAL Hx Arthritis: Yes (r sh; b/l knees) - GASTROINTESTINAL Hx Gastrointestinal Disorders: Yes Hx Gastroesophageal Reflux: Yes Hx Liver Failure: Yes Other/Comment: cirihosis of liver - GENITOURINARY/GYNECOLOGICAL Hx Genitourinary Disorders: No - PSYCHIATRIC Hx Substance Use: No - SURGICAL HISTORY Hx Surgeries: No - ANESTHESIA Hx Anesthesia: Yes Hx Anesthesia Reactions: No Meds Allergies/Adverse Reactions: Allergies Allergy/AdvReac Type Severity Reaction Status Date / Time No Known Allergies Allergy Verified 05/18/17 10:41 Physical Exam - Constitutional Appears: No Acute Distress - Head Exam Head Exam: ATRAUMATIC, NORMAL INSPECTION, NORMOCEPHALIC - Eye Exam Eye Exam: EOMI, Normal appearance, PERRL Pupil Exam: NORMAL ACCOMODATION, PERRL - ENT Exam ENT Exam: Mucous Membranes Moist - Neck Exam Neck exam: Positive for: Full Rom - Respiratory Exam Respiratory Exam: Decreased Breath Sounds - Cardiovascular Exam Cardiovascular Exam: REGULAR RHYTHM, +S1, +S2 - GI/Abdominal Exam GI & Abdominal Exam: Diminished Bowel Sounds, Distended, Soft - Rectal Exam Rectal Exam: Deferred - Neurological Exam Neurological exam: Alert, Oriented x3 Results - Vital Signs Recent Vital Signs: Last Vital Signs Temp 98.6 F 05/18/17 14:04 Pulse 99 H 05/18/17 14:04 Resp 18 02/26/18 14:04 BP 113/80 05/18/17 14:04 Pulse Ox 98 05/18/17 14:04 - Labs Result Diagrams: 05/18/17 10:55 05/18/17 10:55 Labs: Laboratory Results - last 24 hr 05/18/17 05/18/17 05/18/17 10:55 10:55 10:55 WBC 4.6 L RBC 4.03 L Hgb 13.6 Hct 38.8 MCV 96.2 H MCH 33.7 H MCHC 35.0 RDW 15.2 H Plt Count 197 MPV 6.8 L Neut % (Auto) 53.3 Lymph % (Auto) 30.0 [place] % (Auto) 12.2 H Eos % (Auto) 3.6 Baso % (Auto) 0.9 Neut # (Auto) 2.5 Lymph # (Auto) 1.4 [place] # (Auto) 0.6 Eos # (Auto) 0.2 Baso # (Auto) 0.0 PT 13.8 H INR 1.2 APTT 37 H Sodium Potassium Chloride Carbon Dioxide Anion Gap BUN Creatinine Est GFR ( Amer) Est GFR (Non-Af Amer) Random Glucose Calcium Total Bilirubin AST ALT Alkaline Phosphatase Total Protein Albumin Globulin Albumin/Globulin Ratio Urine Color Yellow Urine Clarity Clear Urine pH 6.0 Ur Specific [place] 1.010 Urine Protein Negative Urine Glucose (UA) Normal Urine Ketones Negative Urine Blood Negative Urine Nitrate Negative Urine Bilirubin Negative Urine Urobilinogen Normal Ur Leukocyte Esterase Neg Urine RBC (Auto) < 1 Ur Squamous Epith Cells < 1 Blood Type Antibody Screen 05/18/17 05/18/17 10:55 10:55 WBC RBC Hgb Hct MCV MCH MCHC RDW Plt Count MPV Neut % (Auto) Lymph % (Auto) [place] % (Auto) Eos % (Auto) Baso % (Auto) Neut # (Auto) Lymph # (Auto) [place] # (Auto) Eos # (Auto) Baso # (Auto) PT INR APTT Sodium 136 Potassium 4.0 Chloride 98 Carbon Dioxide 27 Anion Gap 15 BUN 19 Creatinine 1.0 Est GFR ( Amer) > 60 Est GFR (Non-Af Amer) > 60 Random Glucose 88 Calcium 9.9 Total Bilirubin 1.0 AST 36 ALT 30 Alkaline Phosphatase 90 Total Protein 9.4 H Albumin 3.9 Globulin 5.4 H Albumin/Globulin Ratio 0.7 L Urine Color Urine Clarity Urine pH Ur Specific [place] Urine Protein Urine Glucose (UA) Urine Ketones Urine Blood Urine Nitrate Urine Bilirubin Urine Urobilinogen Ur Leukocyte Esterase Urine RBC (Auto) Ur Squamous Epith Cells Blood Type A POSITIVE Antibody Screen Negative Assessment & Plan (1) Abdominal discomfort Status: Acute (2) Abdominal distension Status: Acute (3) Ascites Status: Chronic (4) Abdominal pain Status: Acute (5) Abdominal pain Status: Acute (6) Anemia Status: Acute (7) Ascites Status: Acute (8) Ascites due to alcoholic cirrhosis Status: Acute (9) Dehydration with hypernatremia Status: Acute (10) Dyspnea Status: Acute (11) Exophthalmos Status: Acute (12) Fluid overload Status: Acute (13) Hepatic encephalopathy Status: Acute (14) Incarcerated umbilical hernia Status: Acute (15) Left bundle branch block (LBBB) Status: Acute (16) Leg edema, left Status: Acute (17) Liver cirrhosis Status: Acute (18) Metabolic encephalopathy Status: Acute (19) Muscle atrophy Status: Acute (20) Portal hypertension Status: Acute (21) Prophylactic measure Status: Acute (22) SBO (small bowel obstruction) Status: Acute (23) Sepsis Status: Acute (24) Sepsis Status: Acute (25) Thrombocytopenia Status: Acute (26) Alcohol abuse Status: Chronic (27) Ascites Status: Chronic (28) Ascites due to chronic alcoholic hepatitis Status: Chronic (29) Decompensated hepatic cirrhosis Status: Chronic (30) Liver cirrhosis Status: Chronic (31) Pulmonary artery hypertension Status: Chronic - Assessment and Plan (Free Text) Plan: came with liver cirrhosis for ascites tapping IR x ascites tapping pt comes regularly for paracentesis protonix and other home meds f/u labs
[2017-05-18] MEDS ORDERED: Magnesium Hydroxide Susp 30 ml UD PO PRN (18:49)
[2017-05-18] MEDS ORDERED: TYLENOL 325 MG PO PRN (18:49)
[2017-05-18] MEDS ORDERED: MAG HYDROX PO PRN (18:49)
[2017-05-18] MEDS ORDERED: SIMETH PO PRN (18:49)
[2017-05-18] MEDS ORDERED: Promethazine DM 12.5 mg-30 mg/10 ml Syrup PO PRN (18:49)
[2017-05-18] MEDS ORDERED: ALUMINUM HYD PO PRN (18:49)
[2017-05-18] MEDS ORDERED: (Novolog) Insulin Aspart, Recombinant 100 u/ml 10 ml vial ONE (22:51)
[2017-05-18] MEDS: (Novolog) Insulin Aspart, Recombinant 100 u/ml 10 ml vial SC SCH (22:53)
[2017-05-18 23:14] VITALS: RESP 20
[2017-05-19] MEDS: (Novolog) Insulin Aspart, Recombinant 100 u/ml 10 ml vial SC SCH ×2 (08:22→12:30)
[2017-05-19] MEDS ORDERED: Aluminum Hydroxide/Magnesium Hydroxide Susp (30 mL) PO PRN (09:15)
[2017-05-19] MEDS ORDERED: Saccharomyces Boulardi 250 mg Cap PO SCH ×2 (10:00)
[2017-05-19] MEDS ORDERED: Multiple Vitamins Tab PO SCH (10:00)
--- NOTE | 2017-05-19 10:44 | PCM.SURG1 ---
Surgeon's Initial Post Op Note - Surgeon's Notes Surgeon: Naman Oconnor MD Spray Cementer: NONE Type of Anesthesia: Local Pre-Operative Diagnosis: Ascites, cirrhosis Operative Findings: US showed a moderate amount of ascites Post-Operative Diagnosis: Ascites, cirrhosis Operation Performed: US guided paracentesis Specimen/Specimens Removed: 2.5 liters of straw colored fluid Estimated Blood Loss: EBL {In ML}: 0 Blood Products Given: N/A Drains Used: No Drains Post-Op Condition: Fair Date of Surgery/Procedure: 05/19/17 Time of Surgery/Procedure: 10:35
--- NOTE | 2017-05-19 13:45 | US ---
Date of Procedure: 05/19/2017 PROCEDURE: Ultrasound-guided paracentesis, CPT 48934 Medications: 7 cc 1% Lidocaine HISTORY: Ascites, abdominal pain, cirrhosis TECHNIQUE: Following informed consent , the patient was placed supine on the stretcher and the site was marked. A limited abdominal ultrasound was performed that showed a large amount of intra-abdominal fluid. Procedural time out was called and the Pt's abdomen was marked and prepped and draped in the usual sterile fashion. Ultrasound-guided large volume paracentesis performed. A total of 2.5 liters of straw colored fluid was removed without complication. IMPRESSION: Ultrasound-guided large volume paracentesis.
--- NOTE | 2017-05-19 13:47 | CP.PCM.PN ---
Subjective - Date & Time of Evaluation Date of Evaluation: 05/19/17 Time of Evaluation: 13:46 - Subjective Subjective: PT HAD PARACENTESIS THIS MORNING BY IR AND TOLERATED WELL. PAIN FREE, NO SOB, NO ABD PAIN, NO CP AFTER PROCEDURE. PT SEEN AMBULATING IN ROOM WITHOUT DIFFICULTY. PER DR. Taylor CARTER PT IS CLEARED FOR D/C AND TO BE SENT BACK TO [facility]. CM MADE AWARE. DISCUSSED D/C PLAN WITH PRIMARY RN MICA. NO FURTHER ORDERS. Objective - Vital Signs/Intake and Output Vital Signs (last 24 hours): Temp Pulse Resp BP Pulse Ox 97.5 F L 87 20 107/67 99 05/19/17 10:56 05/19/17 10:56 05/19/17 10:56 05/19/17 10:57 05/19/17 10:56 Intake and Output: 05/19/17 05/19/17 06:59 18:59 Output Total 200 Balance -200 - Medications Medications: Current Medications Acetaminophen (Tylenol 325mg Tab) 650 mg PO Q4 PRN PRN Reason: mild pain / temp Al Hydrox/Mg Hydrox/Simethicone (Maalox 30 Ml) 30 ml PO Q4 PRN PRN Reason: Heartburn Diphenhydramine HCl (Benadryl) 25 mg PO Q8 [facility] Last Admin: 05/19/17 13:41 Dose: Not Given Famotidine (Pepcid) 20 mg PO HS [facility] Last Admin: 05/18/17 22:52 Dose: 20 mg Folic Acid (Folic Acid) 1 mg PO DAILY [facility] Last Admin: 05/19/17 10:57 Dose: 1 mg Furosemide (Lasix) 40 mg PO DAILY [facility] Last Admin: 05/19/17 10:57 Dose: 40 mg Insulin Aspart (Novolog) 0 unit SC ACHS JOSE PRN Reason: Protocol Last Admin: 05/19/17 12:30 Dose: Not Given Lactulose (Enulose) 30 gm PO DAILY [facility] Last Admin: 05/19/17 10:58 Dose: Not Given Levetiracetam (Keppra) 500 mg PO Q12H [facility] Last Admin: 05/19/17 09:34 Dose: 500 mg Magnesium Hydroxide (Milk Of Magnesia) 30 ml PO DAILY PRN PRN Reason: no BM after 3 days Multivitamins (Hexavitamin) 1 tab PO DAILY [facility] Last Admin: 05/19/17 10:57 Dose: 1 tab Promethazine HCl/Dextromethorphan (Phenergan Dm Syrup) 6.25 ml PO Q12 PRN PRN Reason: Cough Saccharomyces Boulardii (Florastor) 250 mg PO BID [facility] Last Admin: 05/19/17 10:57 Dose: 250 mg Spironolactone (Aldactone) 100 mg PO DAILY [facility] Last Admin: 05/19/17 10:58 Dose: 100 mg Thiamine HCl (Vitamin B1 Tab) 100 mg PO DAILY [facility] Last Admin: 05/19/17 10:57 Dose: 100 mg - Labs Labs: 05/18/17 10:55 05/18/17 10:55 PT 13.8 SECONDS (9.7-12.2) H 05/18/17 10:55 INR 1.2 05/18/17 10:55 APTT 37 SECONDS (21-34) H 05/18/17 10:55
[2017-05-19 16:45] VITALS: BP 109/71; PULSE 93; TEMP 97.7; O2SAT 97
--- NOTE | 2017-05-19 17:58 | CP.PCM.PN ---
Subjective - Date & Time of Evaluation Date of Evaluation: 05/19/17 Time of Evaluation: 16:40 - Subjective Subjective: clinically same Objective - Vital Signs/Intake and Output Vital Signs (last 24 hours): Temp Pulse Resp BP Pulse Ox 97.7 F 93 H 20 109/71 97 05/19/17 15:44 05/19/17 15:44 05/19/17 15:44 05/19/17 15:44 05/19/17 15:44 Intake and Output: 05/19/17 05/19/17 06:59 18:59 Intake Total 500 Output Total 650 Balance -150 - Labs Labs: 05/18/17 10:55 05/18/17 10:55 PT 13.8 SECONDS (9.7-12.2) H 05/18/17 10:55 INR 1.2 05/18/17 10:55 APTT 37 SECONDS (21-34) H 05/18/17 10:55 - Constitutional Appears: Well - Head Exam Head Exam: ATRAUMATIC, NORMAL INSPECTION, NORMOCEPHALIC - Eye Exam Eye Exam: EOMI, Normal appearance, PERRL Pupil Exam: NORMAL ACCOMODATION, PERRL - ENT Exam ENT Exam: Mucous Membranes Moist, Normal Exam - Neck Exam Neck Exam: Full ROM, Normal Inspection. absent: Lymphadenopathy - Respiratory Exam Respiratory Exam: Decreased Breath Sounds - Cardiovascular Exam Cardiovascular Exam: REGULAR RHYTHM, +S1, +S2 - GI/Abdominal Exam GI & Abdominal Exam: Soft, Diminished Bowel Sounds - Rectal Exam Rectal Exam: Deferred Assessment and Plan (1) Abdominal discomfort Status: Acute (2) Abdominal distension Status: Acute (3) Ascites Status: Chronic (4) Abdominal pain Status: Acute (5) Abdominal pain Status: Acute (6) Anemia Status: Acute (7) Ascites Status: Acute (8) Ascites due to alcoholic cirrhosis Status: Acute (9) Dehydration with hypernatremia Status: Acute (10) Dyspnea Status: Acute (11) Exophthalmos Status: Acute (12) Fluid overload Status: Acute (13) Hepatic encephalopathy Status: Acute (14) Incarcerated umbilical hernia Status: Acute (15) Left bundle branch block (LBBB) Status: Acute (16) Leg edema, left Status: Acute (17) Liver cirrhosis Status: Acute (18) Metabolic encephalopathy Status: Acute (19) Muscle atrophy Status: Acute (20) Portal hypertension Status: Acute (21) Prophylactic measure Status: Acute (22) SBO (small bowel obstruction) Status: Acute (23) Sepsis Status: Acute (24) Sepsis Status: Acute (25) Thrombocytopenia Status: Acute (26) Alcohol abuse Status: Chronic (27) Ascites Status: Chronic (28) Ascites due to chronic alcoholic hepatitis Status: Chronic (29) Decompensated hepatic cirrhosis Status: Chronic (30) Liver cirrhosis Status: Chronic (31) Pulmonary artery hypertension Status: Chronic
== END 2017-05-19 16:56 ==
LOC: C.ER 10:06 → C.9E 10:40 → C.6T 23:00
PROVIDERS: ADMIT Internal Medicine Nephrology; ATTEND Internal Medicine Nephrology
DX: K70.31 Alcoholic cirrhosis of liver with ascites (principal); Z87.891 Personal history of nicotine dependence; I10 Essential (primary) hypertension; F10.10 Alcohol abuse, uncomplicated
CPT/HCPCS: 49083; 71045; 80053; 81001; 82948; 85025; 85610; 85730; 86850; 86900; 96372; 99285; G0378

== ENCOUNTER 2017-06-15 11:44 | Day surgery (SDC) | payer OTHER ==
--- NOTE | 2017-06-15 13:54 | PCM.SURG1 ---
Surgeon's Initial Post Op Note - Surgeon's Notes Surgeon: Naman Oconnor MD [facility] Director: NONE Type of Anesthesia: Local Pre-Operative Diagnosis: Ascites Operative Findings: US showed a small amount of ascites Post-Operative Diagnosis: Ascites Operation Performed: US guided paracentesis Specimen/Specimens Removed: 1.5 liters straw colored fluid Estimated Blood Loss: EBL {In ML}: 0 Blood Products Given: N/A Drains Used: No Drains Post-Op Condition: Fair Date of Surgery/Procedure: 06/15/17 Time of Surgery/Procedure: 13:50
--- NOTE | 2017-06-15 13:57 | CP.SDSHP ---
Same Day Surgery H & P - History Proposed Procedure: Ascites- US guided paracentesis Pre-Op Diagnosis: Ascites - Allergies Allergies: Allergies No Known Allergies Allergy (Verified 05/18/17 10:41) - Physical Exam Mental Status: Alert & Oriented x3 Neuro: WNL Lungs: WNL GI: WNL - Impression Impression: US showed a small amount of ascites. Plan US guided paracentesis. Pt. Evaluated Today:Candidate for Anesthesia & Procedure: No - Date & Time Date: 06/15/17 Time: 13:30 Short Stay Discharge - Short Stay Discharge Admitting Diagnosis/Reason for Visit: LIVER CIRROSIS Disposition: HOME/ ROUTINE
--- NOTE | 2017-06-16 12:43 | US ---
Date of Procedure: 06/15/2017 PROCEDURE: Ultrasound-guided paracentesis, CPT 51490 Medications: 7 cc 1% Lidocaine HISTORY: Ascites, abdominal pain, cirrhosis TECHNIQUE: Following informed consent , the patient was placed supine on the stretcher and the site was marked. A limited abdominal ultrasound was performed that showed a small amount of intra-abdominal fluid. Procedural time out was called and the Pt's abdomen was marked and prepped and draped in the usual sterile fashion. Ultrasound-guided large volume paracentesis performed. A total of 1.5 liters of straw colored fluid was removed without complication. IMPRESSION: Ultrasound-guided paracentesis.
== END 2017-06-15 16:15 | disposition home or self-care (01) ==
LOC: C.SPRAD 11:44
PROVIDERS: ATTEND Radiology Vascular & Interventional Radiology
DX: R18.8 Other ascites (principal); K74.60 Unspecified cirrhosis of liver

== ENCOUNTER → 2017-07-27 | Day surgery (SDC) | payer OTHER ==
[2017-07-27 10:24] VITALS: BMI 24.3
[2017-07-27 10:57] LABS: BASO % 0.7 % (0.0-2.0); EOS # 0.2 K/uL (0.0-0.7); EOS % 3.8 % (0.0-4.0); HEMOGLOBIN 13.9 g/dL (12.0-18.0); LYMPH # 1.5 K/uL (1.0-4.3); MEAN CELL VOLUME 97.2 fL (80.0-94.0); MEAN CORPUSCULAR HEMOGLOBIN 33.5 pg (27.0-31.0); MEAN CORPUSCULAR HGB CONC 34.4 g/dL (33.0-37.0); MEAN PLATELET VOLUME 7.1 fL (7.2-11.7); MONO # 0.5 K/uL (0.0-0.8); MONO % 9.1 % (0.0-10.0); NEUT % 58.4 % (50.0-75.0); NRBC % 0.1 % (0.0-2.0); RBC 4.14 Mil/uL (4.40-5.90); RED CELL DISTRIBUTION WIDTH 13.6 % (11.5-14.5); WHITE BLOOD COUNT 5.2 K/uL (4.8-10.8)
[2017-07-27 11:03] LABS: INR 1.3; PROTHROMBIN TIME 13.8 SECONDS (9.7-12.2)
[2017-07-27 11:08] LABS: BLOOD UREA NITROGEN 20 mg/dL (9-20); CALCIUM 9.8 mg/dl (8.6-10.4); GFR AFRICAN-AMERICAN > 60; GFR NON-AFRICAN AMERICAN > 60
--- NOTE | 2017-07-27 13:20 | CP.SDSHP ---
Same Day Surgery H & P - History Proposed Procedure: Paracentesis Pre-Op Diagnosis: Ascites - Allergies Allergies: Allergies No Known Allergies Allergy (Verified 05/18/17 10:41) - Physical Exam Mental Status: Alert & Oriented x3 Neuro: WNL Heart: WNL Lungs: WNL GI: WNL - {Optional Preform as Required} Abdomen: WNL - Impression Impression: US showed no signficant ascites. No paracentesis is performed. Pt. Evaluated Today:Candidate for Anesthesia & Procedure: No Short Stay Discharge - Short Stay Discharge Admitting Diagnosis/Reason for Visit: liver cirrhosis Disposition: HOME/ ROUTINE
--- NOTE | 2017-07-27 18:48 | US ---
Limited abdominal ultrasound History: Ascites. Comparison: 06/15/2017 Technique: Limited real-time sonography was performed through the abdomen. Findings: Limited sonography for evaluation of ascites. Ascites localization for paracentesis performed by Dr. Naman Oconnor. Impression: Limited sonography for evaluation of ascites. Ascites localization for paracentesis performed by Dr. Naman Oconnor.
== END | disposition home or self-care (01) ==
LOC: C.SPRAD 10:11
PROVIDERS: ATTEND Radiology Vascular & Interventional Radiology
DX: R18.8 Other ascites (principal); K74.60 Unspecified cirrhosis of liver; Z53.09 Procedure and treatment not carried out because of other contraindication

== ENCOUNTER 2017-09-29 11:03 | Observation (INO) | payer MEDICARE, OTHER ==
[2017-09-29 11:05] VITALS: BMI 20.9
[2017-09-29 11:48] LABS: EOS # 0.2 K/uL (0.0-0.7); HEMOGLOBIN 12.3 g/dL (12.0-18.0); LYMPH # 1.1 K/uL (1.0-4.3); MONO # 0.7 K/uL (0.0-0.8)
[2017-09-29 11:50] LABS: BASO % 0.9 % (0.0-2.0); EOS % 4.2 % (0.0-4.0); LYMPH % 19.7 % (20.0-40.0); MEAN CELL VOLUME 96.9 fL (80.0-94.0); MEAN CORPUSCULAR HGB CONC 35.1 g/dL (33.0-37.0); MEAN PLATELET VOLUME 8.1 fL (7.2-11.7); MONO % 12.8 % (0.0-10.0); NEUT # 3.4 K/uL (1.8-7.0); NEUT % 62.4 % (50.0-75.0); RBC 3.62 Mil/uL (4.40-5.90); RED CELL DISTRIBUTION WIDTH 14.3 % (11.5-14.5); WHITE BLOOD COUNT 5.4 K/uL (4.8-10.8)
[2017-09-29 12:14] LABS: INR 1.3; PROTHROMBIN TIME 14.5 SECONDS (9.7-12.2)
[2017-09-29 12:20] LABS: URINE BILIRUBIN NEGATIVE (NEGATIVE); URINE BLOOD NEGATIVE (NEGATIVE); URINE CLARITY Clear (Clear); URINE COLOR Yellow (YELLOW); URINE GLUCOSE (UA) NORMAL (Normal); URINE LEUKOCYTE ESTERASE NEG Leu/uL (Negative); URINE PROTEIN NEGATIVE (NEGATIVE); URINE UROBILINOGEN NORMAL mg/dL (0.2-1.0)
--- NOTE | 2017-09-29 12:42 | C.PDOC ---
History Of Present Illness 67-year-old male, PMHx includes ESRD, presents to the emergency department with complaints of abdominal distention. Patient denies any fever, chills, chest pain , or shortness of breath. No other complaints at this time. Time Seen by Provider: 09/29/17 11:25 Chief Complaint (Nursing): Abdominal Pain History Per: Patient History/Exam Limitations: no limitations Current Symptoms Are (Timing): Still Present Severity: Moderate Past Medical History Reviewed: Historical Data, Nursing Documentation, Vital Signs Vital Signs: Last Vital Signs Temp 98.3 F 09/29/17 11:09 Pulse 89 09/29/17 13:44 Resp 16 09/29/17 13:44 BP 139/79 09/29/17 13:44 Pulse Ox 96 09/29/17 13:49 - Medical History PMH: Arthritis, HTN, Seizures Surgical History: Endoscopy - [facility] Procedures DRAINAGE OF PERITONEAL CAVITY, PERCUTANEOUS APPROACH (01/19/17) INSERTION OF INFUSION DEV INTO SUP VENA CAVA, PERC APPROACH (09/09/16) INSPECTION OF ABDOMINAL WALL, PERCUTANEOUS APPROACH (05/19/16) INTRODUCE LOCAL ANESTH IN PERIPH NRV, PLEXI, PERC (01/19/17) INTRODUCTION OF NUTRITIONAL INTO PERIPH VEIN, PERC APPROACH (05/19/16) SUPPLEMENT ABDOMINAL WALL WITH SYNTH SUB, PERC ENDO APPROACH (01/19/17) ULTRASONOGRAPHY OF ABDOMEN (11/12/16) ULTRASONOGRAPHY OF SUPERIOR VENA CAVA, GUIDANCE (09/09/16) Family History: States: No Known Family Hx - Social History Hx Alcohol Use: Yes Hx Substance Use: No - Immunization History Hx Tetanus Toxoid Vaccination: No Hx Influenza Vaccination: Yes (12/26/2016) Hx Pneumococcal Vaccination: No Review Of Systems Constitutional: Negative for: Fever, Chills Cardiovascular: Negative for: Chest Pain, Palpitations Respiratory: Negative for: Cough, Shortness of Breath Gastrointestinal: Positive for: Other (abdominal distention). Negative for: Nausea, Vomiting, Hematemesis Genitourinary: Negative for: Dysuria Musculoskeletal: Negative for: Back Pain Skin: Negative for: Rash Physical Exam - Physical Exam Appears: Non-toxic, No Acute Distress Skin: Normal Color, Warm, Dry, No Rash Head: Atraumatic, Normacephalic Eye(s): bilateral: Normal Inspection, PERRL, EOMI Nose: Normal Oral Mucosa: Moist Lips: Normal Appearing Neck: Normal ROM Chest: Symmetrical Cardiovascular: Rhythm Regular, No Murmur Respiratory: Normal Breath Sounds, No Accessory Muscle Use Gastrointestinal/Abdominal: Ascites ((+)fluid wave) Extremity: Normal ROM, No Deformity, No Swelling Neurological/Psych: Oriented x3, Normal Speech ED Course And Treatment - Laboratory Results Result Diagrams: 09/29/17 11:45 09/29/17 12:35 ECG: Interpreted By Me, Viewed By Me ECG Rhythm: Sinus Rhythm ECG Interpretation: No Acute Changes Interpretation Of ECG: Left bundle branch block. No ST/T wave changes. Rate From EC O2 Sat by Pulse Oximetry: 96 (RA) Pulse Ox Interpretation: Normal Disposition Discussed With Dr.: Zoë Ohara Doctor Will See Patient In The: Hospital Counseled Patient/Family Regarding: Studies Performed, Diagnosis - Disposition Disposition: HOSPITALIZED Disposition Time: 12:41 Condition: FAIR - Clinical Impression Clinical Impression: Ascites - Scribe Statement The provider has reviewed the documentation as recorded by the Scribe (Tania Clarke) All medical record entries made by the Scribe were at my direction and personally dictated by me. I have reviewed the chart and agree that the record accurately reflects my personal performance of the history, physical exam, medical decision making, and the department course for this patient. I have also personally directed, reviewed, and agree with the discharge instructions and disposition.
[2017-09-29 12:55] LABS: ALB/GLOB RATIO 0.9 (1.0-2.1); ALBUMIN 3.4 g/dL (3.5-5.0); ALT/SGPT 24 U/L (21-72); AST/SGOT 37 U/L (17-59); BLOOD UREA NITROGEN 12 mg/dL (9-20); CALCIUM 8.8 mg/dl (8.6-10.4); GFR AFRICAN-AMERICAN > 60; GFR NON-AFRICAN AMERICAN > 60; LIPASE 104 U/L (23-300)
--- NOTE | 2017-09-29 12:56 | RAD ---
Date of service: 09/29/2017 PROCEDURE: CHEST RADIOGRAPH, 1 VIEW HISTORY: abd pain COMPARISON: Chest radiograph dated 05/18/2017 FINDINGS: LUNGS: Clear. PLEURA: No pneumothorax or pleural fluid seen. CARDIOVASCULAR: Normal. OSSEOUS STRUCTURES: Unchanged. VISUALIZED UPPER ABDOMEN: Normal. OTHER FINDINGS: None. IMPRESSION: No active disease.
[2017-09-29 15:58] VITALS: RESP 20
[2017-09-29] MEDS ORDERED: Magnesium Hydroxide Susp 30 ml UD PO PRN (16:20)
[2017-09-29] MEDS ORDERED: Albuterol-Ipratrop 3 mg / 0.5 (3 ml) UD INH PRN (16:20)
--- NOTE | 2017-09-29 16:20 | CP.PCM.HP ---
Present on Admission - Present on Admission Any Indicators Present on Admission: No Past Patient History - Infectious Disease Hx of Infectious Diseases: None - Past Medical History & Family History Past Medical History?: Yes - Past Social History Smoking Status: Light Smoker < 10 Cigarettes Daily - CARDIAC Hx Hypertension: Yes - PULMONARY Hx Respiratory Disorders: Yes Other/Comment: as per halfway pulmonary hypertension - NEUROLOGICAL Hx Seizures: Yes - HEENT Hx HEENT Problems: No - RENAL Hx Chronic Kidney Disease: No - ENDOCRINE/METABOLIC Hx Endocrine Disorders: Yes Hx Diabetes Mellitus Type 2: Yes - HEMATOLOGICAL/ONCOLOGICAL Hx Blood Disorders: Yes Hx Cirrhosis: Yes - INTEGUMENTARY Hx Dermatological Problems: No - MUSCULOSKELETAL/RHEUMATOLOGICAL Hx Arthritis: Yes - GASTROINTESTINAL Hx Gastrointestinal Disorders: Yes Hx Gastroesophageal Reflux: Yes Hx Liver Failure: Yes - GENITOURINARY/GYNECOLOGICAL Hx Genitourinary Disorders: No - PSYCHIATRIC Hx Substance Use: No - SURGICAL HISTORY Hx Surgeries: Yes Hx Herniorrhaphy: Yes Other/Comment: multiple percutaneous paracenteses - ANESTHESIA Hx Anesthesia: Yes Hx Anesthesia Reactions: No Hx Malignant Hyperthermia: No Meds Allergies/Adverse Reactions: Allergies Allergy/AdvReac Type Severity Reaction Status Date / Time No Known Allergies Allergy Verified 09/29/17 11:13 Results - Vital Signs Recent Vital Signs: Last Vital Signs Temp 98 F 09/29/17 15:57 Pulse 85 09/29/17 15:57 Resp 20 09/29/17 15:57 BP 112/79 09/29/17 15:57 Pulse Ox 98 09/29/17 15:57 - Labs Result Diagrams: 09/29/17 11:45 09/29/17 12:35 Labs: Laboratory Results - last 24 hr 09/29/17 09/29/17 09/29/17 11:45 11:52 12:11 WBC 5.4 RBC 3.62 L Hgb 12.3 Hct 35.1 MCV 96.9 H MCH 34.0 H MCHC 35.1 RDW 14.3 Plt Count 150 MPV 8.1 Neut % (Auto) 62.4 Lymph % (Auto) 19.7 L [place] % (Auto) 12.8 H Eos % (Auto) 4.2 H Baso % (Auto) 0.9 Neut # (Auto) 3.4 Lymph # (Auto) 1.1 [place] # (Auto) 0.7 Eos # (Auto) 0.2 Baso # (Auto) 0.0 PT 14.5 H INR 1.3 APTT 37 H Sodium Potassium Chloride Carbon Dioxide Anion Gap BUN Creatinine Est GFR ( Amer) Est GFR (Non-Af Amer) Random Glucose Calcium Total Bilirubin AST ALT Alkaline Phosphatase Ammonia Total Protein Albumin Globulin Albumin/Globulin Ratio Lipase Urine Color Yellow Urine Clarity Clear Urine pH 5.0 Ur Specific [place] 1.018 Urine Protein Negative Urine Glucose (UA) Normal Urine Ketones Negative Urine Blood Negative Urine Nitrate Negative Urine Bilirubin Negative Urine Urobilinogen Normal Ur Leukocyte Esterase Neg Urine WBC (Auto) < 1 09/29/17 09/29/17 12:35 12:35 WBC RBC Hgb Hct MCV MCH MCHC RDW Plt Count MPV Neut % (Auto) Lymph % (Auto) [place] % (Auto) Eos % (Auto) Baso % (Auto) Neut # (Auto) Lymph # (Auto) [place] # (Auto) Eos # (Auto) Baso # (Auto) PT INR APTT Sodium 144 Potassium 3.6 Chloride 109 H Carbon Dioxide 25 Anion Gap 14 BUN 12 Creatinine 0.8 Est GFR ( Amer) > 60 Est GFR (Non-Af Amer) > 60 Random Glucose 66 L Calcium 8.8 Total Bilirubin 0.8 AST 37 ALT 24 Alkaline Phosphatase 81 Ammonia 10 D Total Protein 7.2 Albumin 3.4 L Globulin 3.8 Albumin/Globulin Ratio 0.9 L Lipase 104 Urine Color Urine Clarity Urine pH Ur Specific [place] Urine Protein Urine Glucose (UA) Urine Ketones Urine Blood Urine Nitrate Urine Bilirubin Urine Urobilinogen Ur Leukocyte Esterase Urine WBC (Auto) Assessment & Plan (1) Ascites Status: Chronic (2) Abdominal discomfort Status: Acute (3) Abdominal distension Status: Acute (4) Abdominal pain Status: Acute (5) Abdominal pain Status: Acute (6) Anemia Status: Acute (7) Ascites Status: Acute (8) Ascites due to alcoholic cirrhosis Status: Acute (9) Dehydration with hypernatremia Status: Acute (10) Dyspnea Status: Acute (11) Exophthalmos Status: Acute (12) Fluid overload Status: Acute (13) Hepatic encephalopathy Status: Acute (14) Incarcerated umbilical hernia Status: Acute (15) Left bundle branch block (LBBB) Status: Acute (16) Leg edema, left Status: Acute (17) Liver cirrhosis Status: Acute (18) Metabolic encephalopathy Status: Acute (19) Muscle atrophy Status: Acute (20) Portal hypertension Status: Acute (21) Prophylactic measure Status: Acute (22) SBO (small bowel obstruction) Status: Acute (23) Sepsis Status: Acute (24) Sepsis Status: Acute (25) Thrombocytopenia Status: Acute (26) Alcohol abuse Status: Chronic (27) Ascites Status: Chronic (28) Ascites due to chronic alcoholic hepatitis Status: Chronic (29) Decompensated hepatic cirrhosis Status: Chronic (30) Liver cirrhosis Status: Chronic (31) Pulmonary artery hypertension Status: Chronic - Assessment and Plan (Free Text) Plan: Ascites stepping GI consult Home medication reconciliation Protonix Venodyne boots As ordered CBC
--- NOTE | 2017-09-30 09:37 | PCM.SURG1 ---
Surgeon's Initial Post Op Note - Surgeon's Notes Surgeon: Naman Oconnor MD Hop Weigher: NONE Type of Anesthesia: Local Pre-Operative Diagnosis: Ascites, abdominal pain Operative Findings: US showed a small amount of ascites. Post-Operative Diagnosis: Ascites, abdominal pain Operation Performed: US guided paracentesis Specimen/Specimens Removed: 1 liter of straw colored fluid Estimated Blood Loss: EBL {In ML}: 0 Blood Products Given: N/A Drains Used: No Drains Post-Op Condition: Good Date of Surgery/Procedure: 09/30/17 Time of Surgery/Procedure: 09:30
[2017-09-30] MEDS ORDERED: Pneumococcal 23-Valent Vaccine IM ONE (10:00)
[2017-09-30] MEDS ORDERED: Multiple Vitamins Tab PO SCH (10:00)
--- NOTE | 2017-09-30 10:40 | US ---
Date of Procedure: 09/30/2017 PROCEDURE: Ultrasound-guided paracentesis, CPT 55047 Medications: 7 cc 1% Lidocaine HISTORY: Ascites, abdominal pain TECHNIQUE: Following informed consent , the patient was placed supine on the stretcher and the site was marked. A limited abdominal ultrasound was performed that showed a small amount of intra-abdominal fluid. Procedural time out was called and the Pt's abdomen was marked and prepped and draped in the usual sterile fashion. Ultrasound-guided large volume paracentesis performed. A total of 1 liter of straw colored fluid was removed without complication. IMPRESSION: Ultrasound showed a very small amount of intra-abdominal fluid. Ultrasound-guided paracentesis performed with removal of 1 liter of straw colored fluid. Patient's abdominal discomfort is not likely related to small amount of ascites.
--- NOTE | 2017-09-30 15:52 | CP.PCM.CON ---
<Zoran Noel - Last Filed: 09/30/17 15:55> History of Present Illness - History of Present Illness History of Present Illness: GI Fellow PGY4, Consult note. Freddy Wynn is a 67yo male with history of alcoholic cirrhosis presenting with tense ascites and abdominal discomfort. He has had multiple paracentesis in the past and was having similar symptoms as before. No complaints of fever, weight loss, blood in his stool, n/v. He had paracentesis this AM with 1L removed. Today patient is feeling well, tolerating diet, passing gas and admits normal BM. He is normal mentation and requesting to go home. PMHx - See above PSHx - Incarcerated umbilical hernia repair, multiple paracentesis. Colonoscopy 12/07 - cecal ulcer, and several subcentimeter serrated adenomas. EGD 12/07 - portal gastropathy, gastritis, NO varices. FMHx - Reports his niece had colon cancer but cannot give me an age. SocHx - Smoke 3 cigarettes per day. Denies current etoh use, but previously a heave drinker. 12pt ROS completed and negative except for as above. Past Patient History - Infectious Disease Hx of Infectious Diseases: None - Past Medical History & Family History Past Medical History?: Yes - Past Social History Smoking Status: Light Smoker < 10 Cigarettes Daily - CARDIAC Hx Hypertension: Yes - PULMONARY Hx Respiratory Disorders: Yes Other/Comment: as per correction pulmonary hypertension - NEUROLOGICAL Hx Seizures: Yes - HEENT Hx HEENT Problems: No - RENAL Hx Chronic Kidney Disease: No - ENDOCRINE/METABOLIC Hx Endocrine Disorders: Yes Hx Diabetes Mellitus Type 2: Yes - HEMATOLOGICAL/ONCOLOGICAL Hx Blood Disorders: Yes Hx Cirrhosis: Yes - INTEGUMENTARY Hx Dermatological Problems: No - MUSCULOSKELETAL/RHEUMATOLOGICAL Hx Arthritis: Yes - GASTROINTESTINAL Hx Gastrointestinal Disorders: Yes Hx Gastroesophageal Reflux: Yes Hx Liver Failure: Yes - GENITOURINARY/GYNECOLOGICAL Hx Genitourinary Disorders: No - PSYCHIATRIC Hx Substance Use: No - SURGICAL HISTORY Hx Surgeries: Yes Hx Herniorrhaphy: Yes Other/Comment: multiple percutaneous paracenteses - ANESTHESIA Hx Anesthesia: Yes Hx Anesthesia Reactions: No Hx Malignant Hyperthermia: No Meds Allergies/Adverse Reactions: Allergies Allergy/AdvReac Type Severity Reaction Status Date / Time No Known Allergies Allergy Verified 09/29/17 11:13 - Medications Medications: Current Medications Acetaminophen (Tylenol 325mg Tab) 650 mg PO Q4 PRN PRN Reason: mild pain / temp Albuterol/Ipratropium (Duoneb 3 Mg/0.5 Mg (3 Ml) Ud) 3 ml INH Q6 PRN PRN Reason: Shortness of Breath Famotidine (Pepcid) 20 mg PO HS [facility] Last Admin: 09/29/17 23:10 Dose: 20 mg Folic Acid (Folic Acid) 1 mg PO DAILY [facility] Last Admin: 09/30/17 10:00 Dose: 1 mg Lactulose (Enulose) 30 gm PO DAILY [facility] Last Admin: 09/30/17 10:00 Dose: 30 gm Levetiracetam (Keppra) 500 mg PO Q12H [facility] Last Admin: 09/30/17 05:52 Dose: 500 mg Magnesium Hydroxide (Milk Of Magnesia) 30 ml PO DAILY PRN PRN Reason: no BM after 3 days Multivitamins (Hexavitamin) 1 tab PO DAILY [facility] Last Admin: 09/30/17 10:00 Dose: 1 tab Thiamine HCl (Vitamin B1 Tab) 100 mg PO DAILY [facility] Physical Exam - Constitutional Appears: Well, Non-toxic, No Acute Distress, Chronically Ill - Head Exam Head Exam: ATRAUMATIC, NORMAL INSPECTION, NORMOCEPHALIC - Eye Exam Eye Exam: EOMI, Normal appearance, PERRL - ENT Exam ENT Exam: Mucous Membranes Moist, Normal Exam - Respiratory Exam Respiratory Exam: Clear to Auscultation Bilateral, NORMAL BREATHING PATTERN. absent: Wheezes - Cardiovascular Exam Cardiovascular Exam: REGULAR RHYTHM, +S1, +S2 - GI/Abdominal Exam GI & Abdominal Exam: Distended, Normal Bowel Sounds, Organomegaly, Soft. absent : Tenderness - Rectal Exam Rectal Exam: Deferred - Extremities Exam Extremities exam: Positive for: normal inspection - Neurological Exam Neurological exam: Alert, CN II-XII Intact, Oriented x3 - Psychiatric Exam Psychiatric exam: Normal Affect, Normal Mood - Skin Skin Exam: Dry, Intact, Normal Color Results - Vital Signs Recent Vital Signs: Last Vital Signs Temp 97.9 F 09/30/17 07:00 Pulse 79 09/30/17 07:00 Resp 20 09/30/17 07:00 BP 116/78 09/30/17 07:00 Pulse Ox 95 09/30/17 07:00 - Labs Result Diagrams: 09/29/17 11:45 09/29/17 12:35 Assessment & Plan - Assessment and Plan (Free Text) Assessment: 67M with history of alcoholic cirrhosis presenting with tense ascites s/p paracentesis #Tense ascites #Decompensated alcoholic cirrhosis #Non-compliant with meds #Sessile Serrated adenomas #Portal gastropathy #Gastritis Plan: -Continue supportive care -MELD 9, DF very low -s/p paracentesis and only 1L fluid removed -Regular diet -Obtain cell count to r/o SBP for ascites fluid -If SBP r/o patient can be discharge from GI perspective. -Recommend f/u with [facility] for outpt GI for cirrhosis and ?autoimmune hepatitis and possible liver biopsy. -Colonoscopy due 11/2019. -At this point, we will sign-off. Please reconsult for any further GI related conditions. - Date & Time Date: 09/30/17 Time: 16:05 <Gamaliel Frankel - Last Filed: 09/30/17 17:16> Results - Vital Signs Recent Vital Signs: Last Vital Signs Temp 97.8 F 09/30/17 16:00 Pulse 84 09/30/17 16:00 Resp 20 09/30/17 16:00 BP 128/77 09/30/17 16:00 Pulse Ox 96 09/30/17 16:00 - Labs Result Diagrams: 09/29/17 11:45 09/29/17 12:35 Attending/Attestation - Attestation I have personally seen and examined this patient.: Yes I have fully participated in the care of the patient.: Yes I have reviewed all pertinent clinical information: Yes Notes (Text): 09/30/17 17:11 I have seen and examined patient with GI fellow. Agree with above documentation with the following additions. In brief, this is a 67 year old male with history of ETOH decompensated cirrhosis who presents to hospital with complaint of progressive abdominal pain and increased abdominal girth over the past one week. He describes umbilical pain, 4/10 intensity associated with nausea but denies vomiting, diarrhea, fever/chills, weight loss, rectal bleeding , or change in bowel habits. He does not regularly follow up with GI physician as outpatient. He underwent paracentesis this morning with 1 L fluid removed and subsequent improvement in abdominal pain. Review of vitals from today are normal. ETOH decompensated cirrhosis, admission MELD 9 Abdominal pain, ascites - Low sodium diet as tolerated - Follow up ascitic fluid results - ETOH abstinence, patient has been sober for past 5 months, would benefit from additional outpatient evaluation at transplant facility - Continue with lactulose for HE prevention - Suggest additional outpatient follow up including consideration of liver biopsy given positive autoimmune markers (IGG, ASMA) - No further planned GI intervention, will sign off case, please reconsult as necessary, thank you.
[2017-09-30 17:05] VITALS: BP 128/77; PULSE 84; TEMP 97.8; O2SAT 96
--- NOTE | 2017-09-30 17:10 | CP.PCM.PN ---
Subjective - Date & Time of Evaluation Date of Evaluation: 09/30/17 Time of Evaluation: 11:00 - Subjective Subjective: awake, alert, ambulatory, no acute distress. Objective - Vital Signs/Intake and Output Vital Signs (last 24 hours): Temp Pulse Resp BP Pulse Ox 97.9 F 79 20 116/78 95 09/30/17 07:00 09/30/17 07:00 09/30/17 07:00 09/30/17 07:00 09/30/17 07:00 Intake and Output: 09/30/17 09/30/17 06:59 18:59 Intake Total 600 Output Total 400 Balance 200 - Medications Medications: Current Medications Acetaminophen (Tylenol 325mg Tab) 650 mg PO Q4 PRN PRN Reason: mild pain / temp Albuterol/Ipratropium (Duoneb 3 Mg/0.5 Mg (3 Ml) Ud) 3 ml INH Q6 PRN PRN Reason: Shortness of Breath Famotidine (Pepcid) 20 mg PO HS [facility] Last Admin: 09/29/17 23:10 Dose: 20 mg Folic Acid (Folic Acid) 1 mg PO DAILY [facility] Last Admin: 09/30/17 10:00 Dose: 1 mg Lactulose (Enulose) 30 gm PO DAILY [facility] Last Admin: 09/30/17 10:00 Dose: 30 gm Levetiracetam (Keppra) 500 mg PO Q12H [facility] Last Admin: 09/30/17 16:22 Dose: 500 mg Magnesium Hydroxide (Milk Of Magnesia) 30 ml PO DAILY PRN PRN Reason: no BM after 3 days Multivitamins (Hexavitamin) 1 tab PO DAILY [facility] Last Admin: 09/30/17 10:00 Dose: 1 tab Thiamine HCl (Vitamin B1 Tab) 100 mg PO DAILY [facility] - Labs Labs: 09/29/17 11:45 09/29/17 12:35 PT 14.5 SECONDS (9.7-12.2) H 09/29/17 11:52 INR 1.3 09/29/17 11:52 APTT 37 SECONDS (21-34) H 09/29/17 11:52 Assessment and Plan - Assessment and Plan (Free Text) Assessment: 67 year old male admitted with ascitis, alcoholic cirrhosis, s/p paracentesis with 1200ml output. Alert and orientedx3, denies pain or dizziness. Discussed with DR Taylor Ohara, plan to discharge home today. Advised to follow up with PMD in 1 week.
[2017-09-30 17:43] LABS: BODY FLUID TYPE PERITONEAL
[2017-09-30 19:02] LABS: BF GROSS APPEARANCE SL CLOUDY (CLEAR); BODY FLUID MONO/MACROPHAGE 6 % (0-0)
--- NOTE | 2017-10-01 12:24 | CARD ---
APPROVED REPORT Date of service: 09/29/2017 EKG Measurement Heart [id number] <Conclusion> Normal sinus rhythm Left bundle branch block Abnormal ECG
== END 2017-09-30 17:06 ==
LOC: C.ER 11:03 → C.9E 12:40 → C.5S 13:40 → UNDODISOB 09-30 15:10
PROVIDERS: ADMIT Internal Medicine Nephrology; ATTEND Internal Medicine Nephrology
DX: K70.31 Alcoholic cirrhosis of liver with ascites (principal); K76.6 Portal hypertension; N18.6 End stage renal disease; Z91.14 Patient's other noncompliance with medication regimen; I27.21 Secondary pulmonary arterial hypertension; I12.0 Hypertensive chronic kidney disease with stage 5 chronic kidney disease or end stage renal disease; E11.22 Type 2 diabetes mellitus with diabetic chronic kidney disease; F17.210 Nicotine dependence, cigarettes, uncomplicated; E87.0 Hyperosmolality and hypernatremia; E86.0 Dehydration
CPT/HCPCS: 49083; 71045; 80053; 81001; 82140; 83690; 85025; 85610; 85730; 87070; 89051; 99285; G0378

== ENCOUNTER 2017-12-23 14:26 | Observation (INO) | payer MEDICARE, OTHER ==
[2017-12-23 14:26] VITALS: BMI 20.9
--- NOTE | 2017-12-23 15:07 | C.PDOC ---
History Of Present Illness 67-year-old male, PMHx includes Ascites, presents to the emergency department for evaluation of abdominal distention. Patient has a Hx of multiple prior admissions for same complaint and his last paracentesis was on 09/30. Patient de nies fever, chills, nausea/vomiting. Time Seen by Provider: 12/23/17 14:55 Chief Complaint (Nursing): Abdominal Pain History Per: Patient History/Exam Limitations: no limitations Onset/Duration Of Symptoms: Days Current Symptoms Are (Timing): Still Present Severity: Moderate Past Medical History Reviewed: Historical Data, Nursing Documentation, Vital Signs Vital Signs: Last Vital Signs Temp 98.3 F 12/23/17 14:41 Pulse 95 H 12/23/17 14:41 Resp 20 12/23/17 14:41 BP 119/75 12/23/17 14:41 Pulse Ox 100 12/23/17 14:41 - Medical History PMH: Arthritis, HTN, Seizures Surgical History: Endoscopy - [facility] Procedures DRAINAGE OF PERITONEAL CAVITY, PERCUTANEOUS APPROACH (01/19/17) INSERTION OF INFUSION DEV INTO SUP VENA CAVA, PERC APPROACH (09/09/16) INSPECTION OF ABDOMINAL WALL, PERCUTANEOUS APPROACH (05/19/16) INTRODUCE LOCAL ANESTH IN PERIPH NRV, PLEXI, PERC (01/19/17) INTRODUCTION OF NUTRITIONAL INTO PERIPH VEIN, PERC APPROACH (05/19/16) SUPPLEMENT ABDOMINAL WALL WITH SYNTH SUB, PERC ENDO APPROACH (01/19/17) ULTRASONOGRAPHY OF ABDOMEN (11/12/16) ULTRASONOGRAPHY OF SUPERIOR VENA CAVA, GUIDANCE (09/09/16) Family History: States: No Known Family Hx - Social History Hx Alcohol Use: No Hx Substance Use: No - Immunization History Hx Tetanus Toxoid Vaccination: No Hx Influenza Vaccination: Yes (12/26/2016) Hx Pneumococcal Vaccination: No Review Of Systems Constitutional: Negative for: Fever, Chills Cardiovascular: Negative for: Chest Pain Gastrointestinal: Negative for: Nausea, Vomiting, Abdominal Pain Neurological: Negative for: Weakness, Numbness, Headache, Dizziness Physical Exam - Physical Exam Appears: Non-toxic, No Acute Distress Skin: Warm, Dry, No Rash Head: Atraumatic, Normacephalic Eye(s): bilateral: Normal Inspection Nose: Normal Oral Mucosa: Moist Lips: Normal Appearing Neck: Normal ROM Chest: Symmetrical Cardiovascular: Rhythm Regular, No Murmur Respiratory: Normal Breath Sounds, No Accessory Muscle Use Gastrointestinal/Abdominal: Soft, No Tenderness, No Guarding, No Rebound, Ascites Extremity: Normal ROM, No Deformity Neurological/Psych: Oriented x3, Normal Speech ED Course And Treatment - Laboratory Results Result Diagrams: 12/23/17 15:24 ECG: Interpreted By Me, Viewed By Me ECG Rhythm: Sinus Rhythm, L BBB ECG Interpretation: No Acute Changes Interpretation Of ECG: LAD Rate From EC O2 Sat by Pulse Oximetry: 100 Pulse Ox Interpretation: Normal (RA) Progress - Re-Evaluation Re-evaluation Note: 12/23/17 15:13 D/W Taylor CARTER WILL ADMIT - Data Reviewed Data Reviewed: Lab, Diagnostic imaging, EKG ( ), Old records Medical Decision Making Medical Decision Making: Plan: * EKG * Bloodwork * UA * Reassess and Disposition Disposition Counseled Patient/Family Regarding: Studies Performed, Diagnosis - Disposition Disposition: HOSPITALIZED Disposition Time: 15:13 Condition: STABLE Forms: [facility] ([place]ian) - POA Present On Arrival: None - Clinical Impression Clinical Impression: Abdominal bloating, Abdominal pain, Ascites - Scribe Statement The provider has reviewed the documentation as recorded by the Scribe (Tania Clarke) All medical record entries made by the Scribe were at my direction and personall y dictated by me. I have reviewed the chart and agree that the record accurately reflects my personal performance of the history, physical exam, medical decision making, and the department course for this patient. I have also personally directed, reviewed, and agree with the discharge instructions and disposition. Decision To Admit - Pt Status Changed To: Hospital Disposition Of: Observation - . Bed Request Type: Regular Admitting Physician: Zoë Carter Patient Diagnosis: Abdominal bloating, Abdominal pain, Ascites
[2017-12-23 15:30] LABS: BASO % 0.6 % (0.0-2.0); EOS # 0.2 K/uL (0.0-0.7); EOS % 3.5 % (0.0-4.0); HEMOGLOBIN 12.7 g/dL (12.0-18.0); LYMPH # 1.3 K/uL (1.0-4.3); LYMPH % 23.6 % (20.0-40.0); MEAN CELL VOLUME 96.4 fL (80.0-94.0); MEAN CORPUSCULAR HEMOGLOBIN 33.2 pg (27.0-31.0); MEAN CORPUSCULAR HGB CONC 34.4 g/dL (33.0-37.0); MEAN PLATELET VOLUME 7.2 fL (7.2-11.7); MONO # 0.6 K/uL (0.0-0.8); MONO % 11.6 % (0.0-10.0); NEUT # 3.2 K/uL (1.8-7.0); NEUT % 60.7 % (50.0-75.0); NRBC % 0.1 % (0.0-2.0); RBC 3.84 Mil/uL (4.40-5.90); RED CELL DISTRIBUTION WIDTH 14.1 % (11.5-14.5); WHITE BLOOD COUNT 5.3 K/uL (4.8-10.8)
--- NOTE | 2017-12-23 15:31 | RAD ---
Date of service: 12/23/2017 PROCEDURE: CHEST RADIOGRAPH, 1 VIEW HISTORY: Pre Op COMPARISON: 09/29/2017 FINDINGS: LUNGS: Clear. PLEURA: No pneumothorax or pleural fluid seen. CARDIOVASCULAR: Normal. OSSEOUS STRUCTURES: No significant abnormalities. VISUALIZED UPPER ABDOMEN: Normal. OTHER FINDINGS: None. IMPRESSION: No active disease.
[2017-12-23 15:37] LABS: INR 1.3; PROTHROMBIN TIME 13.7 SECONDS (9.7-12.2)
[2017-12-23 15:41] LABS: ALB/GLOB RATIO 0.9 (1.0-2.1); ALBUMIN 4.1 g/dL (3.5-5.0); ALT/SGPT 32 U/L (21-72); AST/SGOT 30 U/L (17-59); BLOOD UREA NITROGEN 22 mg/dL (9-20); CALCIUM 9.8 mg/dl (8.6-10.4); GFR NON-AFRICAN AMERICAN > 60
[2017-12-23 15:54] LABS: SQUAMOUS EPITHIAL < 1 /hpf (0-5); URINE BILIRUBIN NEGATIVE (NEGATIVE); URINE BLOOD NEGATIVE (NEGATIVE); URINE CLARITY Clear (Clear); URINE COLOR Yellow (YELLOW); URINE GLUCOSE (UA) NORMAL (Normal); URINE LEUKOCYTE ESTERASE NEG Leu/uL (Negative); URINE PROTEIN NEGATIVE (NEGATIVE)
[2017-12-23 17:11] VITALS: RESP 20
[2017-12-23] MEDS ORDERED: Albuterol-Ipratrop 3 mg / 0.5 (3 ml) UD IH PRN (17:33)
--- NOTE | 2017-12-23 21:03 | CP.PCM.HP ---
Past Patient History - Infectious Disease Hx of Infectious Diseases: None - Past Medical History & Family History Past Medical History?: Yes - Past Social History Smoking Status: 3 sticks/d - CARDIAC Hx Hypertension: Yes - PULMONARY Hx Respiratory Disorders: Yes Other/Comment: as per detention pulmonary hypertension - NEUROLOGICAL Hx Seizures: Yes - HEENT Hx HEENT Problems: No - RENAL Hx Chronic Kidney Disease: No - ENDOCRINE/METABOLIC Hx Endocrine Disorders: Yes Hx Diabetes Mellitus Type 2: Yes - HEMATOLOGICAL/ONCOLOGICAL Hx Blood Disorders: Yes Hx Cirrhosis: Yes - INTEGUMENTARY Hx Dermatological Problems: No - MUSCULOSKELETAL/RHEUMATOLOGICAL Hx Falls: No - GASTROINTESTINAL Hx Gastrointestinal Disorders: Yes Hx Gastroesophageal Reflux: Yes Hx Liver Failure: Yes - GENITOURINARY/GYNECOLOGICAL Hx Genitourinary Disorders: No - PSYCHIATRIC Hx Substance Use: No - SURGICAL HISTORY Hx Surgeries: Yes Hx Herniorrhaphy: Yes Other/Comment: multiple percutaneous paracenteses - ANESTHESIA Hx Anesthesia: Yes Hx Anesthesia Reactions: No Hx Malignant Hyperthermia: No Meds Allergies/Adverse Reactions: Allergies Allergy/AdvReac Type Severity Reaction Status Date / Time No Known Allergies Allergy Verified 12/23/17 14:46 Physical Exam - Constitutional Appears: Well - Head Exam Head Exam: ATRAUMATIC, NORMAL INSPECTION, NORMOCEPHALIC - Eye Exam Eye Exam: EOMI, Normal appearance, PERRL Pupil Exam: NORMAL ACCOMODATION, PERRL - ENT Exam ENT Exam: Mucous Membranes Moist, Normal Exam - Neck Exam Neck exam: Positive for: Normal Inspection - Respiratory Exam Respiratory Exam: Decreased Breath Sounds - Cardiovascular Exam Cardiovascular Exam: REGULAR RHYTHM, +S1, +S2 - GI/Abdominal Exam GI & Abdominal Exam: Diminished Bowel Sounds, Soft - Rectal Exam Rectal Exam: Deferred Results - Vital Signs Recent Vital Signs: Last Vital Signs Temp 98 F 12/23/17 17:10 Pulse 80 12/23/17 17:10 Resp 20 12/23/17 17:10 BP 116/72 12/23/17 17:10 Pulse Ox 99 12/23/17 17:10 - Labs Result Diagrams: 12/23/17 15:24 12/23/17 15:24 Labs: Laboratory Results - last 24 hr 12/23/17 12/23/17 12/23/17 15:24 15:24 15:24 WBC 5.3 RBC 3.84 L Hgb 12.7 Hct 37.0 MCV 96.4 H MCH 33.2 H MCHC 34.4 RDW 14.1 Plt Count 145 MPV 7.2 Neut % (Auto) 60.7 Lymph % (Auto) 23.6 [place] % (Auto) 11.6 H Eos % (Auto) 3.5 Baso % (Auto) 0.6 Neut # (Auto) 3.2 Lymph # (Auto) 1.3 [place] # (Auto) 0.6 Eos # (Auto) 0.2 Baso # (Auto) 0.0 PT 13.7 H INR 1.3 APTT 41 H Sodium 141 Potassium 4.4 Chloride 103 Carbon Dioxide 27 Anion Gap 15 BUN 22 H Creatinine 1.1 Est GFR ( Amer) > 60 Est GFR (Non-Af Amer) > 60 Random Glucose 108 Calcium 9.8 Total Bilirubin 0.6 AST 30 ALT 32 Alkaline Phosphatase 85 Total Protein 8.4 H Albumin 4.1 Globulin 4.4 H Albumin/Globulin Ratio 0.9 L Urine Color Urine Clarity Urine pH Ur Specific [place] Urine Protein Urine Glucose (UA) Urine Ketones Urine Blood Urine Nitrate Urine Bilirubin Urine Urobilinogen Ur Leukocyte Esterase Urine WBC (Auto) Urine RBC (Auto) Ur Squamous Epith Cells 12/23/17 15:46 WBC RBC Hgb Hct MCV MCH MCHC RDW Plt Count MPV Neut % (Auto) Lymph % (Auto) [place] % (Auto) Eos % (Auto) Baso % (Auto) Neut # (Auto) Lymph # (Auto) [place] # (Auto) Eos # (Auto) Baso # (Auto) PT INR APTT Sodium Potassium Chloride Carbon Dioxide Anion Gap BUN Creatinine Est GFR ( Amer) Est GFR (Non-Af Amer) Random Glucose Calcium Total Bilirubin AST ALT Alkaline Phosphatase Total Protein Albumin Globulin Albumin/Globulin Ratio Urine Color Yellow Urine Clarity Clear Urine pH 6.0 Ur Specific [place] 1.019 Urine Protein Negative Urine Glucose (UA) Normal Urine Ketones Negative Urine Blood Negative Urine Nitrate Negative Urine Bilirubin Negative Urine Urobilinogen 2.0 Ur Leukocyte Esterase Neg Urine WBC (Auto) 1 Urine RBC (Auto) < 1 Ur Squamous Epith Cells < 1
[2017-12-24 07:45] LABS: INR 1.4; PROTHROMBIN TIME 14.8 SECONDS (9.7-12.2)
[2017-12-24] MEDS ORDERED: Multiple Vitamins Tab PO SCH (10:00)
--- NOTE | 2017-12-24 16:12 | CP.PCM.PN ---
Subjective - Date & Time of Evaluation Date of Evaluation: 12/24/17 Time of Evaluation: 16:13 - Subjective Subjective: awake, alert, denies abdominal pain, NAD. Objective - Vital Signs/Intake and Output Vital Signs (last 24 hours): Temp Pulse Resp BP Pulse Ox 98.1 F 76 20 106/67 98 12/24/17 07:00 12/24/17 07:00 12/24/17 07:00 12/24/17 10:02 12/24/17 07:00 Intake and Output: 12/24/17 12/24/17 06:59 18:59 Intake Total 350 450 Balance 350 450 - Medications Medications: Current Medications Acetaminophen (Tylenol 325mg Tab) 650 mg PO Q4 PRN PRN Reason: mild pain Albuterol/Ipratropium (Duoneb 3 Mg/0.5 Mg (3 Ml) Ud) 3 ml IH Q6 PRN PRN Reason: Shortness of Breath Famotidine (Pepcid) 20 mg PO HS [facility] Last Admin: 12/23/17 21:44 Dose: 20 mg Folic Acid (Folic Acid) 1 mg PO DAILY [facility] Last Admin: 12/24/17 10:02 Dose: 1 mg Furosemide (Lasix) 40 mg PO DAILY [facility] Last Admin: 12/24/17 10:02 Dose: 40 mg Influenza Virus Vaccine (Fluzone Quad [id number]) 60 mcg IM .ONCE ONE Stop: 12/25/17 10:01 Lactulose (Enulose) 20 gm PO DAILY [facility] Last Admin: 12/24/17 10:09 Dose: 20 gm Levetiracetam (Keppra) 500 mg PO Q12 [facility] Last Admin: 12/24/17 10:02 Dose: 500 mg Lorazepam (Ativan) 1 mg PO HS PRN PRN Reason: Anxiety Multivitamins (Hexavitamin) 1 tab PO DAILY [facility] Last Admin: 12/24/17 10:06 Dose: 1 tab Pantoprazole Sodium (Protonix Inj) 40 mg IVP DAILY [facility] Last Admin: 12/24/17 10:06 Dose: 40 mg Pneumococcal Polyvalent Vaccine (Pneumovax 23 Vaccine) 0.5 ml IM .ONCE ONE Stop: 12/25/17 10:01 Thiamine HCl (Vitamin B1 Tab) 100 mg PO DAILY [facility] Last Admin: 12/24/17 10:02 Dose: 100 mg - Labs Labs: 12/23/17 15:24 12/23/17 15:24 PT 14.8 SECONDS (9.7-12.2) H 12/24/17 07:28 INR 1.4 12/24/17 07:28 APTT 41 SECONDS (21-34) H 12/23/17 15:24 Assessment and Plan - Assessment and Plan (Free Text) Assessment: Patient admitted with abdominal pain, ascitis, seen and examined. Alert and orientex3, denies any pain. Abdomen soft, non distended, no fluids to drain. Discussed with DR Taylor Ohara, plan to discharge back to [facility] today. Patient verbalized understanding.
[2017-12-24 16:39] VITALS: BP 128/84; PULSE 78; TEMP 97.9; O2SAT 97
[2017-12-24] MEDS ORDERED: Influenza Vaccine 60 MCG/0.5 ML SYR (3 yr & up) IM ONE (17:00)
--- NOTE | 2017-12-24 23:07 | CARD ---
APPROVED REPORT Date of service: 12/23/2017 EKG Measurement Heart [id number] <Conclusion> Normal sinus rhythm Left axis deviation Left bundle branch block Abnormal ECG
[2017-12-25] MEDS ORDERED: Pneumococcal 23-Valent Vaccine IM ONE (10:00)
--- NOTE | 2017-12-25 11:07 | US ---
Date of Procedure: 12/24/2017 PROCEDURE: Limited ultrasound of the abdomen for paracentesis HISTORY: Abdominal distention, pain TECHNIQUE: Sonographic evaluation of the abdomen is performed with a curvilinear probe. Limited ultrasound the abdomen is performed for purposes of paracentesis. Evaluation of the abdomen showed no significant ascites. IMPRESSION: Ultrasound showed no significant ascites.
== END 2017-12-24 17:16 ==
LOC: C.ER 14:26 → C.9E 15:13 → C.3T 15:47
PROVIDERS: ADMIT Internal Medicine Nephrology; ATTEND Internal Medicine Nephrology
DX: R18.8 Other ascites (principal); E11.9 Type 2 diabetes mellitus without complications; K74.60 Unspecified cirrhosis of liver; K21.9 Gastro-esophageal reflux disease without esophagitis; I10 Essential (primary) hypertension
CPT/HCPCS: 36415; 71045; 76705; 80053; 81001; 85025; 85610; 85730; 93005; 97116; 97162; 99284; C9113; G0378; G8978; G8979

== ENCOUNTER 2018-06-21 23:15 | Inpatient (IN) | payer MEDICARE, OTHER ==
[2018-06-21 23:16] VITALS: BMI 20.9
--- NOTE | 2018-06-21 23:41 | C.PDOC ---
History Of Present Illness Patient brought in for agitation. He is hitting staff, attempting to hit me a couple of times by throwing fists and kicking. Unable to obtain Hx from patient. Time Seen by Provider: 06/21/18 23:40 Chief Complaint (Nursing): Medical Clearance History Per: Other (Medical transport) History/Exam Limitations: no limitations Onset/Duration Of Symptoms: Hrs Current Symptoms Are (Timing): Still Present Recent travel outside of the [place]: No Past Medical History Reviewed: Historical Data, Nursing Documentation, Vital Signs Vital Signs: Last Vital Signs Temp 98.2 F 06/21/18 23:23 Pulse 112 H 06/21/18 23:23 Resp 22 06/21/18 23:23 BP 121/84 06/21/18 23:23 Pulse Ox 95 06/21/18 23:23 - Medical History PMH: Arthritis, HTN, Seizures Denies: Chronic Kidney Disease Surgical History: Endoscopy - [facility] Procedures DRAINAGE OF PERITONEAL CAVITY, PERCUTANEOUS APPROACH (01/19/17) INSERTION OF INFUSION DEV INTO SUP VENA CAVA, PERC APPROACH (09/09/16) INSPECTION OF ABDOMINAL WALL, PERCUTANEOUS APPROACH (05/19/16) INTRODUCE LOCAL ANESTH IN PERIPH NRV, PLEXI, PERC (01/19/17) INTRODUCTION OF NUTRITIONAL INTO PERIPH VEIN, PERC APPROACH (05/19/16) SUPPLEMENT ABDOMINAL WALL WITH SYNTH SUB, PERC ENDO APPROACH (01/19/17) ULTRASONOGRAPHY OF ABDOMEN (11/12/16) ULTRASONOGRAPHY OF SUPERIOR VENA CAVA, GUIDANCE (09/09/16) Family History: States: No Known Family Hx - Social History Hx Alcohol Use: Yes (PAST USER) Hx Substance Use: No - Immunization History Hx Tetanus Toxoid Vaccination: No Hx Influenza Vaccination: Yes (12/26/2016) Hx Pneumococcal Vaccination: No Review Of Systems Review Of Systems: ROS cannot be obtained secondary to pt's inabilty to answer questions. Physical Exam - Physical Exam Appears: Non-toxic Skin: Warm, Dry Head: Normacephalic Eye(s): bilateral: Normal Inspection Oral Mucosa: Moist Chest: Symmetrical, No Tenderness Cardiovascular: Rhythm Regular Respiratory: No Rales, No Rhonchi, No Wheezing Gastrointestinal/Abdominal: Soft, No Tenderness Extremity: Other (Moves all extremities) Neurological/Psych: Other (No focal deficit) ED Course And Treatment - Laboratory Results Result Diagrams: 06/22/18 00:56 06/22/18 00:56 O2 Sat by Pulse Oximetry: 95 (Room air) Pulse Ox Interpretation: Normal - Radiology CXR: Interpreted by Me, Viewed By Me CXR Interpretation: Yes: Other (unchanged from 12/23/17). No: Infiltrates, Fracture, Pnemothorax Progress Note: Blood work, EKG, urinalysis, and CXR ordered. Ativan and geodon administered. Disposition Discussed With Dr.: Zoë Ohara Comment: accepted the pt on his service and took ove rthe care at 3:47AM Doctor Will See Patient In The: Hospital Counseled Patient/Family Regarding: Studies Performed, Diagnosis - Disposition Disposition: HOSPITALIZED Disposition Time: 23:41 Condition: FAIR Forms: [facility] (Faroese) - POA Present On Arrival: Poor Glycemic Control - Clinical Impression Clinical Impression: Change in mental status, Dementia, Agitation - Scribe Statement The provider has reviewed the documentation as recorded by the Scribe Giovany Crowder All medical record entries made by the Scribe were at my direction and personally dictated by me. I have reviewed the chart and agree that the record accurately reflects my personal performance of the history, physical exam, medical decision making, and the department course for this patient. I have also personally directed, reviewed, and agree with the discharge instructions and disposition. Decision To Admit - Pt Status Changed To: Hospital Disposition Of: Inpatient - Admit Certification Admit to Inpatient:: After my assessment, the patient will require hospitalization for at least two midnights. This is because of the severity of symptoms shown, intensity of services needed, and/or the medical risk in this patient being treated as an outpatient. - InPatient: Physician Admission Certification: I certify that this patient requires 2 or more midnights of care for the following reason:: After my assessment, the patient will require hospitalization for at least two midnights. This is because of the severity of symptoms shown, intensity of services needed, and/or the medical risk in this patient being treated as an outpatient. - . Bed Request Type: Regular Admitting Physician: Zoë Ohara Patient Diagnosis: Change in mental status, Dementia, Agitation
[2018-06-22 01:02] LABS: BASO % 0.4 % (0.0-2.0); EOS % 0.5 % (0.0-4.0); LYMPH # 0.8 K/uL (1.0-4.3); LYMPH % 10.8 % (20.0-40.0); MEAN CELL VOLUME 98.4 fL (80.0-94.0); MEAN CORPUSCULAR HGB CONC 34.5 g/dL (33.0-37.0); MEAN PLATELET VOLUME 7.6 fL (7.2-11.7); MONO # 0.6 K/uL (0.0-0.8); MONO % 8.8 % (0.0-10.0); NEUT # 5.7 K/uL (1.8-7.0); NEUT % 79.5 % (50.0-75.0); RBC 4.12 Mil/uL (4.40-5.90); WHITE BLOOD COUNT 7.2 K/uL (4.8-10.8)
[2018-06-22 01:34] LABS: ALB/GLOB RATIO 1.2 (1.0-2.1); ALBUMIN 4.6 g/dL (3.5-5.0); ALT/SGPT 15 U/L (21-72); AST/SGOT 35 U/L (17-59); BLOOD UREA NITROGEN 33 mg/dL (9-20); CALCIUM 8.9 mg/dl (8.6-10.4); GFR NON-AFRICAN AMERICAN > 60
[2018-06-22 05:57] LABS: URINE BILIRUBIN NEGATIVE (NEGATIVE); URINE BLOOD NEGATIVE (NEGATIVE); URINE CLARITY Hazy (Clear); URINE COLOR Yellow (YELLOW); URINE GLUCOSE (UA) NORMAL (Normal); URINE LEUKOCYTE ESTERASE NEG Leu/uL (Negative); URINE PROTEIN NEGATIVE (NEGATIVE); URINE UROBILINOGEN NORMAL mg/dL (0.2-1.0)
[2018-06-22 06:08] LABS: BARBITURATES, UR NEGATIVE (NEGATIVE); BENZODIAZEPINES, UR NEGATIVE (NEGATIVE); OPIATES, UR NEGATIVE (NEGATIVE); PHENCYCLIDINE, UR NEGATIVE (NEGATIVE)
--- NOTE | 2018-06-22 09:57 | RAD ---
Date of service: 06/22/2018 HISTORY: Detox/Psy COMPARISON: None available. TECHNIQUE: 1 view obtained. FINDINGS: LUNGS: Mild venous congestion. PLEURA: No significant pleural effusion identified, no pneumothorax apparent. CARDIOVASCULAR: No aortic atherosclerotic calcification present. Enlarged ectatic aorta. Cardiomegaly. Mild venous congestion. OSSEOUS STRUCTURES: No significant abnormalities. VISUALIZED UPPER ABDOMEN: Normal. OTHER FINDINGS: None. IMPRESSION: Mild venous congestion. Cardiomegaly. Enlarged ectatic aorta.
--- NOTE | 2018-06-22 10:34 | CT ---
Date of service: 06/22/2018 PROCEDURE: CT HEAD WITHOUT CONTRAST. HISTORY: altered mental status COMPARISON: Noncontrast head CT performed 11/11/16 TECHNIQUE: Axial computed tomography images were obtained through the head/brain without intravenous contrast. Radiation dose: Total exam DLP = 959.32 mGy-cm. This CT exam was performed using one or more of the following dose reduction techniques: Automated exposure control, adjustment of the mA and/or kV according to patient size, and/or use of iterative reconstruction technique. FINDINGS: Examination limited by patient obliquity. HEMORRHAGE: No intracranial hemorrhage. BRAIN: Diffuse atrophy with prominence of the ventricles and sulci noted. No mass effect or edema. Intracranial atherosclerosis. Encephalomalacia versus possibility of epidermoid lesion in the region of the left lateral parietal temporal lobe as on prior study. Scattered periventricular and subcortical white matter hypodensities, which are nonspecific, but often seen with chronic microvascular ischemic disease. Please note that MRI with diffusion imaging is more sensitive in the detection of acute ischemic event. VENTRICLES: No hydrocephalus. CALVARIUM: Unremarkable. PARANASAL SINUSES: Mucosal polyp/retention cyst left maxillary sinus. MASTOID AIR CELLS: Unremarkable as visualized. No inflammatory changes. OTHER FINDINGS: None. IMPRESSION: Limited study. Overall similar appearance to prior study. Nonspecific white matter changes. Encephalomalacia favored over epidermoid lesion involving the left lateral parietal temporal lobe. Generalized atrophy. Preliminary impression was provided by [employer].
--- NOTE | 2018-06-22 16:40 | CP.PCM.CON ---
History of Present Illness - History of Present Illness History of Present Illness: Neurology Consultation Note: consult requested by Dr. Ohara The patient is a 67-year-old man with a past medical history of arthritis and epilepsy (on Keppra 500 mg BID), who has increased agitation and was hitting staff. Neurology was consulted to assist with the management and care. The patient was initially combative and non-compliant, but had no focal deficits. He was later more calm and was able to respond to answers, but was still somewhat confused. Review of Systems - Review of Systems Systems not reviewed;Unavailable: Altered Mental Status Past Patient History - Infectious Disease Hx of Infectious Diseases: None - Past Medical History & Family History Past Medical History?: Yes - Past Social History Smoking Status: Unknown If Ever Smoked - CARDIAC Hx Hypertension: Yes - PULMONARY Hx Respiratory Disorders: Yes Other/Comment: as per correction pulmonary hypertension - NEUROLOGICAL Hx Seizures: Yes - HEENT Hx HEENT Problems: No - RENAL Hx Chronic Kidney Disease: No - ENDOCRINE/METABOLIC Hx Endocrine Disorders: Yes Hx Diabetes Mellitus Type 2: Yes - HEMATOLOGICAL/ONCOLOGICAL Hx Blood Disorders: Yes Hx Cirrhosis: Yes - INTEGUMENTARY Hx Dermatological Problems: No - MUSCULOSKELETAL/RHEUMATOLOGICAL Hx Arthritis: Yes - GASTROINTESTINAL Hx Gastrointestinal Disorders: Yes Hx Gastroesophageal Reflux: Yes Hx Liver Failure: Yes - GENITOURINARY/GYNECOLOGICAL Hx Genitourinary Disorders: No - PSYCHIATRIC Hx Substance Use: No - SURGICAL HISTORY Hx Surgeries: Yes Hx Herniorrhaphy: Yes Other/Comment: multiple percutaneous paracenteses - ANESTHESIA Hx Anesthesia: Yes Hx Anesthesia Reactions: No Hx Malignant Hyperthermia: No Meds Allergies/Adverse Reactions: Allergies Allergy/AdvReac Type Severity Reaction Status Date / Time No Known Allergies Allergy Verified 06/21/18 23:32 - Medications Medications: Current Medications Aspirin (Aspirin) 325 mg PO DAILY [facility] Famotidine (Pepcid) 20 mg PO HS [facility] Folic Acid (Folic Acid) 1 mg PO DAILY [facility] Furosemide (Lasix) 40 mg PO DAILY [facility] Home [facility] (Spironolactone [Aldactone]) 100 mg PO DAILY [facility] Home [facility] (Thiamine Mononitrate [Vitamin B-1]) 100 mg PO DAILY [facility] Insulin Aspart (Novolog) 0 unit SC ACHS [facility]; Protocol Lactulose (Enulose) 20 gm PO DAILY [facility] Levetiracetam (Keppra) 500 mg PO Q12 [facility] Lorazepam (Ativan) 1 mg PO HS [facility] Lorazepam (Ativan) 0.5 mg PO Q12 PRN PRN Reason: Agitation Multivitamins (Hexavitamin) 1 tab PO DAILY [facility] Physical Exam - Constitutional Appears: Well - Head Exam Head Exam: ATRAUMATIC, NORMAL INSPECTION, NORMOCEPHALIC - Eye Exam Eye Exam: EOMI, Normal appearance, PERRL Pupil Exam: NORMAL ACCOMODATION, PERRL - ENT Exam ENT Exam: Mucous Membranes Moist, Normal Exam - Neck Exam Neck exam: Positive for: Normal Inspection - Respiratory Exam Respiratory Exam: Clear to Auscultation Bilateral, NORMAL BREATHING PATTERN - Cardiovascular Exam Cardiovascular Exam: REGULAR RHYTHM - GI/Abdominal Exam GI & Abdominal Exam: Normal Bowel Sounds, Soft. absent: Tenderness - Extremities Exam Extremities exam: Positive for: normal inspection - Back Exam Back exam: NORMAL INSPECTION - Neurological Exam Neurological exam: Altered, CN II-XII Intact, Reflexes Normal Additional comments: Moves all extremities - Psychiatric Exam Psychiatric exam: Agitated - Skin Skin Exam: Dry, Intact, Normal Color, Warm Results - Vital Signs Recent Vital Signs: Last Vital Signs Temp 97.5 F L 06/22/18 14:43 Pulse 91 H 06/22/18 14:43 Resp 18 06/22/18 14:43 BP 101/66 06/22/18 14:43 Pulse Ox 100 06/22/18 14:43 - Labs Result Diagrams: 06/22/18 00:56 06/22/18 00:56 Labs: Laboratory Results - last 24 hr 06/21/18 06/22/18 06/22/18 23:39 00:56 00:56 WBC 7.2 RBC 4.12 L Hgb 14.0 Hct 40.6 MCV 98.4 H D MCH 34.0 H MCHC 34.5 RDW 14.0 Plt Count 146 MPV 7.6 Neut % (Auto) 79.5 H Lymph % (Auto) 10.8 L [place] % (Auto) 8.8 Eos % (Auto) 0.5 Baso % (Auto) 0.4 Neut # (Auto) 5.7 Lymph # (Auto) 0.8 L [place] # (Auto) 0.6 Eos # (Auto) 0.0 Baso # (Auto) 0.0 Sodium 133 Potassium 3.8 Chloride 100 Carbon Dioxide 19 L Anion Gap 17 BUN 33 H Creatinine 1.2 Est GFR ( Amer) > 60 Est GFR (Non-Af Amer) > 60 POC Glucose (mg/dL) 148 H Random Glucose 175 H D Calcium 8.9 Phosphorus 3.9 Magnesium 1.8 Total Bilirubin 1.3 AST 35 ALT 15 L D Alkaline Phosphatase 89 Total Protein 8.5 H Albumin 4.6 Globulin 3.9 Albumin/Globulin Ratio 1.2 Urine Color Urine Clarity Urine pH Ur Specific [place] Urine Protein Urine Glucose (UA) Urine Ketones Urine Blood Urine Nitrate Urine Bilirubin Urine Urobilinogen Ur Leukocyte Esterase Urine WBC (Auto) Urine RBC (Auto) Hyaline Casts Urine Opiates Screen Urine Methadone Screen Ur Barbiturates Screen Ur Phencyclidine Scrn Ur Amphetamines Screen U Benzodiazepines Scrn U Oth Cocaine Metabols U Cannabinoids Screen Alcohol, Quantitative < 10 06/22/18 06/22/18 05:49 05:49 WBC RBC Hgb Hct MCV MCH MCHC RDW Plt Count MPV Neut % (Auto) Lymph % (Auto) [place] % (Auto) Eos % (Auto) Baso % (Auto) Neut # (Auto) Lymph # (Auto) [place] # (Auto) Eos # (Auto) Baso # (Auto) Sodium Potassium Chloride Carbon Dioxide Anion Gap BUN Creatinine Est GFR ( Amer) Est GFR (Non-Af Amer) POC Glucose (mg/dL) Random Glucose Calcium Phosphorus Magnesium Total Bilirubin AST ALT Alkaline Phosphatase Total Protein Albumin Globulin Albumin/Globulin Ratio Urine Color Yellow Urine Clarity Hazy Urine pH 5.0 Ur Specific [place] 1.013 Urine Protein Negative Urine Glucose (UA) Normal Urine Ketones Negative Urine Blood Negative Urine Nitrate Negative Urine Bilirubin Negative Urine Urobilinogen Normal Ur Leukocyte Esterase Neg Urine WBC (Auto) 1 Urine RBC (Auto) < 1 Hyaline Casts 3-5 H Urine Opiates Screen Negative Urine Methadone Screen Negative Ur Barbiturates Screen Negative Ur Phencyclidine Scrn Negative Ur Amphetamines Screen Negative U Benzodiazepines Scrn Negative U Oth Cocaine Metabols Negative U Cannabinoids Screen Negative Alcohol, Quantitative Assessment & Plan (1) Agitation Assessment and Plan: Could be due to Keppra or he may be post ictal. I recommend loading him with Depakote 1000 mg IV once and continuing 500 mg Q12. May go down on Keppra to 250 mg BID. EEG for 1 hour is recommended. MRI of the brain without contrast is recommended. Thank you. Status: Acute
[2018-06-22] MEDS ORDERED: Valproate 1,000 MG in Sodium Chloride 0.9% 100 ML IVPB ONE (17:12)
[2018-06-22] MEDS: (Novolog) Insulin Aspart, Recombinant 100 u/ml 10 ml vial SC SCH ×2 (17:19→21:13)
--- NOTE | 2018-06-22 18:34 | CP.PCM.HP ---
History of Present Illness - History of Present Illness History of Present Illness: Patient claims that she has a pain back again in both the legs patient seen and cleared by the cardiology Patient's the blood test revealed hemoglobin of 11.3 and 33.4 patient advised to see neurology tomorrow before she will be discharged patient has a family member sitting next to her patient advise that you know this workup needs to be done as an outpatient if it neurology feels Patient has been having this pain for last few years so advised that workup can be done as an outpatient's patient and the family member sitting next with the patient they both agreed 67-year-old gentleman with history of multiple medical problems like hypertension pulmonary hypertension history of seizure disorders history of diabetes mellitus history of gastrointestinal reflux disease history of herniorrhaphy history of multiple percutaneous paracentesis history of arthritis history of epilepsy on Keppra found to be increased agitation and al tered mental status eventually patient came to the emergency room was advised patient is still combative noncompliant status post neurology who recommended the patient's to be loading with the Depakote unable to get up complete history from the patient as patient cannot give detial hx Present on Admission - Present on Admission Any Indicators Present on Admission: No Past Patient History - Infectious Disease Hx of Infectious Diseases: None - Past Medical History & Family History Past Medical History?: Yes - Past Social History Smoking Status: Unknown If Ever Smoked - CARDIAC Hx Hypertension: Yes - PULMONARY Hx Respiratory Disorders: Yes Other/Comment: as per longterm pulmonary hypertension - NEUROLOGICAL Hx Seizures: Yes - HEENT Hx HEENT Problems: No - RENAL Hx Chronic Kidney Disease: No - ENDOCRINE/METABOLIC Hx Endocrine Disorders: Yes Hx Diabetes Mellitus Type 2: Yes - HEMATOLOGICAL/ONCOLOGICAL Hx Blood Disorders: Yes Hx Cirrhosis: Yes - INTEGUMENTARY Hx Dermatological Problems: No - MUSCULOSKELETAL/RHEUMATOLOGICAL Hx Arthritis: Yes - GASTROINTESTINAL Hx Gastrointestinal Disorders: Yes Hx Gastroesophageal Reflux: Yes Hx Liver Failure: Yes - GENITOURINARY/GYNECOLOGICAL Hx Genitourinary Disorders: No - PSYCHIATRIC Hx Substance Use: No - SURGICAL HISTORY Hx Surgeries: Yes Hx Herniorrhaphy: Yes Other/Comment: multiple percutaneous paracenteses - ANESTHESIA Hx Anesthesia: Yes Hx Anesthesia Reactions: No Hx Malignant Hyperthermia: No Meds Allergies/Adverse Reactions: Allergies Allergy/AdvReac Type Severity Reaction Status Date / Time No Known Allergies Allergy Verified 06/21/18 23:32 Physical Exam - Constitutional Appears: Well - Head Exam Head Exam: ATRAUMATIC, NORMAL INSPECTION, NORMOCEPHALIC - Eye Exam Eye Exam: EOMI, Normal appearance, PERRL Pupil Exam: NORMAL ACCOMODATION, PERRL - ENT Exam ENT Exam: Mucous Membranes Moist, Normal Exam - Neck Exam Neck exam: Positive for: Normal Inspection - Respiratory Exam Respiratory Exam: Decreased Breath Sounds - Cardiovascular Exam Cardiovascular Exam: REGULAR RHYTHM, +S1, +S2 - GI/Abdominal Exam GI & Abdominal Exam: Diminished Bowel Sounds, Soft - Rectal Exam Rectal Exam: Deferred Results - Vital Signs Recent Vital Signs: Last Vital Signs Temp 97.9 F 06/22/18 17:56 Pulse 89 06/22/18 17:56 Resp 14 06/22/18 17:56 BP 129/83 06/22/18 17:56 Pulse Ox 98 06/22/18 17:56 - Labs Result Diagrams: 06/22/18 00:56 06/22/18 00:56 Labs: Laboratory Results - last 24 hr 06/21/18 06/22/18 06/22/18 23:39 00:56 00:56 WBC 7.2 RBC 4.12 L Hgb 14.0 Hct 40.6 MCV 98.4 H D MCH 34.0 H MCHC 34.5 RDW 14.0 Plt Count 146 MPV 7.6 Neut % (Auto) 79.5 H Lymph % (Auto) 10.8 L [place] % (Auto) 8.8 Eos % (Auto) 0.5 Baso % (Auto) 0.4 Neut # (Auto) 5.7 Lymph # (Auto) 0.8 L [place] # (Auto) 0.6 Eos # (Auto) 0.0 Baso # (Auto) 0.0 Sodium 133 Potassium 3.8 Chloride 100 Carbon Dioxide 19 L Anion Gap 17 BUN 33 H Creatinine 1.2 Est GFR ( Amer) > 60 Est GFR (Non-Af Amer) > 60 POC Glucose (mg/dL) 148 H Random Glucose 175 H D Calcium 8.9 Phosphorus 3.9 Magnesium 1.8 Total Bilirubin 1.3 AST 35 ALT 15 L D Alkaline Phosphatase 89 Total Protein 8.5 H Albumin 4.6 Globulin 3.9 Albumin/Globulin Ratio 1.2 Urine Color Urine Clarity Urine pH Ur Specific [place] Urine Protein Urine Glucose (UA) Urine Ketones Urine Blood Urine Nitrate Urine Bilirubin Urine Urobilinogen Ur Leukocyte Esterase Urine WBC (Auto) Urine RBC (Auto) Hyaline Casts Urine Opiates Screen Urine Methadone Screen Ur Barbiturates Screen Ur Phencyclidine Scrn Ur Amphetamines Screen U Benzodiazepines Scrn U Oth Cocaine Metabols U Cannabinoids Screen Alcohol, Quantitative < 10 06/22/18 06/22/18 06/22/18 05:49 05:49 17:17 WBC RBC Hgb Hct MCV MCH MCHC RDW Plt Count MPV Neut % (Auto) Lymph % (Auto) [place] % (Auto) Eos % (Auto) Baso % (Auto) Neut # (Auto) Lymph # (Auto) [place] # (Auto) Eos # (Auto) Baso # (Auto) Sodium Potassium Chloride Carbon Dioxide Anion Gap BUN Creatinine Est GFR ( Amer) Est GFR (Non-Af Amer) POC Glucose (mg/dL) 107 Random Glucose Calcium Phosphorus Magnesium Total Bilirubin AST ALT Alkaline Phosphatase Total Protein Albumin Globulin Albumin/Globulin Ratio Urine Color Yellow Urine Clarity Hazy Urine pH 5.0 Ur Specific [place] 1.013 Urine Protein Negative Urine Glucose (UA) Normal Urine Ketones Negative Urine Blood Negative Urine Nitrate Negative Urine Bilirubin Negative Urine Urobilinogen Normal Ur Leukocyte Esterase Neg Urine WBC (Auto) 1 Urine RBC (Auto) < 1 Hyaline Casts 3-5 H Urine Opiates Screen Negative Urine Methadone Screen Negative Ur Barbiturates Screen Negative Ur Phencyclidine Scrn Negative Ur Amphetamines Screen Negative U Benzodiazepines Scrn Negative U Oth Cocaine Metabols Negative U Cannabinoids Screen Negative Alcohol, Quantitative Assessment & Plan - Assessment and Plan (Free Text) Plan: Head CT revealed overall a similar appearance to prior study nonspecific white matter changes and encephalomalacia laboratory reveals WBC of 7.2 hemoglobin hematocrit 14 and 46 Carbon dioxide 19 BUN 33 148 POC 15 8.5 Urine drug screen negative neuro cnosultation encourage po feeding ivf ma needngt ube feeding
[2018-06-22 19:44] VITALS: RESP 20
[2018-06-23] MEDS: (Novolog) Insulin Aspart, Recombinant 100 u/ml 10 ml vial SC SCH ×4 (07:39→21:37)
[2018-06-23] MEDS ORDERED: SPIRONOLACTONE 100 MG PO SCH (10:00)
[2018-06-23] MEDS ORDERED: Divalproex 500 mg ER Tab PO SCH (10:00)
[2018-06-23] MEDS ORDERED: THIAMINE MONONITRATE 100 MG PO SCH (10:00)
[2018-06-23] MEDS: Multiple Vitamins Tab PO SCH (10:07)
[2018-06-23] MEDS: Divalproex 500 mg DR Tab PO SCH ×2 (10:15→21:35)
--- NOTE | 2018-06-23 10:26 | CP.PCM.PN ---
Subjective - Date & Time of Evaluation Date of Evaluation: 06/23/18 Time of Evaluation: 09:15 - Subjective Subjective: PGY-1 Neurology Progress Note for Dr. Cazares Patient was seen and examined today in no acute distress. Nurse reports no overnight events, nor any combative behavior. Patient remains confused and unable to answer questions appropriately. Unable to obtain ROS due to AMS. Objective - Vital Signs/Intake and Output Vital Signs (last 24 hours): Temp Pulse Resp BP Pulse Ox 98.2 F 76 20 107/72 96 06/23/18 08:00 06/23/18 08:00 06/23/18 08:00 06/23/18 10:15 06/23/18 08:00 Intake and Output: 06/23/18 06/23/18 06:59 18:59 Intake Total 340 Balance 340 - Medications Medications: Current Medications Aspirin (Aspirin) 325 mg PO DAILY [facility] Last Admin: 06/23/18 10:07 Dose: 325 mg Divalproex Sodium (Depakote Dr) 500 mg PO Q12 [facility] Last Admin: 06/23/18 10:15 Dose: 500 mg Famotidine (Pepcid) 20 mg PO HS [facility] Last Admin: 06/22/18 21:13 Dose: Not Given Folic Acid (Folic Acid) 1 mg PO DAILY [facility] Last Admin: 06/23/18 10:06 Dose: 1 mg Furosemide (Lasix) 40 mg PO DAILY [facility] Last Admin: 06/23/18 10:15 Dose: 40 mg Heparin Sodium (Porcine) (Heparin) 5,000 units SC Q12 [facility] Last Admin: 06/23/18 10:06 Dose: 5,000 units Insulin Aspart (Novolog) 0 unit SC [facility]; Protocol Last Admin: 06/23/18 07:39 Dose: Not Given Lactulose (Enulose) 20 gm PO DAILY [facility] Last Admin: 06/23/18 10:06 Dose: 20 gm Levetiracetam (Keppra) 250 mg PO BID [facility] Last Admin: 06/23/18 10:06 Dose: 250 mg Lorazepam (Ativan) 1 mg PO HS [facility] Last Admin: 06/22/18 21:13 Dose: Not Given Lorazepam (Ativan) 0.5 mg PO Q12 PRN PRN Reason: Agitation Multivitamins (Hexavitamin) 1 tab PO DAILY [facility] Last Admin: 06/23/18 10:07 Dose: 1 tab Spironolactone (Aldactone) 100 mg PO DAILY [facility] Thiamine HCl (Vitamin B1 Tab) 100 mg PO DAILY [facility] - Labs Labs: 06/22/18 00:56 06/22/18 00:56 - Head Exam Head Exam: ATRAUMATIC, NORMOCEPHALIC - Eye Exam Eye Exam: EOMI, Normal appearance, PERRL Pupil Exam: NORMAL ACCOMODATION - ENT Exam ENT Exam: Mucous Membranes Moist - Respiratory Exam Respiratory Exam: Clear to Ausculation Bilateral, NORMAL BREATHING PATTERN - Cardiovascular Exam Cardiovascular Exam: +S1, +S2 - GI/Abdominal Exam GI & Abdominal Exam: Soft, Normal Bowel Sounds. absent: Tenderness - Neurological Exam Neurological Exam: Altered, Awake, Reflexes Normal. absent: Oriented x3 Additional comments: moves all extremities unable to follow simple commands - Psychiatric Exam Psychiatric exam: Agitated, Anxious - Skin Skin Exam: Dry, Intact, Normal Color, Warm Assessment and Plan (1) Agitation Assessment & Plan: Imaging reviewed: CT Head without contrast (06/22): Limited study. Overall similar appearance to prior study (11/06). Nonspecific white matter changes. Encephalomalacia favored over epidermoid lesion involving the left lateral parietal temporal lobe. Generalized atrophy. - loading dose of Depakote 1000mg IV once given - Depakote 500mg PO q12 per primary - decreased Keppra 250mg po BID from home 500mg po BID - f/u Keppra level - f/u EEG - f/u MRI Brain without contrast d/w Dr. Debora Hunt PGY-1 Status: Acute
--- NOTE | 2018-06-23 12:47 | CP.PCM.PN ---
Subjective - Date & Time of Evaluation Date of Evaluation: 06/23/18 - Subjective Subjective: Patient was examined today at bedside patient denies nausea, vomiting, fever, diarrhea, dizziness, shortness of breath Objective - Vital Signs/Intake and Output Vital Signs (last 24 hours): Temp Pulse Resp BP Pulse Ox 98.2 F 76 20 107/72 96 06/23/18 08:00 06/23/18 08:00 06/23/18 08:00 06/23/18 10:15 06/23/18 08:00 Intake and Output: 06/23/18 06/23/18 06:59 18:59 Intake Total 340 Balance 340 - Medications Medications: Current Medications Aspirin (Aspirin) 325 mg PO DAILY [facility] Last Admin: 06/23/18 10:07 Dose: 325 mg Divalproex Sodium (Depakote Dr) 500 mg PO Q12 [facility] Last Admin: 06/23/18 10:15 Dose: 500 mg Famotidine (Pepcid) 20 mg PO HS [facility] Last Admin: 06/22/18 21:13 Dose: Not Given Folic Acid (Folic Acid) 1 mg PO DAILY [facility] Last Admin: 06/23/18 10:06 Dose: 1 mg Furosemide (Lasix) 40 mg PO DAILY [facility] Last Admin: 06/23/18 10:15 Dose: 40 mg Heparin Sodium (Porcine) (Heparin) 5,000 units SC Q12 [facility] Last Admin: 06/23/18 10:06 Dose: 5,000 units Insulin Aspart (Novolog) 0 unit SC [facility]; Protocol Last Admin: 06/23/18 12:16 Dose: Not Given Lactulose (Enulose) 20 gm PO DAILY [facility] Last Admin: 06/23/18 10:06 Dose: 20 gm Levetiracetam (Keppra) 250 mg PO BID [facility] Last Admin: 06/23/18 10:06 Dose: 250 mg Lorazepam (Ativan) 1 mg PO HS [facility] Last Admin: 06/22/18 21:13 Dose: Not Given Lorazepam (Ativan) 0.5 mg PO Q12 PRN PRN Reason: Agitation Multivitamins (Hexavitamin) 1 tab PO DAILY [facility] Last Admin: 06/23/18 10:07 Dose: 1 tab Spironolactone (Aldactone) 100 mg PO DAILY [facility] Last Admin: 06/23/18 10:37 Dose: 100 mg Thiamine HCl (Vitamin B1 Tab) 100 mg PO DAILY [facility] Last Admin: 06/23/18 10:37 Dose: 100 mg - Labs Labs: 06/22/18 00:56 06/22/18 00:56 - Constitutional Appears: Well - Head Exam Head Exam: ATRAUMATIC, NORMAL INSPECTION, NORMOCEPHALIC - Eye Exam Eye Exam: EOMI, Normal appearance, PERRL Pupil Exam: NORMAL ACCOMODATION, PERRL - ENT Exam ENT Exam: Mucous Membranes Moist, Normal Exam - Neck Exam Neck Exam: Full ROM, Normal Inspection. absent: Lymphadenopathy - Respiratory Exam Respiratory Exam: Decreased Breath Sounds - Cardiovascular Exam Cardiovascular Exam: REGULAR RHYTHM, +S1, +S2 - GI/Abdominal Exam GI & Abdominal Exam: Soft, Diminished Bowel Sounds - Rectal Exam Rectal Exam: Deferred - Neurological Exam Neurological Exam: Oriented x3 Assessment and Plan - Assessment and Plan (Free Text) Plan: medications reviewed labs reviewed vitals reviewed
--- NOTE | 2018-06-23 14:00 | PCM.PSYCH ---
Initial Psychiatric Evaluation - Initial Psychiatric Evaluation Type of Admission: Voluntary Legal Status: Capacity History of Present Illness and Precipitating Events: PGY-[address] Smith service Reason for consult: aggressive behavior Patient is a 67 year old male, single, has 5 kids, lives in [facility], admitted to the hospital for change in mental status, as per chart review, patient tried to hit ER staff and floor staff several times, and has been reported to be agitated. When visited this morning, Patient was calm, denies any agitation or violent behavior, denies any of the events that happened in the past. Patient was later seen to be heading towards elevator and seemed confused and agitated. Patient is poor historian, is not able to recall how he came to hospital or why he was admitted. Patient denies psychiatric issues in the past. Patient denies visual or auditory hallucinations, Suicidal/homicidal ideation. Pmhx: arthritis and epilepsy All: NKDA Psych hx: denies Psych fhx: denies Current Medications: Active Medications Generic Name Dose Route Start Last Admin Trade Name Belkis PRN Reason Stop Dose Admin Aspirin 325 mg 06/23/18 10:00 06/23/18 10:07 Aspirin PO 325 mg DAILY [facility] Administration Divalproex Sodium 500 mg 06/23/18 10:00 06/23/18 10:15 Depakote PO 500 mg Q12 [facility] Administration Famotidine 20 mg 06/22/18 22:00 06/22/18 21:13 Pepcid PO Not Given HS [facility] Folic Acid 1 mg 06/23/18 10:00 06/23/18 10:06 Folic Acid PO 1 mg DAILY [facility] Administration Furosemide 40 mg 06/23/18 10:00 06/23/18 10:15 Lasix PO 40 mg DAILY [facility] Administration Heparin Sodium (Porcine) 5,000 units 06/23/18 10:00 06/23/18 10:06 Heparin SC 5,000 units Q12 [facility] Administration Insulin Aspart 0 unit 06/22/18 16:30 06/23/18 12:16 Novolog SC Not Given ACHS [facility] Protocol Lactulose 20 gm 06/23/18 10:00 06/23/18 10:06 Enulose PO 20 gm DAILY [facility] Administration Levetiracetam 250 mg 06/22/18 18:00 06/23/18 10:06 Keppra PO 250 mg BID [facility] Administration Lorazepam 1 mg 06/22/18 22:00 06/22/18 21:13 Ativan PO Not Given HS [facility]PLACED BY [facility] Lorazepam 0.5 mg 06/22/18 13:46 Ativan PO Q12 PRN Agitation Multivitamins 1 tab 06/23/18 10:00 06/23/18 10:07 Hexavitamin PO 1 tab DAILY [facility] Administration Spironolactone 100 mg 06/23/18 10:30 06/23/18 10:37 Aldactone PO 100 mg DAILY [facility] Administration Thiamine HCl 100 mg 06/23/18 10:30 06/23/18 10:37 Vitamin B1 Tab PO 100 mg DAILY [facility] Administration Past Psychiatric History - Past Psychiatric History Pertinent Medical Hx (Current Medical&Sleep Prob, Allergies): Allergies Allergy/AdvReac Type Severity Reaction Status Date / Time No Known Allergies Allergy Verified 06/21/18 23:32 Albuterol/Ipratropium [Duoneb 3 mg/0.5 mg (3 ml) UD] 3 ml IH Q6 PRN 12/23/17 Famotidine [Pepcid] 20 mg PO HS 12/23/17 Folic Acid 1 mg PO DAILY 12/23/17 Furosemide [Lasix] 40 mg PO DAILY 12/23/17 Lactulose 30 ml PO DAILY 12/23/17 Lorazepam [Ativan] 1 mg PO HS 12/23/17 Multivitamin [Multi-Vitamin Daily] 1 each PO DAILY 12/23/17 Thiamine Mononitrate [Vitamin B-1] 100 mg PO DAILY 12/23/17 levETIRAcetam [Keppra] 500 mg PO Q12 12/23/17 Insulin NPH Hum/Reg Insulin Hm [Novolin 70-30 Flexpen] See Protocol SQ DAILY 06/21/18 Spironolactone [Aldactone] 100 mg PO DAILY 06/21/18 Review of Systems - Psychiatric Psychiatric: Confusion. absent: Abnormal Sleep Pattern, Auditory Hallucinations, Homicidal Ideation, Suicidal Ideation, Tactile Hallucinations Mental Status Examination - Personal Presentation Personal Presentation: Looks stated age - Affect Affect: Constricted - Motor Activity Motor Activity: Psychomotor Agitation - Reliability in Providing Information Reliability in Providing Information: Poor, due to altered mood - Speech Speech: Irrelevant - Mood Mood: Neutral - Cognitive Functions Sensorium: Alert Attention/Concentration: Easily distracted - Risk Risk: Diminished functioning DSM 5 DX - DSM 5 DSM 5 Diagnosis: Delirium - Recommended/Plan of Treatment Treatment Recommendations and Plan of Treatment: Seroquel 25 mg PO HS Haldol 5mg PO Q6H PRN for agitation support and psychoeducation Cont medical management as per primary Plan discussed with Dr Luis Jurado, PGY-1
--- NOTE | 2018-06-23 14:45 | MRI ---
Date of service: 06/23/2018 PROCEDURE: MRI BRAIN WITHOUT CONTRAST HISTORY: AMS COMPARISON: CT head without contrast from 06/22/2018. TECHNIQUE: Multiplanar, multisequence MR images of the brain were obtained without intravenous contrast enhancement. FINDINGS: HEMORRHAGE: None DWI: No evidence of an acute or early subacute infarction. BRAIN PARENCHYMA: There is redemonstration of large cystic encephalomalacia and gliosis in the left posterior parietal lobe with volume loss and ex vacuo dilatation of the left lateral ventricle. There is a chronic infarction in the right posterior parietal lobe. There is a chronic infarction in the left samantha andres and middle cerebellar peduncle. There is well layering degeneration of the left pyramidal tract. VENTRICLES: There is mild age-related global parenchymal volume loss and proportionate enlargement of the ventricles and cortical sulci. A 3.1 x 1.6 cm CSF density lesion in the left anterior temporal region without mass effect. CRANIUM: There is normal bone marrow signal pattern. ORBITS: Grossly unremarkable. PARANASAL SINUSES/MASTOIDS: There is a retention cyst/polyp in the left maxillary sinus. The remaining included paranasal sinuses are clear. VASCULAR SYSTEM: There are normal signal voids in the larger intracranial arteries. OTHER FINDINGS: None. IMPRESSION: 1. No acute intracranial abnormality. 2. Large cystic encephalomalacia and gliosis in the left posterior parietal lobe, sequela of chronic MCA territory infarction. 3. Chronic right posterior occipital infarction. 4. Mild age-related global parenchymal volume loss. 5. 3.1 x 1.6 cm CSF density lesion most likely an arachnoid cyst.
--- NOTE | 2018-06-23 18:00 | CP.PCM.PN ---
Subjective - Date & Time of Evaluation Date of Evaluation: 06/23/18 Time of Evaluation: 09:00 - Subjective Subjective: Remains confused patient Does not recall how he came to the [facility] does not know what symptoms he has No fever documented no vomiting no chest pain no shortness of breath Objective - Vital Signs/Intake and Output Vital Signs (last 24 hours): Temp Pulse Resp BP Pulse Ox 97.9 F 92 H 20 123/80 97 06/23/18 15:38 06/23/18 15:38 06/23/18 15:38 06/23/18 15:38 06/23/18 15:38 Intake and Output: 06/23/18 06/23/18 06:59 18:59 Intake Total 340 480 Balance 340 480 - Medications Medications: Current Medications Aspirin (Aspirin) 325 mg PO DAILY [facility] Last Admin: 06/23/18 10:07 Dose: 325 mg Divalproex Sodium (Depakote Dr) 500 mg PO Q12 [facility] Last Admin: 06/23/18 10:15 Dose: 500 mg Famotidine (Pepcid) 20 mg PO HS [facility] Last Admin: 06/22/18 21:13 Dose: Not Given Folic Acid (Folic Acid) 1 mg PO DAILY [facility] Last Admin: 06/23/18 10:06 Dose: 1 mg Furosemide (Lasix) 40 mg PO DAILY [facility] Last Admin: 06/23/18 10:15 Dose: 40 mg Haloperidol (Haldol) 5 mg PO Q6H PRN PRN Reason: Agitation Heparin Sodium (Porcine) (Heparin) 5,000 units SC Q12 [facility] Last Admin: 06/23/18 10:06 Dose: 5,000 units Insulin Aspart (Novolog) 0 unit SC [facility]; Protocol Last Admin: 06/23/18 16:30 Dose: Not Given Lactulose (Enulose) 20 gm PO DAILY [facility] Last Admin: 06/23/18 10:06 Dose: 20 gm Levetiracetam (Keppra) 250 mg PO BID [facility] Last Admin: 06/23/18 17:05 Dose: 250 mg Lorazepam (Ativan) 1 mg PO HS [facility] Last Admin: 06/22/18 21:13 Dose: Not Given Lorazepam (Ativan) 0.5 mg PO Q12 PRN PRN Reason: Agitation Last Admin: 06/23/18 16:12 Dose: 0.5 mg Multivitamins (Hexavitamin) 1 tab PO DAILY [facility] Last Admin: 06/23/18 10:07 Dose: 1 tab Quetiapine Fumarate (Seroquel) 25 mg PO [facility] Spironolactone (Aldactone) 100 mg PO DAILY [facility] Last Admin: 06/23/18 10:37 Dose: 100 mg Thiamine HCl (Vitamin B1 Tab) 100 mg PO DAILY [facility] Last Admin: 06/23/18 10:37 Dose: 100 mg - Labs Labs: 06/22/18 00:56 06/22/18 00:56 - Constitutional Appears: Well - Head Exam Head Exam: ATRAUMATIC, NORMAL INSPECTION, NORMOCEPHALIC - Eye Exam Eye Exam: EOMI, Normal appearance, PERRL Pupil Exam: NORMAL ACCOMODATION, PERRL - ENT Exam ENT Exam: Mucous Membranes Moist, Normal Exam - Neck Exam Neck Exam: Full ROM, Normal Inspection. absent: Lymphadenopathy - Respiratory Exam Respiratory Exam: Decreased Breath Sounds - Cardiovascular Exam Cardiovascular Exam: REGULAR RHYTHM, +S1, +S2 - GI/Abdominal Exam GI & Abdominal Exam: Soft, Diminished Bowel Sounds - Rectal Exam Rectal Exam: Deferred Assessment and Plan - Assessment and Plan (Free Text) Plan: aldactone aspirin ativan depakote enulose folic acid haldol heparin hexavitamin keppra lasix novolog pepcid seroquel vitamin b1 tab medications reviewed labs reviewed vitals reviewed Plan continue psych consult Seroquel 25 mg nightly Haldol 5 mg p.o. every 6 Support and psychoeducation's Neurology consultation done by Dr. 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
[2018-06-24 07:03] LABS: BASO % 0.6 % (0.0-2.0); EOS # 0.1 K/uL (0.0-0.7); EOS % 1.4 % (0.0-4.0); LYMPH # 1.8 K/uL (1.0-4.3); LYMPH % 35.3 % (20.0-40.0); MEAN CELL VOLUME 98.5 fL (80.0-94.0); MEAN CORPUSCULAR HGB CONC 34.6 g/dL (33.0-37.0); MEAN PLATELET VOLUME 7.5 fL (7.2-11.7); MONO # 0.5 K/uL (0.0-0.8); MONO % 9.4 % (0.0-10.0); NEUT # 2.8 K/uL (1.8-7.0); NEUT % 53.3 % (50.0-75.0); RBC 4.11 Mil/uL (4.40-5.90); RED CELL DISTRIBUTION WIDTH 13.9 % (11.5-14.5); WHITE BLOOD COUNT 5.2 K/uL (4.8-10.8)
[2018-06-24 07:24] LABS: ALB/GLOB RATIO 1.1 (1.0-2.1); ALBUMIN 4.6 g/dL (3.5-5.0); ALT/SGPT 20 U/L (21-72); AST/SGOT 38 U/L (17-59); BLOOD UREA NITROGEN 23 mg/dL (9-20); CALCIUM 9.5 mg/dl (8.6-10.4); GFR NON-AFRICAN AMERICAN > 60
[2018-06-24] MEDS: (Novolog) Insulin Aspart, Recombinant 100 u/ml 10 ml vial SC SCH ×4 (07:35→21:43)
[2018-06-24] MEDS: Divalproex 500 mg DR Tab PO SCH ×2 (10:38→21:42)
[2018-06-24] MEDS: Multiple Vitamins Tab PO SCH (10:39)
--- NOTE | 2018-06-24 14:42 | CP.PCM.PN ---
Subjective - Date & Time of Evaluation Date of Evaluation: 06/24/18 Time of Evaluation: 08:55 - Subjective Subjective: patient seen and examined today no nausea no vomitng no diarrhea no fever no shortness of breath pt wants beer to drink pt remians confused answers all questions but not appropriately Objective - Vital Signs/Intake and Output Vital Signs (last 24 hours): Temp Pulse Resp BP Pulse Ox 98.6 F 85 20 126/86 97 06/24/18 07:27 06/24/18 07:27 06/24/18 07:27 06/24/18 07:27 06/24/18 07:27 Intake and Output: 06/24/18 06/24/18 06:59 18:59 Intake Total 500 Balance 500 - Medications Medications: Current Medications Aspirin (Aspirin) 325 mg PO DAILY [facility] Last Admin: 06/24/18 10:38 Dose: Not Given Divalproex Sodium (Depakote Dr) 500 mg PO Q12 [facility] Last Admin: 06/24/18 10:38 Dose: Not Given Famotidine (Pepcid) 20 mg PO [facility] Last Admin: 06/23/18 21:37 Dose: 20 mg Folic Acid (Folic Acid) 1 mg PO DAILY [facility] Last Admin: 06/24/18 10:38 Dose: Not Given Furosemide (Lasix) 40 mg PO DAILY [facility] Last Admin: 06/24/18 10:39 Dose: Not Given Haloperidol (Haldol) 5 mg PO Q6H PRN PRN Reason: Agitation Last Admin: 06/23/18 21:41 Dose: 5 mg Heparin Sodium (Porcine) (Heparin) 5,000 units SC Q12 [facility] Last Admin: 06/24/18 10:38 Dose: Not Given Insulin Aspart (Novolog) 0 unit SC [facility]; Protocol Last Admin: 06/24/18 11:53 Dose: Not Given Lactulose (Enulose) 20 gm PO DAILY [facility] Last Admin: 06/24/18 10:38 Dose: Not Given Levetiracetam (Keppra) 250 mg PO BID [facility] Last Admin: 06/24/18 10:39 Dose: Not Given Lorazepam (Ativan) 1 mg PO HS [facility] Last Admin: 06/23/18 21:34 Dose: 1 mg Lorazepam (Ativan) 0.5 mg PO Q12 PRN PRN Reason: Agitation Last Admin: 06/23/18 16:12 Dose: 0.5 mg Multivitamins (Hexavitamin) 1 tab PO DAILY [facility] Last Admin: 06/24/18 10:39 Dose: Not Given Quetiapine Fumarate (Seroquel) 25 mg PO HS [facility] Last Admin: 06/23/18 21:38 Dose: 25 mg Spironolactone (Aldactone) 100 mg PO DAILY [facility] Last Admin: 06/24/18 10:38 Dose: Not Given Thiamine HCl (Vitamin B1 Tab) 100 mg PO DAILY [facility] Last Admin: 06/24/18 10:39 Dose: Not Given - Labs Labs: 06/24/18 06:57 06/24/18 06:57 - Constitutional Appears: Well - Head Exam Head Exam: ATRAUMATIC, NORMAL INSPECTION, NORMOCEPHALIC - Eye Exam Eye Exam: EOMI, Normal appearance, PERRL Pupil Exam: NORMAL ACCOMODATION, PERRL - ENT Exam ENT Exam: Mucous Membranes Moist, Normal Exam - Neck Exam Neck Exam: Full ROM, Normal Inspection. absent: Lymphadenopathy - Respiratory Exam Respiratory Exam: Decreased Breath Sounds - Cardiovascular Exam Cardiovascular Exam: REGULAR RHYTHM, +S1, +S2 - GI/Abdominal Exam GI & Abdominal Exam: Soft, Diminished Bowel Sounds - Rectal Exam Rectal Exam: Deferred Assessment and Plan (1) Altered mental status Status: Acute (2) Agitation Status: Acute (3) Change in mental status Status: Acute (4) Dementia Status: Acute (5) Abdominal bloating Status: Acute (6) Anemia Status: Acute (7) Hepatic encephalopathy Status: Acute - Assessment and Plan (Free Text) Plan: medications reivewed vitals reviewed labs reviewed aldactone aspirin ativan depakote enulose folic acid haldol heparin hexavitamin keppra lasix novolog pepcid seroquel vitamin b1 tab Status post psych doctor so 8 continues patient's Patient also had a brain brain MRI done on this admission which revealed no acute intracranial abnormality Cystic and S and gliosis in the left posterior parietal lobe sequelae of infarction Chronic right posterior occipital infarction Mild age-related global volume loss Diagnosis
[2018-06-25] MEDS: (Novolog) Insulin Aspart, Recombinant 100 u/ml 10 ml vial SC SCH ×3 (08:04→17:19)
[2018-06-25] MEDS: Multiple Vitamins Tab PO SCH (09:46)
[2018-06-25] MEDS: Divalproex 500 mg DR Tab PO SCH (09:47)
[2018-06-25 15:53] VITALS: BP 105/74; PULSE 84; TEMP 97.9; O2SAT 95
--- NOTE | 2018-06-25 16:34 | CP.PCM.PN ---
Subjective - Date & Time of Evaluation Date of Evaluation: 06/25/18 Time of Evaluation: 16:34 - Subjective Subjective: awake, alert, no acute agitation or distress. Objective - Vital Signs/Intake and Output Vital Signs (last 24 hours): Temp Pulse Resp BP Pulse Ox 97.9 F 84 20 105/74 95 06/25/18 15:52 06/25/18 15:52 06/25/18 15:52 06/25/18 15:52 06/25/18 15:52 Intake and Output: 06/25/18 06/25/18 06:59 18:59 Intake Total 650 400 Balance 650 400 - Medications Medications: Current Medications Aspirin (Aspirin) 325 mg PO DAILY [facility] Last Admin: 06/25/18 09:46 Dose: 325 mg Divalproex Sodium (Depakote Dr) 500 mg PO Q12 [facility] Last Admin: 06/25/18 09:47 Dose: 500 mg Famotidine (Pepcid) 20 mg PO HS [facility] Last Admin: 06/24/18 21:42 Dose: 20 mg Folic Acid (Folic Acid) 1 mg PO DAILY [facility] Last Admin: 06/25/18 09:45 Dose: 1 mg Furosemide (Lasix) 40 mg PO DAILY [facility] Last Admin: 06/25/18 09:46 Dose: 40 mg Haloperidol (Haldol) 5 mg PO Q6H PRN PRN Reason: Agitation Last Admin: 06/24/18 21:42 Dose: 5 mg Heparin Sodium (Porcine) (Heparin) 5,000 units SC Q12 [facility] Last Admin: 06/25/18 09:46 Dose: 5,000 units Insulin Aspart (Novolog) 0 unit SC [facility]; Protocol Last Admin: 06/25/18 11:33 Dose: Not Given Lactulose (Enulose) 20 gm PO DAILY [facility] Last Admin: 06/25/18 09:46 Dose: 20 gm Levetiracetam (Keppra) 250 mg PO BID [facility] Last Admin: 06/25/18 09:45 Dose: 250 mg Lorazepam (Ativan) 1 mg PO HS [facility] Last Admin: 06/24/18 21:42 Dose: 1 mg Lorazepam (Ativan) 0.5 mg PO Q12 PRN PRN Reason: Agitation Last Admin: 06/23/18 16:12 Dose: 0.5 mg Multivitamins (Hexavitamin) 1 tab PO DAILY [facility] Last Admin: 06/25/18 09:46 Dose: 1 tab Quetiapine Fumarate (Seroquel) 25 mg PO HS [facility] Last Admin: 06/24/18 21:42 Dose: 25 mg Spironolactone (Aldactone) 100 mg PO DAILY [facility] Last Admin: 06/25/18 09:43 Dose: 100 mg Thiamine HCl (Vitamin B1 Tab) 100 mg PO DAILY [facility] Last Admin: 06/25/18 09:46 Dose: 100 mg - Labs Labs: 06/24/18 06:57 06/24/18 06:57 Assessment and Plan - Assessment and Plan (Free Text) Assessment: 67 year old male admitted from [facility] with altered mental status and agitations, seen and examined. Alert, no acute agitations, po intake is fair, no acute distress. Depakote started by neuro along with keppra 250mg po bid. Discussed with DR Taylor Ohara, plan to discharge back to the [facility] on the present medications. To be followed up with neuro and psyche in the [facility].
--- NOTE | 2018-06-25 17:32 | CP.PCM.PN ---
Subjective - Date & Time of Evaluation Date of Evaluation: 06/25/18 - Subjective Subjective: Patient seen and examined today no nausea no vomiting no dizziness no diarrhea no fever no shortness of breath Objective - Vital Signs/Intake and Output Vital Signs (last 24 hours): Temp Pulse Resp BP Pulse Ox 97.9 F 84 20 105/74 95 06/25/18 15:52 06/25/18 15:52 06/25/18 15:52 06/25/18 15:52 06/25/18 15:52 Intake and Output: 06/25/18 06/25/18 06:59 18:59 Intake Total 650 400 Balance 650 400 - Medications Medications: Current Medications Aspirin (Aspirin) 325 mg PO DAILY [facility] Last Admin: 06/25/18 09:46 Dose: 325 mg Divalproex Sodium (Depakote Dr) 500 mg PO Q12 [facility] Last Admin: 06/25/18 09:47 Dose: 500 mg Famotidine (Pepcid) 20 mg PO [facility] Last Admin: 06/24/18 21:42 Dose: 20 mg Folic Acid (Folic Acid) 1 mg PO DAILY [facility] Last Admin: 06/25/18 09:45 Dose: 1 mg Furosemide (Lasix) 40 mg PO DAILY [facility] Last Admin: 06/25/18 09:46 Dose: 40 mg Haloperidol (Haldol) 5 mg PO Q6H PRN PRN Reason: Agitation Last Admin: 06/24/18 21:42 Dose: 5 mg Heparin Sodium (Porcine) (Heparin) 5,000 units SC Q12 [facility] Last Admin: 06/25/18 09:46 Dose: 5,000 units Insulin Aspart (Novolog) 0 unit SC [facility]; Protocol Last Admin: 06/25/18 17:19 Dose: Not Given Lactulose (Enulose) 20 gm PO DAILY [facility] Last Admin: 06/25/18 09:46 Dose: 20 gm Levetiracetam (Keppra) 250 mg PO BID [facility] Last Admin: 06/25/18 17:18 Dose: 250 mg Lorazepam (Ativan) 1 mg PO HS [facility] Last Admin: 06/24/18 21:42 Dose: 1 mg Lorazepam (Ativan) 0.5 mg PO Q12 PRN PRN Reason: Agitation Last Admin: 06/23/18 16:12 Dose: 0.5 mg Multivitamins (Hexavitamin) 1 tab PO DAILY [facility] Last Admin: 06/25/18 09:46 Dose: 1 tab Quetiapine Fumarate (Seroquel) 25 mg PO HS [facility] Last Admin: 06/24/18 21:42 Dose: 25 mg Spironolactone (Aldactone) 100 mg PO DAILY [facility] Last Admin: 06/25/18 09:43 Dose: 100 mg Thiamine HCl (Vitamin B1 Tab) 100 mg PO DAILY [facility] Last Admin: 06/25/18 09:46 Dose: 100 mg - Labs Labs: 06/24/18 06:57 06/24/18 06:57 - Constitutional Appears: Well - Head Exam Head Exam: ATRAUMATIC, NORMAL INSPECTION, NORMOCEPHALIC - Eye Exam Eye Exam: EOMI, Normal appearance, PERRL Pupil Exam: NORMAL ACCOMODATION, PERRL - ENT Exam ENT Exam: Mucous Membranes Moist, Normal Exam - Neck Exam Neck Exam: Full ROM, Normal Inspection. absent: Lymphadenopathy - Respiratory Exam Respiratory Exam: Decreased Breath Sounds - Cardiovascular Exam Cardiovascular Exam: REGULAR RHYTHM, +S1, +S2 - GI/Abdominal Exam GI & Abdominal Exam: Soft, Diminished Bowel Sounds - Rectal Exam Rectal Exam: Deferred - Neurological Exam Neurological Exam: Oriented x3 Assessment and Plan - Assessment and Plan (Free Text) Plan: Aldactone Aspirin Ativan Depakote No levels Folic acid Haldol heparin hexavitamin Keppra Lasix NovoLog Pepcid Seroquel Vitamin B1 tablet Medications reviewed Vitals reviewed Labs reviewed
== END 2018-06-25 17:45 | DRG 93 ==
LOC: C.ER 23:15 → C.9E 06-22 03:46 → C.3T 06-22 18:55
PROVIDERS: ADMIT Internal Medicine Nephrology; ATTEND Internal Medicine Nephrology
DX: G92 Toxic encephalopathy (principal); R41.82 Altered mental status, unspecified; F03.90 Unspecified dementia, unspecified severity, without behavioral disturbance, psychotic disturbance, mood disturbance, and anxiety; G93.89 Other specified disorders of brain; I10 Essential (primary) hypertension; I27.20 Pulmonary hypertension, unspecified; K74.60 Unspecified cirrhosis of liver; Z91.19 Patient's noncompliance with other medical treatment and regimen; G40.909 Epilepsy, unspecified, not intractable, without status epilepticus; K21.9 Gastro-esophageal reflux disease without esophagitis; E11.9 Type 2 diabetes mellitus without complications; D64.9 Anemia, unspecified; K72.90 Hepatic failure, unspecified without coma

== ENCOUNTER 2018-07-04 22:36 | Emergency (ER) | payer MEDICARE, OTHER ==
[2018-07-04 22:37] VITALS: BMI 20.9
--- NOTE | 2018-07-04 23:47 | C.PDOC ---
History Of Present Illness 67 year old male is sent to the ED from his [facility] for evaluation. As per [facility] staff patient was belligerent, aggressive and threatening towards the staff. Patient was stating he was going to leave the [facility]. <Jose Luis Cochran - Last Filed: 07/05/18 06:59> History Per: Patient, EMS History/Exam Limitations: no limitations Onset/Duration Of Symptoms: Hrs Current Symptoms Are (Timing): Still Present Suicide/Self Injury Attempted (Context): None Associated Symptoms: Anger, Agitation. denies: Depression, Suicidal Thoughts, Suicidal Plan Recent travel outside of the [place]: No Additional History Per: Patient, EMS, [facility] <Jose Luis Cohcran - Last Filed: 07/05/18 06:59> <Lesli Worley - Last Filed: 07/05/18 14:52> Chief Complaint (Nursing): Psychiatric Evaluation Past Medical History Reviewed: Historical Data, Nursing Documentation, Vital Signs Vital Signs: Last Vital Signs Temp 99.0 F 07/04/18 22:43 Pulse 93 H 07/04/18 22:43 Resp 19 07/04/18 22:43 BP 155/88 H 07/04/18 22:43 Pulse Ox 97 07/04/18 22:43 - Medical History PMH: Arthritis, HTN, Seizures Denies: Chronic Kidney Disease Surgical History: No Surg Hx, Endoscopy - [facility] Procedures DRAINAGE OF PERITONEAL CAVITY, PERCUTANEOUS APPROACH (01/19/17) INSERTION OF INFUSION DEV INTO SUP VENA CAVA, PERC APPROACH (09/09/16) INSPECTION OF ABDOMINAL WALL, PERCUTANEOUS APPROACH (05/19/16) INTRODUCE LOCAL ANESTH IN PERIPH NRV, PLEXI, PERC (01/19/17) INTRODUCTION OF NUTRITIONAL INTO PERIPH VEIN, PERC APPROACH (05/19/16) SUPPLEMENT ABDOMINAL WALL WITH SYNTH SUB, PERC ENDO APPROACH (01/19/17) ULTRASONOGRAPHY OF ABDOMEN (11/12/16) ULTRASONOGRAPHY OF SUPERIOR VENA CAVA, GUIDANCE (09/09/16) Family History: States: Unknown Family Hx - Social History Hx Alcohol Use: Yes Hx Substance Use: No - Immunization History Hx Tetanus Toxoid Vaccination: No Hx Influenza Vaccination: Yes (12/26/2016) Hx Pneumococcal Vaccination: No <Jose Luis Cochran Lj - Last Filed: 07/05/18 06:59> Vital Signs: Last Vital Signs Temp 98.8 F 07/05/18 10:56 Pulse 75 07/05/18 10:56 Resp 18 07/05/18 09:00 BP 102/64 07/05/18 10:56 Pulse Ox 97 07/05/18 10:56 - [facility] Procedures DRAINAGE OF PERITONEAL CAVITY, PERCUTANEOUS APPROACH (01/19/17) INSERTION OF INFUSION DEV INTO SUP VENA CAVA, PERC APPROACH (09/09/16) INSPECTION OF ABDOMINAL WALL, PERCUTANEOUS APPROACH (05/19/16) INTRODUCE LOCAL ANESTH IN PERIPH NRV, PLEXI, PERC (01/19/17) INTRODUCTION OF NUTRITIONAL INTO PERIPH VEIN, PERC APPROACH (05/19/16) SUPPLEMENT ABDOMINAL WALL WITH SYNTH SUB, PERC ENDO APPROACH (01/19/17) ULTRASONOGRAPHY OF ABDOMEN (11/12/16) ULTRASONOGRAPHY OF SUPERIOR VENA CAVA, GUIDANCE (09/09/16) <Lesli Worley - Last Filed: 07/05/18 14:52> Review Of Systems Constitutional: Negative for: Fever, Chills Cardiovascular: Negative for: Chest Pain Respiratory: Negative for: Shortness of Breath Gastrointestinal: Negative for: Nausea, Vomiting, Abdominal Pain Skin: Negative for: Rash Neurological: Negative for: Weakness, Numbness Psych: Negative for: Depression, Suicidal ideation <Jose Luis Cochran - Last Filed: 07/05/18 06:59> Physical Exam - Physical Exam Appears: Non-toxic, Combative, Agitated Skin: Normal Color, Warm, Dry Head: Atraumatic, Normacephalic Eye(s): bilateral: Normal Inspection Neck: Normal ROM, Supple Chest: Symmetrical Cardiovascular: Rhythm Regular Respiratory: Normal Breath Sounds, No Rales, No Rhonchi, No Wheezing Gastrointestinal/Abdominal: Soft, No Tenderness, No Guarding, No Rebound Extremity: Normal ROM, No Tenderness, No Swelling Neurological/Psych: Oriented x3, Normal Speech, Normal Cognition Gait: Steady <Jose Luis Cochran - Last Filed: 07/05/18 06:59> ED Course And Treatment - Laboratory Results Result Diagrams: 07/04/18 23:57 07/04/18 23:57 ECG: Interpreted By Me, Viewed By Me ECG Rhythm: Sinus Rhythm, L BBB ECG Interpretation: No Acute Changes, Abnormal Interpretation Of ECG: NSR, LAD, CLBBB Abnormal tracings, no significant change from old tracings of 12/22/2017. O2 Sat by Pulse Oximetry: 97 (ON RA) Pulse Ox Interpretation: Normal - Radiology CXR: Interpreted by Hi CXR Interpretation: Yes: No Acute Disease. No: Infiltrates Progress Note: 0450H medically clear for psych. evaluation. Reevaluation Time: 04:54 <CochranJose Luis Lj - Last Filed: 07/05/18 06:59> - Laboratory Results Result Diagrams: 07/04/18 23:57 07/04/18 23:57 Lab Results: Total Bilirubin 0.5 mg/dL (0.2-1.3) 07/04/18 23:57 AST 22 U/L (17-59) 07/04/18 23:57 ALT 11 U/L (21-72) L D 07/04/18 23:57 Alkaline Phosphatase 67 U/L (38-126) 07/04/18 23:57 Total Protein 8.2 g/dL (6.3-8.3) 07/04/18 23:57 Albumin 4.3 g/dL (3.5-5.0) 07/04/18 23:57 Globulin 3.8 gm/dL (2.2-3.9) 07/04/18 23:57 Albumin/Globulin Ratio 1.1 (1.0-2.1) 07/04/18 23:57 Urine Color Yellow (YELLOW) 07/05/18 00:45 Urine Clarity Clear (Clear) 07/05/18 00:45 Urine pH 6.5 (5.0-8.0) 07/05/18 00:45 Ur Specific [place] 1.020 (1.003-1.030) 07/05/18 00:45 Urine Protein Negative mg/dL (NEGATIVE) 07/05/18 00:45 Urine Glucose (UA) Negative mg/dL (Normal) 07/05/18 00:45 Urine Ketones Trace mg/dL (NEGATIVE) 07/05/18 00:45 Urine Blood Negative (NEGATIVE) 07/05/18 00:45 Urine Nitrate Negative (NEGATIVE) 07/05/18 00:45 Urine Bilirubin Negative (NEGATIVE) 07/05/18 00:45 Urine Urobilinogen 0.2 mg/dL (0.2-1.0) 07/05/18 00:45 Ur Leukocyte Esterase Negative Mariah/uL (Negative) 07/05/18 00:45 Urine WBC (Auto) < 1 /hpf (0-5) 07/05/18 00:45 Urine RBC (Auto) < 1 /hpf (0-3) 07/05/18 00:45 <MeirLesli - Last Filed: 07/05/18 14:52> Progress - Re-Evaluation Re-evaluation Note: 07/05/18 11:31 APPEARS COMFORTABLE NAD. PENDING [facility] 07/05/18 14:02 PT ADMITTED 06/22/18 past medical history of arthritis and epilepsy (on Keppra 500 mg BID), ADMITTED FOR AMS, AGITATION 07/05/18 14:50 CLEARED FOR DC BY CRISIS - Data Reviewed Data Reviewed: Lab, Diagnostic imaging, Old records <Lesli Worley - Last Filed: 07/05/18 14:52> Medical Decision Making Medical Decision Making: Plan: * Labs * UA Patient attempting to swing at the staff, agitated. Pending [facility] <Jose Luis Cochran - Last Filed: 07/05/18 06:59> Disposition - Disposition Disposition Time: 07:00 - POA Present On Arrival: None <Jose Luis Cochran - Last Filed: 07/05/18 06:59> Counseled Patient/Family Regarding: Studies Performed, Diagnosis, Need For Followup - Disposition Disposition Time: 14:51 <Lesli Worley - Last Filed: 07/05/18 14:52> - Disposition Referrals: YOUR,PMD [Other] Disposition: HOME/ ROUTINE Condition: GOOD Instructions: Dementia (DC) Forms: [facility] (French), General Discharge Instructions - Clinical Impression Clinical Impression: Dementia, Agitation - Scribe Statement The provider has reviewed the documentation as recorded by the Scribe Baron Hanley All medical record entries made by the Scribe were at my direction and personally dictated by me. I have reviewed the chart and agree that the record accurately reflects my personal performance of the history, physical exam, medical decision making, and the department course for this patient. I have also personally directed, reviewed, and agree with the discharge instructions and disposition. <Jose Luis Cochran - Last Filed: 07/05/18 06:59>
[2018-07-05 00:03] LABS: BASO % 0.4 % (0.0-2.0); EOS # 0.1 K/uL (0.0-0.7); HEMOGLOBIN 13.8 g/dL (12.0-18.0); LYMPH # 1.1 K/uL (1.0-4.3); MEAN CELL VOLUME 98.5 fL (80.0-94.0); MEAN CORPUSCULAR HEMOGLOBIN 34.4 pg (27.0-31.0); MEAN CORPUSCULAR HGB CONC 34.9 g/dL (33.0-37.0); MEAN PLATELET VOLUME 7.3 fL (7.2-11.7); MONO # 0.7 K/uL (0.0-0.8); MONO % 15.2 % (0.0-10.0); NEUT % 60.4 % (50.0-75.0); NRBC % 0.1 % (0.0-2.0); RED CELL DISTRIBUTION WIDTH 14.1 % (11.5-14.5); WHITE BLOOD COUNT 4.9 K/uL (4.8-10.8)
[2018-07-05 00:58] LABS: ALB/GLOB RATIO 1.1 (1.0-2.1); ALBUMIN 4.3 g/dL (3.5-5.0); ALT/SGPT 11 U/L (21-72); AST/SGOT 22 U/L (17-59); BLOOD UREA NITROGEN 17 mg/dL (9-20); CALCIUM 9.6 mg/dl (8.6-10.4); GFR NON-AFRICAN AMERICAN > 60
[2018-07-05 01:03] LABS: URINE COLOR YELLOW (YELLOW)
[2018-07-05 01:04] LABS: URINE BILIRUBIN NEGATIVE (NEGATIVE); URINE BLOOD NEGATIVE (NEGATIVE); URINE CLARITY Clear (Clear); URINE GLUCOSE (UA) NEGATIVE (Normal)
[2018-07-05 01:05] LABS: PH,URINE 6.5 (5.0-8.0); URINE LEUKOCYTE ESTERASE NEGATIVE Leu/uL (Negative); URINE PROTEIN NEGATIVE (NEGATIVE); URINE UROBILINOGEN 0.2 mg/dL (0.2-1.0)
[2018-07-05 01:22] LABS: BARBITURATES, UR NEGATIVE (NEGATIVE); BENZODIAZEPINES, UR NEGATIVE (NEGATIVE); OPIATES, UR NEGATIVE (NEGATIVE); PHENCYCLIDINE, UR NEGATIVE (NEGATIVE)
[2018-07-05 03:21] VITALS: RESP 18
--- NOTE | 2018-07-05 09:10 | RAD ---
Chest x-ray two views HISTORY: Psychiatric clearance. COMPARISON: 06/22/2018 FINDINGS: No focal infiltrate or effusion. Nodular density at the right lung base may represent confluence of shadows with ribs and vessels. Biapical pleural thickening with upper lobe granulomatous changes. Diffuse increased interstitial lung markings. Tortuous ectatic aorta. Question calcified right infrahilar lymph node. Top normal heart size. Degenerative changes in the spine. Impression: No focal infiltrate or effusion. Chronic changes as above.
[2018-07-05 17:17] VITALS: BP 110/74; PULSE 72; TEMP 98.1; O2SAT 100
--- NOTE | 2018-07-06 20:51 | CARD ---
APPROVED REPORT Date of service: 07/05/2018 EKG Measurement Heart [id number] <Conclusion> Normal sinus rhythm Left axis deviation Left bundle branch block Abnormal ECG
== END 2018-07-05 17:17 | disposition home or self-care (01) ==
LOC: C.ER 22:36
DX: F03.90 Unspecified dementia, unspecified severity, without behavioral disturbance, psychotic disturbance, mood disturbance, and anxiety (principal); R45.1 Restlessness and agitation
CPT/HCPCS: 71046; 80053; 81001; 82140; 82948; 83735; 84100; 85025; 93005; 99285; G0480

== ENCOUNTER 2018-07-09 21:43 | Emergency (ER) | payer MEDICARE, OTHER ==
[2018-07-09 21:44] VITALS: BMI 20.9
[2018-07-09] MEDS ORDERED: QUEtiapine 12.5 MG TAB PO STA (23:02)
--- NOTE | 2018-07-09 23:03 | C.PDOC ---
History Of Present Illness 67 y/o M c PMHx dementia p/w agitation. Patient was being transferred from one facility to another and became agressive, required Ativan. Upon arrival to ED, patient is calm, cooperative, and has no complaints. Patient has been known to be agressive in the past with his history of dementia. Time Seen by Provider: 07/09/18 22:41 Chief Complaint (Nursing): Medical Clearance Past Medical History Vital Signs: Last Vital Signs Temp 97.9 F 07/09/18 22:05 Pulse 109 H 07/09/18 22:01 Resp 14 07/09/18 22:01 BP 115/80 07/09/18 22:01 Pulse Ox 100 07/09/18 22:01 - Medical History PMH: Anxiety, Arthritis, Dementia, Gastritis, Gastrointestinal Ulcer, HTN, Seizures Denies: Diabetes, Hepatitis, HIV, Chronic Kidney Disease, Sexually Transmitted Disease Surgical History: Endoscopy - [facility] Procedures DRAINAGE OF PERITONEAL CAVITY, PERCUTANEOUS APPROACH (01/19/17) INSERTION OF INFUSION DEV INTO SUP VENA CAVA, PERC APPROACH (09/09/16) INSPECTION OF ABDOMINAL WALL, PERCUTANEOUS APPROACH (05/19/16) INTRODUCE LOCAL ANESTH IN PERIPH NRV, PLEXI, PERC (01/19/17) INTRODUCTION OF NUTRITIONAL INTO PERIPH VEIN, PERC APPROACH (05/19/16) SUPPLEMENT ABDOMINAL WALL WITH SYNTH SUB, PERC ENDO APPROACH (01/19/17) ULTRASONOGRAPHY OF ABDOMEN (11/12/16) ULTRASONOGRAPHY OF SUPERIOR VENA CAVA, GUIDANCE (09/09/16) Family History: States: Unknown Family Hx - Social History Hx Alcohol Use: Yes Hx Substance Use: No - Immunization History Hx Tetanus Toxoid Vaccination: No Hx Influenza Vaccination: Yes (12/26/2016) Hx Pneumococcal Vaccination: No Review Of Systems Except As Marked, All Systems Reviewed And Found Negative. Constitutional: Negative for: Fever Cardiovascular: Negative for: Chest Pain Respiratory: Negative for: Shortness of Breath Gastrointestinal: Negative for: Vomiting Physical Exam - Physical Exam Additional Physical Exam Comments: gen nad head nc/at eyes no icterus ent mmm neck no midline tenderness cv reg rate lungs cta b/l abd soft, nt back no cva tenderness skin no rash neuro alert ED Course And Treatment O2 Sat by Pulse Oximetry: 100 Medical Decision Making Medical Decision Making: Patient without any current complaints and no change in mental baseline at this time. Will transport back. Disposition - Disposition Disposition: HOME/ ROUTINE Disposition Time: 23:02 Condition: STABLE Instructions: Dementia (DC) Forms: [facility] (Yoruba) - Clinical Impression Clinical Impression: Dementia
[2018-07-09 23:35] VITALS: TEMP 97.7
[2018-07-10 01:25] VITALS: BP 152/84; PULSE 76; RESP 16; O2SAT 98
== END 2018-07-10 01:19 | disposition home or self-care (01) ==
LOC: C.ER 21:43
DX: F03.90 Unspecified dementia, unspecified severity, without behavioral disturbance, psychotic disturbance, mood disturbance, and anxiety (principal)